=== PATIENT | female | born 1965 | race Caucasian/White ===

== ENCOUNTER 2017-04-19 06:09 | Day surgery (SDC) | payer MEDICARE ==
[~2017-04-19 06:09] MED LIST: Lactated Ringers 1,000 ML IV SCH
[2017-04-19] MEDS ORDERED: DIPRIVAN 200 MG/20 ML IV ONE (06:10)
[2017-04-19] MEDS ORDERED: Versed 2 MG/2 ML Injection IV ONE (06:10)
[2017-04-19] MEDS ORDERED: Sodium Chloride 3 ML UD NEBULES IH ONE (06:45)
[2017-04-19] MEDS ORDERED: Xopenex 1.25 MG/0.5 ML UD NEBULE IH ONE ×2 (06:45→07:01)
[2017-04-19 08:49] VITALS: PULSE 97
[2017-04-19 09:08] VITALS: BP 150/79; O2SAT 95
--- NOTE | 2017-04-19 09:08 | OP ---
SURGERY DATE/TIME: 04/19/2017 0729 PREOPERATIVE DIAGNOSIS: Screening colonoscopy. POSTOPERATIVE DIAGNOSIS: Distal sigmoid colon polyp. PROCEDURE: Colonoscopy. SURGEON: Dm Vargas M.D. ANESTHESIA: MAC by Dane West CRNA. ESTIMATED BLOOD LOSS: Minimal. SPECIMENS: There is one cold forceps biopsy, one cold forceps polypectomy of sigmoid colon polyp. DESCRIPTION OF PROCEDURE: After informed written consent was obtained, the patient was taken to the endoscopy suite. She underwent monitored anesthesia and digital rectal exam showed normal sphincter tone and no internal lesions. The scope was inserted into the rectum and sequentially the entire colonic mucosa was traversed. The level of cecum was reached and verified with direct visualization of ileocecal valve. Upon withdrawal there was a small sessile polyp present in the sigmoid colon which was removed in piecemeal fashion with cold forceps and had minimal bleeding following removal and did resolve. Prior to withdrawal retroflexion was within normal limits. The scope was removed and the patient was transferred to the recovery room in excellent condition.
== END 2017-04-19 09:15 | disposition home or self-care (01) ==
LOC: SDC 06:09
PROVIDERS: ATTEND Family Medicine
PROC: 0DBN8ZX Excision of Sigmoid Colon, Via Natural or Artificial Opening Endoscopic, Diagnostic (ICD-10-PCS; principal; 2017-04-19)
DX: Z12.11 Encounter for screening for malignant neoplasm of colon (principal); D12.5 Benign neoplasm of sigmoid colon; J44.9 Chronic obstructive pulmonary disease, unspecified; J45.909 Unspecified asthma, uncomplicated
CPT/HCPCS: 00810; 36415; 88305; 94640; J2250; J2704; A9270-GY

== ENCOUNTER 2017-11-17 00:05 | Inpatient (IN) | payer MEDICARE ==
[2017-11-17] MEDS ORDERED: Zithromax 500 MG/ 250 ML NaCl Premix 500 MG/250 ML IVPB IV STA (00:14)
[2017-11-17] MEDS ORDERED: PROVENTIL 2.5 MG/3 ML NEB IH ONE ×2 (00:14→02:19)
[2017-11-17] MEDS ORDERED: ROCEPHIN 1 Gm-D5w 50 ml Bag** 1 G/50 ML IVPB IV STA (00:14)
[2017-11-17] MEDS ORDERED: Sodium Chloride 0.9% 1000 ML 1,000 ML IV SCH (00:15)
--- NOTE | 2017-11-17 00:24 | ERPHSYRPT ---
- History of Present Illness Time Seen by Provider: 11/17/17 00:07 Source: patient Exam Limitations: no limitations Physician History: FOR THE PAST 3 DAYS PT HAS HAD NAUSEA AND CHILLS; FOR THE PAST 2 DAYS A SORE THROAT, DIZZINESS AND VERTEX HEADACHE; FOR THE PAST 9 HOURS SHORTNESS OF AIR; FOR THE PAST 3 HOURS TACHYCARDIA. PT ALSO C/O CHRONIC UPPER ABDOMINAL PAIN FOR THE PAST 3 MONTHS ONLY AFTER DRINKING COFFEE OR SMOKING. Allergies/Adverse Reactions: sulfamethoxazole [From Bactrim] Allergy (Verified 11/17/17 00:23) trimethoprim [From Bactrim] Allergy (Verified 11/17/17 00:23) Home Medications: Divalproex Sodium [Depakote] 500 mg PO TID 09/03/14 [History] Trazodone HCl 50 mg [Desyrel 50 mg] 150 mg PO HS 09/03/14 [History] Paliperidone [Invega] 9 mg PO DAILY 10/17/15 [History] Ramelteon [Rozerem] 8 mg PO QHS 12/14/15 [History] Albuterol/Ipratropium 3ml Neb* [DUONEB 0.5-3 MG/3 ml Neb] 3 ml IH TIDPRN 04/19 [History] Hx Tetanus, Diphtheria Vaccination/Date Given: Yes (unknown) Hx Influenza Vaccination/Date Given: Yes Hx Pneumococcal Vaccination/Date Given: No - Review of Systems Constitutional: Chills Ears, Nose, & Throat: Throat Pain Respiratory: Dyspnea Cardiac: Other (TACHYCARDIA) Abdominal/Gastrointestinal: Abdominal Pain, Nausea Neurological: Dizziness, Headache All Other Systems: Reviewed and Negative - Past Medical History Pertinent Past Medical History: Yes Neurological History: Peripheral Neuropathy ENT History: No Pertinent History Cardiac History: Other Respiratory History: Asthma, COPD, Emphysema, Sleep Apnea Endocrine Medical History: No Pertinent History Musculoskeletal History: No Pertinent History GI Medical History: Gallbladder Disease History: No Pertinent History Psycho-Social History: Anxiety, Bipolar, Depression, Other Female Reproductive Disorders: Menstrual Problems Other Medical History: hx of cellulitis, hx seizures 3years ago - Past Surgical History Past Surgical History: Yes Neuro Surgical History: No Pertinent History Cardiac: No Pertinent History Respiratory: No Pertinent History Gastrointestinal: Cholecystectomy Genitourinary: No Pertinent History Musculoskeletal: No Pertinent History Female Surgical History: Section, Tubal Ligation Other Surgical History: GANGLION CYST - Social History Smoking Status: Current every day smoker How long have you smoked: 30years Exposure to second hand smoke: Yes Drug Use: none Patient Lives Alone: No Significant Family History: no pertinent family hx - Nursing Vital Signs Nursing Vital Signs: Initial Vital Signs Temperature 97.8 F 11/17/17 00:07 Pulse Rate 122 H 11/17/17 00:07 Respiratory Rate 20 11/17/17 00:07 Blood Pressure 132/82 11/17/17 00:07 O2 Sat by Pulse Oximetry 97 11/17/17 00:07 Pain Scale Pain Intensity 6 - Physical Exam General Appearance: alert Eye Exam: PERRL/EOMI Ears, Nose, Throat Exam: TMs normal, moist mucous membranes, pharyngeal erythema Neck Exam: normal inspection Respiratory Exam: diminished breath sounds, wheezing Cardiovascular Exam: tachycardia Gastrointestinal/Abdomen Exam: soft, normal bowel sounds Back Exam: normal range of motion Extremity Exam: swelling (+1 ANKLE EDEMA BILATERALLY) Neurologic Exam: alert, cooperative Skin Exam: rash (ERYTHEMATOUS MACULOPAPULAR RASH ON LOWER LEGS) SpO2 Interpretation: hypoxic SpO2: 89 Oxygen Delivery: Room Air - Course Nursing assessment & vital signs reviewed: Yes EKG Interpreted by Me: RATE (120), Sinus Tach, NORMAL AXIS, Non-specific ST Changes - Radiology Exams Chest X-ray Interpretation: Interpreted by me, No Pneumonia Ordered Tests: Active Orders 24 hr Category Date Time Status Eligibility Technician STAT Care 11/17/17 00:15 Active Clean Catch Urine Specimen STAT Care 11/17/17 00:14 Active EKG-ER Only STAT Care 11/17/17 00:14 Active IV Insertion STAT Care 11/17/17 00:14 Active Oxygen-ED Only NASAL CANNULA 2 lpm Care 11/17/17 00:14 Active Pulse Oximetry (ED) STAT Care 11/17/17 00:14 Active CHEST 1 VIEW (PORTABLE) Stat Exams 11/17/17 00:15 Taken AMYLASE Stat Lab 11/17/17 03:37 Completed ARTERIAL BLOOD GASES Stat Lab 11/17/17 03:13 Completed BLOOD CULTURE Stat Lab 11/17/17 00:45 Received CBC W DIFF Stat Lab 11/17/17 00:30 Completed CMP Stat Lab 11/17/17 00:30 Completed CULTURE, THROAT Stat Lab 11/17/17 00:45 Received CULTURE,SPUTUM Stat Lab 11/17/17 00:15 Uncollected D-DIMER QUANTITATION Stat Lab 11/17/17 00:30 Completed LIPASE Stat Lab 11/17/17 03:37 Completed MAGNESIUM Stat Lab 11/17/17 00:30 Completed Manual Differential NC Stat Lab 11/17/17 00:30 Completed NT PRO BNP Stat Lab 11/17/17 00:30 Completed PROTIME WITH INR Stat Lab 11/17/17 00:30 Completed PTT Stat Lab 11/17/17 00:30 Completed STREP SCREEN-BETA A Stat Lab 11/17/17 00:45 Completed TROPONIN Q3H Lab 11/17/17 00:30 Completed TROPONIN Q3H Lab 11/17/17 03:37 Completed TROPONIN Q3H Lab 11/17/17 06:15 Ordered TROPONIN Q3H Lab 11/17/17 09:15 Ordered TROPONIN Q3H Lab 11/17/17 12:15 Ordered UA W/RFX UR CULTURE Stat Lab 11/17/17 01:05 Completed BiPap/CPAP Assessment STAT RT 11/17/17 03:32 Active Respiratory Nebulizer STAT RT 11/17/17 00:16 Completed Medication Summary Generic Name Dose Route Start Last Admin Trade Name Freq PRN Reason Stop Dose Admin Sodium Chloride 1,000 mls @ 100 mls/hr 11/17/17 00:15 11/17/17 00:34 Sodium Chloride 0.9% 1000 Ml IV 12/17/17 00:14 100 mls/hr .Q10H ANTHONY Administration Discontinued Medications Generic Name Dose Route Start Last Admin Trade Name Freq PRN Reason Stop Dose Admin Albuterol Sulfate 2.5 mg 11/17/17 00:14 11/17/17 02:23 Proventil 2.5 Mg/3 Ml Neb IH 11/17/17 00:15 2.5 mg STAT ONE Administration Albuterol Sulfate Confirm 11/17/17 02:19 Proventil 2.5 Mg/3 Ml Neb Administered 11/17/17 02:20 Dose 2.5 mg IH .STK-MED ONE Ceftriaxone Sodium/Dextrose 1 g in 50 mls @ 100 mls/hr 11/17/17 00:14 00:35 Rocephin 1 Gm-D5w 50 Ml Bag IV 11/17/17 00:43 100 mls/hr STAT STA Administration Azithromycin 500 mg in 250 mls @ 250 mls/hr 11/17/17 00:14 11/17/17 01:51 Zithromax 500 Mg/ 250 Ml Nacl Premix IV 11/17/17 01:13 250 mls/hr STAT STA Administration Ceftriaxone Sodium/Dextrose Confirm 11/17/17 00:33 Rocephin 1 Gm-D5w 50 Ml Bag Administered 11/17/17 00:34 Dose 1 g in 50 mls @ ud IV .STK-MED ONE Azithromycin Confirm 11/17/17 01:48 Zithromax 500 Mg/ 250 Ml Nacl Premix Administered 11/17/17 01:49 Dose 500 mg in 250 mls @ ud IV .STK-MED ONE Lab/Rad Data: Laboratory Result Diagrams 11/17/17 00:30 11/17/17 00:30 Laboratory Results 11/17/17 11/17/17 11/17/17 Range/Units 03:37 03:37 03:13 WBC (4.0-10.5) K/mm3 RBC (4.1-5.4) M/mm3 Hgb (12.0-16.0) gm/dl Hct (35-47) % MCV (78-100) fl MCH (26-32) pg MCHC (32-36) g/dl RDW (11.5-14.0) % Plt Count (150-450) K/mm3 MPV (6-9.5) fl Absolute Granulocytes (1.4-6.9) Segmented Neutrophils (36.0-66.0) % Band Neutrophils (0.0-2.0) % Lymphocytes (Manual) (24-44) % Monocytes (Manual) (0.0-12.0) % Basophils (Manual) (0.0-1.0) % Differential Comment Platelet Estimate (NORMAL) PT (9.95-12.35) SECONDS INR (0.8-3.0) APTT (25.3-37.0) SECONDS D-Dimer (215-500) ng/mL Puncture Site RIGHT RADIAL pCO2 58 H (35-45) mmHg pO2 81 (75-100) mmHg Base Excess 4.6 H (-2.0-2.0) O2 Saturation 90.9 L (94-100) g/dF ABG pH 7.35 (7.35-7.45) ABG HCO3 32.0 H* (22-28) ABG O2 Sat (Measured) 97.7 (95-100) % Ketan Test YES A-a Gradient 46 a/A Ratio 0.64 Hemoglobin 14.7 Carboxyhemoglobin 5.9 (0.0-6.9) % THgb Methemoglobin 1.1 L (1.4-1.5) % Temperature 37.0 C POC O2 Flow Rate 28 % Sodium (137-145) mmol/L Potassium 3.9 (3.5-5.1) mmol/L Chloride (98-107) mmol/L Carbon Dioxide (22-30) mmol/L Anion Gap (5-15) MEQ/L BUN (7-17) mg/dL Creatinine (0.52-1.04) mg/dL Estimated GFR ML/MIN Glucose (74-106) mg/dL Calcium (8.4-10.2) mg/dL Magnesium (1.6-2.3) mg/dL Total Bilirubin (0.2-1.3) mg/dL AST (14-36) U/L ALT (0-35) U/L Alkaline Phosphatase (38-126) U/L Troponin I < 0.012 (0.000-0.034) ng/mL NT-Pro-B Natriuret Pep (0-900) pg/mL Serum Total Protein (6.3-8.2) g/dL Albumin (3.5-5.0) g/dL Amylase 61 (30-110) U/L Lipase 80 (23-300) U/L Ur Collection Type Urine Color (YELLOW) Urine Appearance (CLEAR) Urine pH (5-6) Ur Specific Agness (1.005-1.025) Urine Protein (Negative) Urine Ketones (NEGATIVE) Urine Blood (0-5) Kulwinder/ul Urine Nitrite (NEGATIVE) Urine Bilirubin (NEGATIVE) Urine Urobilinogen (0-1) mg/dL Ur Leukocyte Esterase (NEGATIVE) Urine Culture Reflexed (NO) Urine Glucose (NEGATIVE) mg/dL Influenza Type A Ag (NEGATIVE) Influenza Type B Ag (NEGATIVE) RSV (PCR) (Negative) Streptococcus Screen (Negative) Specimen Received 11/17/17 11/17/17 11/17/17 Range/Units 01:05 00:45 00:45 WBC (4.0-10.5) K/mm3 RBC (4.1-5.4) M/mm3 Hgb (12.0-16.0) gm/dl Hct (35-47) % MCV (78-100) fl MCH (26-32) pg MCHC (32-36) g/dl RDW (11.5-14.0) % Plt Count (150-450) K/mm3 MPV (6-9.5) fl Absolute Granulocytes (1.4-6.9) Segmented Neutrophils (36.0-66.0) % Band Neutrophils (0.0-2.0) % Lymphocytes (Manual) (24-44) % Monocytes (Manual) (0.0-12.0) % Basophils (Manual) (0.0-1.0) % Differential Comment Platelet Estimate (NORMAL) PT (9.95-12.35) SECONDS INR (0.8-3.0) APTT (25.3-37.0) SECONDS D-Dimer (215-500) ng/mL Puncture Site pCO2 (35-45) mmHg pO2 (75-100) mmHg Base Excess (-2.0-2.0) O2 Saturation (94-100) g/dF ABG pH (7.35-7.45) ABG HCO3 (22-28) ABG O2 Sat (Measured) (95-100) % Ketan Test A-a Gradient a/A Ratio Hemoglobin Carboxyhemoglobin (0.0-6.9) % THgb Methemoglobin (1.4-1.5) % Temperature C POC O2 Flow Rate % Sodium (137-145) mmol/L Potassium (3.5-5.1) mmol/L Chloride (98-107) mmol/L Carbon Dioxide (22-30) mmol/L Anion Gap (5-15) MEQ/L BUN (7-17) mg/dL Creatinine (0.52-1.04) mg/dL Estimated GFR ML/MIN Glucose (74-106) mg/dL Calcium (8.4-10.2) mg/dL Magnesium (1.6-2.3) mg/dL Total Bilirubin (0.2-1.3) mg/dL AST (14-36) U/L ALT (0-35) U/L Alkaline Phosphatase (38-126) U/L Troponin I (0.000-0.034) ng/mL NT-Pro-B Natriuret Pep (0-900) pg/mL Serum Total Protein (6.3-8.2) g/dL Albumin (3.5-5.0) g/dL Amylase (30-110) U/L Lipase (23-300) U/L Ur Collection Type CCMS Urine Color YELLOW (YELLOW) Urine Appearance CLEAR (CLEAR) Urine pH 6.0 (5-6) Ur Specific Agness 1.010 (1.005-1.025) Urine Protein NEGATIVE (Negative) Urine Ketones NEGATIVE (NEGATIVE) Urine Blood NEGATIVE (0-5) Kulwinder/ul Urine Nitrite NEGATIVE (NEGATIVE) Urine Bilirubin NEGATIVE (NEGATIVE) Urine Urobilinogen NORMAL (0-1) mg/dL Ur Leukocyte Esterase NEGATIVE (NEGATIVE) Urine Culture Reflexed NO (NO) Urine Glucose NEGATIVE (NEGATIVE) mg/dL Influenza Type A Ag NEGATIVE (NEGATIVE) Influenza Type B Ag NEGATIVE (NEGATIVE) RSV (PCR) NEGATIVE (Negative) Streptococcus Screen NEGATIVE (Negative) Specimen Received 11-16-17 0120 11/17/17 11/17/17 11/17/17 Range/Units 00:30 00:30 00:30 WBC (4.0-10.5) K/mm3 RBC (4.1-5.4) M/mm3 Hgb (12.0-16.0) gm/dl Hct (35-47) % MCV (78-100) fl MCH (26-32) pg MCHC (32-36) g/dl RDW (11.5-14.0) % Plt Count (150-450) K/mm3 MPV (6-9.5) fl Absolute Granulocytes (1.4-6.9) Segmented Neutrophils (36.0-66.0) % Band Neutrophils (0.0-2.0) % Lymphocytes (Manual) (24-44) % Monocytes (Manual) (0.0-12.0) % Basophils (Manual) (0.0-1.0) % Differential Comment Platelet Estimate (NORMAL) PT 11.1 (9.95-12.35) SECONDS INR 1.00 (0.8-3.0) APTT 30.5 (25.3-37.0) SECONDS D-Dimer 399.80 (215-500) ng/mL Puncture Site pCO2 (35-45) mmHg pO2 (75-100) mmHg Base Excess (-2.0-2.0) O2 Saturation (94-100) g/dF ABG pH (7.35-7.45) ABG HCO3 (22-28) ABG O2 Sat (Measured) (95-100) % Ketan Test A-a Gradient a/A Ratio Hemoglobin Carboxyhemoglobin (0.0-6.9) % THgb Methemoglobin (1.4-1.5) % Temperature C POC O2 Flow Rate % Sodium 142 (137-145) mmol/L Potassium 3.8 (3.5-5.1) mmol/L Chloride 100 (98-107) mmol/L Carbon Dioxide 31 H (22-30) mmol/L Anion Gap 15.1 H (5-15) MEQ/L BUN 8 (7-17) mg/dL Creatinine 0.54 (0.52-1.04) mg/dL Estimated GFR > 60 ML/MIN Glucose 148 H (74-106) mg/dL Calcium 10.0 (8.4-10.2) mg/dL Magnesium 1.7 (1.6-2.3) mg/dL Total Bilirubin 0.30 (0.2-1.3) mg/dL AST 20 (14-36) U/L ALT 16 (0-35) U/L Alkaline Phosphatase 85 (38-126) U/L Troponin I < 0.012 (0.000-0.034) ng/mL NT-Pro-B Natriuret Pep < 11.1 (0-900) pg/mL Serum Total Protein 6.9 (6.3-8.2) g/dL Albumin 4.1 (3.5-5.0) g/dL Amylase (30-110) U/L Lipase (23-300) U/L Ur Collection Type Urine Color (YELLOW) Urine Appearance (CLEAR) Urine pH (5-6) Ur Specific Agness (1.005-1.025) Urine Protein (Negative) Urine Ketones (NEGATIVE) Urine Blood (0-5) Kulwinder/ul Urine Nitrite (NEGATIVE) Urine Bilirubin (NEGATIVE) Urine Urobilinogen (0-1) mg/dL Ur Leukocyte Esterase (NEGATIVE) Urine Culture Reflexed (NO) Urine Glucose (NEGATIVE) mg/dL Influenza Type A Ag (NEGATIVE) Influenza Type B Ag (NEGATIVE) RSV (PCR) (Negative) Streptococcus Screen (Negative) Specimen Received 11/17/17 Range/Units 00:30 WBC 8.5 (4.0-10.5) K/mm3 RBC 4.70 (4.1-5.4) M/mm3 Hgb 15.0 (12.0-16.0) gm/dl Hct 46.8 (35-47) % MCV 99.6 (78-100) fl MCH 31.9 (26-32) pg MCHC 32.1 (32-36) g/dl RDW 13.9 (11.5-14.0) % Plt Count 223 (150-450) K/mm3 MPV 10.3 H (6-9.5) fl Absolute Granulocytes 5.66 (1.4-6.9) Segmented Neutrophils 65 (36.0-66.0) % Band Neutrophils 6 H (0.0-2.0) % Lymphocytes (Manual) 21 L (24-44) % Monocytes (Manual) 7 (0.0-12.0) % Basophils (Manual) 1 (0.0-1.0) % Differential Comment NORMAL Platelet Estimate NORMAL (NORMAL) PT (9.95-12.35) SECONDS INR (0.8-3.0) APTT (25.3-37.0) SECONDS D-Dimer (215-500) ng/mL Puncture Site pCO2 (35-45) mmHg pO2 (75-100) mmHg Base Excess (-2.0-2.0) O2 Saturation (94-100) g/dF ABG pH (7.35-7.45) ABG HCO3 (22-28) ABG O2 Sat (Measured) (95-100) % Ketan Test A-a Gradient a/A Ratio Hemoglobin Carboxyhemoglobin (0.0-6.9) % THgb Methemoglobin (1.4-1.5) % Temperature C POC O2 Flow Rate % Sodium (137-145) mmol/L Potassium (3.5-5.1) mmol/L Chloride (98-107) mmol/L Carbon Dioxide (22-30) mmol/L Anion Gap (5-15) MEQ/L BUN (7-17) mg/dL Creatinine (0.52-1.04) mg/dL Estimated GFR ML/MIN Glucose (74-106) mg/dL Calcium (8.4-10.2) mg/dL Magnesium (1.6-2.3) mg/dL Total Bilirubin (0.2-1.3) mg/dL AST (14-36) U/L ALT (0-35) U/L Alkaline Phosphatase (38-126) U/L Troponin I (0.000-0.034) ng/mL NT-Pro-B Natriuret Pep (0-900) pg/mL Serum Total Protein (6.3-8.2) g/dL Albumin (3.5-5.0) g/dL Amylase (30-110) U/L Lipase (23-300) U/L Ur Collection Type Urine Color (YELLOW) Urine Appearance (CLEAR) Urine pH (5-6) Ur Specific Agness (1.005-1.025) Urine Protein (Negative) Urine Ketones (NEGATIVE) Urine Blood (0-5) Kulwinder/ul Urine Nitrite (NEGATIVE) Urine Bilirubin (NEGATIVE) Urine Urobilinogen (0-1) mg/dL Ur Leukocyte Esterase (NEGATIVE) Urine Culture Reflexed (NO) Urine Glucose (NEGATIVE) mg/dL Influenza Type A Ag (NEGATIVE) Influenza Type B Ag (NEGATIVE) RSV (PCR) (Negative) Streptococcus Screen (Negative) Specimen Received - Progress Discussed with Dr.: Juan Daniel (OBS - [id number]) - Departure Time of Disposition: 04:53 Departure Disposition: Observation Clinical Impression: ACUTE RESPIRATORY FAILURE, COPD, PN, ASTHMA, BIPOLAR DISORDER, ANXIETY Condition: Stable Critical Care Time: No Referrals: OLIVER LIU MD [Primary Care Provider] -
[2017-11-17] MEDS ORDERED: Sodium Chloride 0.9% 1000 ML 1,000 ML ONE (00:33)
[2017-11-17] MEDS ORDERED: ROCEPHIN 1 Gm-D5w 50 ml Bag** 1 G/50 ML IVPB IV ONE (00:33)
[2017-11-17 00:50] LABS: Granulocyte Absolute (ANC) 5.66 (1.4-6.9); Hematocrit 46.8 % (35-47); Mean Cell Volume 99.6 fl (78-100); Mean Corpuscular Hemoglobin 31.9 pg (26-32); Mean Corpuscular Hgb Concent. 32.1 g/dl (32-36); Mean Platelet Volume 10.3 fl (6-9.5); Platelet Count 223 K/mm3 (150-450); Red Cell Distribution Width 13.9 % (11.5-14.0); White Blood Count 8.5 K/mm3 (4.0-10.5)
[2017-11-17 01:10] LABS: D-DIMER QUANTITATION 399.8 ng/mL (215-500)
[2017-11-17 01:11] LABS: PTT 30.5 SECONDS (25.3-37.0)
[2017-11-17 01:13] LABS: ALBUMIN 4.1 g/dL (3.5-5.0); ALKALINE PHOSPHATASE 85 U/L (38-126); ANION GAP 15.1 MEQ/L (5-15); BLOOD UREA NITROGEN 8 mg/dL (7-17); CHLORIDE 100 mmol/L (98-107); Carbon Dioxide 31 mmol/L (22-30); Creatinine 1 0.54 mg/dL (0.52-1.04); Glucose 148 mg/dL (74-106); Potassium 3.8 mmol/L (3.5-5.1); SGOT/AST 20 U/L (14-36); SGPT/ALT 16 U/L (0-35); SODIUM 142 mmol/L (137-145); Total Protein 6.9 g/dL (6.3-8.2)
[2017-11-17 01:22] LABS: NT PRO BNP < 11.1 pg/mL (0-900)
[2017-11-17 01:22] LABS: Appearance CLEAR (CLEAR); Bilirubin NEGATIVE (NEGATIVE); Blood NEGATIVE Ery/ul (0-5); Glucose NEGATIVE (NEGATIVE); Ketones NEGATIVE (NEGATIVE); Leukocyte Esterase NEGATIVE (NEGATIVE); Nitrite NEGATIVE (NEGATIVE); Protein,Urine Dip NEGATIVE (Negative); Urobilinogen NORMAL mg/dL (0-1)
[2017-11-17] MEDS ORDERED: Zithromax 500 MG/ 250 ML NaCl Premix 500 MG/250 ML IVPB IV ONE (01:48)
[2017-11-17 01:49] LABS: INFLUENZA A NEGATIVE (NEGATIVE); INFLUENZA B NEGATIVE (NEGATIVE); RESPIRATORY SYNCTIAL VIRUS NEGATIVE (Negative)
[2017-11-17 03:23] LABS: A-aADO2 46; ABG HEMOGLOBIN 14.7; ABG POTASSIUM 3.9 (3.5-5.1); ABG SITE RIGHT RADIAL; ALLEN TEST OK? YES; ARTERIAL BLD GAS O2 SATURATION 97.7 % (95-100); ARTERIAL BLOOD GAS BASE EXCESS 4.6 (-2.0-2.0); ARTERIAL BLOOD GAS FIO2 28 %; ARTERIAL BLOOD GAS PCO2 58 mmHg (35-45); ARTERIAL BLOOD GAS PO2 81 mmHg (75-100); ARTERIAL BLOOD GAS pH 7.35 (7.35-7.45); CARBOXYHEMOGLOBIN 5.9 % THgb (0.0-6.9); HGB O2 SAT 90.9 g/dF (94-100); Methhemoglobin 1.1 % (1.4-1.5); paO2 pAO1 0.64
[2017-11-17 03:42] LABS: BAND 6 % (0.0-2.0); Basophil 1 % (0.0-1.0); Lymphocytes 21 % (24-44); Monocyte 7 % (0.0-12.0); Neutrophils 65 % (36.0-66.0); Platelet Estimate NORMAL (NORMAL); Total Cells Counted 100
[2017-11-17 03:55] LABS: AMYLASE 61 U/L (30-110); LIPASE 80 U/L (23-300)
[2017-11-17] MEDS ORDERED: solu-MEDROL 125 MG IV ONE (04:54)
[2017-11-17] MEDS ORDERED: solu-MEDROL 125 MG ONE (04:58)
[2017-11-17] MEDS ORDERED: solu-MEDROL 125 MG IV SCH (06:24)
[2017-11-17] MEDS ORDERED: Phenergan 25 MG INJ IV PRN (06:24)
[2017-11-17] MEDS ORDERED: PROVENTIL 2.5 MG/3 ML NEB IH PRN (06:24)
[2017-11-17] MEDS ORDERED: DUONEB 0.5-3 MG/3 ml Neb IH SCH (07:00)
--- NOTE | 2017-11-17 08:39 | PCM.HP ---
History of Present Illness - Chief Complaint Chief Complaint: Shortness of Breath Date: 11/17/17 History of Present Illness: is a 52 year old female. Who developed some nausea for the last few days and last night was sitting at her kitchen table and smoked 5 cigarettes in a row and then suddenly became very short of breath and called ems. She said she feels like the smoke fried her brain like her brain is just full of smoke now and she feels like she has brain cancer. She is afraid the smoke fried her lungs and she won't get better. SHe usually smokes about 1/2 ppd she states. She denies any hallucinations right now. She has not had any fevers minimal coughing. - Review of Systems Constitutional: Fatigue, No Fever, No Chills Eyes: No Symptoms Ears, Nose, & Throat: No Symptoms Respiratory: Cough, Short Of Breath Cardiac: No Chest Pain, No Edema, No Syncope Abdominal/Gastrointestinal: No Abdominal Pain, No Nausea, No Vomiting, No Diarrhea Genitourinary Symptoms: No Dysuria Musculoskeletal: No Back Pain, No Neck Pain Skin: No Rash Neurological: No Dizziness, No Focal Weakness, No Sensory Changes Psychological: No Symptoms Endocrine: No Symptoms Hematologic/Lymphatic: No Symptoms Immunological/Allergic: No Symptoms Medications & Allergies Home Medications: Home Medication List Divalproex Sodium [Depakote] 500 mg PO TID 09/03/14 [History Confirmed 11/17/17] Trazodone HCl 50 mg [Desyrel 50 mg] 150 mg PO HS 09/03/14 [History Confirmed 11/17/17] Paliperidone [Invega] 9 mg PO DAILY 10/17/15 [History Confirmed 11/17/17] Ramelteon [Rozerem] 8 mg PO QHS 12/14/15 [History Confirmed 11/17/17] Albuterol/Ipratropium 3ml Neb* [DUONEB 0.5-3 MG/3 ml Neb] 3 ml IH TIDPRN 04/19 [History Confirmed 11/17/17] Allergies/Adverse Reactions: Allergies Allergy/AdvReac Type Severity Reaction Status Date / Time sulfamethoxazole Allergy Verified 11/17/17 00:23 [From Bactrim] trimethoprim [From Bactrim] Allergy Verified 11/17/17 00:23 - Past Medical History Past Medical History: Yes Neurological History: Peripheral Neuropathy ENT History: No Pertinent History Cardiac History: Other Respiratory History: Asthma, COPD, Emphysema, Sleep Apnea Endocrine Medical History: No Pertinent History Musculoskelatal History: No Pertinent History GI Medical History: Gallbladder Disease History: No Pertinent History Pyscho-Social History: Anxiety, Bipolar, Depression, Other Reproductive Disorders: Menstrual Problems Comment: hx of cellulitis, hx seizures 3years ago - Female History Hx Last Menstrual Period: postmenopausal - Past Surgical History Past Surgical History: Yes Neuro Surgical History: No Pertinent History Cardiac History: No Pertinent History Respiratory Surgery: No Pertinent History GI Surgical History: Cholecystectomy Genitourinary Surgical Hx: No Pertinent History Musculskeletal Surgical Hx: No Pertinent History Female Surgical History: Section, Tubal Ligation Other Surgical History: GANGLION CYST - Social History Smoking Status: Current every day smoker How long have you smoked: 30years Exposure to second hand smoke: Yes Alcohol: None Drug Use: none Significant Family History: no pertinent family hx - Physical Exam Vital Signs: Vital Signs - 24 hr Temp Pulse Resp BP BP Pulse Ox 11/17/17 07:35 98.6 F 106 H 20 124/73 94 L 11/17/17 05:06 101 H 18 98/68 95 11/17/17 04:53 89 L 11/17/17 03:28 118 H 22 126/81 95 11/17/17 02:23 105 H 22 89 L 11/17/17 01:49 102 H 22 120/78 94 L 11/17/17 01:17 96 11/17/17 00:07 97.8 F 122 H 20 132/82 94 L Oxygen-Last 24 hours O2 Percentage 2 Liters = 28% O2 Percentage 2 Liters = 28% O2 Percentage 2 Liters = 28% O2 Percentage 2 Liters = 28% O2 Percentage 2 Liters = 28% General Appearance: no apparent distress, alert, obese Neurologic Exam: alert, oriented x 3, cooperative, normal mood/affect, nml cerebellar function, nml station & gait, sensation nml, No motor deficits Eye Exam: PERRL/EOMI, eyes nml inspection Ears, Nose, Throat Exam: normal ENT inspection, pharynx normal, moist mucous membranes Neck Exam: normal inspection, non-tender, supple, full range of motion Respiratory Exam: normal breath sounds, lungs clear, No respiratory distress Cardiovascular Exam: regular rate/rhythm, normal heart sounds, normal peripheral pulses Gastrointestinal/Abdomen Exam: soft, normal bowel sounds, No tenderness, No mass Back Exam: normal inspection, normal range of motion, No CVA tenderness, No vertebral tenderness Extremity Exam: normal inspection, normal range of motion, pelvis stable Skin Exam: normal color, warm, dry, No rash Lymphatic Exam: No adenopathy Assessment/Plan (1) COPD exacerbation Current Visit: Yes Status: Acute Assessment & Plan: on solumedrol 40 q6h improved on bipap has been off bipap on nc o2 doing well now continue steroids on ceftriaxone and azithromycin continue home meds for psychological chronic history of some psychosis and is having some delusional discussion now but denies hallucinations she is not on O2 at home nicotine patch and smoking cessation discussed. Code(s): J44.1 - CHRONIC OBSTRUCTIVE PULMONARY DISEASE W (ACUTE) EXACERBATION (2) Acute hypoxemic respiratory failure Current Visit: Yes Status: Acute Code(s): J96.01 - ACUTE RESPIRATORY FAILURE WITH HYPOXIA (3) Delusional disorder Current Visit: No Status: Acute Code(s): F22 - DELUSIONAL DISORDERS (4) Essential hypertension Current Visit: Yes Status: Chronic Code(s): I10 - ESSENTIAL (PRIMARY) HYPERTENSION (5) Schizophreniform psychosis, confusional type Current Visit: Yes Status: Chronic Code(s): F20.81 - SCHIZOPHRENIFORM DISORDER (6) Morbid obesity Current Visit: Yes Status: Chronic Code(s): E66.01 - MORBID (SEVERE) OBESITY DUE TO EXCESS CALORIES
--- NOTE | 2017-11-17 08:50 | XRAY ---
Indication: Short of breath. Comparison: December 14, 2015. Portable chest remains clear. Heart and mediastinal structures within normal limits. Bony thorax intact. Impression: Stable nonacute chest.
[2017-11-17] MEDS ORDERED: MEDICATION INTERVENTION MC SCH (09:30)
[2017-11-17 09:48] LABS: Hematocrit 46.8 % (35-47); Mean Cell Volume 101.1 fl (78-100); Mean Corpuscular Hemoglobin 32.4 pg (26-32); Mean Corpuscular Hgb Concent. 32.1 g/dl (32-36); Mean Platelet Volume 10.8 fl (6-9.5); Platelet Count 217 K/mm3 (150-450); Red Blood Count 4.63 M/mm3 (4.1-5.4); White Blood Count 8.4 K/mm3 (4.0-10.5)
[2017-11-17 09:57] LABS: ALBUMIN 3.9 g/dL (3.5-5.0); ALKALINE PHOSPHATASE 80 U/L (38-126); ANION GAP 18.2 MEQ/L (5-15); BLOOD UREA NITROGEN 8 mg/dL (7-17); CHLORIDE 100 mmol/L (98-107); Calcium 9.4 mg/dL (8.4-10.2); Carbon Dioxide 27 mmol/L (22-30); Creatinine 1 0.48 mg/dL (0.52-1.04); Glucose 265 mg/dL (74-106); Potassium 4.2 mmol/L (3.5-5.1); SGOT/AST 22 U/L (14-36); SODIUM 142 mmol/L (137-145); Total Protein 6.7 g/dL (6.3-8.2)
[2017-11-17] MEDS ORDERED: PALIPERIDONE 9 MG PO SCH (10:00)
[2017-11-17] MEDS ORDERED: NON-FORMULARY ITEM (Divalproex Sodium [Depakote] 500 MG) PO SCH (10:00)
[2017-11-17 10:04] LABS: SGPT/ALT 20 U/L (0-35)
[2017-11-17] MEDS: ENOXAPARIN SODIUM SQ SCH (10:22)
[2017-11-17] MEDS: Nicoderm CQ 21 MG TOP SCH (10:22)
[2017-11-17 10:24] LABS: BAND 25 % (0.0-2.0); Lymphocytes 6 % (24-44); Neutrophils 69 % (36.0-66.0); Total Cells Counted 100
[2017-11-17 10:25] LABS: Platelet Estimate NORMAL (NORMAL)
[2017-11-17 10:42] LABS: Granulocyte Absolute (ANC) 7.9 (1.4-6.9)
[2017-11-17] MEDS: solu-MEDROL 40 MG IV SCH ×2 (11:37→18:08)
[2017-11-17] MEDS: PATIENT OWN MEDICATION PO SCH (11:37)
[2017-11-17] MEDS: TYLENOL 325 MG PO PRN (12:17)
[2017-11-17] MEDS: Sodium Chloride 0.9% 1000 ML 1,000 ML IV SCH ×2 (12:24→21:52)
[2017-11-17] MEDS: Ambien 10 MG PO SCH (21:54)
[2017-11-17] MEDS: Desyrel 150 MG PO SCH (21:54)
[2017-11-17] MEDS ORDERED: Zithromax 500 MG/ 250 ML NaCl Premix 500 MG/250 ML IVPB IV SCH (22:00)
[2017-11-17] MEDS ORDERED: ROCEPHIN 1 Gm-D5w 50 ml Bag** 1 G/50 ML IVPB IV SCH (22:00)
[2017-11-17] MEDS ORDERED: DESYREL 50 MG PO SCH (22:00)
[2017-11-17] MEDS ORDERED: RAMELTEON 8 MG PO SCH (22:00)
[2017-11-18] MEDS: solu-MEDROL 40 MG IV SCH ×3 (00:38→11:29)
[2017-11-18] MEDS: Nicoderm CQ 21 MG TOP SCH (10:28)
[2017-11-18] MEDS: PATIENT OWN MEDICATION PO SCH (10:28)
[2017-11-18] MEDS: ENOXAPARIN SODIUM SQ SCH (10:28)
[2017-11-18] MEDS: Sodium Chloride 0.9% 1000 ML 1,000 ML IV SCH ×2 (10:33→22:08)
[2017-11-18] MEDS ORDERED: solu-MEDROL 40 MG IV SCH (13:36)
--- NOTE | 2017-11-18 13:43 | PCM.NOTE ---
Date and Time: 11/18/17 1339 Subjective Assessment: Was on bipap overnight. She describes her breathing as "labored." - Review of Systems Constitutional: No Fever Respiratory: Short Of Breath Objective Exam General Appearance: mild distress (tachypneic), obese Neurologic Exam: alert, cooperative, other (oriented to place; time is 2017) Skin Exam: normal color, warm, dry, No rash Ears, Nose, Throat Exam: moist mucous membranes Neck Exam: normal inspection Respiratory Exam: diminished breath sounds (poor air exchange), other ( tachypneic at rest.), No crackles/rales, No rhonchi, No wheezing Cardiovascular Exam: regular rate/rhythm, normal heart sounds, No murmur Gastrointestinal/Abdomen Exam: soft, normal bowel sounds, No tenderness, No mass , No guarding, No rebound Extremity Exam: No pedal edema, No swelling Back Exam: normal inspection, No rash OBJECTIVE DATA Vital Signs: Vital Signs - 24 hr Temp Pulse Resp BP BP Pulse Ox 11/18/17 12:00 22 11/18/17 11:52 98.1 F 104 H 22 120/59 94 L 11/18/17 08:00 93 L 11/18/17 07:38 98.2 F 108 H 24 113/55 93 L 11/18/17 04:00 98.6 F 116 H 26 H 113/66 93 L 11/18/17 00:00 97.9 F 108 H 24 115/59 94 L 11/17/17 22:30 102 H 22 93 L 11/17/17 20:00 98.2 F 73 22 127/64 96 11/17/17 16:00 98.1 F 103 H 22 122/72 94 L Oxygen-Last 24 hours O2 Percentage 5 Liters = 40% O2 Percentage 5 Liters = 40% O2 Percentage 4 Liters = 36% O2 Percentage 3 Liters = 32% O2 Percentage 3 Liters = 32% Pain Assessment - Last Documented Pain Intensity 0 Pain Scale Used 0-10 Pain Scale Intake and Output: Intake & Output 11/16/17 11/17/17 11/18/17 11/19/17 11:59 11:59 11:59 11:59 Intake Total 2722 Balance 2722 Weight 116.5 kg Radiology Exams: Radiology Procedures Category Date Time Status CHEST 2 VIEWS (PA AND LAT) Urgent Exams 11/18/17 Ordered Multi-Disciplinary Progress Notes: Multi-Disciplinary Progress Notes 11/17/17 19:50 Respiratory Note by Donis Alarcon PT WAS ASLEEP IN CHAIR AND SATS ON 3LPM WERE 88%. I TITRATED PT UP TO 5LPM TO MAINTAIN A SAT ABOVE 92%. Initialized on 11/17/17 19:50 - END OF NOTE Assessment/Plan (1) Acute hypoxemic respiratory failure Current Visit: Yes Status: Acute Onset Date: ~11/17/17 Assessment & Plan: Her air exchange is poor and she is quite dyspneic. Repeat CXR. On rocephin and zithromax; changed to IV levaquin. On IV solumedrol, but I increased the dose from 40mg IV q6h to 80mg IV q6h. Code(s): J96.01 - ACUTE RESPIRATORY FAILURE WITH HYPOXIA (2) COPD exacerbation Current Visit: Yes Status: Acute Onset Date: ~11/17/17 Code(s): J44.1 - CHRONIC OBSTRUCTIVE PULMONARY DISEASE W (ACUTE) EXACERBATION (3) Essential hypertension Current Visit: Yes Status: Chronic Code(s): I10 - ESSENTIAL (PRIMARY) HYPERTENSION (4) Morbid obesity Current Visit: Yes Status: Chronic Code(s): E66.01 - MORBID (SEVERE) OBESITY DUE TO EXCESS CALORIES (5) Schizophreniform psychosis, confusional type Current Visit: Yes Status: Chronic Code(s): F20.81 - SCHIZOPHRENIFORM DISORDER (6) DVT prophylaxis Current Visit: Yes Status: Acute Assessment & Plan: On lovenox 40mg SQ daily. Code(s): WTD4341 -
[2017-11-18] MEDS: Levofloxacin 500MG/100ML D5W 500 MG/100 ML BAG IV SCH (15:19)
[2017-11-18] MEDS: TYLENOL 325 MG PO PRN (17:36)
[2017-11-18] MEDS: solu-MEDROL 125 MG IV SCH ×2 (17:37→23:34)
[2017-11-18] MEDS: Ambien 10 MG PO SCH (21:58)
[2017-11-18] MEDS: Desyrel 150 MG PO SCH (21:59)
--- NOTE | 2017-11-18 22:58 | XRAY ---
Indication: Dyspnea. Comparison: One day earlier. PA/lateral chest demonstrates new left base infiltrate versus atelectasis. Remaining heart, lungs, and bony thorax unremarkable. Comment: Preliminary interpretation was made by [facility]. No discrepancy.
[2017-11-19] MEDS: solu-MEDROL 125 MG IV SCH ×3 (05:38→17:26)
[2017-11-19 05:52] LABS: Granulocyte Absolute (ANC) 11.21 (1.4-6.9); Hemoglobin 13.9 gm/dl (12.0-16.0); Mean Cell Volume 100.7 fl (78-100); Mean Corpuscular Hemoglobin 32.6 pg (26-32); Mean Corpuscular Hgb Concent. 32.3 g/dl (32-36); Mean Platelet Volume 10.9 fl (6-9.5); Platelet Count 190 K/mm3 (150-450); Red Blood Count 4.27 M/mm3 (4.1-5.4); Red Cell Distribution Width 13.7 % (11.5-14.0); White Blood Count 12.6 K/mm3 (4.0-10.5)
[2017-11-19 06:06] LABS: ANION GAP 13.5 MEQ/L (5-15); BLOOD UREA NITROGEN 12 mg/dL (7-17); CHLORIDE 101 mmol/L (98-107); Calcium 9.6 mg/dL (8.4-10.2); Carbon Dioxide 32 mmol/L (22-30); Creatinine 1 0.41 mg/dL (0.52-1.04); Glucose 245 mg/dL (74-106); Potassium 4.8 mmol/L (3.5-5.1); SODIUM 141 mmol/L (137-145)
[2017-11-19] MEDS: Sodium Chloride 0.9% 1000 ML 1,000 ML IV SCH ×2 (07:40→17:58)
--- NOTE | 2017-11-19 09:42 | PCM.NOTE ---
Date and Time: 11/19/17938 Subjective Assessment: Breathing is better today. She just c/o feeling tired and cold. She just spilled her breakfast and glasses on the floor. sitting on the edge of the bed. - Review of Systems Constitutional: No Fever Respiratory: Cough, Short Of Breath Objective Exam General Appearance: no apparent distress, obese Neurologic Exam: alert, cooperative Skin Exam: normal color, warm, dry, No rash Respiratory Exam: normal breath sounds (fair to good air exchange), lungs clear , No crackles/rales, No rhonchi, No wheezing Cardiovascular Exam: regular rate/rhythm, normal heart sounds, No murmur OBJECTIVE DATA Vital Signs: Vital Signs - 24 hr Temp Pulse Resp BP Pulse Ox 11/19/17 07:43 22 11/19/17 06:58 97.7 F 92 H 22 137/84 95 11/19/17 04:00 98.4 F 86 22 146/84 95 11/18/17 23:37 98.2 F 90 20 124/73 96 11/18/17 20:33 98 H 22 93 L 11/18/17 19:35 97.9 F 107 H 22 124/62 97 11/18/17 17:53 102 H 26 H 96 11/18/17 16:00 22 11/18/17 15:24 97.8 F 86 22 132/74 96 11/18/17 12:00 22 11/18/17 11:52 98.1 F 104 H 22 120/59 94 L Oxygen-Last 24 hours O2 Percentage 5 Liters = 40% O2 Percentage 5 Liters = 40% O2 Percentage 5 Liters = 40% O2 Percentage 5 Liters = 40% O2 Percentage 3 Liters = 32% Pain Assessment - Last Documented Pain Intensity 0 Pain Scale Used 0-10 Pain Scale Intake and Output: Intake & Output 11/16/17 11/17/17 11/18/17 11/19/17 11:59 11:59 11:59 11:59 Intake Total 2722 4023 Output Total 950 Balance 2722 3073 Weight 116.5 kg 116 kg Lab Results: Lab Results-Last 24 Hours 11/19/17 11/19/17 Range/Units 05:28 05:28 WBC 12.6 H (4.0-10.5) K/mm3 RBC 4.27 (4.1-5.4) M/mm3 Hgb 13.9 (12.0-16.0) gm/dl Hct 43.0 (35-47) % MCV 100.7 H (78-100) fl MCH 32.6 H (26-32) pg MCHC 32.3 (32-36) g/dl RDW 13.7 (11.5-14.0) % Plt Count 190 (150-450) K/mm3 MPV 10.9 H (6-9.5) fl Absolute Granulocytes 11.21 H (1.4-6.9) Sodium 141 (137-145) mmol/L Potassium 4.8 (3.5-5.1) mmol/L Chloride 101 (98-107) mmol/L Carbon Dioxide 32 H (22-30) mmol/L Anion Gap 13.5 (5-15) MEQ/L BUN 12 (7-17) mg/dL Creatinine 0.41 L (0.52-1.04) mg/dL Estimated GFR > 60 ML/MIN Glucose 245 H (74-106) mg/dL Calcium 9.6 (8.4-10.2) mg/dL Radiology Exams: Radiology Procedures Category Date Time Status CHEST 2 VIEWS (PA AND LAT) Urgent Exams 11/18/17 14:28 Completed Multi-Disciplinary Progress Notes: Multi-Disciplinary Progress Notes 11/18/17 20:42 Respiratory Note by Donis Alarcon SPOKE TO PT ABOUT HAVING ANOTHER SLEEP STUDY DONE SHE REQUIRES MORE O2 AT NIGHT WHILE SHE IS SLEEPING. PT ALSO APPEARS TO HAVE APNEAS WHILE SLEEPING. PT ALSO STATED THAT SHE SLEEPS BEST SITTING UP IN A CHAIR. PT HAD A STUDY DONE ABOUT 6-7 YEARS AGO AND STATED THAT SHE THOUGHT THE PRESSURE WAS SET FOR 17CM H2O AND THAT SHE HAD A FULL FACE MASK. SHE STATED SHE WAS NON COMPLIANT DUE TO THE MASK BEING UNCOMFORTABLE WITH THAT AMT OF PRESSURE. I EDUCATED HER ON THE VARIOUS TYPES OF MASKS THAT WE CLD TRY WHILE SHE WAS IN THE SLEEP LAB THAT CLD POTENTIALLY BE MORE COMFORTABLE FOR HER. I ENCOURAGED HER TO SPEAK TO HER FAMILY PHYSICIAN ABOUT ANOTHER SLEEP STUDY. Initialized on 11/18/17 20:42 - END OF NOTE Assessment/Plan (1) Acute hypoxemic respiratory failure Current Visit: Yes Status: Acute Onset Date: ~11/17/17 Assessment & Plan: Her tachypnea is markedly decreased this morning - she appears much more comfortable. on 5L NC. Code(s): J96.01 - ACUTE RESPIRATORY FAILURE WITH HYPOXIA (2) COPD exacerbation Current Visit: Yes Status: Acute Onset Date: ~11/17/17 Assessment & Plan: on levaquin day #2. IV solumedrol 80mg q6h. She is improved today over yesterday. Code(s): J44.1 - CHRONIC OBSTRUCTIVE PULMONARY DISEASE W (ACUTE) EXACERBATION (3) Essential hypertension Current Visit: Yes Status: Chronic Code(s): I10 - ESSENTIAL (PRIMARY) HYPERTENSION (4) Morbid obesity Current Visit: Yes Status: Chronic Code(s): E66.01 - MORBID (SEVERE) OBESITY DUE TO EXCESS CALORIES (5) Schizophreniform psychosis, confusional type Current Visit: Yes Status: Chronic Code(s): F20.81 - SCHIZOPHRENIFORM DISORDER (6) DVT prophylaxis Current Visit: Yes Status: Acute Assessment & Plan: on lovenox 40mg SQ daily. Code(s): MVH3098 - (7) Hyperglycemia Current Visit: Yes Status: Acute Assessment & Plan: on steroids; BS this morning 245. Will start accuchecks and covering with SS insulin. Check a1c. Code(s): R73.9 - HYPERGLYCEMIA, UNSPECIFIED
[2017-11-19] MEDS: Nicoderm CQ 21 MG TOP SCH (09:46)
[2017-11-19] MEDS: Levofloxacin 500MG/100ML D5W 500 MG/100 ML BAG IV SCH (09:49)
[2017-11-19] MEDS: ENOXAPARIN SODIUM SQ SCH (09:49)
[2017-11-19] MEDS: PATIENT OWN MEDICATION PO SCH (09:49)
[2017-11-19 09:58] LABS: Lymphocytes 9 % (24-44); Monocyte 1 % (0.0-12.0); Neutrophils 90 % (36.0-66.0); Total Cells Counted 100
[2017-11-19 09:59] LABS: ANISOCYTOSIS 1+; Platelet Estimate NORMAL (NORMAL); Poikilocytosis 1+; Toxic Granulation 1+
[2017-11-19] MEDS: NovoLOG Insulin SQ PRN ×3 (12:15→21:21)
[2017-11-19] MEDS: TYLENOL 325 MG PO PRN (18:00)
[2017-11-19] MEDS: Desyrel 150 MG PO SCH (18:24)
[2017-11-19] MEDS: Ambien 10 MG PO SCH (21:11)
[2017-11-20] MEDS: solu-MEDROL 125 MG IV SCH ×3 (00:42→11:29)
[2017-11-20] MEDS: Sodium Chloride 0.9% 1000 ML 1,000 ML IV SCH (03:08)
[2017-11-20 05:59] LABS: Hematocrit 40.4 % (35-47); Hemoglobin 13.1 gm/dl (12.0-16.0); Mean Corpuscular Hgb Concent. 32.4 g/dl (32-36); Platelet Count 181 K/mm3 (150-450); Red Cell Distribution Width 13.5 % (11.5-14.0); White Blood Count 9.5 K/mm3 (4.0-10.5)
[2017-11-20 06:12] LABS: Mean Corpuscular Hemoglobin 32.7 pg (26-32)
[2017-11-20 06:22] LABS: ANION GAP 10.8 MEQ/L (5-15); BLOOD UREA NITROGEN 12 mg/dL (7-17); CHLORIDE 100 mmol/L (98-107); Calcium 9.3 mg/dL (8.4-10.2); Carbon Dioxide 33 mmol/L (22-30); Creatinine 1 0.46 mg/dL (0.52-1.04); Glucose 183 mg/dL (74-106); Potassium 4.4 mmol/L (3.5-5.1); SODIUM 140 mmol/L (137-145)
--- NOTE | 2017-11-20 08:10 | PCM.DS ---
Discharge Summary Date of Admission: 11/17/17 19:50 Admitting Physician: OLIVER LIU Primary Care Provider: OLIVER LIU Allergies Allergies sulfamethoxazole [From Bactrim] Allergy (Verified 11/17/17 00:23) trimethoprim [From Bactrim] Allergy (Verified 11/17/17 00:23) Hospital Summary - Hospital Course Hospital Course: patient was admitted with cough, shortness of breath and hypoxia. she is doing better at this time but still requiring oxygen via nasal cannula - Vitals & Intake/Output Vital Signs: Vital Signs Temperature 98.6 F 11/20/17 07:52 Pulse Rate 84 11/20/17 07:52 Respiratory Rate 26 H 11/20/17 07:54 Blood Pressure 129/87 11/20/17 07:52 O2 Sat by Pulse Oximetry 94 L 11/20/17 07:52 Oxygen-Last Documented O2 Percentage 5 Liters = 40% Intake & Output: Intake & Output 11/17/17 11/18/17 11/19/17 11/20/17 11:59 11:59 11:59 11:59 Intake Total 2722 4023 3381 Output Total 950 650 Balance 2722 3073 2731 Weight 116.5 kg 116 kg - Lab Result Diagrams: 11/20/17 05:17 11/20/17 04:10 Lab Results-Last 24 Hrs: Accuchecks Date 11/19/17 Date 11/19/17 Date 11/19/17 Time 22:00 Time 16:30 Time 12:08 Accucheck Value: 156 Accucheck Value: 347 Accucheck Value: 283 Accucheck Value: 337 Lab Results-Last 24 Hours 11/19/17 11/19/17 11/20/17 Range/Units 05:23 05:28 04:10 WBC (4.0-10.5) K/mm3 RBC (4.1-5.4) M/mm3 Hgb (12.0-16.0) gm/dl Hct (35-47) % MCV (78-100) fl MCH (26-32) pg MCHC (32-36) g/dl RDW (11.5-14.0) % Plt Count (150-450) K/mm3 MPV (6-9.5) fl Segmented Neutrophils 90 H (36.0-66.0) % Lymphocytes (Manual) 9 L (24-44) % Monocytes (Manual) 1 (0.0-12.0) % Differential Comment ABNORMAL Toxic Granulation 1+ Platelet Estimate NORMAL (NORMAL) Poikilocytosis 1+ Anisocytosis 1+ Sodium 140 (137-145) mmol/L Potassium 4.4 (3.5-5.1) mmol/L Chloride 100 (98-107) mmol/L Carbon Dioxide 33 H (22-30) mmol/L Anion Gap 10.8 (5-15) MEQ/L BUN 12 (7-17) mg/dL Creatinine 0.46 L (0.52-1.04) mg/dL Estimated GFR > 60 ML/MIN Glucose 183 H (74-106) mg/dL Hemoglobin A1c 6.84 H (4.5-6.0) % Calcium 9.3 (8.4-10.2) mg/dL 11/20/17 Range/Units 05:17 WBC 9.5 (4.0-10.5) K/mm3 RBC 4.00 L (4.1-5.4) M/mm3 Hgb 13.1 (12.0-16.0) gm/dl Hct 40.4 (35-47) % MCV 101.0 H (78-100) fl MCH 32.7 H (26-32) pg MCHC 32.4 (32-36) g/dl RDW 13.5 (11.5-14.0) % Plt Count 181 (150-450) K/mm3 MPV 11.0 H (6-9.5) fl Segmented Neutrophils (36.0-66.0) % Lymphocytes (Manual) (24-44) % Monocytes (Manual) (0.0-12.0) % Differential Comment Toxic Granulation Platelet Estimate (NORMAL) Poikilocytosis Anisocytosis Sodium (137-145) mmol/L Potassium (3.5-5.1) mmol/L Chloride (98-107) mmol/L Carbon Dioxide (22-30) mmol/L Anion Gap (5-15) MEQ/L BUN (7-17) mg/dL Creatinine (0.52-1.04) mg/dL Estimated GFR ML/MIN Glucose (74-106) mg/dL Hemoglobin A1c (4.5-6.0) % Calcium (8.4-10.2) mg/dL Micro Results-Entire Visit: Accuchecks Date 11/19/17 Date 11/19/17 Date 11/19/17 Time 22:00 Time 16:30 Time 12:08 Accucheck Value: 156 Accucheck Value: 347 Accucheck Value: 283 Accucheck Value: 337 - Radiology Exams Ordered Rad Exams-Entire Visit: Radiology Procedures Category Date Time Status CHEST 2 VIEWS (PA AND LAT) Urgent Exams 11/18/17 14:28 Completed - Procedures and Test Procedures and Tests throughout Hospitalization: Therapy Orders & Screens 11/18/17 00:33 Oxygen NASAL CANNULA 2 lpm Comment: Diagnosis: Acute respiratory failure Discharge Exam General Appearance: no apparent distress, alert Skin Exam: normal color, warm, dry Respiratory Exam: lungs clear, prolonged expirations Cardiovascular Exam: regular rate/rhythm, normal heart sounds Gastrointestinal/Abdomen Exam: soft, No tenderness, No mass Extremity Exam: normal inspection, normal range of motion Final Diagnosis/Problem List - Final Discharge Diagnosis/Problem (1) COPD exacerbation Current Visit: Yes Status: Acute Onset Date: ~11/17/17 Assessment & Plan: home on po levaquin, prednisone and nebulizer (2) Chronic hypoxemic respiratory failure Current Visit: Yes Status: Acute Assessment & Plan: will need qualified for home oxygen (3) Diabetes mellitus Current Visit: Yes Status: Acute - Discharge Disposition: Home, Self-Care Condition: Stable Prescriptions: New Prednisone 20 mg [Deltasone 20 mg] 20 mg PO UD #18 tablet Levofloxacin [Levaquin] 500 mg PO DAILY #5 tablet Metformin HCl 500 mg PO BID #60 tablet Continue Divalproex Sodium [Depakote] 500 mg PO TID Trazodone HCl 50 mg [Desyrel 50 mg] 150 mg PO HS Paliperidone [Invega] 9 mg PO DAILY Ramelteon [Rozerem] 8 mg PO QHS Albuterol/Ipratropium 3ml Neb* [DUONEB 0.5-3 MG/3 ml Neb] 3 ml IH TIDPRN Follow up with: OLIVER LIU MD [Primary Care Provider] - 1 Week
[2017-11-20] MEDS: Nicoderm CQ 21 MG TOP SCH (09:01)
[2017-11-20] MEDS: Levofloxacin 500MG/100ML D5W 500 MG/100 ML BAG IV SCH (09:01)
[2017-11-20] MEDS: ENOXAPARIN SODIUM SQ SCH (09:02)
[2017-11-20] MEDS: PATIENT OWN MEDICATION PO SCH (09:02)
[2017-11-20] MEDS: NovoLOG Insulin SQ PRN (11:47)
[2017-11-20 14:14] VITALS: O2SAT 93
[2017-11-20 15:54] VITALS: BP 155/86; PULSE 75
== END 2017-11-20 17:50 | disposition home or self-care (01) | DRG 190 ==
LOC: ED 00:05 → MED SURG 06:20 → UNDOADMOB 06:20 → OBSVTOIN 19:50 → INTOOBSV 19:50
PROVIDERS: ADMIT Family Medicine; ATTEND Family Medicine
DX: J96.00 Acute respiratory failure, unspecified whether with hypoxia or hypercapnia (principal); J44.9 Chronic obstructive pulmonary disease, unspecified; J44.1 Chronic obstructive pulmonary disease with (acute) exacerbation; J45.909 Unspecified asthma, uncomplicated; J96.01 Acute respiratory failure with hypoxia; R51 Headache; F20.81 Schizophreniform disorder; F41.9 Anxiety disorder, unspecified; Z72.0 Tobacco use; R10.10 Upper abdominal pain, unspecified; E11.9 Type 2 diabetes mellitus without complications; Z79.899 Other long term (current) drug therapy; G62.9 Polyneuropathy, unspecified; G47.30 Sleep apnea, unspecified; F31.9 Bipolar disorder, unspecified; E66.01 Morbid (severe) obesity due to excess calories; I10 Essential (primary) hypertension; R73.9 Hyperglycemia, unspecified
CPT/HCPCS: 36415; 36600; 71045; 71046; 80048; 80053; 81002; 82150; 82375; 82803; 82962; 83036; 83690; 83735; 83880; 84484; 85025; 85027; 85379; 85610; 85730; 87040; 87070; 87430; 87631; 93005; 93041; 94002; 94640; 94760; 96360; 99285; J0456; J0696; J1650; J1956; J2920; J2930; A9270-GY

== ENCOUNTER 2018-01-29 14:38 | Emergency (ER) | payer MEDICARE ==
[2018-01-29 16:09] VITALS: BP 115/80; O2SAT 95
--- NOTE | 2018-01-29 16:18 | ERPHSYRPT ---
- History of Present Illness Time Seen by Provider: 01/29/18 16:11 Source: patient Exam Limitations: no limitations Patient Subjective Stated Complaint: bilater leg pain Triage Nursing Assessment: pt to er per self, ambulates with cane per her usual , states bilateral leg pain, has red lower extremities bilterally, blisters noted to both lower extremities Physician History: The patient is a 52-year-old female with chronic stasis dermatitis in both lower legs for many years. She says that today she took a shower and that she noticed blisters on this region. She tells me she was told to come to the ER. She says she's had this condition before and that Keflex works to resolve it. She denies fever or chills. Her past medical history is significant for chronic stasis dermatitis, diabetes, hypertension, schizophrenia, morbid obesity , bipolar, and COPD. Method of Injury: unknown Occurred: this morning Quality: other (blisters) Severity of Pain-Max: none Severity of Pain-Current: none Modifying Factors: Improves With: nothing Associated Symptoms: none Allergies/Adverse Reactions: sulfamethoxazole [From Bactrim] Allergy (Verified 01/29/18 14:57) trimethoprim [From Bactrim] Allergy (Verified 01/29/18 14:57) Home Medications: Divalproex Sodium [Depakote] 500 mg PO TID 09/03/14 [History] Paliperidone [Invega] 9 mg PO DAILY 10/17/15 [History] Ramelteon [Rozerem] 8 mg PO QHS 12/14/15 [History] Albuterol/Ipratropium 3ml Neb* [DUONEB 0.5-3 MG/3 ml Neb] 3 ml IH TIDPRN 04/19 [History] Hx Tetanus, Diphtheria Vaccination/Date Given: Yes (unknown) Hx Influenza Vaccination/Date Given: No Hx Pneumococcal Vaccination/Date Given: No - Review of Systems Constitutional: No Fever, No Chills Eyes: No Symptoms Ears, Nose, & Throat: No Symptoms Respiratory: No Cough, No Dyspnea Cardiac: No Chest Pain, No Edema, No Syncope Abdominal/Gastrointestinal: No Abdominal Pain, No Nausea, No Vomiting, No Diarrhea Genitourinary Symptoms: No Dysuria Musculoskeletal: No Back Pain, No Neck Pain Skin: Skin Lesions, No Rash Neurological: No Dizziness, No Focal Weakness, No Sensory Changes Psychological: No Symptoms Endocrine: No Symptoms Hematologic/Lymphatic: No Symptoms Immunological/Allergic: No Symptoms All Other Systems: Reviewed and Negative - Past Medical History Pertinent Past Medical History: Yes Neurological History: Peripheral Neuropathy, TIA ENT History: No Pertinent History Cardiac History: Arrhythmia, High Cholesterol Respiratory History: Asthma, COPD Endocrine Medical History: Diabetes Type II Musculoskeletal History: Arthritis GI Medical History: Gallbladder Disease History: No Pertinent History Psycho-Social History: Anxiety, Bipolar, Depression, Other Female Reproductive Disorders: Menstrual Problems Other Medical History: hx of cellulitis, hx seizures 3years ago - Past Surgical History Past Surgical History: Yes Neuro Surgical History: No Pertinent History Cardiac: No Pertinent History Respiratory: No Pertinent History Gastrointestinal: Cholecystectomy Genitourinary: No Pertinent History Musculoskeletal: No Pertinent History Female Surgical History: Section, Tubal Ligation Other Surgical History: GANGLION CYST - Social History Smoking Status: Former smoker How long have you smoked: 26 Exposure to second hand smoke: No Drug Use: none Patient Lives Alone: No Significant Family History: no pertinent family hx - Female History Hx Last Menstrual Period: menopause Hx Now: No - Nursing Vital Signs Nursing Vital Signs: Initial Vital Signs Temperature 98.1 F 01/29/18 14:49 Pulse Rate 119 H 01/29/18 14:49 Respiratory Rate 24 01/29/18 14:49 Blood Pressure 156/80 01/29/18 14:49 O2 Sat by Pulse Oximetry 94 L 01/29/18 14:49 Pain Scale Pain Intensity 7 - Physical Exam General Appearance: alert Eyes, Ears, Nose, Throat Exam: moist mucous membranes Neck Exam: non-tender, supple Cardiovascular/Respiratory Exam: chest non-tender, normal breath sounds, regular rate/rhythm, no respiratory distress Gastrointestinal/Abdominal Exam: non-tender, guarding Back Exam: normal inspection, No vertebral tenderness Hips Exam: bilateral: non-tender Legs Exam: bilateral leg: non-tender Knees Exam: bilateral knee: non-tender Ankle Exam: bilateral ankle: non-tender Foot Exam: bilateral foot: non-tender Neuro/Tendon Exam: normal sensation, normal motor functions Mental Status Exam: alert, oriented x 3, cooperative Skin Exam: other (changes of skin of bilateral distal lower legs consistent with stasis dermatitis. Now a few scattered follicules with scant amount of pus. ) SpO2 Interpretation: normal SpO2: 95 Oxygen Delivery: Room Air - Progress Progress: unchanged Counseled pt/family regarding: diagnosis - Departure Time of Disposition: 16:24 Departure Disposition: Home Clinical Impression: Folliculitis Condition: Stable Critical Care Time: No Referrals: OLIVER LIU MD [Primary Care Provider] - Additional Instructions: You have some small areas of infection of the skin or lower legs. Take Keflex 500 mg 4 times a day for 10 days. Follow-up in one to 2 days if the condition worsens. Prescriptions: Cephalexin Mh 500 mg [Keflex 500 mg] 1 cap PO QID #40 capsule
[2018-01-29 17:05] VITALS: PULSE 78
== END 2018-01-29 17:04 | disposition home or self-care (01) ==
LOC: ED 14:38
DX: L73.9 Follicular disorder, unspecified (principal)
CPT/HCPCS: 99283

== ENCOUNTER 2018-05-15 13:47 | Observation (INO) | payer MEDICARE ==
--- NOTE | 2018-05-15 15:02 | ERPHSYRPT ---
- History of Present Illness Time Seen by Provider: 05/15/18 14:25 Source: patient Exam Limitations: clinical condition Patient Subjective Stated Complaint: Pt states "Last night I was having slurred speech, headache, and weakness, today, I am still having a headache, weakness, back pain, I think I have some ketones so I need to get my sugar adjusted as well." Triage Nursing Assessment: Pt alert and oriented x 3, skin pwd. PT ambulates with an upright steady gait, pt able to speak in clear full sentences. Pt moving all extremeties without difficulty, when pt was in waiting room, pt was sitting in a wheelchair texting on her phone without difficulty. PT able to answer all questions without difficulty. Physician History: PATIENT WITH A HISTORY OF COPD, ASTHMA, SLEEP APNEA, BIPOLAR DISORDER, SEIZURE DISORDER, COMPLAINS OF HEADACHE LAST NIGHT, ONSET OF SLURRED SPEECH AND DYSARTHRIA ONSET 1PM, TODAY, RESOLVED UPON ARRIVAL TO EMERGENCY ROOM. HAD TRANSIENT GENERALIZED WEAKNESS. DENIES BLURRED VISION, FOCAL NUMBNESS, TINGLING OR WEAKNESS IN EXTREMITIES. Timing/Duration: yesterday Severity: moderate Character of Deficits: new weakness, altered sensation, impaired speech Deficits: no difficulties Baseline/Normal Cognition: alert oriented x 3 Current Cognition: alert oriented x 3 Baseline Gait: walks w/o assistance Associated Symptoms: headache Allergies/Adverse Reactions: sulfamethoxazole [From Bactrim] Allergy (Verified 01/29/18 14:57) trimethoprim [From Bactrim] Allergy (Verified 01/29/18 14:57) Home Medications: Divalproex Sodium [Depakote] 500 mg PO TID 09/03/14 [History] Paliperidone [Invega] 9 mg PO DAILY 10/17/15 [History] Ramelteon [Rozerem] 8 mg PO QHS 12/14/15 [History] Albuterol/Ipratropium 3ml Neb* [DUONEB 0.5-3 MG/3 ml Neb] 3 ml IH TIDPRN 04/19 [History] Furosemide 20 mg [Lasix 20 mg] 20 mg PO DAILY 05/15/18 [History] Potassium Chloride 10 Meq Tab* [Klor Con 10 MEQ] 10 meq PO DAILY 05/15/18 [ History] Hx Tetanus, Diphtheria Vaccination/Date Given: No Hx Influenza Vaccination/Date Given: No Hx Pneumococcal Vaccination/Date Given: Yes Immunizations Up to Date: Yes - Review of Systems Constitutional: No Fever, No Chills Eyes: No Symptoms Ears, Nose, & Throat: No Symptoms Respiratory: No Symptoms, No Cough, No Dyspnea Cardiac: No Symptoms, No Chest Pain, No Edema, No Syncope Abdominal/Gastrointestinal: No Symptoms, No Abdominal Pain, No Nausea, No Vomiting, No Diarrhea Genitourinary Symptoms: No Symptoms, No Dysuria Musculoskeletal: No Symptoms, No Back Pain, No Neck Pain Skin: No Symptoms, No Rash Neurological: Headache, Speech Changes, No Dizziness, No Focal Weakness, No Sensory Changes Psychological: No Symptoms Endocrine: No Symptoms All Other Systems: Reviewed and Negative - Past Medical History Pertinent Past Medical History: Yes Neurological History: Peripheral Neuropathy, TIA ENT History: No Pertinent History Cardiac History: Arrhythmia, High Cholesterol Respiratory History: Asthma, COPD Endocrine Medical History: Diabetes Type II Musculoskeletal History: Arthritis GI Medical History: Gallbladder Disease History: No Pertinent History Psycho-Social History: Anxiety, Bipolar, Depression, Other Female Reproductive Disorders: Menstrual Problems Other Medical History: hx of cellulitis, hx seizures 3years ago - Past Surgical History Past Surgical History: Yes Neuro Surgical History: No Pertinent History Cardiac: No Pertinent History Respiratory: No Pertinent History Gastrointestinal: Cholecystectomy Genitourinary: No Pertinent History Musculoskeletal: No Pertinent History Female Surgical History: Section, Tubal Ligation Other Surgical History: GANGLION CYST - Social History Smoking Status: Current every day smoker How long have you smoked: years Exposure to second hand smoke: Yes Drug Use: none Patient Lives Alone: No Significant Family History: no pertinent family hx - Female History Hx Last Menstrual Period: menopause Hx Now: No - Nursing Vital Signs Nursing Vital Signs: Initial Vital Signs Temperature 98.2 F 05/15/18 14:12 Pulse Rate 102 H 05/15/18 14:12 Respiratory Rate 20 05/15/18 14:12 Blood Pressure 134/56 05/15/18 14:12 O2 Sat by Pulse Oximetry 94 L 05/15/18 14:12 Pain Scale Pain Intensity 0 - Radha Coma Scale Best Eye Response ([place]): (4) open spontaneously Best Verbal Response (Radha): (5) oriented Best Motor Response (Radha): (6) obeys commands Radha Total: 15 - Physical Exam General Appearance: no apparent distress, alert, other (ALERT AND APPROPRIATE) Eye Exam: bilateral eye: PERRL, EOMI Ears, Nose, Throat Exam: normal ENT inspection, moist mucous membranes Neck Exam: normal inspection, non-tender, supple Respiratory: normal breath sounds, lungs clear, airway intact, No respiratory distress Cardiovascular: regular rate/rhythm, normal heart sounds, No edema Gastrointestinal: soft, normal bowel sounds, No tenderness (NONTENDER), No distention Back Exam: normal inspection Extremity Exam: normal inspection, No pedal edema Peripheral Pulses: carotid (R): 2+, carotid (L): 2+, femoral (R): 2+, femoral (L ): 2+, dorsalis-pedis (R): 2+, dorsalis-pedis (L): 2+ Mental Status: alert, oriented x 3 insurance defense paralegal Exam: tongue midline Coordination/Gait: normal finger to nose, normal gait Motor/Sensory: no motor deficit, no sensory deficit (NIH STROKE SCALE NEGATIVE) DTR: bicep (R): 2+, bicep (L): 2+, tricep (R): 2+, tricep (L): 2+, knee (R): 2+ , knee (L): 2+, ankle (R): 2+, ankle (L): 2+ Skin Exam: normal color, warm, dry, No rash SpO2 Interpretation: normal SpO2: 94 Oxygen Delivery: Room Air - Course EKG Interpreted by Me: RATE, Sinus Rhythm, Sinus Tach (RATE 107), NORMAL AXIS - Radiology Exams Chest X-ray Interpretation: Discussed w/ radiologist, No Infiltrates - CT Exams Head CT Interpretation: Discussed w/radiologist, No/Intracranial Hemorrhag Ordered Tests: Active Orders 24 hr Category Date Time Status Addiction Psychiatrist STAT Care 05/15/18 15:03 Active Clean Catch Urine Specimen STAT Care 05/15/18 15:02 Active EKG-ER Only STAT Care 05/15/18 15:02 Active IV Insertion STAT Care 05/15/18 15:02 Active Oxygen-ED Only NASAL CANNULA 2 lpm Care 05/15/18 15:02 Active CHEST 1 VIEW (PORTABLE) Stat Exams 05/15/18 15:02 Completed HEAD WITHOUT CONTRAST [CT] Stat Exams 05/15/18 15:03 Completed CBC W DIFF Stat Lab 05/15/18 14:40 Completed CMP Stat Lab 05/15/18 14:40 Completed CULTURE,URINE Stat Lab 05/15/18 15:02 Received Manual Differential NC Stat Lab 05/15/18 14:40 Completed PROTIME WITH INR Stat Lab 05/15/18 14:40 Completed UA W/ MICROSCOPIC Stat Lab 05/15/18 15:02 Completed Peak Expiratory Flow Rate ONCE RT 05/15/18 15:35 Active Respiratory Nebulizer STAT RT 05/15/18 15:04 Completed Respiratory Therapy Assessment DAILY RT 05/15/18 15:35 Active Medication Summary Generic Name Dose Route Start Last Admin Trade Name Freq PRN Reason Stop Dose Admin Sodium Chloride 1,000 mls @ 50 mls/hr 05/15/18 15:15 05/15/18 15:56 Sodium Chloride 0.9% 1000 Ml IV 06/14/18 15:14 50 mls/hr .Q20H ANTHONY Administration Discontinued Medications Generic Name Dose Route Start Last Admin Trade Name Freq PRN Reason Stop Dose Admin Albuterol/Ipratropium 3 ml 05/15/18 15:04 05/15/18 15:30 Duoneb 0.5-3 Mg/3 Ml Neb IH 05/15/18 15:05 3 ml STAT ONE Administration Albuterol/Ipratropium Confirm 05/15/18 15:12 Duoneb 0.5-3 Mg/3 Ml Neb Administered 05/15/18 15:13 Dose 3 ml IH .STK-MED ONE Aspirin 81 mg 05/15/18 16:52 05/15/18 17:08 Baby Aspirin 81 Mg Chew PO 05/15/18 16:53 81 mg STAT ONE Administration Lab/Rad Data: Laboratory Result Diagrams 05/15/18 14:40 05/15/18 14:40 Laboratory Results 05/15/18 05/15/18 05/15/18 Range/Units 15:02 14:40 14:40 WBC (4.0-10.5) K/mm3 RBC (4.1-5.4) M/mm3 Hgb (12.0-16.0) gm/dl Hct (35-47) % MCV (78-100) fl MCH (26-32) pg MCHC (32-36) g/dl RDW (11.5-14.0) % Plt Count (150-450) K/mm3 MPV (6-9.5) fl Gran % (36.0-66.0) % Eos # (Auto) (0-0.5) Absolute Lymphs (auto) (1.0-4.6) Absolute Monos (auto) (0.0-1.3) Lymphocytes % (24.0-44.0) % Monocytes % (0.0-12.0) % Eosinophils % (0.00-5.0) % Basophils % (0.0-0.4) % Absolute Granulocytes (1.4-6.9) Segmented Neutrophils (36.0-66.0) % Lymphocytes (Manual) (24-44) % Monocytes (Manual) (0.0-12.0) % Basophils # (0-0.4) Platelet Estimate (NORMAL) RBC Morphology PT 10.8 (9.95-12.35) SECONDS INR 0.93 (0.8-3.0) Sodium 142 (137-145) mmol/L Potassium 4.0 (3.5-5.1) mmol/L Chloride 99 (98-107) mmol/L Carbon Dioxide 33 H (22-30) mmol/L Anion Gap 14.2 (5-15) MEQ/L BUN 7 (7-17) mg/dL Creatinine 0.42 L (0.52-1.04) mg/dL Estimated GFR > 60.0 ML/MIN Glucose 130 H (74-106) mg/dL Calcium 9.4 (8.4-10.2) mg/dL Total Bilirubin 0.30 (0.2-1.3) mg/dL AST 31 (14-36) U/L ALT 22 (0-35) U/L Alkaline Phosphatase 75 (38-126) U/L Serum Total Protein 6.7 (6.3-8.2) g/dL Albumin 4.1 (3.5-5.0) g/dL Ur Collection Type CLEAN CATCH Urine Color YELLOW (YELLOW) Urine Appearance SLIGHTLY CLOUDY (CLEAR) Urine pH 6.0 (5-6) Ur Specific [place] 1.020 (1.005-1.025) Urine Protein NEGATIVE (Negative) Urine Ketones MODERATE (NEGATIVE) Urine Blood TRACE NON-HEM (0-5) [place]inder/ul Urine Nitrite NEGATIVE (NEGATIVE) Urine Bilirubin NEGATIVE (NEGATIVE) Urine Urobilinogen NORMAL (0-1) mg/dL Ur Leukocyte Esterase TRACE (NEGATIVE) Urine Microscopic RBC 0-2 (0-2) /HPF Urine Microscopic WBC 2-5 (0-5) /HPF Ur Epithelial Cells MODERATE (FEW) /HPF Urine Bacteria MODERATE (NEGATIVE) /HPF Urine Mucus SLIGHT (NEGATIVE) /HPF Urine Culture Reflexed YES (NO) Urine Glucose NEGATIVE (NEGATIVE) mg/dL 05/15/18 Range/Units 14:40 WBC 8.4 (4.0-10.5) K/mm3 RBC 4.58 (4.1-5.4) M/mm3 Hgb 14.7 (12.0-16.0) gm/dl Hct 45.7 (35-47) % MCV 99.8 (78-100) fl MCH 32.1 H (26-32) pg MCHC 32.2 (32-36) g/dl RDW 14.4 H (11.5-14.0) % Plt Count 129 L (150-450) K/mm3 MPV 11.8 H (6-9.5) fl Gran % 64.9 (36.0-66.0) % Eos # (Auto) 0.17 (0-0.5) Absolute Lymphs (auto) 1.92 (1.0-4.6) Absolute Monos (auto) 0.85 (0.0-1.3) Lymphocytes % 22.8 L (24.0-44.0) % Monocytes % 10.1 (0.0-12.0) % Eosinophils % 2.0 (0.00-5.0) % Basophils % 0.2 (0.0-0.4) % Absolute Granulocytes 5.47 (1.4-6.9) Segmented Neutrophils 68 H (36.0-66.0) % Lymphocytes (Manual) 23 L (24-44) % Monocytes (Manual) 9 (0.0-12.0) % Basophils # 0.02 (0-0.4) Platelet Estimate NORMAL (NORMAL) RBC Morphology NORMAL PT (9.95-12.35) SECONDS INR (0.8-3.0) Sodium (137-145) mmol/L Potassium (3.5-5.1) mmol/L Chloride (98-107) mmol/L Carbon Dioxide (22-30) mmol/L Anion Gap (5-15) MEQ/L BUN (7-17) mg/dL Creatinine (0.52-1.04) mg/dL Estimated GFR ML/MIN Glucose (74-106) mg/dL Calcium (8.4-10.2) mg/dL Total Bilirubin (0.2-1.3) mg/dL AST (14-36) U/L ALT (0-35) U/L Alkaline Phosphatase (38-126) U/L Serum Total Protein (6.3-8.2) g/dL Albumin (3.5-5.0) g/dL Ur Collection Type Urine Color (YELLOW) Urine Appearance (CLEAR) Urine pH (5-6) Ur Specific [place] (1.005-1.025) Urine Protein (Negative) Urine Ketones (NEGATIVE) Urine Blood (0-5) [place]inder/ul Urine Nitrite (NEGATIVE) Urine Bilirubin (NEGATIVE) Urine Urobilinogen (0-1) mg/dL Ur Leukocyte Esterase (NEGATIVE) Urine Microscopic RBC (0-2) /HPF Urine Microscopic WBC (0-5) /HPF Ur Epithelial Cells (FEW) /HPF Urine Bacteria (NEGATIVE) /HPF Urine Mucus (NEGATIVE) /HPF Urine Culture Reflexed (NO) Urine Glucose (NEGATIVE) mg/dL - Progress Progress Note: 05/15/18 18:19 Discussed with : Lois (DISCUSSED WITH DR BANDA AT 1830 FOR OBSERVATION) - Departure Time of Disposition: 18:30 Departure Disposition: Observation Clinical Impression: TRANSIENT ISCHEMIC ATTACK Condition: Stable Critical Care Time: No Referrals: OLIVER LIU MD [Primary Care Provider] -
[2018-05-15] MEDS ORDERED: DUONEB 0.5-3 MG/3 ml Neb IH ONE ×2 (15:04→15:12)
[2018-05-15] MEDS ORDERED: Sodium Chloride 0.9% 1000 ML 1,000 ML ONE (15:10)
[2018-05-15] MEDS ORDERED: Sodium Chloride 0.9% 1000 ML 1,000 ML IV SCH (15:15)
[2018-05-15 15:33] LABS: BASOPHIL % 0.2 % (0.0-0.4); Basophil (Absolute #) 0.02 (0-0.4); Eosinophil (Absolute #) 0.17 (0-0.5); Granulocyte Absolute (ANC) 5.47 (1.4-6.9); Granulocytes % 64.9 % (36.0-66.0); Hematocrit 45.7 % (35-47); Hemoglobin 14.7 gm/dl (12.0-16.0); Lymphocyte (Absolute #) 1.92 (1.0-4.6); Lymphocytes % 22.8 % (24.0-44.0); Mean Cell Volume 99.8 fl (78-100); Mean Corpuscular Hemoglobin 32.1 pg (26-32); Mean Corpuscular Hgb Concent. 32.2 g/dl (32-36); Mean Platelet Volume 11.8 fl (6-9.5); Monocyte (Absolute #) 0.85 (0.0-1.3); Monocytes % 10.1 % (0.0-12.0); Platelet Count 129 K/mm3 (150-450); Red Blood Count 4.58 M/mm3 (4.1-5.4); Red Cell Distribution Width 14.4 % (11.5-14.0); White Blood Count 8.4 K/mm3 (4.0-10.5)
--- NOTE | 2018-05-15 15:34 | XRAY ---
Indication: Headache, slurred speech, and generalized weakness. Comparison: November 18, 2017. Portable chest is clear today. Heart and mediastinal structures within normal limits. Bony thorax intact. Impression: Nonacute chest.
--- NOTE | 2018-05-15 15:37 | XRAY ---
Indication: Headache, slurred speech, and generalized weakness. Multiple contiguous axial images obtained through the head without contrast. Comparison: December 14, 2015. Again normal appearing brain parenchyma, ventricles, and bony calvarium. Visualized paranasal sinuses are clear. Impression: Stable normal CT head without contrast exam. CT DI 67.22
[2018-05-15 15:50] LABS: INR 0.93 (0.8-3.0)
[2018-05-15 15:56] LABS: ALBUMIN 4.1 g/dL (3.5-5.0); ALKALINE PHOSPHATASE 75 U/L (38-126); ANION GAP 14.2 MEQ/L (5-15); BLOOD UREA NITROGEN 7 mg/dL (7-17); CHLORIDE 99 mmol/L (98-107); Calcium 9.4 mg/dL (8.4-10.2); Carbon Dioxide 33 mmol/L (22-30); Creatinine 1 0.42 mg/dL (0.52-1.04); Glucose 130 mg/dL (74-106); SGOT/AST 31 U/L (14-36); SGPT/ALT 22 U/L (0-35); SODIUM 142 mmol/L (137-145); Total Protein 6.7 g/dL (6.3-8.2)
[2018-05-15 16:02] LABS: Lymphocytes 23 % (24-44); Monocyte 9 % (0.0-12.0); Neutrophils 68 % (36.0-66.0); Platelet Estimate NORMAL (NORMAL); Total Cells Counted 100
[2018-05-15 16:11] LABS: Appearance SLIGHTLY CLOUDY (CLEAR); Bilirubin NEGATIVE (NEGATIVE); Glucose NEGATIVE (NEGATIVE); Ketones MODERATE (NEGATIVE); Leukocyte Esterase TRACE (NEGATIVE); Nitrite NEGATIVE (NEGATIVE); Protein,Urine Dip NEGATIVE (Negative); Urobilinogen NORMAL mg/dL (0-1)
[2018-05-15 16:12] LABS: Blood TRACE NON-HEM Ery/ul (0-5)
[2018-05-15 16:13] LABS: Mucus SLIGHT /HPF (NEGATIVE)
[2018-05-15 16:14] LABS: Bacteria MODERATE /HPF (NEGATIVE); Epithelial Cells MODERATE /HPF (FEW); RBC 0-2 /HPF (0-2)
[2018-05-15] MEDS ORDERED: BABY ASPIRIN 81 MG CHEW PO ONE (16:52)
[2018-05-15] MEDS ORDERED: DUONEB 0.5-3 MG/3 ml Neb IH PRN (18:22)
[2018-05-15] MEDS ORDERED: PROVENTIL 2.5 MG/3 ML NEB IH PRN (18:22)
[2018-05-15] MEDS ORDERED: TYLENOL 325 MG PO PRN (18:22)
[2018-05-15] MEDS ORDERED: MOTRIN 400 MG PO PRN (20:42)
[2018-05-15] MEDS ORDERED: Nicoderm CQ 21 MG TOP SCH (20:45)
[2018-05-15] MEDS: Glucophage 500 MG PO SCH (22:11)
[2018-05-16] MEDS: Glucophage 500 MG PO SCH (07:44)
[2018-05-16] MEDS ORDERED: ENOXAPARIN SODIUM SQ SCH (10:00)
[2018-05-16] MEDS ORDERED: FLUZONE QUAD (36mo-64yo) 2018-2019 SYRINGE IM ONE (10:00)
[2018-05-16] MEDS ORDERED: Klor Con 10 MEQ PO SCH (10:00)
[2018-05-16] MEDS ORDERED: ECOTRIN 81 MG PO SCH (10:00)
[2018-05-16] MEDS ORDERED: LASIX 20 MG PO SCH (10:00)
--- NOTE | 2018-05-16 10:05 | PCM.SSS ---
History of Present Illness - Chief Complaint Chief Complaint: TIA History of Present Illness: is a 53 year old female who presented to the ER yesterday with complaints of headache, feeling poorly and dizzy. She states that she felt as though she had slurred speech and drooping of her face that only lasted 2-3 seconds. She feels normal today, no motor or sensory deficits. Tolerating regular diet, no headache, no visual changes. there were no associated motor or sensory changes in the arms or legs. - Review of Systems Constitutional: No Fever, No Chills Eyes: No Symptoms Respiratory: No Cough, No Short Of Breath Cardiac: No Chest Pain, No Edema, No Syncope Abdominal/Gastrointestinal: No Abdominal Pain, No Nausea, No Vomiting, No Diarrhea Genitourinary Symptoms: No Dysuria Neurological: Other (see HPI), No Dizziness, No Focal Weakness, No Sensory Changes Psychological: No Symptoms All Other Systems: Reviewed and Negative Medications & Allergies Home Medications: Home Medication List Divalproex Sodium [Depakote] 500 mg PO TID 09/03/14 [History Confirmed 05/15/18] Paliperidone [Invega] 9 mg PO DAILY 10/17/15 [History Confirmed 05/15/18] Ramelteon [Rozerem] 8 mg PO QHS 12/14/15 [History Confirmed 05/15/18] Albuterol/Ipratropium 3ml Neb* [DUONEB 0.5-3 MG/3 ml Neb] 3 ml IH TIDPRN 04/19 [History Confirmed 05/15/18] Metformin HCl 500 mg PO BID #60 tablet 11/20/17 [Rx Confirmed 05/15/18] Furosemide 20 mg [Lasix 20 mg] 20 mg PO DAILY 05/15/18 [History Confirmed 05/15/18] Potassium Chloride 10 Meq Tab* [Klor Con 10 MEQ] 10 meq PO DAILY 05/15/18 [ History Confirmed 05/15/18] Aspirin EC 81 mg [Ecotrin 81 mg] 81 mg PO DAILY #30 tablet.ec 05/16/18 [Rx ] Allergies/Adverse Reactions: Allergies Allergy/AdvReac Type Severity Reaction Status Date / Time sulfamethoxazole Allergy Verified 01/29/18 14:57 [From Bactrim] trimethoprim [From Bactrim] Allergy Verified 01/29/18 14:57 - Past Medical History Past Medical History: Yes Neurological History: Peripheral Neuropathy, TIA ENT History: No Pertinent History Cardiac History: Arrhythmia, High Cholesterol Respiratory History: Asthma, COPD Endocrine Medical History: Diabetes Type II Musculoskelatal History: Arthritis GI Medical History: Gallbladder Disease History: No Pertinent History Pyscho-Social History: Anxiety, Bipolar, Depression, Other Reproductive Disorders: Menstrual Problems Comment: hx of cellulitis, hx seizures 3years ago - Female History Hx Last Menstrual Period: menopause Are you now?: No - Past Surgical History Past Surgical History: Yes Neuro Surgical History: No Pertinent History Cardiac History: No Pertinent History Respiratory Surgery: No Pertinent History GI Surgical History: Cholecystectomy Genitourinary Surgical Hx: No Pertinent History Musculskeletal Surgical Hx: No Pertinent History Female Surgical History: Section, Tubal Ligation Other Surgical History: GANGLION CYST - Social History Smoking Status: Current every day smoker How long have you smoked: 26 years Exposure to second hand smoke: Yes Alcohol: None Drug Use: none Significant Family History: no pertinent family hx - Physical Exam Vital Signs: Vital Signs - 24 hr Temp Pulse Resp BP Pulse Ox 05/16/18 06:56 97.9 F 93 H 18 134/69 99 05/16/18 06:54 98 05/16/18 03:37 97.5 F 94 H 22 134/60 98 05/15/18 23:37 97.9 F 95 H 20 94/50 96 05/15/18 20:00 97.8 F 101 H 20 134/65 98 05/15/18 18:33 18 116/71 99 05/15/18 18:21 94 L 05/15/18 17:32 98.0 F 100 H 18 107/64 96 05/15/18 16:41 109 H 16 107/82 94 L 05/15/18 15:35 102 H 22 96 05/15/18 15:30 100 H 16 05/15/18 14:12 98.2 F 102 H 20 134/56 94 L Oxygen-Last 24 hours O2 Percentage 3 Liters = 32% O2 Percentage 3 Liters = 32% O2 Percentage 3 Liters = 32% O2 Percentage 3 Liters = 32% O2 Percentage 2 Liters = 28% O2 Percentage 2 Liters = 28% General Appearance: no apparent distress, alert, obese Neurologic Exam: alert, oriented x 3, cooperative, normal mood/affect, nml cerebellar function, nml station & gait, sensation nml, No motor deficits Eye Exam: PERRL/EOMI, eyes nml inspection Respiratory Exam: normal breath sounds, lungs clear, No respiratory distress Cardiovascular Exam: regular rate/rhythm, normal heart sounds, normal peripheral pulses Gastrointestinal/Abdomen Exam: soft, normal bowel sounds, No tenderness, No mass Extremity Exam: normal inspection, normal range of motion, pelvis stable Skin Exam: normal color, warm, dry, No rash Results - Labs Lab/Micro Results: Accuchecks Date 05/16/18 Date 05/16/18 Date 05/15/18 Time 08:18 Time 07:14 Time 22:00 Accucheck Value: 118 Accucheck Value: 111 Accucheck Value: 149 Lab Results-Last 24 Hours 05/15/18 05/15/18 05/15/18 Range/Units 14:40 14:40 14:40 WBC 8.4 (4.0-10.5) K/mm3 RBC 4.58 (4.1-5.4) M/mm3 Hgb 14.7 (12.0-16.0) gm/dl Hct 45.7 (35-47) % MCV 99.8 (78-100) fl MCH 32.1 H (26-32) pg MCHC 32.2 (32-36) g/dl RDW 14.4 H (11.5-14.0) % Plt Count 129 L (150-450) K/mm3 MPV 11.8 H (6-9.5) fl Gran % 64.9 (36.0-66.0) % Eos # (Auto) 0.17 (0-0.5) Absolute Lymphs (auto) 1.92 (1.0-4.6) Absolute Monos (auto) 0.85 (0.0-1.3) Lymphocytes % 22.8 L (24.0-44.0) % Monocytes % 10.1 (0.0-12.0) % Eosinophils % 2.0 (0.00-5.0) % Basophils % 0.2 (0.0-0.4) % Absolute Granulocytes 5.47 (1.4-6.9) Segmented Neutrophils 68 H (36.0-66.0) % Lymphocytes (Manual) 23 L (24-44) % Monocytes (Manual) 9 (0.0-12.0) % Basophils # 0.02 (0-0.4) Platelet Estimate NORMAL (NORMAL) RBC Morphology NORMAL PT 10.8 (9.95-12.35) SECONDS INR 0.93 (0.8-3.0) Sodium 142 (137-145) mmol/L Potassium 4.0 (3.5-5.1) mmol/L Chloride 99 (98-107) mmol/L Carbon Dioxide 33 H (22-30) mmol/L Anion Gap 14.2 (5-15) MEQ/L BUN 7 (7-17) mg/dL Creatinine 0.42 L (0.52-1.04) mg/dL Estimated GFR > 60.0 ML/MIN Glucose 130 H (74-106) mg/dL Calcium 9.4 (8.4-10.2) mg/dL Total Bilirubin 0.30 (0.2-1.3) mg/dL AST 31 (14-36) U/L ALT 22 (0-35) U/L Alkaline Phosphatase 75 (38-126) U/L Serum Total Protein 6.7 (6.3-8.2) g/dL Albumin 4.1 (3.5-5.0) g/dL Ur Collection Type Urine Color (YELLOW) Urine Appearance (CLEAR) Urine pH (5-6) Ur Specific [place] (1.005-1.025) Urine Protein (Negative) Urine Ketones (NEGATIVE) Urine Blood (0-5) Kulwinder/ul Urine Nitrite (NEGATIVE) Urine Bilirubin (NEGATIVE) Urine Urobilinogen (0-1) mg/dL Ur Leukocyte Esterase (NEGATIVE) Urine Microscopic RBC (0-2) /HPF Urine Microscopic WBC (0-5) /HPF Ur Epithelial Cells (FEW) /HPF Urine Bacteria (NEGATIVE) /HPF Urine Mucus (NEGATIVE) /HPF Urine Culture Reflexed (NO) Urine Glucose (NEGATIVE) mg/dL 05/15/18 Range/Units 15:02 WBC (4.0-10.5) K/mm3 RBC (4.1-5.4) M/mm3 Hgb (12.0-16.0) gm/dl Hct (35-47) % MCV (78-100) fl MCH (26-32) pg MCHC (32-36) g/dl RDW (11.5-14.0) % Plt Count (150-450) K/mm3 MPV (6-9.5) fl Gran % (36.0-66.0) % Eos # (Auto) (0-0.5) Absolute Lymphs (auto) (1.0-4.6) Absolute Monos (auto) (0.0-1.3) Lymphocytes % (24.0-44.0) % Monocytes % (0.0-12.0) % Eosinophils % (0.00-5.0) % Basophils % (0.0-0.4) % Absolute Granulocytes (1.4-6.9) Segmented Neutrophils (36.0-66.0) % Lymphocytes (Manual) (24-44) % Monocytes (Manual) (0.0-12.0) % Basophils # (0-0.4) Platelet Estimate (NORMAL) RBC Morphology PT (9.95-12.35) SECONDS INR (0.8-3.0) Sodium (137-145) mmol/L Potassium (3.5-5.1) mmol/L Chloride (98-107) mmol/L Carbon Dioxide (22-30) mmol/L Anion Gap (5-15) MEQ/L BUN (7-17) mg/dL Creatinine (0.52-1.04) mg/dL Estimated GFR ML/MIN Glucose (74-106) mg/dL Calcium (8.4-10.2) mg/dL Total Bilirubin (0.2-1.3) mg/dL AST (14-36) U/L ALT (0-35) U/L Alkaline Phosphatase (38-126) U/L Serum Total Protein (6.3-8.2) g/dL Albumin (3.5-5.0) g/dL Ur Collection Type CLEAN CATCH Urine Color YELLOW (YELLOW) Urine Appearance SLIGHTLY CLOUDY (CLEAR) Urine pH 6.0 (5-6) Ur Specific [place] 1.020 (1.005-1.025) Urine Protein NEGATIVE (Negative) Urine Ketones MODERATE (NEGATIVE) Urine Blood TRACE NON-HEM (0-5) Kulwinder/ul Urine Nitrite NEGATIVE (NEGATIVE) Urine Bilirubin NEGATIVE (NEGATIVE) Urine Urobilinogen NORMAL (0-1) mg/dL Ur Leukocyte Esterase TRACE (NEGATIVE) Urine Microscopic RBC 0-2 (0-2) /HPF Urine Microscopic WBC 2-5 (0-5) /HPF Ur Epithelial Cells MODERATE (FEW) /HPF Urine Bacteria MODERATE (NEGATIVE) /HPF Urine Mucus SLIGHT (NEGATIVE) /HPF Urine Culture Reflexed YES (NO) Urine Glucose NEGATIVE (NEGATIVE) mg/dL Microbiology 05/15/18 15:02 Urine Culture - Preliminary Clean Catch Midstream <10K NORMAL SKIN MERRILL PROBABLE SKIN CONTAMINANT Accuchecks Date 05/16/18 Date 05/16/18 Date 05/15/18 Time 08:18 Time 07:14 Time 22:00 Accucheck Value: 118 Accucheck Value: 111 Accucheck Value: 149 - Radiology Impressions Radiology Exams & Impressions: Radiology Procedures Category Date Time Status CHEST 1 VIEW (PORTABLE) Stat Exams 05/15/18 15:02 Completed HEAD WITHOUT CONTRAST [CT] Stat Exams 05/15/18 15:03 Completed - Other Procedures and Tests Respiratory Therapy 05/15/18 15:35 Peak Expiratory Flow Rate ONCE Respiratory Therapy Assessment DAILY 05/15/18 18:22 Oxygen NASAL CANNULA 3 lpm Assessment/Plan (1) TIA (transient ischemic attack) Current Visit: Yes Status: Acute Onset Date: ~05/16/18 Assessment & Plan: symptoms suggest possibly a neuro insult but symptoms were fleeting of seconds and had to involvement of her extremities. she has no complaints today. will d/c , advised to start aspirin. she states it bothered her stomach in the past so will recommend enteric coated 81mg aspirin. if any further symptoms will embark on further workup with MRI/MRA head/neck etc. discussed plan with patient, she wants to go home today Code(s): G45.9 - TRANSIENT CEREBRAL ISCHEMIC ATTACK, UNSPECIFIED (2) Diabetes mellitus Current Visit: No Status: Chronic Code(s): E11.9 - TYPE 2 DIABETES MELLITUS WITHOUT COMPLICATIONS (3) History of paranoid schizophrenia Current Visit: No Status: Chronic Code(s): Z86.59 - PERSONAL HISTORY OF OTHER MENTAL AND BEHAVIORAL DISORDERS (4) Morbid obesity Current Visit: No Status: Chronic Code(s): E66.01 - MORBID (SEVERE) OBESITY DUE TO EXCESS CALORIES Hospital Summary - Vitals & Intake/Output Vital Signs: Vital Signs Temperature 97.9 F 05/16/18 06:56 Pulse Rate 93 H 05/16/18 06:56 Respiratory Rate 18 05/16/18 06:56 Blood Pressure 134/69 05/16/18 06:56 O2 Sat by Pulse Oximetry 99 05/16/18 06:56 Oxygen-Last Documented O2 Percentage 3 Liters = 32% Intake & Output: Intake & Output 05/13/18 05/14/18 05/15/18 05/16/18 11:59 11:59 11:59 11:59 Intake Total 1562 Output Total 1000 Balance 562 Weight 109.8 kg - Lab Result Diagrams: 05/15/18 14:40 05/15/18 14:40 Lab Results-Last 24 Hrs: Accuchecks Date 05/16/18 Date 05/16/18 Date 05/15/18 Time 08:18 Time 07:14 Time 22:00 Accucheck Value: 118 Accucheck Value: 111 Accucheck Value: 149 Lab Results-Last 24 Hours 05/15/18 05/15/18 05/15/18 Range/Units 14:40 14:40 14:40 WBC 8.4 (4.0-10.5) K/mm3 RBC 4.58 (4.1-5.4) M/mm3 Hgb 14.7 (12.0-16.0) gm/dl Hct 45.7 (35-47) % MCV 99.8 (78-100) fl MCH 32.1 H (26-32) pg MCHC 32.2 (32-36) g/dl RDW 14.4 H (11.5-14.0) % Plt Count 129 L (150-450) K/mm3 MPV 11.8 H (6-9.5) fl Gran % 64.9 (36.0-66.0) % Eos # (Auto) 0.17 (0-0.5) Absolute Lymphs (auto) 1.92 (1.0-4.6) Absolute Monos (auto) 0.85 (0.0-1.3) Lymphocytes % 22.8 L (24.0-44.0) % Monocytes % 10.1 (0.0-12.0) % Eosinophils % 2.0 (0.00-5.0) % Basophils % 0.2 (0.0-0.4) % Absolute Granulocytes 5.47 (1.4-6.9) Segmented Neutrophils 68 H (36.0-66.0) % Lymphocytes (Manual) 23 L (24-44) % Monocytes (Manual) 9 (0.0-12.0) % Basophils # 0.02 (0-0.4) Platelet Estimate NORMAL (NORMAL) RBC Morphology NORMAL PT 10.8 (9.95-12.35) SECONDS INR 0.93 (0.8-3.0) Sodium 142 (137-145) mmol/L Potassium 4.0 (3.5-5.1) mmol/L Chloride 99 (98-107) mmol/L Carbon Dioxide 33 H (22-30) mmol/L Anion Gap 14.2 (5-15) MEQ/L BUN 7 (7-17) mg/dL Creatinine 0.42 L (0.52-1.04) mg/dL Estimated GFR > 60.0 ML/MIN Glucose 130 H (74-106) mg/dL Calcium 9.4 (8.4-10.2) mg/dL Total Bilirubin 0.30 (0.2-1.3) mg/dL AST 31 (14-36) U/L ALT 22 (0-35) U/L Alkaline Phosphatase 75 (38-126) U/L Serum Total Protein 6.7 (6.3-8.2) g/dL Albumin 4.1 (3.5-5.0) g/dL Ur Collection Type Urine Color (YELLOW) Urine Appearance (CLEAR) Urine pH (5-6) Ur Specific [place] (1.005-1.025) Urine Protein (Negative) Urine Ketones (NEGATIVE) Urine Blood (0-5) Kulwinder/ul Urine Nitrite (NEGATIVE) Urine Bilirubin (NEGATIVE) Urine Urobilinogen (0-1) mg/dL Ur Leukocyte Esterase (NEGATIVE) Urine Microscopic RBC (0-2) /HPF Urine Microscopic WBC (0-5) /HPF Ur Epithelial Cells (FEW) /HPF Urine Bacteria (NEGATIVE) /HPF Urine Mucus (NEGATIVE) /HPF Urine Culture Reflexed (NO) Urine Glucose (NEGATIVE) mg/dL 05/15/18 Range/Units 15:02 WBC (4.0-10.5) K/mm3 RBC (4.1-5.4) M/mm3 Hgb (12.0-16.0) gm/dl Hct (35-47) % MCV (78-100) fl MCH (26-32) pg MCHC (32-36) g/dl RDW (11.5-14.0) % Plt Count (150-450) K/mm3 MPV (6-9.5) fl Gran % (36.0-66.0) % Eos # (Auto) (0-0.5) Absolute Lymphs (auto) (1.0-4.6) Absolute Monos (auto) (0.0-1.3) Lymphocytes % (24.0-44.0) % Monocytes % (0.0-12.0) % Eosinophils % (0.00-5.0) % Basophils % (0.0-0.4) % Absolute Granulocytes (1.4-6.9) Segmented Neutrophils (36.0-66.0) % Lymphocytes (Manual) (24-44) % Monocytes (Manual) (0.0-12.0) % Basophils # (0-0.4) Platelet Estimate (NORMAL) RBC Morphology PT (9.95-12.35) SECONDS INR (0.8-3.0) Sodium (137-145) mmol/L Potassium (3.5-5.1) mmol/L Chloride (98-107) mmol/L Carbon Dioxide (22-30) mmol/L Anion Gap (5-15) MEQ/L BUN (7-17) mg/dL Creatinine (0.52-1.04) mg/dL Estimated GFR ML/MIN Glucose (74-106) mg/dL Calcium (8.4-10.2) mg/dL Total Bilirubin (0.2-1.3) mg/dL AST (14-36) U/L ALT (0-35) U/L Alkaline Phosphatase (38-126) U/L Serum Total Protein (6.3-8.2) g/dL Albumin (3.5-5.0) g/dL Ur Collection Type CLEAN CATCH Urine Color YELLOW (YELLOW) Urine Appearance SLIGHTLY CLOUDY (CLEAR) Urine pH 6.0 (5-6) Ur Specific [place] 1.020 (1.005-1.025) Urine Protein NEGATIVE (Negative) Urine Ketones MODERATE (NEGATIVE) Urine Blood TRACE NON-HEM (0-5) Kulwinder/ul Urine Nitrite NEGATIVE (NEGATIVE) Urine Bilirubin NEGATIVE (NEGATIVE) Urine Urobilinogen NORMAL (0-1) mg/dL Ur Leukocyte Esterase TRACE (NEGATIVE) Urine Microscopic RBC 0-2 (0-2) /HPF Urine Microscopic WBC 2-5 (0-5) /HPF Ur Epithelial Cells MODERATE (FEW) /HPF Urine Bacteria MODERATE (NEGATIVE) /HPF Urine Mucus SLIGHT (NEGATIVE) /HPF Urine Culture Reflexed YES (NO) Urine Glucose NEGATIVE (NEGATIVE) mg/dL Micro Results-Entire Visit: Microbiology 05/15/18 15:02 Urine Culture - Preliminary Clean Catch Midstream <10K NORMAL SKIN MERRILL PROBABLE SKIN CONTAMINANT Accuchecks Date 05/16/18 Date 05/16/18 Date 05/15/18 Time 08:18 Time 07:14 Time 22:00 Accucheck Value: 118 Accucheck Value: 111 Accucheck Value: 149 - Radiology Exams Ordered Rad Exams-Entire Visit: Radiology Procedures Category Date Time Status CHEST 1 VIEW (PORTABLE) Stat Exams 05/15/18 15:02 Completed HEAD WITHOUT CONTRAST [CT] Stat Exams 05/15/18 15:03 Completed - Procedures and Test Procedures and Tests throughout Hospitalization: Therapy Orders & Screens 05/15/18 15:04 Respiratory Nebulizer STAT Comment: Diagnosis: Shortness of Breath 05/15/18 15:35 Peak Expiratory Flow Rate ONCE Comment: Reason For Exam: Diagnosis: Shortness of Breath Respiratory Therapy Assessment DAILY Comment: Diagnosis: Shortness of Breath 05/15/18 18:22 Oxygen NASAL CANNULA 3 lpm Comment: pt wears 3L oxygen at home Diagnosis: Shortness of Breath 05/15/18 21:45 RT Screen per Nursing Assess Comment: Protocol Order Physician Instructions: Greater than 3 points order RT Admission Screen Reason For Exam: Triggered on Admission Diagnosis: TIA Diagnosis: TIA Pneumonia: No Home O2: Yes Asthma: Yes CHF: No Home CPAP/BIPAP: No Home Nebs/MDI: Yes Total Points: 14 Smoking Cessation Education Comment: Diagnosis: TIA Smoking Status: Current every day smoker How long have you smoked: 26 years Have you smoked in the past 12 months: Yes Approximately how many cigarettes per day: 1-20 Do you dip or chew tobacco: No If,Former Smoker,when did you quit: 2 months prior - Discharge Disposition: Home, Self-Care Condition: Stable Prescriptions: New Aspirin EC 81 mg [Ecotrin 81 mg] 81 mg PO DAILY #30 tablet.ec Continue Divalproex Sodium [Depakote] 500 mg PO TID Paliperidone [Invega] 9 mg PO DAILY Ramelteon [Rozerem] 8 mg PO QHS Albuterol/Ipratropium 3ml Neb* [DUONEB 0.5-3 MG/3 ml Neb] 3 ml IH TIDPRN Metformin HCl 500 mg PO BID #60 tablet Potassium Chloride 10 Meq Tab* [Klor Con 10 MEQ] 10 meq PO DAILY Furosemide 20 mg [Lasix 20 mg] 20 mg PO DAILY Follow up with: OLIVER LIU MD [Primary Care Provider] - 1 Week
[2018-05-16] MEDS ORDERED: DUONEB 0.5-3 MG/3 ml Neb IH SCH (10:30)
[2018-05-16] MEDS ORDERED: MEDICATION INTERVENTION MC SCH (10:45)
[2018-05-16 11:53] VITALS: BP 123/66; PULSE 92; O2SAT 95
[2018-05-16] MEDS ORDERED: Ambien 10 MG PO SCH (22:00)
[2018-05-16] MEDS ORDERED: RAMELTEON 8 MG PO SCH (22:00)
[2018-05-17] MEDS ORDERED: PALIPERIDONE 9 MG PO SCH (10:00)
== END 2018-05-16 12:35 | disposition home or self-care (01) ==
LOC: ED 13:47 → MED SURG 19:32
PROVIDERS: ADMIT Family Medicine; ATTEND Family Medicine
DX: G45.9 Transient cerebral ischemic attack, unspecified (principal); E11.9 Type 2 diabetes mellitus without complications; Z86.59 Personal history of other mental and behavioral disorders; E66.01 Morbid (severe) obesity due to excess calories; G62.9 Polyneuropathy, unspecified; E78.00 Pure hypercholesterolemia, unspecified; J45.909 Unspecified asthma, uncomplicated; J44.9 Chronic obstructive pulmonary disease, unspecified; M19.90 Unspecified osteoarthritis, unspecified site; F31.9 Bipolar disorder, unspecified; F41.9 Anxiety disorder, unspecified; G40.909 Epilepsy, unspecified, not intractable, without status epilepticus; Z79.899 Other long term (current) drug therapy; Z23 Encounter for immunization
CPT/HCPCS: 36000; 36415; 70450; 71045; 80053; 81001; 82962; 85025; 85610; 87086; 90686; 93005; 93041; 93268; 94150; 94640; 94760; 94762; 96360; 96374; 99285; G0378; J1650; A9270-GY

== ENCOUNTER 2018-05-16 17:04 | Emergency (ER) | payer MEDICARE ==
[2018-05-16] MEDS ORDERED: TORAdol 30 mg Injection IM ONE (17:24)
[2018-05-16] MEDS ORDERED: TORAdol 30 mg Injection ONE (17:35)
--- NOTE | 2018-05-16 17:38 | ERPHSYRPT ---
- History of Present Illness Time Seen by Provider: 05/16/18 17:22 Source: patient Exam Limitations: no limitations Patient Subjective Stated Complaint: LOWER BACK PAIN SINCE LEAVING HOSPITAL THIS AM. TOOK TYLENOL WITHOUT RELIEF Triage Nursing Assessment: TO ROOM PER EMS COT. SKIN W/D, COLOR NORMAL. RELEASED FROM THIS HOSPITAL THIS AM FOR SAME C/O YESTERDAY. STATES SHE WENT HOME AND PAIN GOT WORSE. PATIENT ASSISTED TO ER COT. PATIENT CRYING AT TIMES, GRIMACING. STATES HAS NUMBNESS DOWN BOTH LEGS WHEN STANDING OR SITTING TOO LONG. GOOD PEDAL PULSES. Physician History: 53-year-old morbidly obese white female with history of peripheral neuropathy, TIA, he arrhythmia, hypercholesterolemia, asthma, COPD, diabetes type 2, arthritis, gallbladder disease, anxiety Patient was admitted to observation last night for a TIA diagnosis was TIA diabetes history of paranoid schizophrenia and morbid obesity Patient apparently had of headache and brief neurologic symptoms which resolved overnight she was seen by Dr. Liu her family doctor and discharge this morning. She states that upon arriving home she began to have pain in her low back she states that she has low back pain for a period of 3 years. Patient apparently has had an MRI in the past however I cannot find evidence of this on the patient's chart. Patient complains of pain in the low back worse with movement she denies any injury. Past medical history includes peripheral neuropathy, TIA, arrhythmia, hypercholesterolemia, asthma, COPD, diabetes type 2, arthritis, gallbladder disease, anxiety, bipolar disorder, menstrual period Past surgical history includes cholecystectomy, , tubal ligation, ganglion cyst Timing/Duration: other (chronic back pain worse since today) Modifying Factors: Improves With: movement Associated Symptoms: No nausea, No vomiting, No abdominal pain, No shortness of breath, No heartburn, No diaphoresis, No cough, No chills, No chest pain, No fever, No headaches, No loss of appetite, No malaise, No rash, No syncope, No seizure Allergies/Adverse Reactions: sulfamethoxazole [From Bactrim] Allergy (Verified 05/16/18 17:29) trimethoprim [From Bactrim] Allergy (Verified 05/16/18 17:29) Home Medications: Divalproex Sodium [Depakote] 500 mg PO TID 09/03/14 [History] Paliperidone [Invega] 9 mg PO DAILY 10/17/15 [History] Ramelteon [Rozerem] 8 mg PO QHS 12/14/15 [History] Albuterol/Ipratropium 3ml Neb* [DUONEB 0.5-3 MG/3 ml Neb] 3 ml IH TIDPRN 04/19 [History] Furosemide 20 mg [Lasix 20 mg] 20 mg PO DAILY 05/15/18 [History] Potassium Chloride 10 Meq Tab* [Klor Con 10 MEQ] 10 meq PO DAILY 05/15/18 [ History] Hx Tetanus, Diphtheria Vaccination/Date Given: No Hx Influenza Vaccination/Date Given: No Hx Pneumococcal Vaccination/Date Given: Yes - Review of Systems Constitutional: No Fever, No Chills Eyes: No Symptoms Ears, Nose, & Throat: No Symptoms Respiratory: No Cough, No Dyspnea Cardiac: No Chest Pain, No Edema, No Syncope Abdominal/Gastrointestinal: No Abdominal Pain, No Nausea, No Vomiting, No Diarrhea Musculoskeletal: Back Pain Skin: No Rash Neurological: No Dizziness, No Focal Weakness, No Sensory Changes Psychological: No Symptoms Endocrine: No Symptoms All Other Systems: Reviewed and Negative - Past Medical History Pertinent Past Medical History: Yes Neurological History: Peripheral Neuropathy, TIA ENT History: No Pertinent History Cardiac History: Arrhythmia, High Cholesterol Respiratory History: Asthma, COPD Endocrine Medical History: Diabetes Type II Musculoskeletal History: Arthritis GI Medical History: Gallbladder Disease History: No Pertinent History Psycho-Social History: Anxiety, Bipolar, Depression, Other Female Reproductive Disorders: Menstrual Problems Other Medical History: hx of cellulitis, hx seizures 3years ago - Past Surgical History Past Surgical History: Yes Neuro Surgical History: No Pertinent History Cardiac: No Pertinent History Respiratory: No Pertinent History Gastrointestinal: Cholecystectomy Genitourinary: No Pertinent History Musculoskeletal: No Pertinent History Female Surgical History: Section, Tubal Ligation Other Surgical History: GANGLION CYST - Social History Smoking Status: Current every day smoker How long have you smoked: 26 years Exposure to second hand smoke: Yes Drug Use: none Patient Lives Alone: No Significant Family History: no pertinent family hx - Female History Hx Now: No - Nursing Vital Signs Nursing Vital Signs: Initial Vital Signs Temperature 97.7 F 05/16/18 17:05 Pulse Rate 93 H 05/16/18 17:05 Respiratory Rate 18 05/16/18 17:05 Blood Pressure 126/88 05/16/18 17:05 O2 Sat by Pulse Oximetry 98 05/16/18 17:05 Pain Scale Pain Intensity [Back] 12 Pain Intensity 8 - Physical Exam General Appearance: moderate distress, alert, obese Eye Exam: PERRL/EOMI, eyes nml inspection Ears, Nose, Throat Exam: normal ENT inspection, TMs normal, pharynx normal, moist mucous membranes Neck Exam: normal inspection, non-tender, supple, full range of motion Respiratory Exam: normal breath sounds, lungs clear, No respiratory distress Cardiovascular Exam: regular rate/rhythm, normal heart sounds, normal peripheral pulses Gastrointestinal/Abdomen Exam: soft, normal bowel sounds, No tenderness, No mass Back Exam: other (tender low lumbar region with palpation and movement) Extremity Exam: normal inspection, normal range of motion, pelvis stable Neurologic Exam: alert, oriented x 3, cooperative, mild disabilities teacher II-XII nml as tested, normal mood/affect, nml cerebellar function, nml station & gait, sensation nml, No motor deficits Skin Exam: normal color, warm, dry, No rash SpO2 Interpretation: normal (98%) SpO2: 98 Oxygen Delivery: Nasal Cannula - Course Nursing assessment & vital signs reviewed: Yes Ordered Tests: Medication Summary Generic Name Dose Route Start Last Admin Trade Name Freq PRN Reason Stop Dose Admin Hydrocodone Bitart/Acetaminophen 1 tab 05/16/18 18:49 Omega 5/325 Mg PO 05/16/18 18:50 SENT HOME W/ PATIENT ONE Discontinued Medications Generic Name Dose Route Start Last Admin Trade Name Freq PRN Reason Stop Dose Admin Ketorolac Tromethamine 60 mg 05/16/18 17:24 05/16/18 17:39 Toradol 30 Mg Injection IM 05/16/18 17:25 60 mg STAT ONE Administration Ketorolac Tromethamine Confirm 05/16/18 17:35 Toradol 30 Mg Injection Administered 05/16/18 17:36 Dose 60 mg .ROUTE .[facility] - Progress Progress: improved Progress Note: 05/16/18 17:35 This is a 53-year-old morbidly obese white female with history of peripheral neuropathy, TIA, arrhythmia, hypercholesterolemia, asthma, COPD, diabetes, arthritis, anxiety, bipolar disorder, She was just released today from observation where she was admitted for TIA Discharge diagnosis included TIA, diabetes, history of paranoid schizophrenia, and morbid obesity. Patient arrives moaning complaining loudly of lower lumbar pain worse with movement. She states that she has had this pain for 3 years. She apparently has had a MRI recently however I cannot find this on the chart. She had a rather extensive workup yesterday for possible TIA which included a CT of her head. I've contacted Dr. Liu the patient's family physician And discussed patient's case with him. I really do not see any labs that need repeated at this time will give the patient Toradol 60 mg IM. May consider morphine and Phenergan. Will reevaluate after patient has had medication on board 05/16/18 18:18 Patient feeling better but not pain-free after Toradol 60 mg IM. Patient did not want an IV. Will give patient a little time for medications to work and. Have nurses try to ambulate the patient. 05/16/18 18:45 Patient able to get up and go to the bathroom after Toradol ambulating. Will plan to send patient home with a small amount of Omega for pain. Patient will need to follow-up with her family doctor. - Departure Time of Disposition: 18:45 Departure Disposition: Home Clinical Impression: Exacerbation of chronic back pain Condition: Fair Critical Care Time: No Referrals: OLIVER LIU MD [Primary Care Provider] - Instructions: Low Back Pain (DC) Additional Instructions: Return home. Omega 5/325 one tablet every 6 hours as needed for pain #10. Follow-up with your family doctor. Return for acute distress or for severe symptoms., do not double up the Tylenol in your [place] WITH OVER the counter tylenol. Prescriptions: Hydrocodone/Acetaminophen [Omega 5-325 Tablet] 1 tab PO Q6H PRN PRN #10 tablet MDD 4 tablets PRN Reason: Pain
[2018-05-16 18:35] VITALS: BP 103/58
[2018-05-16] MEDS ORDERED: NORCO 5/325 MG PO ONE (18:49)
[2018-05-16] MEDS ORDERED: NORCO 5/325 MG ONE (18:56)
[2018-05-16 19:58] VITALS: PULSE 94; O2SAT 95
== END 2018-05-16 19:57 | disposition home or self-care (01) ==
LOC: ED 17:04
DX: M54.5 Low back pain (principal); Z79.899 Other long term (current) drug therapy; Z86.73 Personal history of transient ischemic attack (TIA), and cerebral infarction without residual deficits
CPT/HCPCS: 96372; 99284; J1885; A9270-GY

== ENCOUNTER 2019-02-25 13:49 | Inpatient (IN) | payer MEDICARE ==
[2019-02-25] MEDS ORDERED: Sodium Chloride 0.9% 1000 ML 1,000 ML IV STA ×3 (14:16→16:10)
--- NOTE | 2019-02-25 14:25 | ERPHSYRPT ---
- History of Present Illness Time Seen by Provider: 02/25/19 14:20 Source: patient Exam Limitations: no limitations Patient Subjective Stated Complaint: khurram was being seen at [facility] and began getting dizzy when she got on scale and having some blurred vision they advised she get checked out in ER Triage Nursing Assessment: pt is alert and orientedx3, able to ambulate by self with cane , has cellulitis bilateral lower extremities pitting +4, patient eyes tracking , perrla3, , lung sounds clear diminished , upper extremities edema as well. Physician History: 54-year-old white female with history of chronic dermatitis lower extremity, peripheral neuropathy, TIA, arrhythmia, hyperlipidemia, asthma, COPD, diabetes type 2, cellulitis .. Patient arrives with complaint that she had gone to her physician's office with complaint of erythema and increasing pain in her lower extremities which she has occasional flares and usually improves with clindamycin. She states that she stepped up onto a scale and became dizzy, had blurry vision and began to have a headache. She did not have any speech problems no problems moving she is not having any focal deficits. This occurred just prior to arrival. She does state that she has not been sleeping well for the last 4 days as her legs have been hurting. She feels that her lower legs have been increasingly erythematous and having some weeping for the past few days. Past medical history includes peripheral neuropathy, TIA, arrhythmia, hyperlipidemia, asthma, COPD, diabetes type 2, arthritis, gallbladder disease, anxiety, bipolar depression, cellulitis, seizures Past surgical history includes cholecystectomy, , tubal ligation, ganglion cyst Social history is positive for tobacco use Timing/Duration: other (increasing erythema and pain lower extremities for several days dizziness since just prior to arrival) Severity: moderate Modifying Factors: Improves With: nothing Associated Symptoms: headaches, other (ddizzy), No nausea, No vomiting, No abdominal pain, No shortness of breath, No heartburn, No diaphoresis, No cough, No chills, No chest pain, No fever, No loss of appetite, No malaise, No syncope , No seizure, No weakness Allergies/Adverse Reactions: sulfamethoxazole [From Bactrim] Allergy (Verified 05/16/18 17:29) trimethoprim [From Bactrim] Allergy (Verified 05/16/18 17:29) Home Medications: Divalproex Sodium [Depakote] 500 mg PO TID 09/03/14 [History] Paliperidone [Invega] 9 mg PO DAILY 10/17/15 [History] Ramelteon [Rozerem] 8 mg PO QHS 12/14/15 [History] Albuterol/Ipratropium 3ml Neb* [DUONEB 0.5-3 MG/3 ml Neb] 3 ml IH TIDPRN 04/19 [History] Furosemide 20 mg [Lasix 20 mg] 20 mg PO DAILY 05/15/18 [History] Potassium Chloride 10 Meq Tab* [Klor Con 10 MEQ] 10 meq PO DAILY 05/15/18 [ History] Hx Tetanus, Diphtheria Vaccination/Date Given: No Hx Influenza Vaccination/Date Given: No Hx Pneumococcal Vaccination/Date Given: Yes Immunizations Up to Date: No - Review of Systems Constitutional: Other (not sleeping well for 4 days), No Fever, No Chills Eyes: No Symptoms, Vision Changes (blurry vision since just prior to arrival) Ears, Nose, & Throat: No Symptoms Respiratory: No Cough, No Dyspnea Cardiac: No Chest Pain, No Edema, No Syncope Abdominal/Gastrointestinal: No Abdominal Pain, No Nausea, No Vomiting, No Diarrhea Genitourinary Symptoms: No Dysuria Musculoskeletal: No Symptoms, Other (erythema and pain bilateral lower legs) Skin: Other (erythema bilateral lower legs), No Pruritis Neurological: Dizziness, No Focal Weakness, No Gait Changes, No Headache, No Irritability, No Lethargy, No Paralysis, No Parasthesia, No Seizure, No Sensory Changes, No Speech Changes, No Tics, No Tremors, No Vertigo Psychological: No Symptoms Endocrine: No Symptoms All Other Systems: Reviewed and Negative - Past Medical History Pertinent Past Medical History: Yes Neurological History: Peripheral Neuropathy, TIA ENT History: No Pertinent History Cardiac History: Arrhythmia, High Cholesterol Respiratory History: Asthma, COPD Endocrine Medical History: Diabetes Type II Musculoskeletal History: Arthritis GI Medical History: Gallbladder Disease History: No Pertinent History Psycho-Social History: Anxiety, Bipolar, Depression, Other Female Reproductive Disorders: Menstrual Problems Other Medical History: hx of cellulitis, hx seizures 3years ago - Past Surgical History Past Surgical History: Yes Neuro Surgical History: No Pertinent History Cardiac: No Pertinent History Respiratory: No Pertinent History Gastrointestinal: Cholecystectomy Genitourinary: No Pertinent History Musculoskeletal: No Pertinent History Female Surgical History: Section, Tubal Ligation Other Surgical History: GANGLION CYST - Social History Smoking Status: Current every day smoker How long have you smoked: 26 years Exposure to second hand smoke: Yes Drug Use: none Patient Lives Alone: No Significant Family History: no pertinent family hx - Female History Hx Now: No - Nursing Vital Signs Nursing Vital Signs: Initial Vital Signs Pulse Rate 124 H 02/25/19 13:50 Respiratory Rate 22 02/25/19 13:50 Blood Pressure 133/90 02/25/19 13:50 O2 Sat by Pulse Oximetry 96 02/25/19 13:50 Pain Scale Pain Intensity 8 - Physical Exam General Appearance: no apparent distress, obese Eye Exam: PERRL/EOMI, eyes nml inspection Ears, Nose, Throat Exam: normal ENT inspection, TMs normal, pharynx normal, moist mucous membranes Neck Exam: normal inspection, non-tender, supple, full range of motion Respiratory Exam: normal breath sounds, lungs clear, No respiratory distress Cardiovascular Exam: regular rate/rhythm, normal heart sounds, normal peripheral pulses, capillary refill <2 sec Gastrointestinal/Abdomen Exam: soft, normal bowel sounds, No tenderness, No mass Back Exam: normal inspection, normal range of motion, No CVA tenderness, No vertebral tenderness Extremity Exam: No normal inspection (chronic dermatitis lower extremities erythema lower extremities) Neurologic Exam: alert, oriented x 3, cooperative, optics engineer II-XII nml as tested, normal mood/affect, nml cerebellar function, nml station & gait, sensation nml, other ( Patient is alert, oriented x3, cranial nerves II through XII are intact , DTRs symmetrical and equal two over four, speech is normal, normal finger to nose, focusing machine operator equal and symmetrical 5 over 5, no pronator drift, no facial droop, GCS equals 15 sensation intact to all extremities), No motor deficits Skin Exam: other (erythema bilateral lower extremity) SpO2 Interpretation: normal (96%) SpO2: 96 - Course Nursing assessment & vital signs reviewed: Yes EKG Interpreted by Me: RATE (126 bpm), Sinus Tach, NORMAL AXIS, Other (EKG: Sinus tachycardia, 126 beats per minute, normal axis, no acute ST or T wave changes noted) - Radiology Exams Chest X-ray Interpretation: Discussed w/ radiologist (Chest x-ray: Impression: 1. No acute cardiopulmonary disease is seen. Findings essentially unchanged from May 15, 2018) - CT Exams Head CT Interpretation: Discussed w/radiologist (head ct:impression 1. No acute intracranial bleed or other intracranial process is seen. There has been no significant interval change since the prior CT head study from May 15, 2018) Ordered Tests: Active Orders 24 hr Category Date Time Status Clean Catch Urine Specimen STAT Care 02/25/19 17:15 Active EKG-ER Only STAT Care 02/25/19 14:16 Active IV Insertion STAT Care 02/25/19 14:16 Active CHEST 1 VIEW (PORTABLE) Stat Exams 02/25/19 14:57 Completed HEAD WITHOUT CONTRAST [CT] Stat Exams 02/25/19 14:17 Completed BLOOD CULTURE Stat Lab 02/25/19 15:34 Received CBC W DIFF Stat Lab 02/25/19 14:40 Completed CMP Stat Lab 02/25/19 14:40 Completed CULTURE,WOUND Stat Lab 02/25/19 14:40 Received D-DIMER QUANTITATION Stat Lab 02/25/19 14:40 Received Lactic Acid Stat Lab 02/25/19 14:32 Completed Lactic Acid Stat Lab 02/25/19 18:53 Results Manual Differential NC Stat Lab 02/25/19 14:40 Completed TROPONIN Q3H Lab 02/25/19 14:40 Completed TROPONIN Q3H Lab 02/26/19 02:30 Ordered UA W/RFX UR CULTURE Stat Lab 02/25/19 14:16 Completed Urine Triage Profile Stat Lab 02/25/19 Completed Medication Summary Discontinued Medications Generic Name Dose Route Start Last Admin Trade Name Freq PRN Reason Stop Dose Admin Sodium Chloride 1,000 mls @ 999 mls/hr 02/25/19 14:16 02/25/19 16:27 Sodium Chloride 0.9% 1000 Ml IV 02/25/19 15:16 Infused .Q1H1M STA Infusion Sodium Chloride 1,000 mls @ 999 mls/hr 02/25/19 14:54 02/25/19 17:19 Sodium Chloride 0.9% 1000 Ml IV 02/25/19 15:54 Infused .Q1H1M STA Infusion Sodium Chloride Confirm 02/25/19 14:57 Sodium Chloride 0.9% 1000 Ml Administered 02/25/19 14:58 Dose 1,000 mls @ ud .ROUTE .STK-MED ONE Ceftriaxone Sodium/Dextrose 1 g in 50 mls @ 100 mls/hr 02/25/19 14:57 17:18 Rocephin 1 Gm-D5w 50 Ml Bag IV 02/25/19 15:26 Infused STAT STA Infusion Sodium Chloride 1,000 mls @ 999 mls/hr 02/25/19 16:10 02/25/19 18:40 Sodium Chloride 0.9% 1000 Ml IV 02/25/19 17:10 Infused .Q1H1M STA Infusion Sodium Chloride Confirm 02/25/19 16:11 Sodium Chloride 0.9% 1000 Ml Administered 02/25/19 16:12 Dose 1,000 mls @ ud .ROUTE .STK-MED ONE Ceftriaxone Sodium/Dextrose Confirm 02/25/19 16:15 Rocephin 1 Gm-D5w 50 Ml Bag Administered 02/25/19 16:16 Dose 1 g in 50 mls @ ud IV .STK-MED ONE Sodium Chloride Confirm 02/25/19 17:37 Sodium Chloride 0.9% 1000 Ml Administered 02/25/19 17:38 Dose 1,000 mls @ ud .ROUTE .STK-MED ONE Lab/Rad Data: Laboratory Result Diagrams 02/25/19 14:40 02/25/19 14:40 Laboratory Results 02/25/19 02/25/19 02/25/19 Range/Units Unknown 18:53 14:40 WBC (4.0-10.5) K/mm3 RBC (4.1-5.4) M/mm3 Hgb (12.0-16.0) gm/dl Hct (35-47) % MCV (78-100) fl MCH (26-32) pg MCHC (32-36) g/dl RDW (11.5-14.0) % Plt Count (150-450) K/mm3 MPV (6-9.5) fl Segmented Neutrophils (36.0-66.0) % Lymphocytes (Manual) (24-44) % Monocytes (Manual) (0.0-12.0) % Platelet Estimate (NORMAL) RBC Morphology Sodium (137-145) mmol/L Potassium (3.5-5.1) mmol/L Chloride (98-107) mmol/L Carbon Dioxide (22-30) mmol/L Anion Gap (5-15) MEQ/L BUN (7-17) mg/dL Creatinine (0.52-1.04) mg/dL Estimated GFR ML/MIN Glucose (74-106) mg/dL Lactic Acid 2.4 H (0.4-2.0) Calcium (8.4-10.2) mg/dL Total Bilirubin (0.2-1.3) mg/dL AST (14-36) U/L ALT (0-35) U/L Alkaline Phosphatase (38-126) U/L Troponin I < 0.012 (0.000-0.034) ng/mL Serum Total Protein (6.3-8.2) g/dL Albumin (3.5-5.0) g/dL Urine Color (YELLOW) Urine Appearance (CLEAR) Urine pH (5-6) Ur Specific Holcomb (1.005-1.025) Urine Protein (Negative) Urine Ketones (NEGATIVE) Urine Blood (0-5) Kulwinder/ul Urine Nitrite (NEGATIVE) Urine Bilirubin (NEGATIVE) Urine Urobilinogen (0-1) mg/dL Ur Leukocyte Esterase (NEGATIVE) Urine WBC (Auto) (0-5) /HPF Urine RBC (Auto) (0-2) /HPF U Epithel Cells (Auto) (FEW) /HPF Urine Bacteria (Auto) (NEGATIVE) /HPF Urine Culture Reflexed (NO) Urine Glucose (NEGATIVE) mg/dL Urine Opiates Level NEGATIVE (NEGATIVE) Ur Methadone NEGATIVE (NEGATIVE) Urine Barbiturates NEGATIVE (NEGATIVE) Ur Phencyclidine (PCP) NEGATIVE (NEGATIVE) Urine Amphetamine NEGATIVE (NEGATIVE) U Benzodiazepine Level NEGATIVE (NEGATIVE) Urine Cocaine NEGATIVE (NEGATIVE) Urine Marijuana (THC) NEGATIVE (NEGATIVE) 02/25/19 02/25/19 02/25/19 Range/Units 14:40 14:40 14:32 WBC 11.1 H (4.0-10.5) K/mm3 RBC 4.59 (4.1-5.4) M/mm3 Hgb 14.6 (12.0-16.0) gm/dl Hct 45.2 (35-47) % MCV 98.5 (78-100) fl MCH 31.8 (26-32) pg MCHC 32.3 (32-36) g/dl RDW 14.2 H (11.5-14.0) % Plt Count 249 (150-450) K/mm3 MPV 10.3 H (6-9.5) fl Segmented Neutrophils 72 H (36.0-66.0) % Lymphocytes (Manual) 18 L (24-44) % Monocytes (Manual) 10 (0.0-12.0) % Platelet Estimate NORMAL (NORMAL) RBC Morphology NORMAL Sodium 141 (137-145) mmol/L Potassium 3.8 (3.5-5.1) mmol/L Chloride 98 (98-107) mmol/L Carbon Dioxide 29 (22-30) mmol/L Anion Gap 17.7 H (5-15) MEQ/L BUN 5 L (7-17) mg/dL Creatinine 0.35 L (0.52-1.04) mg/dL Estimated GFR > 60.0 ML/MIN Glucose 127 H (74-106) mg/dL Lactic Acid 4.0 H (0.4-2.0) Calcium 9.9 (8.4-10.2) mg/dL Total Bilirubin 0.40 (0.2-1.3) mg/dL AST 27 (14-36) U/L ALT 20 (0-35) U/L Alkaline Phosphatase 104 (38-126) U/L Troponin I (0.000-0.034) ng/mL Serum Total Protein 7.1 (6.3-8.2) g/dL Albumin 4.0 (3.5-5.0) g/dL Urine Color (YELLOW) Urine Appearance (CLEAR) Urine pH (5-6) Ur Specific Holcomb (1.005-1.025) Urine Protein (Negative) Urine Ketones (NEGATIVE) Urine Blood (0-5) Kulwinder/ul Urine Nitrite (NEGATIVE) Urine Bilirubin (NEGATIVE) Urine Urobilinogen (0-1) mg/dL Ur Leukocyte Esterase (NEGATIVE) Urine WBC (Auto) (0-5) /HPF Urine RBC (Auto) (0-2) /HPF U Epithel Cells (Auto) (FEW) /HPF Urine Bacteria (Auto) (NEGATIVE) /HPF Urine Culture Reflexed (NO) Urine Glucose (NEGATIVE) mg/dL Urine Opiates Level (NEGATIVE) Ur Methadone (NEGATIVE) Urine Barbiturates (NEGATIVE) Ur Phencyclidine (PCP) (NEGATIVE) Urine Amphetamine (NEGATIVE) U Benzodiazepine Level (NEGATIVE) Urine Cocaine (NEGATIVE) Urine Marijuana (THC) (NEGATIVE) 02/25/19 Range/Units 14:16 WBC (4.0-10.5) K/mm3 RBC (4.1-5.4) M/mm3 Hgb (12.0-16.0) gm/dl Hct (35-47) % MCV (78-100) fl MCH (26-32) pg MCHC (32-36) g/dl RDW (11.5-14.0) % Plt Count (150-450) K/mm3 MPV (6-9.5) fl Segmented Neutrophils (36.0-66.0) % Lymphocytes (Manual) (24-44) % Monocytes (Manual) (0.0-12.0) % Platelet Estimate (NORMAL) RBC Morphology Sodium (137-145) mmol/L Potassium (3.5-5.1) mmol/L Chloride (98-107) mmol/L Carbon Dioxide (22-30) mmol/L Anion Gap (5-15) MEQ/L BUN (7-17) mg/dL Creatinine (0.52-1.04) mg/dL Estimated GFR ML/MIN Glucose (74-106) mg/dL Lactic Acid (0.4-2.0) Calcium (8.4-10.2) mg/dL Total Bilirubin (0.2-1.3) mg/dL AST (14-36) U/L ALT (0-35) U/L Alkaline Phosphatase (38-126) U/L Troponin I (0.000-0.034) ng/mL Serum Total Protein (6.3-8.2) g/dL Albumin (3.5-5.0) g/dL Urine Color YELLOW (YELLOW) Urine Appearance CLEAR (CLEAR) Urine pH 7.0 (5-6) Ur Specific Holcomb 1.003 (1.005-1.025) Urine Protein NEGATIVE (Negative) Urine Ketones TRACE (NEGATIVE) Urine Blood NEGATIVE (0-5) Kulwinder/ul Urine Nitrite NEGATIVE (NEGATIVE) Urine Bilirubin NEGATIVE (NEGATIVE) Urine Urobilinogen NEGATIVE (0-1) mg/dL Ur Leukocyte Esterase NEGATIVE (NEGATIVE) Urine WBC (Auto) 0-2 (0-5) /HPF Urine RBC (Auto) NONE (0-2) /HPF U Epithel Cells (Auto) NONE (FEW) /HPF Urine Bacteria (Auto) RARE (NEGATIVE) /HPF Urine Culture Reflexed NO (NO) Urine Glucose NEGATIVE (NEGATIVE) mg/dL Urine Opiates Level (NEGATIVE) Ur Methadone (NEGATIVE) Urine Barbiturates (NEGATIVE) Ur Phencyclidine (PCP) (NEGATIVE) Urine Amphetamine (NEGATIVE) U Benzodiazepine Level (NEGATIVE) Urine Cocaine (NEGATIVE) Urine Marijuana (THC) (NEGATIVE) - Progress Progress: improved Progress Note: 02/25/19 19:16 The patient with lactate of 4.0 White count of 11.1 hemoglobin 14.6 hematocrit 45.2 platelets 249 EKG sinus rhythm 126 beats per minute normal axis no acute ST or T wave changes Patient's vitals are stable she is afebrile patient does not appear to be septic however she does have bilateral leg cellulitis. Patient was given 3 L of normal saline she was also given Rocephin 1 g IV. I discussed the patient's case with Dr. Liu he would like the patient to be started on vancomycin and placed on observation. Will admit patient to observation diagnosis bilateral leg cellulitis - Departure Departure Disposition: Observation Clinical Impression: Bilateral cellulitis of lower leg Condition: Fair Critical Care Time: No Referrals: OLIVER LIU MD [Primary Care Provider] -
[2019-02-25 14:48] LABS: Hematocrit 45.2 % (35-47); Hemoglobin 14.6 gm/dl (12.0-16.0); Mean Cell Volume 98.5 fl (78-100); Mean Corpuscular Hemoglobin 31.8 pg (26-32); Mean Corpuscular Hgb Concent. 32.3 g/dl (32-36); Mean Platelet Volume 10.3 fl (6-9.5); Platelet Count 249 K/mm3 (150-450); Red Blood Count 4.59 M/mm3 (4.1-5.4); Red Cell Distribution Width 14.2 % (11.5-14.0); White Blood Count 11.1 K/mm3 (4.0-10.5)
[2019-02-25] MEDS ORDERED: Sodium Chloride 0.9% 1000 ML 1,000 ML ONE ×3 (14:57→17:37)
[2019-02-25] MEDS ORDERED: ROCEPHIN 1 Gm-D5w 50 ml Bag** 1 G/50 ML IVPB IV STA (14:57)
[2019-02-25 15:03] LABS: ALKALINE PHOSPHATASE 104 U/L (38-126); ANION GAP 17.7 MEQ/L (5-15); BLOOD UREA NITROGEN 5 mg/dL (7-17); CHLORIDE 98 mmol/L (98-107); Calcium 9.9 mg/dL (8.4-10.2); Carbon Dioxide 29 mmol/L (22-30); Creatinine 1 0.35 mg/dL (0.52-1.04); Glucose 127 mg/dL (74-106); Potassium 3.8 mmol/L (3.5-5.1); SGOT/AST 27 U/L (14-36); SGPT/ALT 20 U/L (0-35); SODIUM 141 mmol/L (137-145); Total Protein 7.1 g/dL (6.3-8.2)
--- NOTE | 2019-02-25 15:17 | XRAY ---
Exam: CT of the head without IV contrast from 02/25/2019. CTDI: 64.42 Comparison: CT of the head without IV contrast from 05/15/2018. Indication: 54-year-old female with dizziness. Technique: Non-IV contrast axial images were obtained through the brain. Reconstructed coronal and sagittal images were created and reviewed. Findings: Mild increased CT noise is seen on the more inferior images. The ventricles appear of unremarkable size. No focal mass effect or midline shift is seen. No acute intracranial bleed or abnormal extra-axial fluid collection is seen. The shrestha matter-white matter interfaces appear unremarkable. No focal low-attenuation lesion is seen to suggest an acute territorial infarction. The cortical sulci and basilar cisterns appear unremarkable. The calvarium of the skull appears intact. Some minimal scattered mucosal thickening is seen within the ethmoid sinus complex. No air-fluid levels are seen within the paranasal sinuses. The mastoid air cells appear clear. Impression: 1. No acute intracranial bleed or other acute intracranial process is seen. There has been no significant interval change since the prior CT head study from 05/15/2018.
[2019-02-25 15:28] LABS: Lymphocytes 18 % (24-44); Monocyte 10 % (0.0-12.0); Neutrophils 72 % (36.0-66.0); Platelet Estimate NORMAL (NORMAL); Total Cells Counted 100
--- NOTE | 2019-02-25 15:55 | XRAY ---
Exam: AP upright portable chest film from 02/25/2019. Comparison: AP upright portable chest film from 05/15/2018. Indication: 54-year-old female with dizziness. Findings: The film was obtained in a mildly lordotic projection. The heart size is normal. Numerous EKG leads overlie the chest. The lungs are adequately inflated. The emmanuel and mediastinal structures appear unremarkable. I see no air space infiltrates, significant vascular congestion, pneumothorax, or pleural fluid. No acute osseous process is seen. Impression: 1. No acute cardiopulmonary disease is seen. The findings appear essentially unchanged from 05/15/2018.
[2019-02-25] MEDS ORDERED: ROCEPHIN 1 Gm-D5w 50 ml Bag** 1 G/50 ML IVPB IV ONE (16:15)
[2019-02-25 16:45] LABS: Appearance CLEAR (CLEAR); Bacteria RARE /HPF (NEGATIVE); Bilirubin NEGATIVE (NEGATIVE); Blood NEGATIVE Ery/ul (0-5); Glucose NEGATIVE (NEGATIVE); Ketones TRACE (NEGATIVE); Leukocyte Esterase NEGATIVE (NEGATIVE); Nitrite NEGATIVE (NEGATIVE); Protein,Urine Dip NEGATIVE (Negative); Specific Gravity 1.003 (1.005-1.025); Urobilinogen NEGATIVE mg/dL (0-1); WBC 0-2 /HPF (0-5)
[2019-02-25 17:06] LABS: Amphetamine,Urine NEGATIVE (NEGATIVE); Barbiturate,Urine NEGATIVE (NEGATIVE); Benzodiazepine,Urine NEGATIVE (NEGATIVE); Cocaine,Urine NEGATIVE (NEGATIVE); Methadone,Urine NEGATIVE (NEGATIVE); Opiate,Urine NEGATIVE (NEGATIVE); PCP,Urine NEGATIVE (NEGATIVE); THC,Urine NEGATIVE (NEGATIVE)
[2019-02-25 18:54] LABS: Lactic Acid 2.4 (0.4-2.0)
[2019-02-25] MEDS ORDERED: NovoLOG Insulin SQ PRN (19:51)
[2019-02-25] MEDS: Sodium Chloride 0.9% 1000 ML 1,000 ML IV SCH (21:58)
[2019-02-25] MEDS: Cyclobenzaprine 10 MG PO SCH (22:33)
[2019-02-25] MEDS: NORCO 5/325 MG PO PRN (22:34)
[2019-02-26 05:43] LABS: Hematocrit 41.6 % (35-47); Hemoglobin 13.1 gm/dl (12.0-16.0); Mean Cell Volume 102.2 fl (78-100); Mean Corpuscular Hgb Concent. 31.5 g/dl (32-36); Mean Platelet Volume 10.2 fl (6-9.5); Platelet Count 219 K/mm3 (150-450); Red Blood Count 4.07 M/mm3 (4.1-5.4); Red Cell Distribution Width 14.4 % (11.5-14.0)
[2019-02-26 06:00] LABS: Mean Corpuscular Hemoglobin 32.1 pg (26-32)
[2019-02-26 06:10] LABS: ANION GAP 13.7 MEQ/L (5-15); BLOOD UREA NITROGEN 4 mg/dL (7-17); CHLORIDE 104 mmol/L (98-107); Calcium 8.2 mg/dL (8.4-10.2); Carbon Dioxide 28 mmol/L (22-30); Creatinine 1 0.35 mg/dL (0.52-1.04); Glucose 126 mg/dL (74-106); Potassium 4.1 mmol/L (3.5-5.1); SODIUM 141 mmol/L (137-145)
[2019-02-26 07:18] LABS: BAND 7 % (0.0-2.0); Eosinophil 1 % (0.00-3.0); Lymphocytes 13 % (24-44); Monocyte 7 % (0.0-12.0); Neutrophils 72 % (36.0-66.0); Total Cells Counted 100
[2019-02-26 07:19] LABS: ANISOCYTOSIS 1+; Platelet Estimate NORMAL (NORMAL); Toxic Granulation 1+
--- NOTE | 2019-02-26 08:38 | PCM.HP ---
History of Present Illness - Chief Complaint Chief Complaint: Cellulitis History of Present Illness: is a 54 year old female pt of with COPD on O2, DM II, CHF, PVD, lymphedema, morbid obesity, and schizophrenia/bipolar who was admitted through ER yesterday with cellulitis. She had not slept for 4d and had noticed increased redness of her leg so came to see Mayra Sanchez at [facility]. She stepped on the scale and felt like her ears were plugged up and she had blurry vision. An ambulance was called and she went to ER. Her LA was 4.0 and she was given 3L of fluid but the ER doctor notes he does not think she was septic. Her WBC were 11.1 with 72% segs. BUN/Cr nl. Troponin nl x 1. UDS neg. UA neg. CT head and CXR without acute findings. Pt denies that she had any paresthesias, dizziness/lightheaded, or nausea. Today she notes her R shoulder hurts, she states because of the hospital bed. She states she was drowsy with norco but didn't sleep. She c/o bilat pain inferior to breasts, she says, "my body telling me to stop smoking." - Review of Systems Eyes: Vision Changes Ears, Nose, & Throat: Hearing Changes Cardiac: Chest Pain (as in HPI, inferior to breasts) Abdominal/Gastrointestinal: Abdominal Pain (only when her 11lb cat jumps on her belly), Diarrhea (chronic loose stools; 4x/d) Musculoskeletal: Joint Pain (R shoulder/upper arm), Other (leg cramps this morning) Skin: Cellulitis Psychological: Emotional Lability, No Suicidal Ideations, No Homicidal Ideations All Other Systems: Reviewed and Negative Medications & Allergies Home Medications: Home Medication List Divalproex Sodium [Depakote] 500 mg PO TID 09/03/14 [History Confirmed 02/25/19] Paliperidone [Invega] 9 mg PO DAILY 10/17/15 [History Confirmed 02/25/19] Ramelteon [Rozerem] 8 mg PO QHS 12/14/15 [History Confirmed 02/25/19] Metformin HCl 500 mg PO BID #60 tablet 11/20/17 [Rx Confirmed 02/25/19] Furosemide 20 mg [Lasix 20 mg] 20 mg PO DAILY 05/15/18 [History Confirmed 02/25/19] Potassium Chloride 10 Meq Tab* [Klor Con 10 MEQ] 10 meq PO DAILY 05/15/18 [ History Confirmed 02/25/19] Aspirin EC 81 mg [Ecotrin 81 mg] 81 mg PO DAILY #30 tablet.ec 05/16/18 [ Rx Confirmed 02/25/19] Cyclobenzaprine HCl 10 mg [Cyclobenzaprine 10 MG] 10 mg PO HS 02/25/19 [ History Confirmed 02/25/19] Allergies/Adverse Reactions: Allergies Allergy/AdvReac Type Severity Reaction Status Date / Time sulfamethoxazole Allergy Verified 02/25/19 20:32 [From Bactrim] trimethoprim [From Bactrim] Allergy Verified 02/25/19 20:32 - Past Medical History Past Medical History: Yes Neurological History: Peripheral Neuropathy, Seizures, TIA ENT History: Glaucoma Cardiac History: High Cholesterol Respiratory History: COPD Endocrine Medical History: Diabetes Type II Musculoskelatal History: Arthritis GI Medical History: Gallbladder Disease History: No Pertinent History Pyscho-Social History: Bipolar, Depression Reproductive Disorders: No Pertinent History Comment: hx of cellulitis, hx seizures 3years ago, gallbladder removed - Female History Are you now?: No - Past Surgical History Past Surgical History: Yes Neuro Surgical History: No Pertinent History Cardiac History: No Pertinent History Respiratory Surgery: No Pertinent History GI Surgical History: Cholecystectomy Genitourinary Surgical Hx: No Pertinent History Musculskeletal Surgical Hx: No Pertinent History Female Surgical History: Section, Tubal Ligation Other Surgical History: GANGLION CYST - Social History Smoking Status: Current every day smoker How long have you smoked: 30 years Exposure to second hand smoke: Yes Alcohol: None Drug Use: none Significant Family History: no pertinent family hx - Physical Exam Vital Signs: Vital Signs - 24 hr Temp Pulse Resp BP Pulse Ox 02/26/19 07:46 96 02/26/19 07:20 98 F 100 H 20 120/68 99 02/26/19 04:00 97.9 F 120 H 28 H 139/76 96 02/26/19 00:00 98.7 F 110 H 24 120/58 96 02/25/19 21:00 96 02/25/19 20:56 98.5 F 112 H 20 143/57 96 02/25/19 20:14 112 H 20 96 02/25/19 20:13 92 L 02/25/19 20:00 98.5 F 105 H 24 143/57 93 L 02/25/19 19:18 96 02/25/19 18:20 98.2 F 112 H 28 H 108/67 95 02/25/19 16:21 122 H 22 128/88 93 L 02/25/19 15:30 108/81 02/25/19 13:50 124 H 22 133/90 96 Oxygen-Last 24 hours O2 Percentage 3 Liters = 32% O2 Percentage 3 Liters = 32% O2 Percentage 3 Liters = 32% O2 Percentage 3 Liters = 32% General Appearance: no apparent distress, obese Neurologic Exam: alert, oriented x 3, cooperative, normal mood/affect Eye Exam: eyes nml inspection Ears, Nose, Throat Exam: moist mucous membranes Neck Exam: normal inspection, non-tender, No lymphadenopathy Respiratory Exam: normal breath sounds, lungs clear, No crackles/rales, No rhonchi, No wheezing Cardiovascular Exam: regular rate/rhythm, normal heart sounds, No murmur Gastrointestinal/Abdomen Exam: soft, No normal bowel sounds (hypoactive but present), No tenderness, No guarding, No rebound Extremity Exam: other (bilat lower legs with chronic changes of lymphedema; mild erythema bilat. no exudate noted) Skin Exam: warm, dry, No rash Wound Assessment: Skin/Wound Assessment Wound/Incision Assessment Start: 02/25/19 20: 04 Text: Status: Active Freq: Q6H Protocol: Document 02/26/19 02:00 AW (Rec: 02/26/19 02:25 AW [id number]) Wound/Incision Assessment Lower Wound Assessment Shift Assessment Wound Type cellulitis-lymphedema Drainage Amount Minimal Drainage Description Yellow General Appearance Open to air Draining Comment cellulitis and lymphedema to ble, minimal yellow drainage noted, barrier cream applied Wound Photo Photo Taken No Results - Labs Lab/Micro Results: Accuchecks Date 02/25/19 Time 21:45 Accucheck Value: 114 Lab Results-Last 24 Hours 02/25/19 02/25/19 02/25/19 Range/Units 14:16 14:32 14:40 WBC 11.1 H (4.0-10.5) K/mm3 RBC 4.59 (4.1-5.4) M/mm3 Hgb 14.6 (12.0-16.0) gm/dl Hct 45.2 (35-47) % MCV 98.5 (78-100) fl MCH 31.8 (26-32) pg MCHC 32.3 (32-36) g/dl RDW 14.2 H (11.5-14.0) % Plt Count 249 (150-450) K/mm3 MPV 10.3 H (6-9.5) fl Segmented Neutrophils 72 H (36.0-66.0) % Band Neutrophils (0.0-2.0) % Lymphocytes (Manual) 18 L (24-44) % Monocytes (Manual) 10 (0.0-12.0) % Eosinophils (Manual) (0.00-3.0) % Toxic Granulation Platelet Estimate NORMAL (NORMAL) RBC Morphology NORMAL Anisocytosis D-Dimer (215-500) ng/mL Sodium (137-145) mmol/L Potassium (3.5-5.1) mmol/L Chloride (98-107) mmol/L Carbon Dioxide (22-30) mmol/L Anion Gap (5-15) MEQ/L BUN (7-17) mg/dL Creatinine (0.52-1.04) mg/dL Estimated GFR ML/MIN Glucose (74-106) mg/dL Lactic Acid 4.0 H (0.4-2.0) Calcium (8.4-10.2) mg/dL Total Bilirubin (0.2-1.3) mg/dL AST (14-36) U/L ALT (0-35) U/L Alkaline Phosphatase (38-126) U/L Troponin I (0.000-0.034) ng/mL Serum Total Protein (6.3-8.2) g/dL Albumin (3.5-5.0) g/dL Urine Color YELLOW (YELLOW) Urine Appearance CLEAR (CLEAR) Urine pH 7.0 (5-6) Ur Specific [place] 1.003 (1.005-1.025) Urine Protein NEGATIVE (Negative) Urine Ketones TRACE (NEGATIVE) Urine Blood NEGATIVE (0-5) Kulwinder/ul Urine Nitrite NEGATIVE (NEGATIVE) Urine Bilirubin NEGATIVE (NEGATIVE) Urine Urobilinogen NEGATIVE (0-1) mg/dL Ur Leukocyte Esterase NEGATIVE (NEGATIVE) Urine WBC (Auto) 0-2 (0-5) /HPF Urine RBC (Auto) NONE (0-2) /HPF U Epithel Cells (Auto) NONE (FEW) /HPF Urine Bacteria (Auto) RARE (NEGATIVE) /HPF Urine Culture Reflexed NO (NO) Urine Glucose NEGATIVE (NEGATIVE) mg/dL Urine Opiates Level (NEGATIVE) Ur Methadone (NEGATIVE) Urine Barbiturates (NEGATIVE) Ur Phencyclidine (PCP) (NEGATIVE) Urine Amphetamine (NEGATIVE) U Benzodiazepine Level (NEGATIVE) Urine Cocaine (NEGATIVE) Urine Marijuana (THC) (NEGATIVE) 02/25/19 02/25/19 02/25/19 Range/Units 14:40 14:40 14:40 WBC (4.0-10.5) K/mm3 RBC (4.1-5.4) M/mm3 Hgb (12.0-16.0) gm/dl Hct (35-47) % MCV (78-100) fl MCH (26-32) pg MCHC (32-36) g/dl RDW (11.5-14.0) % Plt Count (150-450) K/mm3 MPV (6-9.5) fl Segmented Neutrophils (36.0-66.0) % Band Neutrophils (0.0-2.0) % Lymphocytes (Manual) (24-44) % Monocytes (Manual) (0.0-12.0) % Eosinophils (Manual) (0.00-3.0) % Toxic Granulation Platelet Estimate (NORMAL) RBC Morphology Anisocytosis D-Dimer (215-500) ng/mL Sodium 141 (137-145) mmol/L Potassium 3.8 (3.5-5.1) mmol/L Chloride 98 (98-107) mmol/L Carbon Dioxide 29 (22-30) mmol/L Anion Gap 17.7 H (5-15) MEQ/L BUN 5 L (7-17) mg/dL Creatinine 0.35 L (0.52-1.04) mg/dL Estimated GFR > 60.0 ML/MIN Glucose 127 H (74-106) mg/dL Lactic Acid (0.4-2.0) Calcium 9.9 (8.4-10.2) mg/dL Total Bilirubin 0.40 (0.2-1.3) mg/dL AST 27 (14-36) U/L ALT 20 (0-35) U/L Alkaline Phosphatase 104 (38-126) U/L Troponin I < 0.012 (0.000-0.034) ng/mL Serum Total Protein 7.1 (6.3-8.2) g/dL Albumin 4.0 (3.5-5.0) g/dL Urine Color (YELLOW) Urine Appearance (CLEAR) Urine pH (5-6) Ur Specific [place] (1.005-1.025) Urine Protein (Negative) Urine Ketones (NEGATIVE) Urine Blood (0-5) Kulwinder/ul Urine Nitrite (NEGATIVE) Urine Bilirubin (NEGATIVE) Urine Urobilinogen (0-1) mg/dL Ur Leukocyte Esterase (NEGATIVE) Urine WBC (Auto) (0-5) /HPF Urine RBC (Auto) (0-2) /HPF U Epithel Cells (Auto) (FEW) /HPF Urine Bacteria (Auto) (NEGATIVE) /HPF Urine Culture Reflexed (NO) Urine Glucose (NEGATIVE) mg/dL Urine Opiates Level (NEGATIVE) Ur Methadone (NEGATIVE) Urine Barbiturates (NEGATIVE) Ur Phencyclidine (PCP) (NEGATIVE) Urine Amphetamine (NEGATIVE) U Benzodiazepine Level (NEGATIVE) Urine Cocaine (NEGATIVE) Urine Marijuana (THC) (NEGATIVE) 02/25/19 02/25/19 02/26/19 Range/Units 18:53 Unknown 05:18 WBC 8.0 (4.0-10.5) K/mm3 RBC 4.07 L (4.1-5.4) M/mm3 Hgb 13.1 (12.0-16.0) gm/dl Hct 41.6 (35-47) % MCV 102.2 H (78-100) fl MCH 32.1 H (26-32) pg MCHC 31.5 L (32-36) g/dl RDW 14.4 H (11.5-14.0) % Plt Count 219 (150-450) K/mm3 MPV 10.2 H (6-9.5) fl Segmented Neutrophils 72 H (36.0-66.0) % Band Neutrophils 7 H (0.0-2.0) % Lymphocytes (Manual) 13 L (24-44) % Monocytes (Manual) 7 (0.0-12.0) % Eosinophils (Manual) 1 (0.00-3.0) % Toxic Granulation 1+ Platelet Estimate NORMAL (NORMAL) RBC Morphology ABNORMAL Anisocytosis 1+ D-Dimer (215-500) ng/mL Sodium (137-145) mmol/L Potassium (3.5-5.1) mmol/L Chloride (98-107) mmol/L Carbon Dioxide (22-30) mmol/L Anion Gap (5-15) MEQ/L BUN (7-17) mg/dL Creatinine (0.52-1.04) mg/dL Estimated GFR ML/MIN Glucose (74-106) mg/dL Lactic Acid 2.4 H (0.4-2.0) Calcium (8.4-10.2) mg/dL Total Bilirubin (0.2-1.3) mg/dL AST (14-36) U/L ALT (0-35) U/L Alkaline Phosphatase (38-126) U/L Troponin I (0.000-0.034) ng/mL Serum Total Protein (6.3-8.2) g/dL Albumin (3.5-5.0) g/dL Urine Color (YELLOW) Urine Appearance (CLEAR) Urine pH (5-6) Ur Specific [place] (1.005-1.025) Urine Protein (Negative) Urine Ketones (NEGATIVE) Urine Blood (0-5) Kulwinder/ul Urine Nitrite (NEGATIVE) Urine Bilirubin (NEGATIVE) Urine Urobilinogen (0-1) mg/dL Ur Leukocyte Esterase (NEGATIVE) Urine WBC (Auto) (0-5) /HPF Urine RBC (Auto) (0-2) /HPF U Epithel Cells (Auto) (FEW) /HPF Urine Bacteria (Auto) (NEGATIVE) /HPF Urine Culture Reflexed (NO) Urine Glucose (NEGATIVE) mg/dL Urine Opiates Level NEGATIVE (NEGATIVE) Ur Methadone NEGATIVE (NEGATIVE) Urine Barbiturates NEGATIVE (NEGATIVE) Ur Phencyclidine (PCP) NEGATIVE (NEGATIVE) Urine Amphetamine NEGATIVE (NEGATIVE) U Benzodiazepine Level NEGATIVE (NEGATIVE) Urine Cocaine NEGATIVE (NEGATIVE) Urine Marijuana (THC) NEGATIVE (NEGATIVE) 02/26/19 02/26/19 Range/Units 05:18 05:32 WBC (4.0-10.5) K/mm3 RBC (4.1-5.4) M/mm3 Hgb (12.0-16.0) gm/dl Hct (35-47) % MCV (78-100) fl MCH (26-32) pg MCHC (32-36) g/dl RDW (11.5-14.0) % Plt Count (150-450) K/mm3 MPV (6-9.5) fl Segmented Neutrophils (36.0-66.0) % Band Neutrophils (0.0-2.0) % Lymphocytes (Manual) (24-44) % Monocytes (Manual) (0.0-12.0) % Eosinophils (Manual) (0.00-3.0) % Toxic Granulation Platelet Estimate (NORMAL) RBC Morphology Anisocytosis D-Dimer (215-500) ng/mL Sodium 141 (137-145) mmol/L Potassium 4.1 (3.5-5.1) mmol/L Chloride 104 (98-107) mmol/L Carbon Dioxide 28 (22-30) mmol/L Anion Gap 13.7 (5-15) MEQ/L BUN 4 L (7-17) mg/dL Creatinine 0.35 L (0.52-1.04) mg/dL Estimated GFR > 60.0 ML/MIN Glucose 126 H (74-106) mg/dL Lactic Acid 1.7 (0.4-2.0) Calcium 8.2 L D (8.4-10.2) mg/dL Total Bilirubin (0.2-1.3) mg/dL AST (14-36) U/L ALT (0-35) U/L Alkaline Phosphatase (38-126) U/L Troponin I (0.000-0.034) ng/mL Serum Total Protein (6.3-8.2) g/dL Albumin (3.5-5.0) g/dL Urine Color (YELLOW) Urine Appearance (CLEAR) Urine pH (5-6) Ur Specific [place] (1.005-1.025) Urine Protein (Negative) Urine Ketones (NEGATIVE) Urine Blood (0-5) Kulwinder/ul Urine Nitrite (NEGATIVE) Urine Bilirubin (NEGATIVE) Urine Urobilinogen (0-1) mg/dL Ur Leukocyte Esterase (NEGATIVE) Urine WBC (Auto) (0-5) /HPF Urine RBC (Auto) (0-2) /HPF U Epithel Cells (Auto) (FEW) /HPF Urine Bacteria (Auto) (NEGATIVE) /HPF Urine Culture Reflexed (NO) Urine Glucose (NEGATIVE) mg/dL Urine Opiates Level (NEGATIVE) Ur Methadone (NEGATIVE) Urine Barbiturates (NEGATIVE) Ur Phencyclidine (PCP) (NEGATIVE) Urine Amphetamine (NEGATIVE) U Benzodiazepine Level (NEGATIVE) Urine Cocaine (NEGATIVE) Urine Marijuana (THC) (NEGATIVE) Microbiology 02/25/19 14:40 Wound Culture - Preliminary Leg - Left Lower GRAM POSITIVE ID AND SENSITIVITY PENDING Accuchecks Date 02/25/19 Time 21:45 Accucheck Value: 114 - Radiology Impressions Radiology Exams & Impressions: Radiology Procedures Category Date Time Status CHEST 1 VIEW (PORTABLE) Stat Exams 02/25/19 14:57 Completed HEAD WITHOUT CONTRAST [CT] Stat Exams 02/25/19 14:17 Completed - Other Procedures and Tests Respiratory Therapy 02/25/19 20:09 Oxygen Nasal Cannula 3 lpm Assessment/Plan (1) Bilateral cellulitis of lower leg Current Visit: Yes Status: Acute Assessment & Plan: On Iv vancomycin day #2. Code(s): L03.116 - CELLULITIS OF LEFT LOWER LIMB; L03.115 - CELLULITIS OF RIGHT LOWER LIMB (2) Chest pain Current Visit: Yes Status: Acute Qualifiers: Chest pain type: other chest pain Qualified Code(s): R07.89 - Other chest pain; R07.8 - Other chest pain Assessment & Plan: unlikely to be cardiac but she is on the monitor and I have added 3 more troponins today in order to definitively rule out TN. Code(s): R07.9 - CHEST PAIN, UNSPECIFIED (3) Insomnia Current Visit: Yes Status: Chronic Qualifiers: Insomnia type: primary Qualified Code(s): F51.01 - Primary insomnia Assessment & Plan: I continued her rozerem and added 1mg ativan po qhs prn tonight. Code(s): G47.00 - INSOMNIA, UNSPECIFIED (4) Leg cramp Current Visit: Yes Status: Acute Assessment & Plan: check Mg. potassium is fine. Code(s): R25.2 - CRAMP AND SPASM (5) DVT prophylaxis Current Visit: No Status: Acute Onset Date: ~05/16/18 Assessment & Plan: will start lovenox 40mg SQ daily. Code(s): UOU1003 - (6) Diabetes mellitus Current Visit: No Status: Chronic Qualifiers: Diabetes mellitus type: type 2 Diabetes mellitus intermediate teacher insulin use: without mcc use Diabetes mellitus complication status: with skin complications Diabetes mellitus complication detail: with other skin complication Qualified Code(s): E11.628 - Type 2 diabetes mellitus with other skin complications Code(s): E11.9 - TYPE 2 DIABETES MELLITUS WITHOUT COMPLICATIONS (7) Essential hypertension Current Visit: No Status: Chronic Assessment & Plan: stable here Code(s): I10 - ESSENTIAL (PRIMARY) HYPERTENSION (8) Morbid obesity Current Visit: No Status: Chronic Code(s): E66.01 - MORBID (SEVERE) OBESITY DUE TO EXCESS CALORIES (9) Chronic hypoxemic respiratory failure Current Visit: Yes Status: Chronic (10) Lymphedema Current Visit: Yes Status: Chronic Assessment & Plan: PT consulted. Code(s): I89.0 - LYMPHEDEMA, NOT ELSEWHERE CLASSIFIED
[2019-02-26] MEDS ORDERED: Ativan 1 MG PO PRN (08:47)
[2019-02-26] MEDS ORDERED: PALIPERIDONE 9 MG PO SCH (10:00)
[2019-02-26] MEDS ORDERED: Vancomycin 1GM/ Ns 250ML*** 1 GM/250 ML IVPB IV SCH (10:00)
[2019-02-26] MEDS: Sodium Chloride 0.9% 1000 ML 1,000 ML IV SCH ×2 (10:04→21:28)
[2019-02-26] MEDS ORDERED: MEDICATION INTERVENTION MC SCH (10:15)
[2019-02-26] MEDS: ECOTRIN 81 MG PO SCH (10:32)
[2019-02-26] MEDS: ENOXAPARIN SODIUM SQ SCH (10:32)
[2019-02-26] MEDS: LASIX 20 MG PO SCH (10:33)
[2019-02-26] MEDS: Glucophage 500 MG PO SCH ×2 (10:33→17:03)
[2019-02-26] MEDS: Klor Con 10 MEQ PO SCH (10:33)
[2019-02-26] MEDS: VANCOCIN 1 GM VIAL*** 1 GM in Sodium Chloride 0.9% 250 ML 250 ML IV SCH ×2 (10:41→23:55)
[2019-02-26] MEDS: Cyclobenzaprine 10 MG PO SCH (21:20)
[2019-02-26] MEDS ORDERED: Ambien 10 MG PO SCH (22:00)
[2019-02-26] MEDS ORDERED: RAMELTEON 8 MG PO SCH (22:00)
[2019-02-27 02:21] LABS: A-aADO2 80; ABG HEMOGLOBIN 12.4; ARTERIAL BLD GAS O2 SATURATION 97.5 % (95-100); ARTERIAL BLOOD GAS BASE EXCESS 4.5 (-2.0-2.0); ARTERIAL BLOOD GAS FIO2 32 %; ARTERIAL BLOOD GAS PCO2 59 mmHg (35-45); ARTERIAL BLOOD GAS PO2 74 mmHg (75-100); ARTERIAL BLOOD GAS pH 7.34 (7.35-7.45); HCO3- 31.8 (22-28); HGB O2 SAT 94.6 g/dF (94-100); Methhemoglobin 0.8 % (1.4-1.5); paO2 pAO1 0.48
[2019-02-27 02:22] LABS: ABG SITE RIGHT RADIAL; ALLEN TEST OK? YES; CARBOXYHEMOGLOBIN 2.1 % THgb (0.0-6.9)
[2019-02-27 02:24] LABS: Lactic Acid 1.9 (0.4-2.0)
[2019-02-27] MEDS ORDERED: ENOXAPARIN SODIUM SQ ONE ×2 (02:45→02:48)
[2019-02-27] MEDS ORDERED: Levofloxacin 500MG/100ML D5W 500 MG/100 ML BAG IV ONE (02:51)
[2019-02-27] MEDS ORDERED: TYLENOL 325 MG ONE (02:51)
[2019-02-27] MEDS: TYLENOL 325 MG PO PRN ×4 (02:55→23:38)
[2019-02-27] MEDS ORDERED: Sodium Chloride 0.9% 1000 ML 1,000 ML IV SCH (04:59)
[2019-02-27] MEDS ORDERED: Lasix 20 MG/2 ML ONE (05:48)
[2019-02-27] MEDS ORDERED: Lasix 20 MG/2 ML IV ONE (05:53)
[2019-02-27 06:29] LABS: A-aADO2 104; ABG HEMOGLOBIN 12.3; ARTERIAL BLD GAS O2 SATURATION 98.4 % (95-100); ARTERIAL BLOOD GAS BASE EXCESS 5.1 (-2.0-2.0); ARTERIAL BLOOD GAS FIO2 40 %; ARTERIAL BLOOD GAS PO2 96 mmHg (75-100); CARBOXYHEMOGLOBIN 1.6 % THgb (0.0-6.9); HCO3- 33.5 (22-28); HGB O2 SAT 95.8 g/dF (94-100); Methhemoglobin 1.1 % (1.4-1.5); paO2 pAO1 0.48
[2019-02-27 06:30] LABS: ABG SITE RIGHT RADIAL; ALLEN TEST OK? YES; ARTERIAL BLOOD GAS PCO2 68 mmHg (35-45)
[2019-02-27] MEDS: ECOTRIN 81 MG PO SCH (09:00)
[2019-02-27] MEDS: LASIX 20 MG PO SCH (09:00)
[2019-02-27] MEDS: Klor Con 10 MEQ PO SCH (09:00)
--- NOTE | 2019-02-27 09:25 | PCM.NOTE ---
Date and Time: 02/27/19919 Subjective Assessment: patient had an episode of decreased responsiveness last night, had elevated co2 on ABG and was put on bipap. she denies shortness of breath this morning, no cough. she is alert and conversant Objective Exam General Appearance: no apparent distress, alert, obese Neurologic Exam: alert, oriented x 3 Skin Exam: normal color, warm, dry Wound Assessment: Skin/Wound Assessment Wound/Incision Assessment Start: 02/25/19 20: 04 Text: Status: Active Freq: Q6H Protocol: Document 02/27/19 08:00 BE (Rec: 02/27/19 08:06 BE [id number]) Wound/Incision Assessment Lower Wound Assessment Shift Assessment Wound Type cellulitis Wound Stage Non Pressure Wound Drainage Amount None General Appearance Open to air Surrounding Tissue Purple Taut Edematous Comment open to air, barrier cream applied. bumpy, purple and edematous - continues Respiratory Exam: lungs clear, prolonged expirations, No respiratory distress, No rhonchi, No wheezing Cardiovascular Exam: regular rate/rhythm, normal heart sounds Gastrointestinal/Abdomen Exam: soft, No tenderness, No mass Extremity Exam: other (chronic lymphedema, stasis changes to lower legs with erythema and warmth) OBJECTIVE DATA Vital Signs: Vital Signs - 24 hr Temp Pulse Resp BP Pulse Ox 02/27/19 07:54 99.0 F 103 H 20 113/67 98 02/27/19 05:27 99.0 F 02/27/19 04:00 101.0 F 117 H 22 128/62 97 02/27/19 00:13 98.4 F 109 H 20 141/66 91 L 02/26/19 20:20 98.3 F 99 H 15 118/67 96 02/26/19 19:35 96 02/26/19 16:14 98.1 F 96 H 20 122/68 95 02/26/19 12:15 97.4 F 78 20 128/72 94 L Oxygen-Last 24 hours O2 Percentage 40% O2 Percentage 40% O2 Percentage 3 Liters = 32% O2 Percentage 3 Liters = 32% Pain Assessment - Last Documented Pain Intensity 4 Pain Scale Used [facility] Intake and Output: Intake & Output 02/24/19 02/25/19 02/26/19 02/27/19 11:59 11:59 11:59 11:59 Intake Total 1435 4487 Output Total 800 4550 Balance 635 -63 Weight 110.9 kg 112.6 kg Lab Results: Accuchecks Date 02/27/19 Date 02/26/19 Date 02/26/19 Date 02/26/19 Time 07:30 Time 21:00 Time 16:30 Time 11:30 Accucheck Value: 114 Accucheck Value: 125 Accucheck Value: 142 Accucheck Value: 159 Lab Results-Last 24 Hours 02/26/19 02/26/19 02/26/19 Range/Units 08:45 08:46 12:15 D-Dimer (215-500) ng/mL Puncture Site pCO2 (35-45) mmHg pO2 (75-100) mmHg Base Excess (-2.0-2.0) O2 Saturation (94-100) g/dF ABG pH (7.35-7.45) ABG HCO3 (22-28) ABG O2 Sat (Measured) (95-100) % Ketan Test A-a Gradient a/A Ratio Hemoglobin Carboxyhemoglobin (0.0-6.9) % THgb Methemoglobin (1.4-1.5) % Potassium (3.5-5.1) Temperature C POC O2 Flow Rate % Lactic Acid (0.4-2.0) Magnesium 1.7 (1.6-2.3) mg/dL Troponin I < 0.012 < 0.012 (0.000-0.034) ng/mL 02/26/19 02/27/19 02/27/19 Range/Units 15:05 02:16 02:23 D-Dimer (215-500) ng/mL Puncture Site RIGHT RADIAL pCO2 59 H (35-45) mmHg pO2 74 L (75-100) mmHg Base Excess 4.5 H (-2.0-2.0) O2 Saturation 94.6 (94-100) g/dF ABG pH 7.34 L (7.35-7.45) ABG HCO3 31.8 H* (22-28) ABG O2 Sat (Measured) 97.5 (95-100) % Ketan Test YES A-a Gradient 80 a/A Ratio 0.48 Hemoglobin 12.4 Carboxyhemoglobin 2.1 (0.0-6.9) % THgb Methemoglobin 0.8 L (1.4-1.5) % Potassium 4.0 (3.5-5.1) Temperature 37.0 C POC O2 Flow Rate 32 % Lactic Acid 1.9 (0.4-2.0) Magnesium (1.6-2.3) mg/dL Troponin I < 0.012 (0.000-0.034) ng/mL 02/27/19 02/27/19 02/27/19 Range/Units 02:59 02:59 06:00 D-Dimer 570 H* (215-500) ng/mL Puncture Site pCO2 (35-45) mmHg pO2 (75-100) mmHg Base Excess (-2.0-2.0) O2 Saturation (94-100) g/dF ABG pH (7.35-7.45) ABG HCO3 (22-28) ABG O2 Sat (Measured) (95-100) % Ketan Test A-a Gradient a/A Ratio Hemoglobin Carboxyhemoglobin (0.0-6.9) % THgb Methemoglobin (1.4-1.5) % Potassium (3.5-5.1) Temperature C POC O2 Flow Rate % Lactic Acid 1.3 (0.4-2.0) Magnesium (1.6-2.3) mg/dL Troponin I < 0.012 (0.000-0.034) ng/mL 02/27/19 Range/Units 06:00 D-Dimer (215-500) ng/mL Puncture Site RIGHT RADIAL pCO2 68 H* (35-45) mmHg pO2 96 (75-100) mmHg Base Excess 5.1 H (-2.0-2.0) O2 Saturation 95.8 (94-100) g/dF ABG pH 7.30 L (7.35-7.45) ABG HCO3 33.5 H* (22-28) ABG O2 Sat (Measured) 98.4 (95-100) % Ketan Test YES A-a Gradient 104 a/A Ratio 0.48 Hemoglobin 12.3 Carboxyhemoglobin 1.6 (0.0-6.9) % THgb Methemoglobin 1.1 L (1.4-1.5) % Potassium 4.0 (3.5-5.1) Temperature 37.0 C POC O2 Flow Rate 40 % Lactic Acid (0.4-2.0) Magnesium (1.6-2.3) mg/dL Troponin I (0.000-0.034) ng/mL Radiology Exams: Radiology Procedures Category Date Time Status CHEST 1 VIEW (PORTABLE) Stat Exams 02/25/19 14:57 Completed CHEST 1 VIEW (PORTABLE) Stat Exams 02/27/19 02:43 Taken CHEST WITH CONTRAST [CT] Stat Exams 02/27/19 04:55 Taken HEAD WITHOUT CONTRAST [CT] Stat Exams 02/25/19 14:17 Completed Multi-Disciplinary Progress Notes: Multi-Disciplinary Progress Notes 02/26/19 09:45 (created 02/26/19 10:04) Case Management Note by Shiloh Sebastian CALL TO HELP AT HOME, SPOKE WITH RADHA. REPORTS THAT SHE WILL CALL HER SUPERVISOR [employer] TO REPORT THAT SHE IS HERE, AND ASSIST WITH MAKING SURE DAUGHTER HAS SAFE PLACE TO STAY, WHILE PT IS IN HOSPITAL. REPORTS THAT HER SUPERVISOR [employer] IS JADEN, AND SHE WILL BE CALLING. ALSO, REPORTS THAT IF PT NEEDS SKILLED SERVICES (NURSING) WHEN SHE LEAVES THE HOSPITAL, THEY WILL HAVE TO PLACE THEIR SERVICES ON HOLD UNTIL AFTER SKILLED EPISODE. WILL UPDATE HELP AT HOME WHEN PT IS CLOSER TO BEING DISCHARGED, TO KNOW IF PT WILL GO HOME WITH [facility], BUT DISCUSSED THAT THIS WILL BE VERY LIKELY SO PT HAS WOUND CARE ON DISCHARGE. RADHA REPORTS THAT THEY ARE UNABLE TO WRAP HER LEGS OR PROVIDE THAT PARTICULAR TYPE OF CARE IN THE HOME. Initialized on 02/26/19 10:04 - END OF NOTE 02/26/19 09:25 (created 02/26/19 09:50) Case Management Note by Shiloh Sebastian DISCHARGE PLAN REVIEWED WITH PT, REPORTS THAT SHE HAS HELP AT HOME SERVICES, HAS A BLANKING MACHINE OPERATOR THREE TIMES PER WEEK, AND A HOMEMAKER ONE X PER WEEK. INTERESTED IN NURSING SERVICES ON DISCHARGE. REPORTS THAT SHE IS UNABLE TO CARE FOR HER LEGS HERSELF. REPORTS THAT SHE NEEDS ASSIST WASHING HER BLE AND WRAPPING THEM. REPORTS THAT SHE USED TO HAVE SOMEONE THAT DID THIS FOR HER, BUT NOW SHE DOES NOT, AND SHE FEELS THAT IS WHY HER LEGS HAVE WORSENED. ALSO, REPORTS THAT HER DAUGHTER IS AT A FRIENDS HOUSE, AND SHE IS TRYING TO REACH HER. REPORTS THAT IF "THEY" ARE SAYING HER DAUGHTER HAS BEEN ABANDONED THEN SHE IS SIGNING HERSELF OUT TO GO GET HER DAUGHTER. ASKED PT IF SHE HAS ANY FAMILY OR FRIENDS THAT CAN CARE FOR HER DAUGHTER WHILE SHE IS IN THE HOSPITAL. REPORTS THAT SHE ONLY HAS "S[employer]". PT REPORTS THAT HER DAUGHTER IS NOT ANSWERING THE PHONE, REPORTS THAT SHE PROBABLY STAYED UP ALL NIGHT AND IS STILL SLEEPING. OFFERED ASSIST IF NEEDED. PT REPORTS THAT SHE WILL LET ME KNOW. WILL CONTINUE TO FOLLOW FOR ALL DC NEEDS. Initialized on 02/26/19 09:50 - END OF NOTE Assessment/Plan (1) Bilateral cellulitis of lower leg Current Visit: Yes Status: Acute Assessment & Plan: continue vanc at this time based on culture with staph aureus, levaquin was added due to fever last night. blood cultures pending. Code(s): L03.116 - CELLULITIS OF LEFT LOWER LIMB; L03.115 - CELLULITIS OF RIGHT LOWER LIMB (2) Chronic hypoxemic respiratory failure Current Visit: Yes Status: Chronic (3) Lymphedema Current Visit: Yes Status: Chronic Code(s): I89.0 - LYMPHEDEMA, NOT ELSEWHERE CLASSIFIED (4) CO2 retention Current Visit: Yes Status: Acute Assessment & Plan: on review of records patient receiving norco for pain prn, also received ambien 10mg and flexeril 10mg last pm and when bipap was initiated she received ativan 1mg po. likely her co2 retention was medication related since her cta chest was negative, no overt signs of wheezing or volume overload etc on exam today. will d/c ambien, flexeril and ativan at this time. Code(s): E87.2 - ACIDOSIS
[2019-02-27] MEDS: VANCOCIN 1 GM VIAL*** 1 GM in Sodium Chloride 0.9% 250 ML 250 ML IV SCH ×2 (09:37→21:46)
[2019-02-27] MEDS: Glucophage 500 MG PO SCH ×2 (09:41→16:18)
[2019-02-27] MEDS ORDERED: Levofloxacin 500MG/100ML D5W 500 MG/100 ML BAG IV SCH ×2 (10:00→22:00)
--- NOTE | 2019-02-27 10:19 | XRAY ---
Exam: AP semi-upright portable chest film from 02/27/2019. Comparison: AP upright portable chest film from 02/25/2019. Indication: 54-year-old female with shortness of breath, sleep apnea. Findings: The exam was obtained in a lordotic projection. Inspiratory effort is not as deep as that seen on 02/25/2019. Transverse heart size is believed to be within normal limits for this AP portable technique. No air space infiltrates, significant central vascular congestion, pneumothorax, or pleural fluid is seen. The bones appear grossly intact. EKG leads are seen in place. Impression: 1. The level of inspiration is relatively poor on this AP semi-upright lordotic portable chest film. However, no gross acute cardiopulmonary disease is seen.
--- NOTE | 2019-02-27 10:20 | XRAY ---
Exam: CT of the chest with IV contrast per PE protocol from 02/27/2019. CTDI: 23.69 Comparison: AP semierect portable chest film from 02/27/[address] of the chest with IV contrast from 12/14/2015. Indication: 54-year-old female on BiPAP, breathing rate decreased, abnormal arterial blood gases, elevated d-dimer, COPD. Technique: Post-IV contrast axial images were obtained through the chest using the PE protocol. 80 cc of IV Isovue-370 contrast was injected while axial CT images were obtained. Reconstructed coronal and axial images were created and reviewed. Findings: The pulmonary arteries are adequately opacified and reveal no suspicious filling defects to suggest clot/emboli. Furthermore, the thoracic aorta appears of normal diameter and reveals no dissection. Some mild vascular calcification is seen within the aortic arch. Abundant anterior mediastinal fat is seen. No abnormal mediastinal or perihilar lymphadenopathy is seen. The thyroid gland appears grossly unremarkable. The heart size is normal without pericardial effusion. No hiatal hernia is seen. The major central branching bronchi appear open on the lung window images. Mild linear scarring or atelectasis is seen within the lingula at the anterior left lung base and the posterior left lung base within the left lower lobe. I also note some linear scarring/atelectasis within the lateral left upper lung field, and to a lesser extent, the posterior medial right midlung field. No suspicious air space infiltrates or soft tissue lung nodules are seen. No other significant interstitial lung changes are seen. No pneumothorax or pleural fluid is seen. The visualized portion of the liver appears enlarged and reveals profound hepatic steatosis. Surgical clips consistent with prior cholecystectomy are seen. I again note an essentially stable small nodule at the lateral margin of the left adrenal gland on axial image #105 of series 3 measuring about 1.3 cm in diameter.. The right adrenal gland appears unremarkable. The skeleton reveals no acute fracture or other aggressive bone lesion. Minimal anterior vertebral endplate spurring is seen within the upper and midthoracic spine. There is also mild to moderate vertebral endplate spurring within the visualized lower cervical spine. Impression: 1. No CT evidence of pulmonary emboli is seen. 2. Scattered bilateral linear fibrosis versus subsegmental atelectasis is seen, left greater than right, as discussed above. No air space infiltrates or pleural fluid is seen. 3. Apparent hepatomegaly with diffuse hepatic steatosis. I also see evidence of prior cholecystectomy. 4. Essentially small stable left adrenal nodule as compared to 12/14/2015. This measures about 1.3 cm in diameter. This is probably nonaggressive. See axial image #105.
[2019-02-27] MEDS: ENOXAPARIN SODIUM SQ SCH (11:04)
[2019-02-28] MEDS: NORCO 5/325 MG PO PRN (01:26)
[2019-02-28 04:35] LABS: Hematocrit 37.1 % (35-47); Hemoglobin 12.1 gm/dl (12.0-16.0); Mean Cell Volume 102.5 fl (78-100); Mean Corpuscular Hemoglobin 33.4 pg (26-32); Mean Corpuscular Hgb Concent. 32.6 g/dl (32-36); Mean Platelet Volume 10.1 fl (6-9.5); Platelet Count 191 K/mm3 (150-450); Red Blood Count 3.62 M/mm3 (4.1-5.4); Red Cell Distribution Width 14.5 % (11.5-14.0); White Blood Count 6.5 K/mm3 (4.0-10.5)
[2019-02-28 04:44] LABS: ANION GAP 7.9 MEQ/L (5-15); BLOOD UREA NITROGEN 8 mg/dL (7-17); CHLORIDE 102 mmol/L (98-107); Calcium 8.5 mg/dL (8.4-10.2); Carbon Dioxide 34 mmol/L (22-30); Glucose 92 mg/dL (74-106); Potassium 3.7 mmol/L (3.5-5.1); SODIUM 140 mmol/L (137-145)
[2019-02-28 05:25] LABS: Lymphocytes 43 % (24-44); Monocyte 3 % (0.0-12.0); Neutrophils 54 % (36.0-66.0); Platelet Estimate NORMAL (NORMAL); Total Cells Counted 100
[2019-02-28] MEDS: TYLENOL 325 MG PO PRN (05:29)
[2019-02-28 07:26] VITALS: O2SAT 95
[2019-02-28 07:45] VITALS: BP 118/63; PULSE 94
--- NOTE | 2019-02-28 08:44 | PCM.DS ---
Discharge Summary Date of Admission: 02/27/19 04:00 Admitting Physician: OLIVER LIU Primary Care Provider: OLIVER LIU Allergies Allergies sulfamethoxazole [From Bactrim] Allergy (Verified 02/25/19 20:32) trimethoprim [From Bactrim] Allergy (Verified 02/25/19 20:32) Hospital Summary - Hospital Course Hospital Course: patient was admitted with cellulitis of lower extremities, had some respiratory issues after admission but chest ct was negative. likely related to medication effects, she is feeling better and legs are improving. culture grew stap aureus from leg - Vitals & Intake/Output Vital Signs: Vital Signs Temperature 97.9 F 02/28/19 07:44 Pulse Rate 94 H 02/28/19 07:44 Respiratory Rate 18 02/28/19 07:44 Blood Pressure 118/63 02/28/19 07:44 O2 Sat by Pulse Oximetry 95 02/28/19 07:44 Oxygen-Last Documented O2 Percentage 3 Liters = 32% Intake & Output: Intake & Output 02/25/19 02/26/19 02/27/19 02/28/19 11:59 11:59 11:59 11:59 Intake Total 1435 4487 3029 Output Total 800 4550 1100 Balance 635 -63 1929 Weight 110.9 kg 112.6 kg 114.2 kg - Lab Result Diagrams: 02/28/19 04:32 02/28/19 04:32 Lab Results-Last 24 Hrs: Accuchecks Date 02/28/19 Date 02/27/19 Date 02/27/19 Time 07:30 Time 16:30 Time 11:30 Accucheck Value: 102 Accucheck Value: 98 Accucheck Value: 107 Accucheck Value: 155 Lab Results-Last 24 Hours 02/27/19 02/28/19 02/28/19 Range/Units 09:40 04:32 04:32 WBC 6.5 (4.0-10.5) K/mm3 RBC 3.62 L (4.1-5.4) M/mm3 Hgb 12.1 (12.0-16.0) gm/dl Hct 37.1 (35-47) % MCV 102.5 H (78-100) fl MCH 33.4 H (26-32) pg MCHC 32.6 (32-36) g/dl RDW 14.5 H (11.5-14.0) % Plt Count 191 (150-450) K/mm3 MPV 10.1 H (6-9.5) fl Segmented Neutrophils 54 (36.0-66.0) % Lymphocytes (Manual) 43 (24-44) % Monocytes (Manual) 3 (0.0-12.0) % Platelet Estimate NORMAL (NORMAL) RBC Morphology NORMAL Sodium 140 (137-145) mmol/L Potassium 3.7 (3.5-5.1) mmol/L Chloride 102 (98-107) mmol/L Carbon Dioxide 34 H (22-30) mmol/L Anion Gap 7.9 (5-15) MEQ/L BUN 8 (7-17) mg/dL Creatinine 0.40 L (0.52-1.04) mg/dL Estimated GFR > 60.0 ML/MIN Glucose 92 (74-106) mg/dL Calcium 8.5 (8.4-10.2) mg/dL Vancomycin Trough 9.24 L (10-20) ug/mL Micro Results-Entire Visit: Microbiology 02/25/19 15:34 Blood Culture - Preliminary Blood NO GROWTH TO DATE 02/25/19 14:40 Blood Culture - Preliminary Blood NO GROWTH TO DATE 02/25/19 14:40 Wound Culture - Final Leg - Left Lower Staphylococcus Aureus Accuchecks Date 02/28/19 Date 02/27/19 Date 02/27/19 Time 07:30 Time 16:30 Time 11:30 Accucheck Value: 102 Accucheck Value: 98 Accucheck Value: 107 Accucheck Value: 155 - Radiology Exams Ordered Rad Exams-Entire Visit: Radiology Procedures Category Date Time Status CHEST 1 VIEW (PORTABLE) Stat Exams 02/27/19 02:43 Completed CHEST WITH CONTRAST [CT] Stat Exams 02/27/19 04:55 Completed - Procedures and Test Procedures and Tests throughout Hospitalization: Therapy Orders & Screens 02/25/19 19:51 Respiratory Therapy Consult ROUTINE Comment: Reason For Exam: 02/25/19 20:09 Oxygen Nasal Cannula 3 lpm Comment: at night 02/26/19 08:45 PT Eval & Treat (MD Order) ROUTINE Reason for Eval:: lympedema Diagnosis: Cellulitis 02/27/19 02:46 BiPap/CPAP ROUTINE Comment: Diagnosis: Cellulitis Discharge Exam General Appearance: no apparent distress, obese Neurologic Exam: alert, oriented x 3 Respiratory Exam: normal breath sounds, lungs clear, No respiratory distress Cardiovascular Exam: regular rate/rhythm, normal heart sounds Gastrointestinal/Abdomen Exam: soft, No tenderness, No mass Extremity Exam: pedal edema (chronic lymphedema changes with redness and warmth) Wound Assessment: Skin/Wound Assessment Wound/Incision Assessment Start: 02/25/19 20: 04 Text: Status: Active Freq: Q6H Protocol: Document 02/28/19 02:00 EG (Rec: 02/28/19 02:43 EG [id number]) Wound/Incision Assessment Lower Wound Assessment Shift Assessment Wound Type cellulitis Wound Stage Non Pressure Wound Dressing Status Dry & Intact Drainage Amount None Surrounding Tissue Edematous Primary Dressing Gauze Roll/Wrap Comment . Wound Photo Photo Taken No Final Diagnosis/Problem List - Final Discharge Diagnosis/Problem (1) Bilateral cellulitis of lower leg Current Visit: Yes Status: Acute Code(s): L03.116 - CELLULITIS OF LEFT LOWER LIMB; L03.115 - CELLULITIS OF RIGHT LOWER LIMB (2) Chronic hypoxemic respiratory failure Current Visit: Yes Status: Chronic Assessment & Plan: advised to use oxygen continuously on return to home as instructed, patient was only wearing at night (3) Lymphedema Current Visit: Yes Status: Chronic Code(s): I89.0 - LYMPHEDEMA, NOT ELSEWHERE CLASSIFIED (4) CO2 retention Current Visit: Yes Status: Acute Code(s): E87.2 - ACIDOSIS - Discharge Disposition: Home, Self-Care Condition: Good Prescriptions: New Doxycycline Hyclate 100 mg PO BID #20 tablet Continue Divalproex Sodium [Depakote] 500 mg PO TID Paliperidone [Invega] 9 mg PO DAILY Ramelteon [Rozerem] 8 mg PO QHS Metformin HCl 500 mg PO BID #60 tablet Potassium Chloride 10 Meq Tab* [Klor Con 10 MEQ] 10 meq PO DAILY Furosemide 20 mg [Lasix 20 mg] 20 mg PO DAILY Aspirin EC 81 mg [Ecotrin 81 mg] 81 mg PO DAILY #30 tablet.ec Cyclobenzaprine HCl 10 mg [Cyclobenzaprine 10 MG] 10 mg PO HS Follow up with: OLIVER LIU MD [Primary Care Provider] - 1 Week
[2019-02-28] MEDS: Klor Con 10 MEQ PO SCH (09:21)
[2019-02-28] MEDS: ENOXAPARIN SODIUM SQ SCH (09:21)
[2019-02-28] MEDS: ECOTRIN 81 MG PO SCH (09:21)
[2019-02-28] MEDS: Glucophage 500 MG PO SCH (09:21)
[2019-02-28] MEDS: LASIX 20 MG PO SCH (09:21)
== END 2019-02-28 10:17 | disposition home or self-care (01) | DRG 603 ==
LOC: ED 13:49 → MED SURG 19:51 → OBSVTOIN 02-27 04:00
PROVIDERS: ADMIT Family Medicine; ATTEND Family Medicine
DX: L03.116 Cellulitis of left lower limb (principal); J96.11 Chronic respiratory failure with hypoxia; E87.2 Acidosis; Z68.43 Body mass index [BMI] 50.0-59.9, adult; L03.115 Cellulitis of right lower limb; I10 Essential (primary) hypertension; R42 Dizziness and giddiness; R51 Headache; E11.9 Type 2 diabetes mellitus without complications; J44.9 Chronic obstructive pulmonary disease, unspecified; Z86.73 Personal history of transient ischemic attack (TIA), and cerebral infarction without residual deficits; E78.5 Hyperlipidemia, unspecified; F17.200 Nicotine dependence, unspecified, uncomplicated; Z79.899 Other long term (current) drug therapy; I89.0 Lymphedema, not elsewhere classified; Z99.81 Dependence on supplemental oxygen; F20.9 Schizophrenia, unspecified; E78.00 Pure hypercholesterolemia, unspecified; R07.9 Chest pain, unspecified; G47.00 Insomnia, unspecified; R25.2 Cramp and spasm; E66.01 Morbid (severe) obesity due to excess calories
CPT/HCPCS: 36000; 36415; 36600; 70450; 71045; 71260; 80048; 80053; 80202; 80307; 81001; 82375; 82803; 82962; 83036; 83605; 83735; 84484; 85025; 85379; 87040; 87070; 87077; 87186; 93005; 93268; 94002; 94762; 96360; 96361; 96365; 99285; J0696; J1650; J1940; J1956; J3370; A9270-GY; G0378

== ENCOUNTER 2019-05-16 20:36 | Inpatient (IN) | payer MEDICARE ==
[2019-05-16] MEDS ORDERED: TORAdol 30 mg Injection IM ONE (21:14)
[2019-05-16] MEDS ORDERED: TORAdol 30 mg Injection ONE ×2 (21:20→22:28)
[2019-05-16] MEDS ORDERED: Sodium Chloride 0.9% 1000 ML 1,000 ML IV STA ×2 (22:06→22:39)
--- NOTE | 2019-05-16 22:06 | ERPHSYRPT ---
- History of Present Illness Time Seen by Provider: 05/16/19 21:30 Source: patient Exam Limitations: no limitations Patient Subjective Stated Complaint: pt is alert and oriented. pt is ambulatory with a steady gait. pt comes in with c/o increasing pain to her bilat lower legs. pt has had pain and weeping of bilat lower legs since last . pt states that she went to [facility] on Monday and was diagnosed with cellulitis of her bilat lower legs and put on Doxycycline. pts states that the inflammation and swelling has decreased since then. pt states that she was reffered to the wound center by [facility] and was seen there and her legs were dressed today. pt bilat legs are red, warm to touch. dressing are in place. yellow colored drainage noted on the dressings. Triage Nursing Assessment: see above Physician History: Bilateral lower extremity pain for three years. Pain is a burning sensation with worsening over the past one week with some intermittent drainage. Patient has chronic venous stasis, was seen by [facility] 3 days and placed on doxycyline and referred to wound care today who placed wraps around the lower extremities. Method of Injury: other (patient has chronic edema in her lower extremities and has a history of diabetes) Occurred: last week Quality: constant, burning Severity of Pain-Max: severe Severity of Pain-Current: severe Lower Extremities Pain: leg: bilateral (lower leg, anterior parts) Modifying Factors: Improves With: nothing, other (no improvement of pain with doxycycline or dressings placed today at wound care) Associated Symptoms: No unable to bear weight, No dizzy, No fainted, No snapping sensation, No popping sensation Allergies/Adverse Reactions: Sulfa (Sulfonamide Antibiotics) Allergy (Verified 05/16/19 21:06) sulfamethoxazole [From Bactrim] Allergy (Verified 02/25/19 20:32) trimethoprim [From Bactrim] Allergy (Verified 02/25/19 20:32) Home Medications: Divalproex Sodium [Depakote] 500 mg PO TID 09/03/14 [History] Paliperidone [Invega] 9 mg PO DAILY 10/17/15 [History] Ramelteon [Rozerem] 8 mg PO QHS 12/14/15 [History] Furosemide 20 mg [Lasix 20 mg] 20 mg PO DAILY 05/15/18 [History] Potassium Chloride 10 Meq Tab* [Klor Con 10 MEQ] 10 meq PO DAILY 05/15/18 [ History] Cyclobenzaprine HCl 10 mg [Cyclobenzaprine 10 MG] 10 mg PO HS 02/25/19 [ History] Hx Tetanus, Diphtheria Vaccination/Date Given: Yes (2011) Hx Influenza Vaccination/Date Given: No Hx Pneumococcal Vaccination/Date Given: No Immunizations Up to Date: Yes - Review of Systems Constitutional: No Fever, No Chills Eyes: No Symptoms Ears, Nose, & Throat: No Symptoms Respiratory: No Cough, No Dyspnea Cardiac: Edema (chronic in the lower extremities), No Chest Pain, No Syncope Abdominal/Gastrointestinal: No Abdominal Pain, No Nausea, No Vomiting, No Diarrhea Genitourinary Symptoms: No Dysuria, No Hematuria, No Flank Pain Musculoskeletal: No Back Pain, No Neck Pain, No Joint Redness, No Joint Pain Skin: Induration (bilateral anterior lower legs), No Rash Neurological: No Dizziness, No Focal Weakness, No Parasthesia, No Sensory Changes Psychological: No Symptoms Endocrine: No Symptoms Hematologic/Lymphatic: No Easy Bleeding, No Easy Bruising All Other Systems: Reviewed and Negative - Past Medical History Pertinent Past Medical History: Yes Neurological History: Peripheral Neuropathy, Seizures, TIA ENT History: Glaucoma Cardiac History: High Cholesterol Respiratory History: COPD Endocrine Medical History: Diabetes Type II Musculoskeletal History: Arthritis GI Medical History: Gallbladder Disease History: No Pertinent History Psycho-Social History: Bipolar, Depression Female Reproductive Disorders: No Pertinent History Other Medical History: hx of cellulitis, hx seizures 3years ago, gallbladder removed - Past Surgical History Past Surgical History: Yes Neuro Surgical History: No Pertinent History Cardiac: No Pertinent History Respiratory: No Pertinent History Gastrointestinal: Cholecystectomy Genitourinary: No Pertinent History Musculoskeletal: No Pertinent History Female Surgical History: Section, Tubal Ligation Other Surgical History: GANGLION CYST - Social History Smoking Status: Current every day smoker How long have you smoked: 30 years Exposure to second hand smoke: Yes Drug Use: none Patient Lives Alone: No Significant Family History: no pertinent family hx - Female History Hx Now: No - Nursing Vital Signs Nursing Vital Signs: Initial Vital Signs Temperature 98.6 F 05/16/19 20:54 Pulse Rate 103 H 05/16/19 20:54 Respiratory Rate 18 05/16/19 20:54 Blood Pressure 125/71 05/16/19 20:54 O2 Sat by Pulse Oximetry 95 05/16/19 20:54 Pain Scale Pain Intensity [Calf] 8 Pain Intensity 8 - Physical Exam General Appearance: no apparent distress, alert Eyes, Ears, Nose, Throat Exam: moist mucous membranes Neck Exam: non-tender, supple Cardiovascular/Respiratory Exam: chest non-tender, normal breath sounds, regular rate/rhythm, no respiratory distress Gastrointestinal/Abdominal Exam: non-tender, soft, No guarding, No tenderness Back Exam: normal inspection, No CVA tenderness, No vertebral tenderness Hips Exam: bilateral: non-tender, normal range of motion, no evidence of injury Legs Exam: bilateral leg: non-tender, normal inspection, normal range of motion , no evidence of injury Knees Exam: bilateral knee: non-tender, normal inspection, normal range of motion, no evidence of injury Ankle Exam: bilateral ankle: non-tender, normal inspection, normal range of motion, no evidence of injury Foot Exam: bilateral foot: non-tender, normal inspection, normal range of motion , no evidence of injury Neuro/Tendon Exam: normal sensation, normal motor functions Mental Status Exam: alert, oriented x 3, cooperative Skin Exam: normal color, warm, other (bilateral lower extremities show thickened , indurated lower extremities with pink coloring and some serous drainage) SpO2 Interpretation: normal SpO2: 93 O2 Delivery: Room Air Ordered Tests: Active Orders 24 hr Category Date Time Status IV Insertion STAT Care 05/16/19 22:06 Active CBC W DIFF Stat Lab 05/16/19 22:30 Completed CK-Creatinine Phosphokinase Stat Lab 05/16/19 22:30 Completed CMP Stat Lab 05/16/19 22:30 Completed Lactic Acid Stat Lab 05/16/19 22:30 Results Manual Differential NC Stat Lab 05/16/19 22:30 Completed SED RATE [Erythrocyte Sedimentation Rate] Stat Lab 05/16/19 22:30 Completed Medication Summary Discontinued Medications Generic Name Dose Route Start Last Admin Trade Name Freq PRN Reason Stop Dose Admin Acetaminophen 1,000 mg 05/16/19 22:07 05/16/19 22:31 Tylenol Extra Strength 500 Mg PO 05/16/19 22:08 1,000 mg STAT STA Administration Acetaminophen Confirm 05/16/19 22:28 Tylenol Extra Strength 500 Mg Administered 05/16/19 22:29 Dose 1,000 mg .ROUTE .STK-MED ONE Sodium Chloride 1,000 mls @ 999 mls/hr 05/16/19 22:06 05/16/19 23:49 Sodium Chloride 0.9% 1000 Ml IV 05/16/19 23:06 Infused .Q1H1M STA Infusion Sodium Chloride Confirm 05/16/19 22:28 Sodium Chloride 0.9% 1000 Ml Administered 05/16/19 22:29 Dose 1,000 mls @ ud .ROUTE .STK-MED ONE Sodium Chloride 1,000 mls @ 999 mls/hr 05/16/19 22:39 05/16/19 22:58 Sodium Chloride 0.9% 1000 Ml IV 05/16/19 23:39 999 mls/hr .Q1H1M STA Administration Sodium Chloride Confirm 05/16/19 22:57 Sodium Chloride 0.9% 1000 Ml Administered 05/16/19 22:58 Dose 1,000 mls @ ud .ROUTE .STK-MED ONE Ketorolac Tromethamine 60 mg 05/16/19 21:14 05/16/19 21:23 Toradol 30 Mg Injection IM 05/16/19 21:15 60 mg STAT ONE Administration Ketorolac Tromethamine Confirm 05/16/19 21:20 Toradol 30 Mg Injection Administered 05/16/19 21:21 Dose 60 mg .ROUTE .STK-MED ONE Ketorolac Tromethamine Confirm 05/16/19 22:28 Toradol 30 Mg Injection Administered 05/16/19 22:29 Dose 60 mg .ROUTE .STK-MED ONE Lab/Rad Data: Laboratory Result Diagrams 05/16/19 22:30 05/16/19 22:30 Laboratory Results 05/16/19 05/16/19 05/16/19 Range/Units 22:30 22:30 22:30 WBC (4.0-10.5) K/mm3 RBC (4.1-5.4) M/mm3 Hgb (12.0-16.0) gm/dl Hct (35-47) % MCV (78-100) fl MCH (26-32) pg MCHC (32-36) g/dl RDW (11.5-14.0) % Plt Count (150-450) K/mm3 MPV (6-9.5) fl Segmented Neutrophils (36.0-66.0) % Lymphocytes (Manual) (24-44) % Monocytes (Manual) (0.0-12.0) % Eosinophils (Manual) (0.00-3.0) % Platelet Estimate (NORMAL) RBC Morphology ESR 23 H (0-20) mm/hr Sodium 142 (137-145) mmol/L Potassium 4.3 (3.5-5.1) mmol/L Chloride 102 (98-107) mmol/L Carbon Dioxide 27 (22-30) mmol/L Anion Gap 17.7 H (5-15) MEQ/L BUN 16 (7-17) mg/dL Creatinine 0.34 L (0.52-1.04) mg/dL Estimated GFR > 60.0 ML/MIN Glucose 100 (74-106) mg/dL Lactic Acid (0.4-2.0) Calcium 9.5 (8.4-10.2) mg/dL Total Bilirubin 0.50 (0.2-1.3) mg/dL AST 26 (14-36) U/L ALT 18 (0-35) U/L Alkaline Phosphatase 100 (38-126) U/L Creatine Kinase 54 (30-135) U/L Serum Total Protein 6.5 (6.3-8.2) g/dL Albumin 3.8 (3.5-5.0) g/dL 05/16/19 05/16/19 Range/Units 22:30 22:30 WBC 11.2 H (4.0-10.5) K/mm3 RBC 4.16 (4.1-5.4) M/mm3 Hgb 13.3 (12.0-16.0) gm/dl Hct 41.6 (35-47) % MCV 100.0 (78-100) fl MCH 32.0 (26-32) pg MCHC 32.0 (32-36) g/dl RDW 14.6 H (11.5-14.0) % Plt Count 256 (150-450) K/mm3 MPV 10.5 H (6-9.5) fl Segmented Neutrophils 69 H (36.0-66.0) % Lymphocytes (Manual) 23 L (24-44) % Monocytes (Manual) 7 (0.0-12.0) % Eosinophils (Manual) 1 (0.00-3.0) % Platelet Estimate NORMAL (NORMAL) RBC Morphology NORMAL ESR (0-20) mm/hr Sodium (137-145) mmol/L Potassium (3.5-5.1) mmol/L Chloride (98-107) mmol/L Carbon Dioxide (22-30) mmol/L Anion Gap (5-15) MEQ/L BUN (7-17) mg/dL Creatinine (0.52-1.04) mg/dL Estimated GFR ML/MIN Glucose (74-106) mg/dL Lactic Acid 3.3 H (0.4-2.0) Calcium (8.4-10.2) mg/dL Total Bilirubin (0.2-1.3) mg/dL AST (14-36) U/L ALT (0-35) U/L Alkaline Phosphatase (38-126) U/L Creatine Kinase (30-135) U/L Serum Total Protein (6.3-8.2) g/dL Albumin (3.5-5.0) g/dL - Progress Progress: unchanged Progress Note: 05/16/19 22:06 No relief of pain after IM Toradol. Labwork and x-rays will be performed. 05/16/19 23:50 Discussed the patient with Dr Liu, patient's physician and Hospitalist. Dr Liu accepted the patient for observation at [facility]. 05/16/19 23:57 Patient is feeling much better after IV fluids and most of the discomfort of her legs have diminished. - Departure Departure Disposition: Observation (REPLACED BY [facility] to Dr Liu) Clinical Impression: Bilateral lower extremity pain, Elevated blood pressure reading without diagnosis of hypertension, Elevated lactic acid level Cellulitis of lower extremity Qualifiers: Laterality: unspecified laterality Qualified Code(s): L03.119 - Cellulitis of unspecified part of limb Condition: Fair Critical Care Time: No Referrals: OLIVER LIU MD [Primary Care Provider] -
[2019-05-16] MEDS ORDERED: TYLENOL EXTRA STRENGTH 500 MG PO STA (22:07)
[2019-05-16] MEDS ORDERED: Sodium Chloride 0.9% 1000 ML 1,000 ML ONE ×2 (22:28→22:57)
[2019-05-16] MEDS ORDERED: TYLENOL EXTRA STRENGTH 500 MG ONE (22:28)
[2019-05-16 22:34] LABS: Lactic Acid 3.3 (0.4-2.0)
[2019-05-16 22:35] LABS: Hematocrit 41.6 % (35-47); Hemoglobin 13.3 gm/dl (12.0-16.0); Mean Platelet Volume 10.5 fl (6-9.5); Platelet Count 256 K/mm3 (150-450); Red Blood Count 4.16 M/mm3 (4.1-5.4); Red Cell Distribution Width 14.6 % (11.5-14.0); White Blood Count 11.2 K/mm3 (4.0-10.5)
[2019-05-16 22:51] LABS: ALBUMIN 3.8 g/dL (3.5-5.0); ALKALINE PHOSPHATASE 100 U/L (38-126); ANION GAP 17.7 MEQ/L (5-15); BLOOD UREA NITROGEN 16 mg/dL (7-17); CHLORIDE 102 mmol/L (98-107); Calcium 9.5 mg/dL (8.4-10.2); Carbon Dioxide 27 mmol/L (22-30); Creatinine 1 0.34 mg/dL (0.52-1.04); Glucose 100 mg/dL (74-106); Potassium 4.3 mmol/L (3.5-5.1); SGOT/AST 26 U/L (14-36); SGPT/ALT 18 U/L (0-35); SODIUM 142 mmol/L (137-145); Total Protein 6.5 g/dL (6.3-8.2)
[2019-05-16 23:52] LABS: Eosinophil 1 % (0.00-3.0); Lymphocytes 23 % (24-44); Monocyte 7 % (0.0-12.0); Neutrophils 69 % (36.0-66.0); Platelet Estimate NORMAL (NORMAL); Total Cells Counted 100
[2019-05-17 00:57] LABS: Lactic Acid 3.5 (0.4-2.0)
[2019-05-17] MEDS ORDERED: NovoLOG Insulin SQ PRN (01:06)
[2019-05-17] MEDS ORDERED: CLINDAMYCIN-D5W 600 MG/50 ML*** 600 MG/50 ML BAG IV ONE (01:24)
[2019-05-17] MEDS: Sodium Chloride 0.9% 1000 ML 1,000 ML IV SCH ×3 (01:40→20:10)
[2019-05-17] MEDS: CLINDAMYCIN-D5W 600 MG/50 ML*** 600 MG/50 ML BAG IV SCH ×3 (01:40→20:09)
[2019-05-17 05:37] LABS: Lactic Acid 1.9 (0.4-2.0)
[2019-05-17 05:47] LABS: Hematocrit 38.3 % (35-47); Hemoglobin 12.5 gm/dl (12.0-16.0); Mean Cell Volume 98.7 fl (78-100); Mean Corpuscular Hemoglobin 32.2 pg (26-32); Mean Corpuscular Hgb Concent. 32.6 g/dl (32-36); Platelet Count 234 K/mm3 (150-450); Red Blood Count 3.88 M/mm3 (4.1-5.4); Red Cell Distribution Width 14.5 % (11.5-14.0); White Blood Count 8.1 K/mm3 (4.0-10.5)
[2019-05-17 05:51] LABS: ANION GAP 14.2 MEQ/L (5-15); BLOOD UREA NITROGEN 12 mg/dL (7-17); CHLORIDE 104 mmol/L (98-107); Calcium 8.6 mg/dL (8.4-10.2); Carbon Dioxide 27 mmol/L (22-30); Creatinine 1 0.36 mg/dL (0.52-1.04); Glucose 134 mg/dL (74-106); Potassium 3.9 mmol/L (3.5-5.1); SODIUM 141 mmol/L (137-145)
[2019-05-17 07:11] LABS: BAND 23 % (0.0-2.0); Eosinophil 1 % (0.00-3.0); Lymphocytes 33 % (24-44); Monocyte 4 % (0.0-12.0); Neutrophils 39 % (36.0-66.0); Total Cells Counted 100
[2019-05-17 07:12] LABS: Platelet Estimate NORMAL (NORMAL); Polychromasia RARE
[2019-05-17 07:19] LABS: Granulocyte Absolute (ANC) 4.99 (1.4-6.9)
[2019-05-17] MEDS: TYLENOL 325 MG PO PRN ×2 (07:30→19:34)
--- NOTE | 2019-05-17 08:44 | PCM.HP ---
History of Present Illness - Chief Complaint Chief Complaint: Cellulitis Lower Extremity History of Present Illness: is a 54 year old female with chronic lymphedema who presented to ER with worsening pain in lower legs, she is getting wound care at [facility]. She reports warmth and drainage from the lower legs, has burning/pins and needles sensation in both lower legs. no fever. - Review of Systems Constitutional: No Fever, No Chills Respiratory: No Symptoms Cardiac: Edema, No Chest Pain, No Syncope Skin: Cellulitis Neurological: No Dizziness, No Focal Weakness, No Sensory Changes Psychological: No Symptoms All Other Systems: Reviewed and Negative Medications & Allergies Home Medications: Home Medication List Divalproex Sodium [Depakote] 500 mg PO TID 09/03/14 [History Confirmed 05/17/19] Paliperidone [Invega] 9 mg PO DAILY 10/17/15 [History Confirmed 05/17/19] Ramelteon [Rozerem] 8 mg PO QHS 12/14/15 [History Confirmed 05/17/19] Furosemide 20 mg [Lasix 20 mg] 20 mg PO DAILY 05/15/18 [History Confirmed 05/17/19] Potassium Chloride 10 Meq Tab* [Klor Con 10 MEQ] 10 meq PO DAILY 05/15/18 [ History Confirmed 05/17/19] Aspirin EC 81 mg [Ecotrin 81 mg] 81 mg PO DAILY #30 tablet.ec 05/16/18 [ Rx Confirmed 05/17/19] Cyclobenzaprine HCl 10 mg [Cyclobenzaprine 10 MG] 10 mg PO HS 02/25/19 [ History Confirmed 05/17/19] Doxycycline Hyclate 100 mg PO BID #20 tablet 02/28/19 [Rx Confirmed 05/17/19] Atorvastatin Calcium 10 mg PO DAILY 05/17/19 [History Confirmed 05/17/19] Metformin HCl 500 mg PO BIDWM 05/17/19 [History Confirmed 05/17/19] Allergies/Adverse Reactions: Allergies Allergy/AdvReac Type Severity Reaction Status Date / Time Sulfa (Sulfonamide Allergy Verified 05/17/19 01:41 Antibiotics) sulfamethoxazole Allergy Verified 05/17/19 01:41 [From Bactrim] trimethoprim [From Bactrim] Allergy Verified 05/17/19 01:41 - Past Medical History Past Medical History: Yes Neurological History: Peripheral Neuropathy, Seizures, TIA ENT History: Glaucoma Cardiac History: High Cholesterol Respiratory History: COPD Endocrine Medical History: Diabetes Type II Musculoskelatal History: Arthritis GI Medical History: Gallbladder Disease History: No Pertinent History Pyscho-Social History: Bipolar, Depression Reproductive Disorders: No Pertinent History Comment: hx of cellulitis, hx seizures 3years ago, gallbladder removed - Female History Are you now?: No - Past Surgical History Past Surgical History: Yes Neuro Surgical History: No Pertinent History Cardiac History: No Pertinent History Respiratory Surgery: No Pertinent History GI Surgical History: Cholecystectomy Genitourinary Surgical Hx: No Pertinent History Musculskeletal Surgical Hx: No Pertinent History Female Surgical History: Section, Tubal Ligation Other Surgical History: GANGLION CYST - Social History Smoking Status: Current every day smoker How long have you smoked: 30 years Exposure to second hand smoke: Yes Alcohol: None Drug Use: none Significant Family History: no pertinent family hx - Physical Exam Vital Signs: Vital Signs - 24 hr Temp Pulse Resp BP Pulse Ox 05/17/19 04:00 97.6 F 96 H 18 116/77 94 L 05/17/19 03:45 106 H 20 96 05/17/19 02:00 95 05/17/19 01:44 97.6 F 89 19 109/71 92 L 05/17/19 00:50 91 H 18 124/94 95 05/17/19 00:02 93 L 05/17/19 00:00 102 H 18 124/95 95 05/16/19 22:50 100 H 18 126/71 96 05/16/19 22:05 109 H 126/71 93 L 05/16/19 20:54 98.6 F 103 H 18 125/71 95 Oxygen-Last 24 hours Oxygen Flowrate (L/min)-RT 3 General Appearance: no apparent distress, obese Neurologic Exam: alert, oriented x 3 Respiratory Exam: normal breath sounds, lungs clear, No respiratory distress Cardiovascular Exam: regular rate/rhythm, normal heart sounds, normal peripheral pulses Gastrointestinal/Abdomen Exam: soft, normal bowel sounds, No tenderness, No mass Extremity Exam: other (2+ edema BLE, chronic lymphedema changes present. redness and warmth present) Wound Assessment: Skin/Wound Assessment Wound/Incision Assessment Start: 05/17/19 01: 00 Text: Status: Active Freq: Q6H Protocol: Document 05/17/19 08:00 AR (Rec: 05/17/19 08:36 AR [id number]) Wound/Incision Assessment Bilateral LE Wound Assessment Shift Assessment Wound Type cellulitis Wound Stage Non Pressure Wound Dressing Status Dry & Intact Drainage Amount None Primary Dressing Elastic Bandage Comment bilat LE cellulitis, wrapped via wound clinic 05/16/19 - to be assessed by PT today for tx. Wound Photo Photo Taken No Results - Labs Lab/Micro Results: Lab Results-Last 24 Hours 05/16/19 05/16/19 05/16/19 Range/Units 22:30 22:30 22:30 WBC 11.2 H (4.0-10.5) K/mm3 RBC 4.16 (4.1-5.4) M/mm3 Hgb 13.3 (12.0-16.0) gm/dl Hct 41.6 (35-47) % MCV 100.0 (78-100) fl MCH 32.0 (26-32) pg MCHC 32.0 (32-36) g/dl RDW 14.6 H (11.5-14.0) % Plt Count 256 (150-450) K/mm3 MPV 10.5 H (6-9.5) fl Absolute Granulocytes (1.4-6.9) Segmented Neutrophils 69 H (36.0-66.0) % Band Neutrophils (0.0-2.0) % Lymphocytes (Manual) 23 L (24-44) % Monocytes (Manual) 7 (0.0-12.0) % Eosinophils (Manual) 1 (0.00-3.0) % Platelet Estimate NORMAL (NORMAL) RBC Morphology NORMAL Polychromasia ESR (0-20) mm/hr Sodium 142 (137-145) mmol/L Potassium 4.3 (3.5-5.1) mmol/L Chloride 102 (98-107) mmol/L Carbon Dioxide 27 (22-30) mmol/L Anion Gap 17.7 H (5-15) MEQ/L BUN 16 (7-17) mg/dL Creatinine 0.34 L (0.52-1.04) mg/dL Estimated GFR > 60.0 ML/MIN Glucose 100 (74-106) mg/dL Lactic Acid 3.3 H (0.4-2.0) Calcium 9.5 (8.4-10.2) mg/dL Total Bilirubin 0.50 (0.2-1.3) mg/dL AST 26 (14-36) U/L ALT 18 (0-35) U/L Alkaline Phosphatase 100 (38-126) U/L Creatine Kinase (30-135) U/L Serum Total Protein 6.5 (6.3-8.2) g/dL Albumin 3.8 (3.5-5.0) g/dL 05/16/19 05/16/19 05/17/19 Range/Units 22:30 22:30 00:50 WBC (4.0-10.5) K/mm3 RBC (4.1-5.4) M/mm3 Hgb (12.0-16.0) gm/dl Hct (35-47) % MCV (78-100) fl MCH (26-32) pg MCHC (32-36) g/dl RDW (11.5-14.0) % Plt Count (150-450) K/mm3 MPV (6-9.5) fl Absolute Granulocytes (1.4-6.9) Segmented Neutrophils (36.0-66.0) % Band Neutrophils (0.0-2.0) % Lymphocytes (Manual) (24-44) % Monocytes (Manual) (0.0-12.0) % Eosinophils (Manual) (0.00-3.0) % Platelet Estimate (NORMAL) RBC Morphology Polychromasia ESR 23 H (0-20) mm/hr Sodium (137-145) mmol/L Potassium (3.5-5.1) mmol/L Chloride (98-107) mmol/L Carbon Dioxide (22-30) mmol/L Anion Gap (5-15) MEQ/L BUN (7-17) mg/dL Creatinine (0.52-1.04) mg/dL Estimated GFR ML/MIN Glucose (74-106) mg/dL Lactic Acid 3.5 H (0.4-2.0) Calcium (8.4-10.2) mg/dL Total Bilirubin (0.2-1.3) mg/dL AST (14-36) U/L ALT (0-35) U/L Alkaline Phosphatase (38-126) U/L Creatine Kinase 54 (30-135) U/L Serum Total Protein (6.3-8.2) g/dL Albumin (3.5-5.0) g/dL 05/17/19 05/17/19 05/17/19 Range/Units 05:30 05:31 05:31 WBC 8.1 (4.0-10.5) K/mm3 RBC 3.88 L (4.1-5.4) M/mm3 Hgb 12.5 (12.0-16.0) gm/dl Hct 38.3 (35-47) % MCV 98.7 (78-100) fl MCH 32.2 H (26-32) pg MCHC 32.6 (32-36) g/dl RDW 14.5 H (11.5-14.0) % Plt Count 234 (150-450) K/mm3 MPV 10.0 H (6-9.5) fl Absolute Granulocytes 4.99 (1.4-6.9) Segmented Neutrophils 39 (36.0-66.0) % Band Neutrophils 23 H (0.0-2.0) % Lymphocytes (Manual) 33 (24-44) % Monocytes (Manual) 4 (0.0-12.0) % Eosinophils (Manual) 1 (0.00-3.0) % Platelet Estimate NORMAL (NORMAL) RBC Morphology ABNORMAL Polychromasia RARE ESR (0-20) mm/hr Sodium 141 (137-145) mmol/L Potassium 3.9 (3.5-5.1) mmol/L Chloride 104 (98-107) mmol/L Carbon Dioxide 27 (22-30) mmol/L Anion Gap 14.2 (5-15) MEQ/L BUN 12 (7-17) mg/dL Creatinine 0.36 L (0.52-1.04) mg/dL Estimated GFR > 60.0 ML/MIN Glucose 134 H (74-106) mg/dL Lactic Acid 1.9 (0.4-2.0) Calcium 8.6 (8.4-10.2) mg/dL Total Bilirubin (0.2-1.3) mg/dL AST (14-36) U/L ALT (0-35) U/L Alkaline Phosphatase (38-126) U/L Creatine Kinase (30-135) U/L Serum Total Protein (6.3-8.2) g/dL Albumin (3.5-5.0) g/dL - Other Procedures and Tests Respiratory Therapy 05/17/19 03:44 Oxygen Nasal Cannula 3 lpm Respiratory Therapy Assessment DAILY Assessment/Plan (1) Cellulitis of lower extremity Current Visit: Yes Status: Acute Qualifiers: Laterality: unspecified laterality Qualified Code(s): L03.119 - Cellulitis of unspecified part of limb Assessment & Plan: on clindamycin at this time (2) Bilateral lower extremity pain Current Visit: Yes Status: Acute Code(s): M79.604 - PAIN IN RIGHT LEG; M79.605 - PAIN IN LEFT LEG (3) Lymphedema Current Visit: No Status: Chronic Code(s): I89.0 - LYMPHEDEMA, NOT ELSEWHERE CLASSIFIED
[2019-05-17] MEDS: ENOXAPARIN SODIUM SQ SCH (10:52)
[2019-05-17] MEDS ORDERED: MEDICATION INTERVENTION PO SCH ×2 (11:15)
[2019-05-17] MEDS: ECOTRIN 81 MG PO SCH (11:42)
[2019-05-17] MEDS: Klor Con 10 MEQ PO SCH (11:42)
[2019-05-17] MEDS: Zocor 10MG PO SCH (11:42)
[2019-05-17] MEDS: LASIX 20 MG PO SCH (11:43)
[2019-05-17] MEDS: Glucophage 500 MG PO SCH ×2 (13:16→16:39)
[2019-05-17] MEDS: PATIENT OWN MEDICATION PO SCH ×2 (13:17→20:05)
[2019-05-17] MEDS ORDERED: NON-FORMULARY ITEM (Divalproex Sodium [Depakote] 500 MG) PO SCH (15:00)
[2019-05-17] MEDS: TORAdol 10 MG TABLET PO SCH (19:51)
[2019-05-17] MEDS: TYLENOL EXTRA STRENGTH 500 MG PO SCH (19:52)
[2019-05-17] MEDS: Cyclobenzaprine 10 MG PO SCH (20:09)
[2019-05-17] MEDS ORDERED: RAMELTEON 8 MG PO SCH (22:00)
[2019-05-18] MEDS: TORAdol 10 MG TABLET PO SCH ×4 (01:07→19:48)
[2019-05-18] MEDS: TYLENOL EXTRA STRENGTH 500 MG PO SCH ×4 (01:08→19:49)
[2019-05-18 04:37] LABS: Hematocrit 36.7 % (35-47); Hemoglobin 11.5 gm/dl (12.0-16.0); Mean Cell Volume 102.2 fl (78-100); Mean Corpuscular Hgb Concent. 31.3 g/dl (32-36); Mean Platelet Volume 9.6 fl (6-9.5); Platelet Count 186 K/mm3 (150-450); Red Blood Count 3.59 M/mm3 (4.1-5.4); Red Cell Distribution Width 14.5 % (11.5-14.0); White Blood Count 7.3 K/mm3 (4.0-10.5)
[2019-05-18 04:45] LABS: ANION GAP 13.1 MEQ/L (5-15); BLOOD UREA NITROGEN 8 mg/dL (7-17); CHLORIDE 106 mmol/L (98-107); Calcium 8.4 mg/dL (8.4-10.2); Carbon Dioxide 29 mmol/L (22-30); Creatinine 1 0.37 mg/dL (0.52-1.04); Glucose 153 mg/dL (74-106); Potassium 4.4 mmol/L (3.5-5.1); SODIUM 144 mmol/L (137-145)
[2019-05-18 04:57] LABS: Eosinophil 3 % (0.00-3.0); Lymphocytes 23 % (24-44); Metamyelocyte 1 %; Monocyte 2 % (0.0-12.0); Neutrophils 71 % (36.0-66.0); Total Cells Counted 100
[2019-05-18 04:58] LABS: Basophilic Stippling 1+; Platelet Estimate NORMAL (NORMAL); Polychromasia 1+; Toxic Granulation RARE
[2019-05-18] MEDS: CLINDAMYCIN-D5W 600 MG/50 ML*** 600 MG/50 ML BAG IV SCH ×3 (06:11→21:39)
[2019-05-18] MEDS ORDERED: Lasix 20 MG/2 ML IV ONE (07:20)
[2019-05-18] MEDS ORDERED: DUONEB 0.5-3 MG/3 ml Neb IH ONE (07:49)
[2019-05-18] MEDS: DUONEB 0.5-3 MG/3 ml Neb IH SCH ×5 (07:53→23:34)
[2019-05-18] MEDS: Glucophage 500 MG PO SCH ×2 (08:12→16:58)
--- NOTE | 2019-05-18 08:28 | PCM.NOTE ---
Date and Time: 05/18/19822 Subjective Assessment: c/o shortness of breath. - Review of Systems Constitutional: No Fever, No Chills Eyes: No Symptoms Ears, Nose, & Throat: No Symptoms Respiratory: Orthopnea, Short Of Breath, Wheezing, No Cough Cardiac: No Chest Pain, No Edema, No Syncope Abdominal/Gastrointestinal: No Abdominal Pain, No Nausea, No Vomiting, No Diarrhea Genitourinary Symptoms: No Dysuria Musculoskeletal: No Back Pain, No Neck Pain Skin: No Rash Neurological: No Dizziness, No Focal Weakness, No Sensory Changes Psychological: No Symptoms Endocrine: No Symptoms Hematologic/Lymphatic: No Symptoms Immunological/Allergic: No Symptoms Objective Exam General Appearance: mild distress, alert Neurologic Exam: alert, oriented x 3, cooperative, normal mood/affect, nml cerebellar function, sensation nml, No motor deficits Skin Exam: normal color, warm, dry Wound Assessment: Skin/Wound Assessment Wound/Incision Assessment Start: 05/17/19 01: 00 Text: Status: Active Freq: Q6H Protocol: Document 05/18/19 08:00 GUILLAUME (Rec: 05/18/19 08:16 GUILALUME [id number]) Wound/Incision Assessment Bilateral LE Wound Assessment Shift Assessment Wound Type CELLULITIS Wound Stage Non Pressure Wound Dressing Status Dry & Intact Drainage Amount None Surrounding Tissue [place] Primary Dressing Elastic Bandage Secondary Dressing [place] Comment DRESSINGS/WRAPS DRY AND INTACT AT THIS TIME Eye Exam: PERRL, EOMI, eyes nml inspection Ears, Nose, Throat Exam: normal ENT inspection, pharynx normal, moist mucous membranes Neck Exam: normal inspection, non-tender, supple, full range of motion Respiratory Exam: diminished breath sounds, accessory muscle use, crackles/rales , rhonchi, wheezing, No respiratory distress Cardiovascular Exam: regular rate/rhythm, normal heart sounds Gastrointestinal/Abdomen Exam: soft, No tenderness, No mass Extremity Exam: normal inspection, normal range of motion Back Exam: normal inspection, normal range of motion, No CVA tenderness, No vertebral tenderness Pelvic Exam: deferred Rectal Exam: deferred OBJECTIVE DATA Vital Signs: Vital Signs - 24 hr Temp Pulse Resp BP Pulse Ox 05/18/19 07:58 95 H 22 96 05/18/19 07:31 96.8 F 107 H 19 129/64 92 L 05/18/19 06:58 93 L 05/18/19 04:00 98.2 F 110 H 24 112/66 96 05/18/19 00:00 98.1 F 108 H 22 113/67 97 05/17/19 20:29 110 H 20 97 05/17/19 19:53 98.3 F 105 H 20 130/88 96 05/17/19 16:00 98.3 F 94 H 21 127/84 96 05/17/19 12:00 98 F 91 H 20 129/70 92 L Oxygen-Last 24 hours O2 Percentage 3 Liters = 32% O2 Percentage 4 Liters = 36% O2 Percentage 4 Liters = 36% O2 Percentage 4 Liters = 36% O2 Percentage 3 Liters = 32% Pain Assessment - Last Documented Pain Intensity [Calf] 8 Pain Intensity 1 Pain Scale Used 0-10 Pain Scale Intake and Output: Intake & Output 05/15/19 05/16/19 05/17/19 05/18/19 11:59 11:59 11:59 11:59 Intake Total 1610 4299 Output Total 1200 4550 Balance 410 -251 Weight 112.6 kg 114.5 kg Lab Results: Accuchecks Date 05/17/19 Date 05/17/19 Date 05/17/19 Time 21:43 Time 16:30 Time 11:30 Accucheck Value: 146 Accucheck Value: 150 Accucheck Value: 150 Accucheck Value: 177 Lab Results-Last 24 Hours 05/18/19 05/18/19 Range/Units 04:36 04:36 WBC 7.3 (4.0-10.5) K/mm3 RBC 3.59 L (4.1-5.4) M/mm3 Hgb 11.5 L (12.0-16.0) gm/dl Hct 36.7 (35-47) % MCV 102.2 H (78-100) fl MCH 32.0 (26-32) pg MCHC 31.3 L (32-36) g/dl RDW 14.5 H (11.5-14.0) % Plt Count 186 (150-450) K/mm3 MPV 9.6 H (6-9.5) fl Segmented Neutrophils 71 H (36.0-66.0) % Lymphocytes (Manual) 23 L (24-44) % Monocytes (Manual) 2 (0.0-12.0) % Eosinophils (Manual) 3 (0.00-3.0) % Metamyelocytes 1 % Toxic Granulation RARE Platelet Estimate NORMAL (NORMAL) RBC Morphology ABNORMAL Polychromasia 1+ Basophilic Stippling 1+ Sodium 144 (137-145) mmol/L Potassium 4.4 (3.5-5.1) mmol/L Chloride 106 (98-107) mmol/L Carbon Dioxide 29 (22-30) mmol/L Anion Gap 13.1 (5-15) MEQ/L BUN 8 (7-17) mg/dL Creatinine 0.37 L (0.52-1.04) mg/dL Estimated GFR > 60.0 ML/MIN Glucose 153 H (74-106) mg/dL Calcium 8.4 (8.4-10.2) mg/dL Radiology Exams: Radiology Procedures Category Date Time Status CHEST 1 VIEW (PORTABLE) Stat Exams 05/18/19 07:17 Taken Multi-Disciplinary Progress Notes: Multi-Disciplinary Progress Notes 05/17/19 10:32 Case Management Note by Shiloh Sebastian CALL TO [facility], SPOKE WITH KASH, REPORTS THAT PT HAS AN AIDE M-F , 2 HOURS PER DAY AND ALSO HAS A HOMEMAKER 2 HOURS PER WEEK. WILL NOTIFY [facility] WHEN PT DISCHARGES TO HOME. Initialized on 05/17/19 10:32 - END OF NOTE Assessment/Plan (1) Dyspnea and respiratory abnormalities Current Visit: Yes Status: Acute Assessment & Plan: will start duoneb nebulizer treatment Code(s): R06.00 - DYSPNEA, UNSPECIFIED; R06.89 - OTHER ABNORMALITIES OF BREATHING (2) Right middle lobe pulmonary infiltrate Current Visit: Yes Status: Acute Assessment & Plan: will continue present abx Code(s): R91.8 - OTHER NONSPECIFIC ABNORMAL FINDING OF LUNG FIELD (3) Acute systolic CHF (congestive heart failure), NYHA class 2 Current Visit: Yes Status: Acute Assessment & Plan: will give one dose of lasix for diuresis, CXR consistant with right middle lobe infiltrate and CHF changes, Code(s): I50.21 - ACUTE SYSTOLIC (CONGESTIVE) HEART FAILURE
[2019-05-18] MEDS: LASIX 20 MG PO SCH (09:22)
[2019-05-18] MEDS: ROCEPHIN 1 Gm-D5w 50 ml Bag** 1 G/50 ML IVPB IV SCH (09:22)
[2019-05-18] MEDS: Zocor 10MG PO SCH (09:22)
[2019-05-18] MEDS: ENOXAPARIN SODIUM SQ SCH (09:22)
[2019-05-18] MEDS: ECOTRIN 81 MG PO SCH (09:22)
[2019-05-18] MEDS: Klor Con 10 MEQ PO SCH (09:22)
[2019-05-18] MEDS: PATIENT OWN MEDICATION PO SCH ×2 (09:23→21:39)
[2019-05-18] MEDS ORDERED: NON-FORMULARY ITEM (Atorvastatin Calcium [Atorvastatin Calcium] 10 MG) PO SCH (10:00)
[2019-05-18] MEDS ORDERED: PALIPERIDONE 9 MG PO SCH (10:00)
[2019-05-18] MEDS: Sodium Chloride 0.9% 1000 ML 1,000 ML IV SCH (16:58)
--- NOTE | 2019-05-18 19:40 | XRAY ---
Indication: Increasing short of breath. Comparison: February 27, 2019. Portable chest remains underinflated without focal infiltrate, consolidation, or large effusion. Heart is not enlarged for AP portable technique. Bony thorax intact. Impression: Nonacute chest. Comment: Preliminary interpretation was made by [facility]. No discrepancy.
[2019-05-18] MEDS: Cyclobenzaprine 10 MG PO SCH (21:39)
[2019-05-18] MEDS ORDERED: Robitussin AC Syrup Unit Dose Cup PO PRN (21:58)
[2019-05-18] MEDS ORDERED: Flonase NASAL NS SCH (22:00)
[2019-05-18 22:59] LABS: INFLUENZA A NEGATIVE (NEGATIVE); INFLUENZA B NEGATIVE (NEGATIVE); RESPIRATORY SYNCTIAL VIRUS NEGATIVE (Negative)
[2019-05-19] MEDS: TORAdol 10 MG TABLET PO SCH ×3 (02:02→14:13)
[2019-05-19] MEDS: TYLENOL EXTRA STRENGTH 500 MG PO SCH ×3 (02:03→14:14)
[2019-05-19] MEDS: DUONEB 0.5-3 MG/3 ml Neb IH SCH ×4 (03:40→14:35)
[2019-05-19] MEDS: CLINDAMYCIN-D5W 600 MG/50 ML*** 600 MG/50 ML BAG IV SCH ×2 (06:07→14:13)
[2019-05-19] MEDS: Glucophage 500 MG PO SCH ×2 (08:13→16:17)
[2019-05-19] MEDS: ENOXAPARIN SODIUM SQ SCH (09:33)
[2019-05-19] MEDS: Zocor 10MG PO SCH (09:34)
[2019-05-19] MEDS: ROCEPHIN 1 Gm-D5w 50 ml Bag** 1 G/50 ML IVPB IV SCH (09:34)
[2019-05-19] MEDS: Klor Con 10 MEQ PO SCH (09:34)
[2019-05-19] MEDS: LASIX 20 MG PO SCH (09:34)
[2019-05-19] MEDS: ECOTRIN 81 MG PO SCH (09:34)
[2019-05-19] MEDS: PATIENT OWN MEDICATION PO SCH (09:36)
--- NOTE | 2019-05-19 09:45 | PCM.NOTE ---
Date and Time: [birth year]/19/1942 Subjective Assessment: doing better - Review of Systems Constitutional: No Fever, No Chills Eyes: No Symptoms Ears, Nose, & Throat: No Symptoms Respiratory: No Cough, No Short Of Breath Cardiac: No Chest Pain, No Edema, No Syncope Abdominal/Gastrointestinal: No Abdominal Pain, No Nausea, No Vomiting, No Diarrhea Genitourinary Symptoms: No Dysuria Musculoskeletal: No Back Pain, No Neck Pain Skin: No Rash Neurological: No Dizziness, No Focal Weakness, No Sensory Changes Psychological: No Symptoms Endocrine: No Symptoms Hematologic/Lymphatic: No Symptoms Immunological/Allergic: No Symptoms Objective Exam General Appearance: no apparent distress, alert Neurologic Exam: alert, oriented x 3, cooperative, normal mood/affect, nml cerebellar function, sensation nml, No motor deficits Skin Exam: normal color, warm, dry Wound Assessment: Skin/Wound Assessment Wound/Incision Assessment Start: 05/17/19 01: 00 Text: Status: Active Freq: Q6H Protocol: Document 05/19/19 08:00 (Rec: 05/19/19 08:29 [id number]) Wound/Incision Assessment Bilateral LE Wound Assessment Shift Assessment Wound Type CELLULITIS Wound Stage Non Pressure Wound Dressing Status Dry & Intact Drainage Amount Minimal Surrounding Tissue [place] Primary Dressing Elastic Bandage Secondary Dressing [place] Comment DRESSINGS/WRAPS DRY AND INTACT AT THIS TIME Wound Photo Photo Taken Yes Comment: in chart Eye Exam: PERRL, EOMI, eyes nml inspection Ears, Nose, Throat Exam: normal ENT inspection, pharynx normal, moist mucous membranes Neck Exam: normal inspection, non-tender, supple, full range of motion Respiratory Exam: normal breath sounds, lungs clear, No respiratory distress Cardiovascular Exam: regular rate/rhythm, normal heart sounds Gastrointestinal/Abdomen Exam: soft, No tenderness, No mass Extremity Exam: normal inspection, normal range of motion Back Exam: normal inspection, normal range of motion, No CVA tenderness, No vertebral tenderness Pelvic Exam: deferred Rectal Exam: deferred OBJECTIVE DATA Vital Signs: Vital Signs - 24 hr Temp Pulse Resp BP Pulse Ox 05/19/19 07:58 97.5 F 108 H 19 123/65 95 05/19/19 07:03 108 H 22 95 05/19/19 04:05 98.4 F 101 H 22 113/60 96 05/19/19 03:41 100 H 20 95 05/18/19 23:38 98.0 F 117 H 21 125/65 95 05/18/19 23:34 115 H 22 94 L 05/18/19 19:43 106 H 22 98 05/18/19 19:33 98.6 F 110 H 22 115/63 96 05/18/19 16:00 97.8 F 108 H 18 134/70 94 L 05/18/19 14:34 105 H 20 92 L 05/18/19 12:00 97.6 F 114 H 18 172/72 91 L 05/18/19 10:52 102 H 20 98 Oxygen-Last 24 hours O2 Percentage 3 Liters = 32% O2 Percentage 3 Liters = 32% O2 Percentage 3 Liters = 32% O2 Percentage 3 Liters = 32% O2 Percentage 3 Liters = 32% Pain Assessment - Last Documented Pain Intensity [Calf] 8 Pain Intensity 4 Pain Scale Used 0-10 Pain Scale Intake and Output: Intake & Output 05/16/19 05/17/19 05/18/19 05/19/19 11:59 11:59 11:59 11:59 Intake Total 1610 4539 2282 Output Total 1200 4850 2550 Balance 410 311 -690 Weight 112.6 kg 114.5 kg Lab Results: Accuchecks Date 05/19/19 Time 07:32 Accucheck Value: 123 Accucheck Value: 183 Accucheck Value: 148 Accucheck Value: 174 Lab Results-Last 24 Hours 05/18/19 Range/Units 22:32 Influenza Type A Ag NEGATIVE (NEGATIVE) Influenza Type B Ag NEGATIVE (NEGATIVE) RSV (PCR) NEGATIVE (Negative) Radiology Exams: Radiology Procedures Category Date Time Status CHEST 1 VIEW (PORTABLE) Stat Exams 05/18/19 07:17 Completed Assessment/Plan (1) Right middle lobe pulmonary infiltrate Current Visit: Yes Status: Acute Assessment & Plan: Chief Complaint Diagnosis Cellulitis Lower Extremity Allergies Allergy/AdvReac Type Severity Reaction Status Date / Time Sulfa (Sulfonamide Allergy Verified 05/17/19 01:41 Antibiotics) sulfamethoxazole Allergy Verified 05/17/19 01:41 [From Bactrim] trimethoprim [From Bactrim] Allergy Verified 05/17/19 01:41 Vital Signs (Last 24 hours) Temp Pulse Resp BP Pulse Ox 05/19/19 07:58 97.5 F 108 H 19 123/65 95 05/19/19 07:03 108 H 22 95 05/19/19 04:05 98.4 F 101 H 22 113/60 96 05/19/19 03:41 100 H 20 95 05/18/19 23:38 98.0 F 117 H 21 125/65 95 05/18/19 23:34 115 H 22 94 L 05/18/19 19:43 106 H 22 98 05/18/19 19:33 98.6 F 110 H 22 115/63 96 05/18/19 16:00 97.8 F 108 H 18 134/70 94 L 05/18/19 14:34 105 H 20 92 L 05/18/19 12:00 97.6 F 114 H 18 172/72 91 L 05/18/19 10:52 102 H 20 98 Home Medications Medication Instructions Recorded Confirmed Last Taken Type Atorvastatin Calcium 10 mg PO DAILY 05/17/19 05/17/19 05/16/19 09:00 History Metformin HCl 500 mg PO BIDWM 05/17/19 05/17/19 05/16/19 17:00 History Current Medications Generic Name Dose Route Start Last Admin Trade Name Freq PRN Reason Stop Dose Admin Acetaminophen 325 mg 05/17/19 01:06 05/17/19 19:34 Tylenol 325 Mg PO 06/16/19 01:05 325 mg Q4H PRN PRN Administration PAIN, FEVER, HEADACHE Acetaminophen 500 mg 05/17/19 20:00 05/19/19 08:13 Tylenol Extra Strength 500 Mg PO 06/16/19 19:59 500 mg Q6H ANTHONY Administration Albuterol/Ipratropium 3 ml 05/18/19 11:00 05/19/19 06:58 Duoneb 0.5-3 Mg/3 Ml Neb IH 06/17/19 10:59 3 ml Q4HRT ANTHONY Administration Aspirin 81 mg 05/17/19 12:00 05/19/19 09:34 Ecotrin 81 Mg PO 06/16/19 11:59 81 mg DAILY ANTHONY Administration Cyclobenzaprine HCl 10 mg 05/17/19 22:00 05/18/19 21:39 Cyclobenzaprine 10 Mg PO 06/16/19 21:59 10 mg HS ANTHONY Administration Divalproex Sodium 500 mg 05/17/19 11:00 09/28/19 21:[address] 250 Mg Tab PO 06/16/19 10:59 500 mg TID ANTHONY Administration Enoxaparin Sodium 40 mg 05/17/19 10:00 05/19/19 09:33 Enoxaparin Sodium SQ 06/16/19 09:59 40 mg DAILY ANTHONY Administration Fluticasone Propionate 0 gm 05/19/19 10:00 05/19/19 09:33 Flonase Nasal NS 06/18/19 09:59 16 gm DAILY ANTHONY Administration Furosemide 20 mg 05/17/19 12:00 05/19/19 09:34 Lasix 20 Mg PO 06/16/19 11:59 20 mg DAILY ANTHONY Administration Guaifenesin/Codeine Phosphate 5 ml 05/18/19 21:58 05/18/19 22:30 Robitussin Ac Syrup Unit Dose Cup PO 06/17/19 21:57 5 ml QIDP PRN Administration COUGH Sodium Chloride 1,000 mls @ 20 mls/hr 05/17/19 01:06 05/18/19 16:58 Sodium Chloride 0.9% 1000 Ml IV 06/16/19 01:05 100 mls/hr .Q24H ANTHONY Administration Clindamycin HCl/Dextrose 600 mg in 50 mls @ 100 mls/hr 05/17/19 06:00 06:07 Clindamycin-D5w 600 Mg/50 Ml IV 06/16/19 05:59 100 mls/hr Q8HT ANTHONY Administration Ceftriaxone Sodium/Dextrose 1 g in 50 mls @ 100 mls/hr 05/18/19 10:00 09:34 Rocephin 1 Gm-D5w 50 Ml Bag IV 06/17/19 09:59 100 mls/hr Q24H10 ANTHONY Administration Insulin Aspart 0 unit 05/17/19 01:06 05/18/19 21:40 Novolog Insulin SQ 06/16/19 01:05 3 unit UD PRN Administration ACCUCHEK Ketorolac Tromethamine 10 mg 05/17/19 20:00 05/19/19 08:12 Toradol 10 Mg Tablet PO 05/22/19 19:59 10 mg Q6H ANTHONY Administration Metformin HCl 500 mg 05/17/19 12:00 05/19/19 08:13 Glucophage 500 Mg PO 06/16/19 11:59 500 mg BIDWM ANTHONY Administration Paliperidone Er 9mg 1 each 05/17/19 14:00 05/19/19 09:36 Tablet PO 06/16/19 13:59 1 each DAILY ANTHONY Administration Ramelteon 8mg Tablet 1 each 05/17/19 22:00 05/18/19 21:39 PO 06/16/19 21:59 1 each HS ANTHONY Administration Potassium Chloride 10 meq 05/17/19 12:00 05/19/19 09:34 Klor Con 10 Meq PO 06/16/19 11:59 10 meq DAILY ANTHONY Administration Simvastatin 10 mg 05/17/19 12:00 05/19/19 09:34 Zocor 10mg PO 06/16/19 11:59 10 mg DAILY ANTHONY Administration Discontinued Medications Generic Name Dose Route Start Last Admin Trade Name Freq PRN Reason Stop Dose Admin Acetaminophen 1,000 mg 05/16/19 22:07 05/16/19 22:31 Tylenol Extra Strength 500 Mg PO 05/16/19 22:08 1,000 mg STAT STA Administration Acetaminophen Confirm 05/16/19 22:28 Tylenol Extra Strength 500 Mg Administered 05/16/19 22:29 Dose 1,000 mg .ROUTE .STK-MED ONE Albuterol/Ipratropium Confirm 05/18/19 07:49 Duoneb 0.5-3 Mg/3 Ml Neb Administered 05/18/19 07:50 Dose 3 ml IH .STK-MED ONE Fluticasone Propionate 1 gm 05/18/19 22:00 05/18/19 22:30 Flonase Nasal NS 06/17/19 21:59 1 gm DAILY ANTHONY Administration Furosemide 20 mg 05/18/19 07:20 05/18/19 07:30 Lasix 20 Mg/2 Ml IV 05/18/19 07:21 20 mg STAT ONE Administration Sodium Chloride 1,000 mls @ 999 mls/hr 05/16/19 22:06 05/16/19 23:49 Sodium Chloride 0.9% 1000 Ml IV 05/16/19 23:06 Infused .Q1H1M STA Infusion Sodium Chloride Confirm 05/16/19 22:28 Sodium Chloride 0.9% 1000 Ml Administered 05/16/19 22:29 Dose 1,000 mls @ ud .ROUTE .STK-MED ONE Sodium Chloride 1,000 mls @ 999 mls/hr 05/16/19 22:39 05/16/19 22:58 Sodium Chloride 0.9% 1000 Ml IV 05/16/19 23:39 999 mls/hr .Q1H1M STA Administration Sodium Chloride Confirm 05/16/19 22:57 Sodium Chloride 0.9% 1000 Ml Administered 05/16/19 22:58 Dose 1,000 mls @ ud .ROUTE .STK-MED ONE Clindamycin HCl/Dextrose Confirm 05/17/19 01:24 Clindamycin-D5w 600 Mg/50 Ml Administered 05/17/19 01:25 Dose 600 mg in 50 mls @ ud IV .STK-MED ONE Ketorolac Tromethamine 60 mg 05/16/19 21:14 05/16/19 21:23 Toradol 30 Mg Injection IM 05/16/19 21:15 60 mg STAT ONE Administration Ketorolac Tromethamine Confirm 05/16/19 21:20 Toradol 30 Mg Injection Administered 05/16/19 21:21 Dose 60 mg .ROUTE .STK-MED ONE Ketorolac Tromethamine Confirm 05/16/19 22:28 Toradol 30 Mg Injection Administered 05/16/19 22:29 Dose 60 mg .ROUTE .STK-MED ONE Miscellaneous Information 1 each 05/17/19 11:15 Medication Intervention PO 06/16/19 11:14 .RN TO CHECK ON ANTHONY Miscellaneous Information 1 each 05/17/19 11:15 Medication Intervention PO 06/16/19 11:14 .RN TO CHECK ON ANTHONY Intake & Output (Last 24 hours) 05/16/19 05/17/19 05/18/19 05/19/19 11:59 11:59 11:59 11:59 Intake Total 1610 4539 2282 Output Total 1200 4850 2550 Balance 043 -249 -908 Weight 112.6 kg 114.5 kg Laboratory Results (Last 24 hours) 05/18/19 22:32 Influenza Type A Ag NEGATIVE Influenza Type B Ag NEGATIVE RSV (PCR) NEGATIVE Orders (Last 24 hours) Category Date Time Status Flu & RSV [Respiratory Panel] Urgent Lab 05/18/19 22:32 Completed Albuterol/Ipratropium 3ml Neb* [DUONEB 0.5-3 MG/3 ml Med 05/18/19 11:00 Active Neb] 3 ml IH Q4HRT Ceftriaxone 1 GM/50 ML PREMIX* [ROCEPHIN 1 Gm-D5w 50 ml Med 05/18/19 10:00 Active Bag] 1 g in 50 ml IV Q24H10 Fluticasone Propionate [Flonase NASAL] Med 05/19/19 10:00 Active 0 gm NS DAILY Fluticasone Propionate [Flonase NASAL] Med 05/18/19 22:00 Discontinued 1 gm NS DAILY Guaifenesin/Codeine 5 ml [Robitussin AC Syrup Unit Med 05/18/19 21:58 Active Dose Cup] 5 ml PO QIDP PRN Code(s): R91.8 - OTHER NONSPECIFIC ABNORMAL FINDING OF LUNG FIELD (2) Dyspnea and respiratory abnormalities Current Visit: Yes Status: Resolved Code(s): R06.00 - DYSPNEA, UNSPECIFIED; R06.89 - OTHER ABNORMALITIES OF BREATHING (3) Acute systolic CHF (congestive heart failure), NYHA class 2 Current Visit: Yes Status: Resolved Code(s): I50.21 - ACUTE SYSTOLIC ( CONGESTIVE) HEART FAILURE
[2019-05-19] MEDS ORDERED: Flonase NASAL NS SCH (10:00)
[2019-05-19 19:15] VITALS: BP 139/85; PULSE 101; O2SAT 94
== END 2019-05-19 19:59 | disposition home or self-care (01) | DRG 602 ==
LOC: ED 20:36 → MED SURG 05-17 01:02 → OBSVTOIN 05-17 08:44 → MED SURG 05-18 08:00
PROVIDERS: ADMIT Family Medicine; ATTEND Family Medicine
DX: L03.116 Cellulitis of left lower limb (principal); I50.21 Acute systolic (congestive) heart failure; L03.115 Cellulitis of right lower limb; E11.9 Type 2 diabetes mellitus without complications; J44.9 Chronic obstructive pulmonary disease, unspecified; E78.00 Pure hypercholesterolemia, unspecified; I89.0 Lymphedema, not elsewhere classified; R91.8 Other nonspecific abnormal finding of lung field; Z79.899 Other long term (current) drug therapy
CPT/HCPCS: 36000; 36415; 71045; 80048; 80053; 82550; 82962; 83605; 85025; 85652; 87631; 94150; 94640; 94760; 96360; 96361; 96372; 99284; 99285; A6457; J0696; J1650; J1885; J1940; A9270-GY

== ENCOUNTER 2019-06-25 08:10 | Emergency (ER) | payer MEDICARE ==
--- NOTE | 2019-06-25 09:04 | ERPHSYRPT ---
- History of Present Illness Time Seen by Provider: 06/25/19 08:50 Source: patient Exam Limitations: no limitations Patient Subjective Stated Complaint: "My blood sugar has been running high. Was 304 this morning prior to my Metformin. I feel like I could pass out. I have pain in my back and my legs. I am on Cipro for cellulitis in my legs." Triage Nursing Assessment: Pt presents to ER with complaints of hyperglycemia, FSBS this morning was 304, Pt took metformin. Current FSBS is 150. Pt complaints of shortness of breath. Lungs clear at this time. Resp slightly labored. Pt complaints of chronic back pains and pain in abimbola lower extremities from recent dx of cellulitis. On cipro. Pt states she has had n/v/d x 2 days. Abd soft and non tender. Pt is able to communicate regularly. Walks with cane and weak gait. Physician History: 54 y/o obese diabetic white female presents with a elevated blood glucose of 305. pt told rn she had vomiting and diarrhea. however, in obtaining hx, pt states she did not actually vomit but has chronic nausea. as far as diarrhea, she states it is no different than normal and she has had it for 11 years. pt also stated she has trouble getting an appt with pcp although records show she last saw pcp on 06/20/19. she thinks she needs to be on insulin Timing/Duration: today Severity: mild Associated Symptoms: nausea, other (diarrhea) Allergies/Adverse Reactions: Sulfa (Sulfonamide Antibiotics) Allergy (Verified 06/25/19 08:37) sulfamethoxazole [From Bactrim] Allergy (Verified 06/25/19 08:37) trimethoprim [From Bactrim] Allergy (Verified 06/25/19 08:37) doxycycline Adverse Reaction (Verified 06/25/19 08:37) Home Medications: Divalproex Sodium [Depakote] 500 mg PO TID 09/03/14 [History] Paliperidone [Invega] 9 mg PO DAILY 10/17/15 [History] Ramelteon [Rozerem] 8 mg PO QHS 12/14/15 [History] Furosemide 20 mg [Lasix 20 mg] 20 mg PO DAILY 05/15/18 [History] Potassium Chloride 10 Meq Tab* [Klor Con 10 MEQ] 10 meq PO DAILY 05/15/18 [ History] Atorvastatin Calcium 10 mg PO DAILY 05/17/19 [History] Metformin HCl 500 mg PO BIDWM 05/17/19 [History] Cyclobenzaprine HCl 10 mg [Cyclobenzaprine 10 MG] 10 mg PO HS 06/25/19 [ History] Hx Tetanus, Diphtheria Vaccination/Date Given: No Hx Influenza Vaccination/Date Given: Yes Hx Pneumococcal Vaccination/Date Given: Yes Immunizations Up to Date: Yes - Review of Systems Constitutional: No Symptoms Eyes: No Symptoms Ears, Nose, & Throat: No Symptoms Respiratory: No Symptoms Cardiac: No Symptoms Abdominal/Gastrointestinal: Nausea, Diarrhea (chronic) Genitourinary Symptoms: No Symptoms Musculoskeletal: No Symptoms Skin: No Symptoms Neurological: No Symptoms Psychological: No Symptoms Endocrine: No Symptoms Hematologic/Lymphatic: No Symptoms Immunological/Allergic: No Symptoms All Other Systems: Reviewed and Negative - Past Medical History Pertinent Past Medical History: Yes Neurological History: Peripheral Neuropathy, Seizures, TIA ENT History: Glaucoma Cardiac History: High Cholesterol Respiratory History: COPD Endocrine Medical History: Diabetes Type II Musculoskeletal History: Arthritis GI Medical History: Gallbladder Disease History: No Pertinent History Psycho-Social History: Bipolar, Depression Female Reproductive Disorders: No Pertinent History Other Medical History: hx of cellulitis, hx seizures 3years ago, gallbladder removed - Past Surgical History Past Surgical History: Yes Neuro Surgical History: No Pertinent History Cardiac: No Pertinent History Respiratory: No Pertinent History Gastrointestinal: Cholecystectomy Genitourinary: No Pertinent History Musculoskeletal: No Pertinent History Female Surgical History: Section, Tubal Ligation Other Surgical History: GANGLION CYST - Social History Smoking Status: Current every day smoker How long have you smoked: 28 Exposure to second hand smoke: Yes Drug Use: none Patient Lives Alone: No Significant Family History: no pertinent family hx - Nursing Vital Signs Nursing Vital Signs: Initial Vital Signs Temperature 97.9 F 06/25/19 08:21 Pulse Rate 116 H 06/25/19 08:21 Respiratory Rate 22 06/25/19 08:21 Blood Pressure 133/81 06/25/19 08:21 O2 Sat by Pulse Oximetry 97 06/25/19 08:21 Pain Scale Pain Intensity 4 - Physical Exam General Appearance: no apparent distress, alert, anxiety Eye Exam: PERRL/EOMI, eyes nml inspection Ears, Nose, Throat Exam: normal ENT inspection, moist mucous membranes Neck Exam: normal inspection, non-tender, supple, full range of motion Respiratory Exam: normal breath sounds, lungs clear, airway intact, No chest tenderness, No respiratory distress Cardiovascular Exam: regular rate/rhythm, normal heart sounds, normal peripheral pulses Gastrointestinal/Abdomen Exam: soft, normal bowel sounds, No tenderness Pelvic Exam: not done Rectal Exam: not done Back Exam: normal inspection, normal range of motion, No CVA tenderness, No vertebral tenderness Extremity Exam: normal inspection, normal range of motion, pelvis stable Neurologic Exam: alert, oriented x 3, cooperative, 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 Skin Exam: normal color, warm, dry Lymphatic Exam: No adenopathy SpO2 Interpretation: normal SpO2: 97 O2 Delivery: Room Air - Course Nursing assessment & vital signs reviewed: Yes Ordered Tests: Active Orders 24 hr Category Date Time Status IV Insertion STAT Care 06/25/19 09:04 Active Pulse Oximetry (ED) STAT Care 06/25/19 09:04 Active CBC W DIFF Stat Lab 06/25/19 09:09 Completed CMP Stat Lab 06/25/19 09:09 Completed Manual Differential NC Stat Lab 06/25/19 09:09 Completed UA W/RFX UR CULTURE Stat Lab 06/25/19 09:12 Completed Medication Summary Generic Name Dose Route Start Last Admin Trade Name Freq PRN Reason Stop Dose Admin Sodium Chloride 1,000 mls @ 999 mls/hr 06/25/19 09:04 06/25/19 09:19 Sodium Chloride 0.9% 1000 Ml IV 06/25/19 10:04 999 mls/hr .[id number] STA Administration Discontinued Medications Generic Name Dose Route Start Last Admin Trade Name Freq PRN Reason Stop Dose Admin Sodium Chloride Confirm 06/25/19 09:14 Sodium Chloride 0.9% 1000 Ml Administered 06/25/19 09:15 Dose 1,000 mls @ ud .ROUTE .STK-MED ONE Lab/Rad Data: Laboratory Result Diagrams 06/25/19 09:09 06/25/19 09:09 Laboratory Results 06/25/19 06/25/19 06/25/19 Range/Units 09:12 09:09 09:09 WBC 9.2 (4.0-10.5) K/mm3 RBC 4.58 (4.1-5.4) M/mm3 Hgb 14.5 (12.0-16.0) gm/dl Hct 46.0 (35-47) % MCV 100.4 H (78-100) fl MCH 31.7 (26-32) pg MCHC 31.5 L (32-36) g/dl RDW 14.3 H (11.5-14.0) % Plt Count 264 (150-450) K/mm3 MPV 10.6 H (6-9.5) fl Sodium 143 (137-145) mmol/L Potassium 4.1 (3.5-5.1) mmol/L Chloride 98 (98-107) mmol/L Carbon Dioxide 31 H (22-30) mmol/L Anion Gap 17.6 H (5-15) MEQ/L BUN 5 L (7-17) mg/dL Creatinine 0.32 L (0.52-1.04) mg/dL Estimated GFR > 60.0 ML/MIN Glucose 144 H (74-106) mg/dL Calcium 9.8 (8.4-10.2) mg/dL Total Bilirubin 0.50 (0.2-1.3) mg/dL AST 39 H (14-36) U/L ALT 24 (0-35) U/L Alkaline Phosphatase 94 (38-126) U/L Serum Total Protein 7.9 (6.3-8.2) g/dL Albumin 4.4 (3.5-5.0) g/dL Urine Color COLORLESS (YELLOW) Urine Appearance CLEAR (CLEAR) Urine pH 6.0 (5-6) Ur Specific Arnold 1.003 (1.005-1.025) Urine Protein NEGATIVE (Negative) Urine Ketones NEGATIVE (NEGATIVE) Urine Blood NEGATIVE (0-5) Kulwinder/ul Urine Nitrite NEGATIVE (NEGATIVE) Urine Bilirubin NEGATIVE (NEGATIVE) Urine Urobilinogen NEGATIVE (0-1) mg/dL Ur Leukocyte Esterase NEGATIVE (NEGATIVE) Urine WBC (Auto) NONE (0-5) /HPF Urine RBC (Auto) NONE (0-2) /HPF U Epithel Cells (Auto) NONE (FEW) /HPF Urine Bacteria (Auto) NONE (NEGATIVE) /HPF Urine Mucus (Auto) SLIGHT (NEGATIVE) /HPF Urine Culture Reflexed NO (NO) Urine Glucose NEGATIVE (NEGATIVE) mg/dL - Progress Progress: improved Counseled pt/family regarding: lab results, diagnosis, need for follow-up - Departure Departure Disposition: Home Clinical Impression: Diarrhea, Hyperglycemia Condition: Stable Critical Care Time: No Referrals: OLIVER LIU MD [Primary Care Provider] - Additional Instructions: drink plenty of fluids. monitor your blood sugar closely. take your medications as prescribed. follow up with your primary doctor for further management
[2019-06-25 09:11] LABS: Hemoglobin 14.5 gm/dl (12.0-16.0); Mean Cell Volume 100.4 fl (78-100); Mean Corpuscular Hemoglobin 31.7 pg (26-32); Mean Corpuscular Hgb Concent. 31.5 g/dl (32-36); Mean Platelet Volume 10.6 fl (6-9.5); Platelet Count 264 K/mm3 (150-450); Red Blood Count 4.58 M/mm3 (4.1-5.4); Red Cell Distribution Width 14.3 % (11.5-14.0); White Blood Count 9.2 K/mm3 (4.0-10.5)
[2019-06-25 09:12] VITALS: BP 123/82; PULSE 106
[2019-06-25] MEDS ORDERED: Sodium Chloride 0.9% 1000 ML 1,000 ML ONE (09:14)
[2019-06-25] MEDS: Sodium Chloride 0.9% 1000 ML 1,000 ML IV STA (09:19)
[2019-06-25 09:24] LABS: Appearance CLEAR (CLEAR); Bilirubin NEGATIVE (NEGATIVE); Blood NEGATIVE Ery/ul (0-5); Glucose NEGATIVE (NEGATIVE); Ketones NEGATIVE (NEGATIVE); Leukocyte Esterase NEGATIVE (NEGATIVE); Mucus SLIGHT /HPF (NEGATIVE); Nitrite NEGATIVE (NEGATIVE); Protein,Urine Dip NEGATIVE (Negative); Specific Gravity 1.003 (1.005-1.025); Urobilinogen NEGATIVE mg/dL (0-1)
[2019-06-25 09:25] VITALS: O2SAT 97
[2019-06-25 09:32] LABS: ALBUMIN 4.4 g/dL (3.5-5.0); ALKALINE PHOSPHATASE 94 U/L (38-126); ANION GAP 17.6 MEQ/L (5-15); BLOOD UREA NITROGEN 5 mg/dL (7-17); CHLORIDE 98 mmol/L (98-107); Calcium 9.8 mg/dL (8.4-10.2); Carbon Dioxide 31 mmol/L (22-30); Creatinine 1 0.32 mg/dL (0.52-1.04); Glucose 144 mg/dL (74-106); Potassium 4.1 mmol/L (3.5-5.1); SGOT/AST 39 U/L (14-36); SGPT/ALT 24 U/L (0-35); SODIUM 143 mmol/L (137-145); Total Protein 7.9 g/dL (6.3-8.2)
[2019-06-25 15:58] LABS: Lymphocytes 18 % (24-44); Monocyte 9 % (0.0-12.0); Neutrophils 73 % (36.0-66.0); Platelet Estimate NORMAL (NORMAL); Total Cells Counted 100
== END 2019-06-25 10:28 | disposition home or self-care (01) ==
LOC: ED 08:10
DX: R19.7 Diarrhea, unspecified (principal); E11.65 Type 2 diabetes mellitus with hyperglycemia; J44.9 Chronic obstructive pulmonary disease, unspecified; E78.00 Pure hypercholesterolemia, unspecified; G40.909 Epilepsy, unspecified, not intractable, without status epilepticus; G62.9 Polyneuropathy, unspecified
CPT/HCPCS: 36415; 80053; 81001; 85025; 94760; 96360; 99284

== ENCOUNTER 2020-01-12 15:20 | Emergency (ER) | payer MEDICARE ==
--- NOTE | 2020-01-12 15:41 | ERPHSYRPT ---
- History of Present Illness Time Seen by Provider: 01/12/20 15:36 Source: patient Exam Limitations: no limitations Physician History: pt states that she has a longstanding hx of back pain and will have pain with any standing or lifting and took out trash resulting in same back pain today. no hx fall or trauma. no hx cancer, no abd pain, no urinary symptoms but hx of previous left kidney stone and this is different per pt. Timing/Duration: today Method of Injury: bending, lifting Quality: sharp, stabbing Back Pain Location: lumbar spine, coccyx, paraspinous muscles Severity of Pain-Max: moderate Severity of Pain-Current: moderate Modifying Factors: Improves With: movement Associated Symptoms: denies symptoms Previous symptoms: same symptoms as today Allergies/Adverse Reactions: Sulfa (Sulfonamide Antibiotics) Allergy (Verified 01/12/20 15:31) sulfamethoxazole [From Bactrim] Allergy (Verified 01/12/20 15:31) trimethoprim [From Bactrim] Allergy (Verified 01/12/20 15:31) doxycycline Adverse Reaction (Verified 01/12/20 15:31) Home Medications: Divalproex Sodium [Depakote] 500 mg PO TID 09/03/14 [History] Paliperidone [Invega] 9 mg PO DAILY 10/17/15 [History] Ramelteon [Rozerem] 8 mg PO QHS 12/14/15 [History] Furosemide 20 mg [Lasix 20 mg] 20 mg PO DAILY 05/15/18 [History] Potassium Chloride 10 Meq Tab* [Klor Con 10 MEQ] 10 meq PO DAILY 05/15/18 [ History] Atorvastatin Calcium 10 mg PO DAILY 05/17/19 [History] Metformin HCl 500 mg PO BIDWM 05/17/19 [History] Cyclobenzaprine HCl 10 mg [Cyclobenzaprine 10 MG] 10 mg PO HS 06/25/19 [ History] Hx Tetanus, Diphtheria Vaccination/Date Given: No Hx Influenza Vaccination/Date Given: Yes Hx Pneumococcal Vaccination/Date Given: Yes - Review of Systems Constitutional: No Fever, No Chills Eyes: No Symptoms Ears, Nose, & Throat: No Symptoms Respiratory: No Cough, No Dyspnea Cardiac: No Chest Pain, No Edema, No Syncope Abdominal/Gastrointestinal: No Abdominal Pain, No Nausea, No Vomiting, No Diarrhea Genitourinary Symptoms: No Dysuria Musculoskeletal: Back Pain, No Arthralgias, No Neck Pain, No Fall, No Injury Skin: No Rash Neurological: No Dizziness, No Focal Weakness, No Sensory Changes Psychological: No Symptoms Endocrine: No Symptoms All Other Systems: Reviewed and Negative - Past Medical History Pertinent Past Medical History: Yes Neurological History: Peripheral Neuropathy, Seizures, TIA ENT History: Glaucoma Cardiac History: High Cholesterol Respiratory History: COPD Endocrine Medical History: Diabetes Type II Musculoskeletal History: Arthritis GI Medical History: Gallbladder Disease History: No Pertinent History Psycho-Social History: Bipolar, Depression Female Reproductive Disorders: No Pertinent History Other Medical History: hx of cellulitis, hx seizures 3years ago, gallbladder removed - Past Surgical History Past Surgical History: Yes Neuro Surgical History: No Pertinent History Cardiac: No Pertinent History Respiratory: No Pertinent History Gastrointestinal: Cholecystectomy Genitourinary: No Pertinent History Musculoskeletal: No Pertinent History Female Surgical History: Section, Tubal Ligation Other Surgical History: GANGLION CYST - Social History Smoking Status: Current every day smoker How long have you smoked: 28 Exposure to second hand smoke: Yes Drug Use: none Patient Lives Alone: No Significant Family History: no pertinent family hx - Nursing Vital Signs Nursing Vital Signs: Initial Vital Signs Temperature 98.0 F 01/12/20 15:31 Pulse Rate 78 01/12/20 15:31 Respiratory Rate 18 01/12/20 15:31 Blood Pressure 119/76 01/12/20 15:31 O2 Sat by Pulse Oximetry 92 L 01/12/20 15:31 Pain Scale Pain Intensity 5 - Physical Exam General Appearance: no apparent distress, alert Eye Exam: PERRL/EOMI, eyes nml inspection Neck Exam: normal inspection, non-tender, supple, full range of motion, No meningismus, No midline tenderness Respiratory Exam: normal breath sounds, lungs clear, No respiratory distress Cardiovascular Exam: regular rate/rhythm, normal heart sounds Gastrointestinal Exam: soft, No tenderness, No mass Pelvic Exam: deferred Rectal Exam: deferred Back Exam: decreased range of motion, muscle spasm, No vertebral tenderness Extremity Exam: normal inspection, normal range of motion, No calf tenderness, No pedal edema Peripheral Pulses: carotid (R): 2+, carotid (L): 2+, femoral (R): 2+, femoral (L ): 2+, dorsalis-pedis (R): 2+, dorsalis-pedis (L): 2+ Neurologic Exam: alert, oriented x 3, cooperative, 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 - Course Nursing assessment & vital signs reviewed: Yes Ordered Tests: Active Orders 24 hr Category Date Time Status UA W/RFX UR CULTURE Stat Lab 01/12/20 16:30 Completed Medication Summary Generic Name Dose Route Start Last Admin Trade Name Freq PRN Reason Stop Dose Admin Methylprednisolone 1 mg 01/12/20 16:30 Medrol Dosepack PO 02/11/20 16:29 UD ANTHONY Discontinued Medications Generic Name Dose Route Start Last Admin Trade Name Freq PRN Reason Stop Dose Admin Diphenhydramine HCl 50 mg 01/12/20 15:46 Benadryl 50 Mg/Ml IM 01/12/20 15:47 STAT ONE Ketorolac Tromethamine 30 mg 01/12/20 15:44 01/12/20 16:56 Toradol 30 Mg Injection IV 01/12/20 15:45 Not Given STAT ONE Ketorolac Tromethamine 60 mg 01/12/20 15:44 01/12/20 15:51 Toradol 30 Mg Injection IM 01/12/20 15:45 60 mg STAT ONE Administration Ketorolac Tromethamine Confirm 01/12/20 15:50 Toradol 30 Mg Injection Administered 01/12/20 15:51 Dose 60 mg .ROUTE .STK-MED ONE Orphenadrine Citrate 60 mg 01/12/20 15:45 Norflex 60 Mg/2 Ml IM 01/12/20 15:46 STAT ONE Lab/Rad Data: Laboratory Results 01/12/20 Range/Units 16:30 Urine Color YELLOW (YELLOW) Urine Appearance CLEAR (CLEAR) Urine pH 6.0 (5-6) Ur Specific [place] 1.012 (1.005-1.025) Urine Protein NEGATIVE (Negative) Urine Ketones TRACE (NEGATIVE) Urine Blood NEGATIVE (0-5) Kulwinder/ul Urine Nitrite NEGATIVE (NEGATIVE) Urine Bilirubin NEGATIVE (NEGATIVE) Urine Urobilinogen NEGATIVE (0-1) mg/dL Ur Leukocyte Esterase NEGATIVE (NEGATIVE) Urine WBC (Auto) 0-2 (0-5) /HPF Urine RBC (Auto) NONE (0-2) /HPF U Epithel Cells (Auto) RARE (FEW) /HPF Urine Bacteria (Auto) NONE (NEGATIVE) /HPF Urine Mucus (Auto) SLIGHT (NEGATIVE) /HPF Urine Culture Reflexed NO (NO) Urine Glucose NEGATIVE (NEGATIVE) mg/dL - Progress Progress: improved, re-examined Progress Note: 01/12/20 16:35 symptoms have improved after her injection. advised pt of the risk /benefit of short dose of steroid for her back inflamation and that it may make diabetes control worse temporarily and she is aware and will watch gluclose closely and adjst and follow with PCP. Counseled pt/family regarding: lab results, diagnosis, need for follow-up - Departure Departure Disposition: Home Clinical Impression: Chronic low back pain Condition: Good Critical Care Time: No Referrals: OLIVER LIU MD [Primary Care Provider] - Instructions: Low Back Pain (DC) Additional Instructions: check glucose and watch carefully while taking the dospak of steroids and followup with your Dr for any adjustments. See your Dr. for referral for home health attendant . Return meantime if not improving, fever, urinary symptoms, increased pain numbness or other concerns.
[2020-01-12] MEDS ORDERED: TORAdol 30 mg Injection IV ONE (15:44)
[2020-01-12] MEDS ORDERED: TORAdol 30 mg Injection IM ONE (15:44)
[2020-01-12] MEDS ORDERED: Norflex 60 MG/2 ML IM ONE (15:45)
[2020-01-12] MEDS ORDERED: BENADRYL 50 MG/ML IM ONE (15:46)
[2020-01-12] MEDS ORDERED: TORAdol 30 mg Injection ONE (15:50)
[2020-01-12] MEDS ORDERED: Medrol Dosepack PO SCH (16:30)
[2020-01-12 17:02] LABS: Appearance CLEAR (CLEAR); Bilirubin NEGATIVE (NEGATIVE); Blood NEGATIVE Ery/ul (0-5); Epithelial Cells RARE /HPF (FEW); Glucose NEGATIVE (NEGATIVE); Ketones TRACE (NEGATIVE); Leukocyte Esterase NEGATIVE (NEGATIVE); Mucus SLIGHT /HPF (NEGATIVE); Nitrite NEGATIVE (NEGATIVE); Protein,Urine Dip NEGATIVE (Negative); Specific Gravity 1.012 (1.005-1.025); Urobilinogen NEGATIVE mg/dL (0-1); WBC 0-2 /HPF (0-5)
[2020-01-12 17:41] VITALS: BP 100/72; PULSE 70; O2SAT 98
== END 2020-01-12 17:40 | disposition home or self-care (01) ==
LOC: ED 15:20
DX: M54.5 Low back pain (principal); G89.29 Other chronic pain; X50.9XXA Other and unspecified overexertion or strenuous movements or postures, initial encounter; E78.00 Pure hypercholesterolemia, unspecified; E11.9 Type 2 diabetes mellitus without complications; J44.9 Chronic obstructive pulmonary disease, unspecified; I25.2 Old myocardial infarction; Z79.899 Other long term (current) drug therapy; Z79.84 Long term (current) use of oral hypoglycemic drugs
CPT/HCPCS: 81001; 96372; 99283; J1885; A9270-GY

== ENCOUNTER 2020-02-25 22:46 | Emergency (ER) | payer MEDICARE ==
--- NOTE | 2020-02-25 22:48 | ERPHSYRPT ---
- History of Present Illness Time Seen by Provider: 02/25/20 22:48 Historian: patient, EMS Exam Limitations: no limitations Physician History: This is a 55-year-old morbidly obese white female has a history of diabetes, hypertension, CHF, bipolar disorder, depression, recurrent chest pain, COPD and elevated cholesterol levels. She presents with recurrent chest pain that started approximately hour prior to her arrival via EMS. Patient states she belched just prior to arrival and her chest pain is gone. She also states that she has been battling earaches as well. These earaches are bilateral. She has had no fever no cough. She denies abdominal pain. She has no nausea vomiting or diarrhea. Patient has been taking her medication as prescribed. Timing/Duration: today Quality: aching Location: substernal Chest Pain Radiation: no radiation Severity of Pain-Max: mild Severity of Pain-Current: none Modifying Factors: Improves With: other (Belching resolved the symptoms) Associated Symptoms: denies symptoms Prior Chest Pain/Cardiac Workup: angina Nitro Today/Relief: no nitro taken today Aspirin Treatment Today: no aspirin today Allergies/Adverse Reactions: Sulfa (Sulfonamide Antibiotics) Allergy (Verified 02/25/20 22:54) sulfamethoxazole [From Bactrim] Allergy (Verified 02/25/20 22:54) trimethoprim [From Bactrim] Allergy (Verified 02/25/20 22:54) coconut Adverse Reaction (Verified 02/25/20 22:55) Diarrhea doxycycline Adverse Reaction (Verified 02/25/20 22:54) Home Medications: Divalproex Sodium [Depakote] 500 mg PO TID 09/03/14 [History] Paliperidone [Invega] 9 mg PO DAILY 10/17/15 [History] Ramelteon [Rozerem] 8 mg PO QHS 12/14/15 [History] Furosemide 20 mg [Lasix 20 mg] 20 mg PO DAILY 05/15/18 [History] Potassium Chloride 10 Meq Tab* [Klor Con 10 MEQ] 10 meq PO DAILY 05/15/18 [History] Atorvastatin Calcium 10 mg PO DAILY 05/17/19 [History] Metformin HCl 500 mg PO BIDWM 05/17/19 [History] Cyclobenzaprine HCl 10 mg [Cyclobenzaprine 10 MG] 10 mg PO HS 06/25/19 [History] Hx Tetanus, Diphtheria Vaccination/Date Given: No Hx Influenza Vaccination/Date Given: Yes Hx Pneumococcal Vaccination/Date Given: Yes Travel Risk - International Travel Have you traveled outside of the country in past 3 weeks: No - Coronavirus Screening Are you exhibiting any of the following symptoms?: No Close contact with a COVID-19 positive Pt in past 14-21 Days: No - Review of Systems Constitutional: No Symptoms Eyes: No Symptoms Ears, Nose, & Throat: Ear Pain (Bilateral) Respiratory: No Symptoms Cardiac: Chest Pain Abdominal/Gastrointestinal: No Symptoms Genitourinary Symptoms: No Symptoms Musculoskeletal: No Symptoms Skin: No Symptoms Neurological: No Symptoms Psychological: No Symptoms Endocrine: No Symptoms Hematologic/Lymphatic: No Symptoms Immunological/Allergic: No Symptoms All Other Systems: Reviewed and Negative - Past Medical History Pertinent Past Medical History: Yes Neurological History: Peripheral Neuropathy, Seizures, TIA ENT History: Glaucoma Cardiac History: High Cholesterol Respiratory History: COPD Endocrine Medical History: Diabetes Type II Musculoskeletal History: Arthritis GI Medical History: Gallbladder Disease History: No Pertinent History Psycho-Social History: Bipolar, Depression Female Reproductive Disorders: No Pertinent History Other Medical History: hx of cellulitis, hx seizures 3years ago, gallbladder removed - Past Surgical History Past Surgical History: Yes Neuro Surgical History: No Pertinent History Cardiac: No Pertinent History Respiratory: No Pertinent History Gastrointestinal: Cholecystectomy Genitourinary: No Pertinent History Musculoskeletal: No Pertinent History Female Surgical History: Section, Tubal Ligation Other Surgical History: GANGLION CYST - Social History Smoking Status: Current every day smoker How long have you smoked: 28 Exposure to second hand smoke: Yes Drug Use: none Patient Lives Alone: No Significant Family History: no pertinent family hx - Nursing Vital Signs Nursing Vital Signs: Initial Vital Signs Temperature 98.6 F 02/25/20 22:50 Pulse Rate 114 H 02/25/20 22:50 Respiratory Rate 22 02/25/20 22:50 Blood Pressure 126/61 02/25/20 22:50 O2 Sat by Pulse Oximetry 98 02/25/20 22:50 Pain Scale Pain Intensity 6 - Physical Exam General Appearance: no apparent distress, alert, anxiety Eye Exam: PERRL/EOMI, eyes nml inspection Ears, Nose, Throat Exam: normal ENT inspection, moist mucous membranes Neck Exam: normal inspection, non-tender, supple, full range of motion Respiratory Exam: normal breath sounds, chest tenderness (Now resolved completely), lungs clear, airway intact, No respiratory distress Cardiovascular Exam: normal peripheral pulses, tachycardia Gastrointestinal/Abdomen Exam: soft, normal bowel sounds, No tenderness Pelvic Exam: not done Rectal Exam: not done Back Exam: normal inspection, normal range of motion, No CVA tenderness, No vertebral tenderness Extremity Exam: normal inspection, normal range of motion, pelvis stable Neurologic Exam: alert, oriented x 3, cooperative, sample sewer II-XII nml as tested, nml cerebellar function, nml station & gait, sensation nml Skin Exam: normal color, warm, dry Lymphatic Exam: No adenopathy SpO2 Interpretation: normal O2 Delivery: Room Air - Course Nursing assessment & vital signs reviewed: Yes EKG Interpreted by Me: RATE ([id number]), Sinus Tach, NORMAL AXIS, NORMAL INTERVALS, NORMAL QRS, Other (No acute ischemic changes on this EKG. There are no changes when compared to EKG dated 02/27/2019) Ordered Tests: Active Orders 24 hr Category Date Time Status EKG-ER Only STAT Care 02/25/20 23:01 Active IV Insertion STAT Care 02/25/20 23:01 Active Pulse Oximetry (ED) STAT Care 02/25/20 23:01 Active CHEST 1 VIEW (PORTABLE) Stat Exams 02/25/20 23:23 Taken CBC W DIFF Stat Lab 02/25/20 00:05 Completed CMP Stat Lab 02/25/20 00:05 Completed D-DIMER QUANTITATIVE Stat Lab 02/25/20 00:05 Completed Manual Differential NC Stat Lab 02/25/20 00:05 Completed NT PRO BNP Stat Lab 02/25/20 00:05 Completed PROTIME WITH INR Stat Lab 02/25/20 00:05 Completed TROPONIN Q3H Lab 02/25/20 00:05 Completed TROPONIN Q3H Lab 02/26/20 02:15 Ordered TROPONIN Q3H Lab 02/26/20 05:15 Ordered TROPONIN Q3H Lab 02/26/20 08:15 Ordered TROPONIN Q3H Lab 02/26/20 11:15 Ordered Peak Expiratory Flow Rate ONCE RT 02/25/20 23:48 Active Respiratory Therapy Assessment DAILY RT 02/25/20 23:48 Active Medication Summary Generic Name Dose Route Start Last Admin Trade Name Freq PRN Reason Stop Dose Admin Sodium Chloride 1,000 mls @ 100 mls/hr 02/25/20 23:15 02/25/20 23:29 Sodium Chloride 0.9% 1000 Ml IV 03/26/20 23:14 100 mls/hr .Q10H ANTHONY Administration Ceftriaxone Sodium/Dextrose 1 g in 50 mls @ 100 mls/hr 02/26/20 01:01 Rocephin 1 Gm-D5w 50 Ml Bag IV 02/26/20 01:30 STAT STA Discontinued Medications Generic Name Dose Route Start Last Admin Trade Name Aria PRN Reason Stop Dose Admin Albuterol/Ipratropium Confirm 02/25/20 23:33 Duoneb 0.5-3 Mg/3 Ml Neb Administered 02/25/20 23:34 Dose 3 ml IH .STK-MED ONE Albuterol/Ipratropium 3 ml 02/25/20 23:41 02/25/20 23:47 Duoneb 0.5-3 Mg/3 Ml Neb IH 02/25/20 23:42 3 ml STAT ONE Administration Aspirin 324 mg 02/25/20 23:01 02/25/20 23:12 Baby Aspirin 81 Mg Chew PO 02/25/20 23:02 Not Given STAT ONE Lorazepam 1 mg 02/26/20 00:56 Ativan 2 Mg/1 Ml Vial IV 02/26/20 00:57 STAT ONE Lab/Rad Data: Laboratory Result Diagrams 02/25/20 00:05 02/25/20 00:05 Laboratory Results 02/25/20 02/25/20 02/25/20 Range/Units 00:05 00:05 00:05 WBC (4.0-10.5) K/mm3 RBC (4.1-5.4) M/mm3 Hgb (12.0-16.0) gm/dl Hct (35-47) % MCV (78-100) fl MCH (26-32) pg MCHC (32-36) g/dl RDW (11.5-14.0) % Plt Count (150-450) K/mm3 MPV (7.5-11.0) fl Absolute Granulocytes (1.4-6.9) PT 11.2 (9.95-12.35) SECONDS INR 0.99 (0.8-3.0) D-Dimer 435 (215-500) ng/mL Sodium 140 (137-145) mmol/L Potassium 4.3 (3.5-5.1) mmol/L Chloride 99 (98-107) mmol/L Carbon Dioxide 35 H (22-30) mmol/L Anion Gap 9.4 (5-15) MEQ/L BUN 13 (7-17) mg/dL Creatinine 0.43 L (0.52-1.04) mg/dL Estimated GFR > 60.0 ML/MIN Glucose 198 H (74-106) mg/dL Calcium 9.3 (8.4-10.2) mg/dL Total Bilirubin 0.40 (0.2-1.3) mg/dL AST 31 (14-36) U/L ALT 16 (0-35) U/L Alkaline Phosphatase 80 (38-126) U/L Troponin I < 0.012 (0.000-0.034) ng/mL NT-Pro-B Natriuret Pep 31.6 (0-900) pg/mL Serum Total Protein 6.5 (6.3-8.2) g/dL Albumin 3.7 (3.5-5.0) g/dL 02/25/20 Range/Units 00:05 WBC 7.8 (4.0-10.5) K/mm3 RBC 4.05 L (4.1-5.4) M/mm3 Hgb 13.1 (12.0-16.0) gm/dl Hct 41.5 (35-47) % MCV 102.5 H (78-100) fl MCH 32.3 H (26-32) pg MCHC 31.6 L (32-36) g/dl RDW 14.7 H (11.5-14.0) % Plt Count 164 (150-450) K/mm3 MPV 10.2 (7.5-11.0) fl Absolute Granulocytes 5.44 (1.4-6.9) PT (9.95-12.35) SECONDS INR (0.8-3.0) D-Dimer (215-500) ng/mL Sodium (137-145) mmol/L Potassium (3.5-5.1) mmol/L Chloride (98-107) mmol/L Carbon Dioxide (22-30) mmol/L Anion Gap (5-15) MEQ/L BUN (7-17) mg/dL Creatinine (0.52-1.04) mg/dL Estimated GFR ML/MIN Glucose (74-106) mg/dL Calcium (8.4-10.2) mg/dL Total Bilirubin (0.2-1.3) mg/dL AST (14-36) U/L ALT (0-35) U/L Alkaline Phosphatase (38-126) U/L Troponin I (0.000-0.034) ng/mL NT-Pro-B Natriuret Pep (0-900) pg/mL Serum Total Protein (6.3-8.2) g/dL Albumin (3.5-5.0) g/dL - Progress Progress: improved, re-examined Air Movement: good Progress Note: 02/26/20 01:02 Patient now complains of cramping in her left toes. I went in to evaluate her and there is strong palpable pedal pulses present bilaterally. She does have chronic venous stasis disease and lymphedema bilaterally. She states that there is more redness present bilaterally than usual. There is some mild tenderness present. She states that Rocephin helps her redness in her lower legs and therefore we will provide her with a gram of Rocephin intravenously. Patient no longer has chest pain and her troponin is normal. Patient's d-dimer is also normal. Patient has normal kidney function and normal liver function tests. Patient's white count is normal. Patient is afebrile. Patient is very anxious and tearful. 02/26/20 01:04 Chest x-ray reveals no evidence of any acute pulmonary process. Blood Culture(s) Obtained: No Antibiotics given: Yes Counseled pt/family regarding: lab results, diagnosis, need for follow-up, rad results - Departure Departure Disposition: Home Clinical Impression: Chest pain, Anxiety, Cellulitis Condition: Stable Critical Care Time: No Referrals: OLIVER LIU MD [Primary Care Provider] - Additional Instructions: Take your medication as prescribed. Follow-up with your primary care physician. Call your primary care physician later today to make arrangements for follow-up appointment. Prescriptions: Cefdinir 300 mg PO BID 7 Days #14 capsule
[2020-02-25] MEDS ORDERED: BABY ASPIRIN 81 MG CHEW PO ONE (23:01)
[2020-02-25] MEDS ORDERED: Sodium Chloride 0.9% 1000 ML 1,000 ML IV SCH (23:15)
[2020-02-25] MEDS ORDERED: Sodium Chloride 0.9% 1000 ML 1,000 ML ONE (23:27)
[2020-02-25] MEDS ORDERED: DUONEB 0.5-3 MG/3 ml Neb IH ONE ×2 (23:33→23:41)
[2020-02-26 00:18] LABS: Absolute Neutrophil Ct (ANC) 5.44 (1.4-6.9); Hematocrit 41.5 % (35-47); Hemoglobin 13.1 gm/dl (12.0-16.0); Mean Cell Volume 102.5 fl (78-100); Mean Corpuscular Hemoglobin 32.3 pg (26-32); Mean Corpuscular Hgb Concent. 31.6 g/dl (32-36); Mean Platelet Volume 10.2 fl (7.5-11.0); Platelet Count 164 K/mm3 (150-450); Red Blood Count 4.05 M/mm3 (4.1-5.4); Red Cell Distribution Width 14.7 % (11.5-14.0); White Blood Count 7.8 K/mm3 (4.0-10.5)
[2020-02-26 00:26] LABS: INR 0.99 (0.8-3.0); PROTIME 11.2 SECONDS (9.95-12.35)
[2020-02-26 00:39] LABS: ALBUMIN 3.7 g/dL (3.5-5.0); ALKALINE PHOSPHATASE 80 U/L (38-126); ANION GAP 9.4 MEQ/L (5-15); BLOOD UREA NITROGEN 13 mg/dL (7-17); CHLORIDE 99 mmol/L (98-107); Calcium 9.3 mg/dL (8.4-10.2); Carbon Dioxide 35 mmol/L (22-30); Creatinine 1 0.43 mg/dL (0.52-1.04); Glucose 198 mg/dL (74-106); NT PRO BNP 31.6 pg/mL (0-900); Potassium 4.3 mmol/L (3.5-5.1); SGOT/AST 31 U/L (14-36); SGPT/ALT 16 U/L (0-35); SODIUM 140 mmol/L (137-145); Total Protein 6.5 g/dL (6.3-8.2)
[2020-02-26] MEDS ORDERED: Ativan 2 MG/1 ML VIAL IV ONE (00:56)
[2020-02-26] MEDS ORDERED: ROCEPHIN 1 Gm-D5w 50 ml Bag** 1 G/50 ML IVPB IV STA (01:01)
[2020-02-26] MEDS ORDERED: ROCEPHIN 1 Gm-D5w 50 ml Bag** 1 G/50 ML IVPB IV ONE (01:02)
[2020-02-26] MEDS ORDERED: Ativan 2 MG/1 ML VIAL ONE (01:02)
[2020-02-26 01:07] VITALS: BP 115/75; PULSE 98; O2SAT 91
[2020-02-26 01:54] LABS: Lymphocytes 15 % (24-44); Monocyte 6 % (0.0-12.0); Neutrophils 79 % (36.0-66.0); Platelet Estimate NORMAL (NORMAL); Total Cells Counted 100
--- NOTE | 2020-02-26 08:45 | XRAY ---
Indication: Chest pain. Comparison: May 18, 2019. Portable chest demonstrates new lingula subsegmental atelectasis/scarring. Remaining heart and lungs unremarkable. Bony thorax intact.
== END 2020-02-26 01:51 | disposition home or self-care (01) ==
LOC: ED 22:46
DX: R07.9 Chest pain, unspecified (principal); I10 Essential (primary) hypertension; I50.9 Heart failure, unspecified; E11.9 Type 2 diabetes mellitus without complications; F31.9 Bipolar disorder, unspecified; J44.9 Chronic obstructive pulmonary disease, unspecified; E78.00 Pure hypercholesterolemia, unspecified; Z79.4 Long term (current) use of insulin; Z79.899 Other long term (current) drug therapy; G62.9 Polyneuropathy, unspecified; G40.909 Epilepsy, unspecified, not intractable, without status epilepticus
CPT/HCPCS: 36000; 36415; 71045; 80053; 83880; 84484; 85025; 85379; 85610; 93005; 94150; 94640; 94760; 96374; 99284; J0696; J2060; A9270-GY

== ENCOUNTER 2020-02-27 03:44 | Observation (INO) | payer MEDICARE ==
[2020-02-27] MEDS ORDERED: VANCOMYCIN 1 GRAM/200 ML BAG 1 GM/200 ML PIGGYBACK IV ONE (03:59)
[2020-02-27] MEDS ORDERED: Zosyn 3.375 GM Vial 3.375 GM in Sodium Chloride 100ML MINI-BAG PLUS 100 ML IV ONE (04:02)
--- NOTE | 2020-02-27 04:22 | ERPHSYRPT ---
- History of Present Illness Time Seen by Provider: 02/27/20 03:55 Source: patient Physician History: Patient is a 55-year-old female morbidly obese presents to our ED for evaluation and treatment of left lower extremity cellulitis. Patient was in our ED last night for chest pain. Patient states that left lower extremity is tingling and painful when she walks. Patient has difficulty ambulating. Patient also feels that she needs rehab. Symptoms are progressive. No objective fevers. No calf pain. Symptoms are mild to moderate in intensity. No specific worsening or improving factors. Patient voices no other complaints at this time. Timing/Duration: yesterday Severity: moderate Modifying Factors: Improves With: movement Associated Symptoms: No nausea, No vomiting, No abdominal pain, No shortness of breath, No heartburn, No diaphoresis, No cough, No chills, No chest pain, No fev er, No headaches Allergies/Adverse Reactions: Sulfa (Sulfonamide Antibiotics) Allergy (Verified 02/25/20 22:54) sulfamethoxazole [From Bactrim] Allergy (Verified 02/25/20 22:54) trimethoprim [From Bactrim] Allergy (Verified 02/25/20 22:54) coconut Adverse Reaction (Verified 02/25/20 22:55) Diarrhea doxycycline Adverse Reaction (Verified 02/25/20 22:54) Home Medications: Divalproex Sodium [Depakote] 500 mg PO TID 09/03/14 [History] Paliperidone [Invega] 9 mg PO DAILY 10/17/15 [History] Ramelteon [Rozerem] 8 mg PO QHS 12/14/15 [History] Furosemide 20 mg [Lasix 20 mg] 20 mg PO DAILY 05/15/18 [History] Potassium Chloride 10 Meq Tab* [Klor Con 10 MEQ] 10 meq PO DAILY 05/15/18 [History] Atorvastatin Calcium 10 mg PO DAILY 05/17/19 [History] Metformin HCl 500 mg PO BIDWM 05/17/19 [History] Cyclobenzaprine HCl 10 mg [Cyclobenzaprine 10 MG] 10 mg PO HS 06/25/19 [History] Hx Tetanus, Diphtheria Vaccination/Date Given: No Hx Influenza Vaccination/Date Given: Yes Hx Pneumococcal Vaccination/Date Given: Yes - Review of Systems Constitutional: No Symptoms, No Fever, No Chills Eyes: No Symptoms Ears, Nose, & Throat: No Symptoms Respiratory: No Symptoms, No Cough, No Dyspnea Cardiac: No Symptoms, No Chest Pain, No Edema, No Syncope Abdominal/Gastrointestinal: No Symptoms, No Abdominal Pain, No Nausea, No Vomiting, No Diarrhea Genitourinary Symptoms: No Symptoms, No Dysuria Musculoskeletal: No Symptoms, No Back Pain, No Neck Pain Skin: No Symptoms, No Rash Neurological: No Symptoms, No Dizziness, No Focal Weakness, No Sensory Changes Psychological: No Symptoms Endocrine: No Symptoms Hematologic/Lymphatic: No Symptoms Immunological/Allergic: No Symptoms All Other Systems: Reviewed and Negative - Past Medical History Pertinent Past Medical History: Yes Neurological History: Peripheral Neuropathy, Seizures, TIA ENT History: Glaucoma Cardiac History: High Cholesterol Respiratory History: COPD Endocrine Medical History: Diabetes Type II Musculoskeletal History: Arthritis GI Medical History: Gallbladder Disease History: No Pertinent History Psycho-Social History: Bipolar, Depression Female Reproductive Disorders: No Pertinent History Other Medical History: hx of cellulitis, hx seizures 3years ago, gallbladder removed - Past Surgical History Past Surgical History: Yes Neuro Surgical History: No Pertinent History Cardiac: No Pertinent History Respiratory: No Pertinent History Gastrointestinal: Cholecystectomy Genitourinary: No Pertinent History Musculoskeletal: No Pertinent History Female Surgical History: Section, Tubal Ligation Other Surgical History: GANGLION CYST - Social History Smoking Status: Current every day smoker How long have you smoked: 28 Exposure to second hand smoke: Yes Drug Use: none Patient Lives Alone: No Significant Family History: no pertinent family hx - Nursing Vital Signs Nursing Vital Signs: Initial Vital Signs Temperature 98 F 02/27/20 03:50 Pulse Rate 105 H 02/27/20 03:50 Respiratory Rate 25 H 02/27/20 03:50 Blood Pressure 110/76 02/27/20 03:50 O2 Sat by Pulse Oximetry 100 02/27/20 03:50 Pain Scale Pain Intensity 0 - Physical Exam General Appearance: no apparent distress, alert Eye Exam: PERRL/EOMI, eyes nml inspection Ears, Nose, Throat Exam: normal ENT inspection, TMs normal, pharynx normal, moist mucous membranes Neck Exam: normal inspection, non-tender, supple, full range of motion Respiratory Exam: normal breath sounds, lungs clear, No respiratory distress Cardiovascular Exam: regular rate/rhythm, normal heart sounds, normal peripheral pulses Gastrointestinal/Abdomen Exam: soft, normal bowel sounds, No tenderness, No mass Pelvic Exam: not done Back Exam: normal inspection, normal range of motion, No CVA tenderness, No vertebral tenderness Extremity Exam: normal inspection, normal range of motion, pelvis stable, other (Cellulitis of left lower extremity. Negative Homans sign.) Neurologic Exam: alert, oriented x 3, cooperative, normal mood/affect, nml cerebellar function, nml station & gait, sensation nml, No motor deficits Skin Exam: normal color, warm, dry, No rash Lymphatic Exam: No adenopathy SpO2 Interpretation: normal SpO2: 95 O2 Delivery: Room Air - Course Nursing assessment & vital signs reviewed: Yes Ordered Tests: Active Orders 24 hr Category Date Time Status Criminal Justice Social Worker STAT Care 02/27/20 03:56 Active IV Insertion STAT Care 02/27/20 03:55 Active Pulse Oximetry (ED) STAT Care 02/27/20 03:55 Active BLOOD CULTURE Stat Lab 02/27/20 04:30 Received CBC W DIFF Stat Lab 02/27/20 04:30 Completed CMP Stat Lab 02/27/20 04:30 Completed Lactic Acid Stat Lab 02/27/20 04:13 Completed UA W/RFX UR CULTURE Stat Lab 02/27/20 03:55 Uncollected Transfer Order Routine Transfer 02/27/20 Ordered Medication Summary Generic Name Dose Route Start Last Admin Trade Name Freq PRN Reason Stop Dose Admin Vancomycin HCl 1 gm in 200 mls @ 125 mls/hr 02/27/20 03:59 Vancomycin 1 Gram/200 Ml Bag IV 02/27/20 05:34 STAT ONE Discontinued Medications Generic Name Dose Route Start Last Admin Trade Name Freq PRN Reason Stop Dose Admin Piperacillin Sod/Tazobactam 100 mls @ 200 mls/hr 02/27/20 04:02 02/27/20 05:12 Sod 3.375 gm/ Sodium Chloride IV 02/27/20 04:31 200 mls/hr STAT ONE Administration Sodium Chloride Confirm 02/27/20 05:09 Sodium Chloride 100ml Mini-Bag Plus Administered 02/27/20 05:10 Dose 100 mls @ ud IV .STK-MED ONE Piperacillin Sod/Tazobactam Sod Confirm 02/27/20 05:09 Zosyn 3.375 Gm Vial Administered 02/27/20 05:10 Dose 3.375 gm IV .STK-[facility] ONE Lab/Rad Data: Laboratory Result Diagrams 02/27/20 04:30 02/27/20 04:30 Laboratory Results 02/27/20 02/27/20 02/27/20 Range/Units 04:30 04:30 04:13 WBC 7.3 (4.0-10.5) K/mm3 RBC 4.26 (4.1-5.4) M/mm3 Hgb 13.5 (12.0-16.0) gm/dl Hct 45.3 (35-47) % MCV 106.3 H (78-100) fl MCH 31.7 (26-32) pg MCHC 29.8 L (32-36) g/dl RDW 14.8 H (11.5-14.0) % Plt Count 184 (150-450) K/mm3 MPV 10.3 (7.5-11.0) fl Gran % 65.6 (36.0-66.0) % Eos # (Auto) 0.09 (0-0.5) Absolute Lymphs (auto) 1.66 (1.0-4.6) Absolute Monos (auto) 0.73 (0.0-1.3) Lymphocytes % 22.7 L (24.0-44.0) % Monocytes % 10.0 (0.0-12.0) % Eosinophils % 1.2 (0.00-5.0) % Basophils % 0.5 (0.0-0.4) % Absolute Granulocytes 4.80 (1.4-6.9) Basophils # 0.04 (0-0.4) Sodium 143 (137-145) mmol/L Potassium 4.4 (3.5-5.1) mmol/L Chloride 103 (98-107) mmol/L Carbon Dioxide 38 H (22-30) mmol/L Anion Gap 6.9 (5-15) MEQ/L BUN 12 (7-17) mg/dL Creatinine 0.54 (0.52-1.04) mg/dL Estimated GFR > 60.0 ML/MIN Glucose 134 H (74-106) mg/dL Lactic Acid 1.4 (0.4-2.0) Calcium 9.3 (8.4-10.2) mg/dL Total Bilirubin 0.40 (0.2-1.3) mg/dL AST 45 H (14-36) U/L ALT 22 (0-35) U/L Alkaline Phosphatase 95 (38-126) U/L Serum Total Protein 6.5 (6.3-8.2) g/dL Albumin 3.7 (3.5-5.0) g/dL - Progress Discussed with : Joselito Will see patient in: hospital (observation) Counseled pt/family regarding: lab results, diagnosis, rad results - Departure Departure Disposition: Home, Observation Clinical Impression: Cellulitis, leg Condition: Stable Critical Care Time: No Referrals: OLIVER LIU MD [Primary Care Provider] -
[2020-02-27 04:33] LABS: BASOPHIL % 0.5 % (0.0-0.4); Basophil (Absolute #) 0.04 (0-0.4); Eosinophil % 1.2 % (0.00-5.0); Eosinophil (Absolute #) 0.09 (0-0.5); Hematocrit 45.3 % (35-47); Hemoglobin 13.5 gm/dl (12.0-16.0); Lymphocyte (Absolute #) 1.66 (1.0-4.6); Lymphocytes % 22.7 % (24.0-44.0); Mean Cell Volume 106.3 fl (78-100); Mean Corpuscular Hemoglobin 31.7 pg (26-32); Mean Corpuscular Hgb Concent. 29.8 g/dl (32-36); Mean Platelet Volume 10.3 fl (7.5-11.0); Monocyte (Absolute #) 0.73 (0.0-1.3); Neutrophil % 65.6 % (36.0-66.0); Platelet Count 184 K/mm3 (150-450); Red Blood Count 4.26 M/mm3 (4.1-5.4); Red Cell Distribution Width 14.8 % (11.5-14.0); White Blood Count 7.3 K/mm3 (4.0-10.5)
[2020-02-27 04:44] LABS: ALBUMIN 3.7 g/dL (3.5-5.0); ALKALINE PHOSPHATASE 95 U/L (38-126); ANION GAP 6.9 MEQ/L (5-15); BLOOD UREA NITROGEN 12 mg/dL (7-17); CHLORIDE 103 mmol/L (98-107); Calcium 9.3 mg/dL (8.4-10.2); Carbon Dioxide 38 mmol/L (22-30); Creatinine 1 0.54 mg/dL (0.52-1.04); Glucose 134 mg/dL (74-106); Potassium 4.4 mmol/L (3.5-5.1); SGOT/AST 45 U/L (14-36); SGPT/ALT 22 U/L (0-35); SODIUM 143 mmol/L (137-145); Total Protein 6.5 g/dL (6.3-8.2)
[2020-02-27] MEDS ORDERED: Sodium Chloride 100ML MINI-BAG PLUS 100 ML IV ONE (05:09)
[2020-02-27] MEDS ORDERED: Zosyn 3.375 GM Vial IV ONE (05:09)
[2020-02-27] MEDS ORDERED: MORPHINE SULFATE 2 MG INJ IV PRN (05:50)
[2020-02-27] MEDS ORDERED: PROVENTIL 2.5 MG/3 ML NEB IH PRN (06:00)
[2020-02-27] MEDS ORDERED: MORPHINE SULFATE 2 MG INJ ONE (06:44)
[2020-02-27 07:41] LABS: Appearance CLEAR (CLEAR); Bilirubin NEGATIVE (NEGATIVE); Blood NEGATIVE Ery/ul (0-5); Epithelial Cells RARE /HPF (FEW); Glucose NEGATIVE (NEGATIVE); Ketones NEGATIVE (NEGATIVE); Leukocyte Esterase NEGATIVE (NEGATIVE); Mucus SLIGHT /HPF (NEGATIVE); Nitrite NEGATIVE (NEGATIVE); Protein,Urine Dip NEGATIVE (Negative); Specific Gravity 1.026 (1.005-1.025); Urobilinogen NEGATIVE mg/dL (0-1); WBC 0-2 /HPF (0-5)
--- NOTE | 2020-02-27 08:14 | PCM.HP ---
History of Present Illness - Chief Complaint Chief Complaint: Cellulitis History of Present Illness: is a 55 year old female with morbid obesity and chronic oxygen dependance who presented with weakness, unsteady gait and pain in her legs. she denies fever, has erythema with chronic lymphedema changes to lower legs, she would like to go somewhere for rehab due to feeling unsafe in her home. - Review of Systems Constitutional: Weakness, No Fever Respiratory: Cough, Short Of Breath Cardiac: No Chest Pain, No Edema, No Syncope Abdominal/Gastrointestinal: No Abdominal Pain, No Nausea, No Vomiting, No Diarrhea Skin: Cellulitis Neurological: No Dizziness, No Focal Weakness, No Sensory Changes All Other Systems: Reviewed and Negative Medications & Allergies Home Medications: Home Medication List Divalproex Sodium [Depakote] 500 mg PO TID 09/03/14 [History Confirmed 02/27/20] Paliperidone [Invega] 9 mg PO DAILY 10/17/15 [History Confirmed 02/27/20] Ramelteon [Rozerem] 8 mg PO QHS 12/14/15 [History Confirmed 02/27/20] Furosemide 20 mg [Lasix 20 mg] 20 mg PO DAILY 05/15/18 [History Confirmed 02/27/20] Potassium Chloride 10 Meq Tab* [Klor Con 10 MEQ] 10 meq PO DAILY 05/15/18 [History Confirmed 02/27/20] Aspirin EC 81 mg [Ecotrin 81 mg] 81 mg PO DAILY #30 tablet.ec 05/16/18 [Rx Confirmed 02/27/20] Atorvastatin Calcium 10 mg PO DAILY 05/17/19 [History Confirmed 02/27/20] Metformin HCl 500 mg PO BIDWM 05/17/19 [History Confirmed 02/27/20] Cyclobenzaprine HCl 10 mg [Cyclobenzaprine 10 MG] 10 mg PO HS 06/25/19 [History Confirmed 02/27/20] Cefdinir 300 mg PO BID 7 Days #14 capsule 02/26/20 [Rx Confirmed 02/27/20] Allergies/Adverse Reactions: Allergies Allergy/AdvReac Type Severity Reaction Status Date / Time Sulfa (Sulfonamide Allergy Verified 02/25/20 22:54 Antibiotics) sulfamethoxazole Allergy Verified 07/07/20 22:54 [From Bactrim] trimethoprim [From Bactrim] Allergy Verified 02/25/20 22:54 coconut AdvReac Diarrhea Verified 02/25/20 22:55 doxycycline AdvReac Verified 02/25/20 22:54 - Past Medical History Past Medical History: Yes Neurological History: Peripheral Neuropathy, Seizures, TIA ENT History: Glaucoma Cardiac History: High Cholesterol Respiratory History: COPD Endocrine Medical History: Diabetes Type II Musculoskelatal History: Arthritis GI Medical History: Gallbladder Disease History: No Pertinent History Pyscho-Social History: Bipolar, Depression Reproductive Disorders: No Pertinent History Comment: hx of cellulitis, hx seizures 3years ago, gallbladder removed - Female History Are you now?: No - Past Surgical History Past Surgical History: Yes Neuro Surgical History: No Pertinent History Cardiac History: No Pertinent History Respiratory Surgery: No Pertinent History GI Surgical History: Cholecystectomy Genitourinary Surgical Hx: No Pertinent History Musculskeletal Surgical Hx: No Pertinent History Female Surgical History: Section, Tubal Ligation Other Surgical History: GANGLION CYST - Social History Smoking Status: Never smoker How long have you smoked: 28 Exposure to second hand smoke: No Alcohol: None Drug Use: none Significant Family History: no pertinent family hx - Physical Exam Vital Signs: Vital Signs - 24 hr Temp Pulse Resp BP Pulse Ox 02/27/20 07:26 98.5 F 97 H 20 127/71 94 L 02/27/20 06:10 98.6 F 102 H 24 121/66 100 02/27/20 05:57 98.6 F 102 H 24 121/66 100 02/27/20 05:55 100 H 22 100 02/27/20 05:33 95 02/27/20 05:23 105 H 132/84 99 02/27/20 04:53 100 02/27/20 03:50 98 F 105 H 25 H 110/76 100 Oxygen-Last 24 hours Oxygen Flowrate (L/min)-RT 3 Oxygen Flowrate (L/min)-RT 3 General Appearance: no apparent distress, obese Neurologic Exam: alert, oriented x 3 Respiratory Exam: normal breath sounds, lungs clear, No respiratory distress Cardiovascular Exam: regular rate/rhythm, normal heart sounds, normal peripheral pulses Gastrointestinal/Abdomen Exam: soft, normal bowel sounds, No tenderness, No mass Extremity Exam: pedal edema, swelling, other (erythema and warmth to lower legs) Results - Labs Lab/Micro Results: Lab Results-Last 24 Hours 02/27/20 02/27/20 02/27/20 Range/Units 04:13 04:30 04:30 WBC 7.3 (4.0-10.5) K/mm3 RBC 4.26 (4.1-5.4) M/mm3 Hgb 13.5 (12.0-16.0) gm/dl Hct 45.3 (35-47) % MCV 106.3 H (78-100) fl MCH 31.7 (26-32) pg MCHC 29.8 L (32-36) g/dl RDW 14.8 H (11.5-14.0) % Plt Count 184 (150-450) K/mm3 MPV 10.3 (7.5-11.0) fl Gran % 65.6 (36.0-66.0) % Eos # (Auto) 0.09 (0-0.5) Absolute Lymphs (auto) 1.66 (1.0-4.6) Absolute Monos (auto) 0.73 (0.0-1.3) Lymphocytes % 22.7 L (24.0-44.0) % Monocytes % 10.0 (0.0-12.0) % Eosinophils % 1.2 (0.00-5.0) % Basophils % 0.5 (0.0-0.4) % Absolute Granulocytes 4.80 (1.4-6.9) Basophils # 0.04 (0-0.4) Sodium 143 (137-145) mmol/L Potassium 4.4 (3.5-5.1) mmol/L Chloride 103 (98-107) mmol/L Carbon Dioxide 38 H (22-30) mmol/L Anion Gap 6.9 (5-15) MEQ/L BUN 12 (7-17) mg/dL Creatinine 0.54 (0.52-1.04) mg/dL Estimated GFR > 60.0 ML/MIN Glucose 134 H (74-106) mg/dL Lactic Acid 1.4 (0.4-2.0) Calcium 9.3 (8.4-10.2) mg/dL Total Bilirubin 0.40 (0.2-1.3) mg/dL AST 45 H (14-36) U/L ALT 22 (0-35) U/L Alkaline Phosphatase 95 (38-126) U/L Serum Total Protein 6.5 (6.3-8.2) g/dL Albumin 3.7 (3.5-5.0) g/dL Urine Color (YELLOW) Urine Appearance (CLEAR) Urine pH (5-6) Ur Specific [place] (1.005-1.025) Urine Protein (Negative) Urine Ketones (NEGATIVE) Urine Blood (0-5) Kulwinder/ul Urine Nitrite (NEGATIVE) Urine Bilirubin (NEGATIVE) Urine Urobilinogen (0-1) mg/dL Ur Leukocyte Esterase (NEGATIVE) Urine WBC (Auto) (0-5) /HPF Urine RBC (Auto) (0-2) /HPF U Epithel Cells (Auto) (FEW) /HPF Urine Bacteria (Auto) (NEGATIVE) /HPF Urine Mucus (Auto) (NEGATIVE) /HPF Urine Culture Reflexed (NO) Urine Glucose (NEGATIVE) mg/dL 02/27/20 Range/Units 07:54 WBC (4.0-10.5) K/mm3 RBC (4.1-5.4) M/mm3 Hgb (12.0-16.0) gm/dl Hct (35-47) % MCV (78-100) fl MCH (26-32) pg MCHC (32-36) g/dl RDW (11.5-14.0) % Plt Count (150-450) K/mm3 MPV (7.5-11.0) fl Gran % (36.0-66.0) % Eos # (Auto) (0-0.5) Absolute Lymphs (auto) (1.0-4.6) Absolute Monos (auto) (0.0-1.3) Lymphocytes % (24.0-44.0) % Monocytes % (0.0-12.0) % Eosinophils % (0.00-5.0) % Basophils % (0.0-0.4) % Absolute Granulocytes (1.4-6.9) Basophils # (0-0.4) Sodium (137-145) mmol/L Potassium (3.5-5.1) mmol/L Chloride (98-107) mmol/L Carbon Dioxide (22-30) mmol/L Anion Gap (5-15) MEQ/L BUN (7-17) mg/dL Creatinine (0.52-1.04) mg/dL Estimated GFR ML/MIN Glucose (74-106) mg/dL Lactic Acid (0.4-2.0) Calcium (8.4-10.2) mg/dL Total Bilirubin (0.2-1.3) mg/dL AST (14-36) U/L ALT (0-35) U/L Alkaline Phosphatase (38-126) U/L Serum Total Protein (6.3-8.2) g/dL Albumin (3.5-5.0) g/dL Urine Color YELLOW (YELLOW) Urine Appearance CLEAR (CLEAR) Urine pH 6.0 (5-6) Ur Specific [place] 1.026 (1.005-1.025) Urine Protein NEGATIVE (Negative) Urine Ketones NEGATIVE (NEGATIVE) Urine Blood NEGATIVE (0-5) Kulwinder/ul Urine Nitrite NEGATIVE (NEGATIVE) Urine Bilirubin NEGATIVE (NEGATIVE) Urine Urobilinogen NEGATIVE (0-1) mg/dL Ur Leukocyte Esterase NEGATIVE (NEGATIVE) Urine WBC (Auto) 0-2 (0-5) /HPF Urine RBC (Auto) NONE (0-2) /HPF U Epithel Cells (Auto) RARE (FEW) /HPF Urine Bacteria (Auto) NONE (NEGATIVE) /HPF Urine Mucus (Auto) SLIGHT (NEGATIVE) /HPF Urine Culture Reflexed NO (NO) Urine Glucose NEGATIVE (NEGATIVE) mg/dL - Other Procedures and Tests Respiratory Therapy 02/27/20 06:01 Oxygen Nasal Cannula 3 lpm 02/27/20 06:03 Respiratory Therapy Assessment DAILY Assessment/Plan (1) Cellulitis of lower extremity Current Visit: Yes Status: Acute Assessment & Plan: on vanc/rocephin (2) Lymphedema Current Visit: Yes Status: Acute Code(s): I89.0 - LYMPHEDEMA, NOT ELSEWHERE CLASSIFIED (3) Chronic hypoxemic respiratory failure Current Visit: Yes Status: Acute (4) Bipolar 1 disorder Current Visit: No Status: Chronic Code(s): F31.9 - BIPOLAR DISORDER, UNSPECIFIED (5) Diabetes mellitus Current Visit: No Status: Chronic Qualifiers: Assessment & Plan: SSI Code(s): E11.9 - TYPE 2 DIABETES MELLITUS WITHOUT COMPLICATIONS (6) Essential hypertension Current Visit: No Status: Chronic Code(s): I10 - ESSENTIAL (PRIMARY) HYPERTENSION (7) Weakness Current Visit: Yes Status: Acute Code(s): R53.1 - WEAKNESS
[2020-02-27] MEDS ORDERED: HUMALOG SQ PRN (08:15)
[2020-02-27] MEDS: ROCEPHIN 1 Gm-D5w 50 ml Bag** 1 G/50 ML IVPB IV SCH (08:46)
[2020-02-27] MEDS: VANCOMYCIN 1 GRAM/200 ML BAG 1 GM/200 ML PIGGYBACK IV SCH ×2 (08:46→22:08)
[2020-02-27] MEDS ORDERED: MEDICATION INTERVENTION PO SCH ×2 (09:30)
[2020-02-27] MEDS: LASIX 20 MG PO SCH (09:51)
[2020-02-27] MEDS: ECOTRIN 81 MG PO SCH (09:51)
[2020-02-27] MEDS: Zocor 10MG PO SCH (09:51)
[2020-02-27] MEDS: Klor Con 10 MEQ PO SCH (09:51)
[2020-02-27] MEDS ORDERED: NON-FORMULARY ITEM (Atorvastatin Calcium [Atorvastatin Calcium] 10 MG) PO SCH (10:00)
[2020-02-27] MEDS ORDERED: NON-FORMULARY ITEM (Divalproex Sodium [Depakote] 500 MG) PO SCH (10:00)
[2020-02-27] MEDS ORDERED: PALIPERIDONE 9 MG PO SCH (10:00)
[2020-02-27] MEDS ORDERED: RAMELTEON 8 MG PO SCH (22:00)
[2020-02-27] MEDS: Cyclobenzaprine 10 MG PO SCH (22:08)
[2020-02-28 05:12] LABS: Absolute Neutrophil Ct (ANC) 4.88 (1.4-6.9); BASOPHIL % 0.4 % (0.0-0.4); Basophil (Absolute #) 0.03 (0-0.4); Eosinophil % 1.1 % (0.00-5.0); Eosinophil (Absolute #) 0.08 (0-0.5); Hematocrit 43.6 % (35-47); Hemoglobin 12.9 gm/dl (12.0-16.0); Lymphocyte (Absolute #) 1.71 (1.0-4.6); Lymphocytes % 23.6 % (24.0-44.0); Mean Cell Volume 106.6 fl (78-100); Mean Corpuscular Hemoglobin 31.5 pg (26-32); Mean Corpuscular Hgb Concent. 29.6 g/dl (32-36); Monocyte (Absolute #) 0.55 (0.0-1.3); Monocytes % 7.6 % (0.0-12.0); Neutrophil % 67.3 % (36.0-66.0); Platelet Count 185 K/mm3 (150-450); Red Blood Count 4.09 M/mm3 (4.1-5.4); Red Cell Distribution Width 14.6 % (11.5-14.0); White Blood Count 7.3 K/mm3 (4.0-10.5)
[2020-02-28 05:29] LABS: ANION GAP 7.5 MEQ/L (5-15); BLOOD UREA NITROGEN 9 mg/dL (7-17); CHLORIDE 98 mmol/L (98-107); Calcium 9.2 mg/dL (8.4-10.2); Carbon Dioxide 39 mmol/L (22-30); Creatinine 1 0.39 mg/dL (0.52-1.04); Glucose 115 mg/dL (74-106); Potassium 4.8 mmol/L (3.5-5.1); SODIUM 140 mmol/L (137-145)
[2020-02-28] MEDS: VANCOMYCIN 1 GRAM/200 ML BAG 1 GM/200 ML PIGGYBACK IV SCH ×2 (08:32→21:53)
--- NOTE | 2020-02-28 08:35 | PCM.NOTE ---
Date and Time: 02/28/20 08 Subjective Assessment: patient reports some improvement in her legs but still is weak and feels unsafe to care for herself or her daughter at home Objective Exam General Appearance: no apparent distress, alert Skin Exam: normal color, warm, dry Wound Assessment: Skin/Wound Assessment Wound/Incision Assessment Start: 02/27/20 05:52 Text: Status: Active Freq: Q6H Protocol: Document 02/28/20 02:00 SILVESTRE (Rec: 02/28/20 02:19 SILVESTRE [id number]) Wound Photo Photo Taken No Respiratory Exam: normal breath sounds, lungs clear, No respiratory distress Cardiovascular Exam: regular rate/rhythm, normal heart sounds Gastrointestinal/Abdomen Exam: soft, No tenderness, No mass Extremity Exam: other (chronic lymphedema to lower legs, red and warm to palpation) OBJECTIVE DATA Vital Signs: Vital Signs - 24 hr Temp Pulse Resp BP Pulse Ox 02/28/20 08:00 98.3 F 101 H 18 116/71 95 02/28/20 07:07 98 H 18 96 02/28/20 04:05 98.7 F 101 H 20 141/76 98 02/27/20 23:34 98.3 F 88 21 114/66 98 02/27/20 19:28 98.2 F 90 20 128/69 96 02/27/20 19:01 91 H 21 94 L 02/27/20 15:46 98.8 F 100 H 20 121/68 99 02/27/20 11:32 99 F 102 H 20 125/62 94 L Pain Assessment - Last Documented Pain Intensity 3 Pain Scale Used [facility] Intake and Output: Intake & Output 02/25/20 02/26/20 02/27/20 02/28/20 11:59 11:59 11:59 11:59 Intake Total 360 1019 Output Total 450 Balance -90 1019 Weight 116.8 kg Lab Results: Accuchecks Date 02/27/20 Time 22:00 Accucheck Value: 117 Accucheck Value: 128 Accucheck Value: 174 Lab Results-Last 24 Hours 02/27/20 02/27/20 02/28/20 Range/Units 04:10 05:00 05:00 WBC 7.3 (4.0-10.5) K/mm3 RBC 4.09 L (4.1-5.4) M/mm3 Hgb 12.9 (12.0-16.0) gm/dl Hct 43.6 (35-47) % MCV 106.6 H (78-100) fl MCH 31.5 (26-32) pg MCHC 29.6 L (32-36) g/dl RDW 14.6 H (11.5-14.0) % Plt Count 185 (150-450) K/mm3 MPV 10.0 (7.5-11.0) fl Gran % 67.3 H (36.0-66.0) % Eos # (Auto) 0.08 (0-0.5) Absolute Lymphs (auto) 1.71 (1.0-4.6) Absolute Monos (auto) 0.55 (0.0-1.3) Lymphocytes % 23.6 L (24.0-44.0) % Monocytes % 7.6 (0.0-12.0) % Eosinophils % 1.1 (0.00-5.0) % Basophils % 0.4 (0.0-0.4) % Absolute Granulocytes 4.88 (1.4-6.9) Basophils # 0.03 (0-0.4) Sodium (137-145) mmol/L Potassium (3.5-5.1) mmol/L Chloride (98-107) mmol/L Carbon Dioxide (22-30) mmol/L Anion Gap (5-15) MEQ/L BUN (7-17) mg/dL Creatinine (0.52-1.04) mg/dL Estimated GFR ML/MIN Glucose (74-106) mg/dL Hemoglobin A1c 7.54 H (4.5-6.0) % Calcium (8.4-10.2) mg/dL Prealbumin 26.66 (17.6-36.0) mg/dL 02/28/20 Range/Units 05:00 WBC (4.0-10.5) K/mm3 RBC (4.1-5.4) M/mm3 Hgb (12.0-16.0) gm/dl Hct (35-47) % MCV (78-100) fl MCH (26-32) pg MCHC (32-36) g/dl RDW (11.5-14.0) % Plt Count (150-450) K/mm3 MPV (7.5-11.0) fl Gran % (36.0-66.0) % Eos # (Auto) (0-0.5) Absolute Lymphs (auto) (1.0-4.6) Absolute Monos (auto) (0.0-1.3) Lymphocytes % (24.0-44.0) % Monocytes % (0.0-12.0) % Eosinophils % (0.00-5.0) % Basophils % (0.0-0.4) % Absolute Granulocytes (1.4-6.9) Basophils # (0-0.4) Sodium 140 (137-145) mmol/L Potassium 4.8 (3.5-5.1) mmol/L Chloride 98 (98-107) mmol/L Carbon Dioxide 39 H (22-30) mmol/L Anion Gap 7.5 (5-15) MEQ/L BUN 9 (7-17) mg/dL Creatinine 0.39 L (0.52-1.04) mg/dL Estimated GFR > 60.0 ML/MIN Glucose 115 H (74-106) mg/dL Hemoglobin A1c (4.5-6.0) % Calcium 9.2 (8.4-10.2) mg/dL Prealbumin (17.6-36.0) mg/dL Multi-Disciplinary Progress Notes: Multi-Disciplinary Progress Notes 02/27/20 10:38 Case Management Note by Shiloh Sebastian FROM [facility] CALLED, THEY ARE STARTING PRECERT, ALSO, REPORTS THAT PER [facility] POLICY THEY MUST HAVE NEG COVID-19 TEST PRIOR TO BEING ABLE TO ACCEPT PT. Initialized on 02/27/20 10:38 - END OF NOTE 02/27/20 09:08 Case Management Note by Shiloh Sebastian REFERRAL FAXED TO [facility] Initialized on 02/27/20 09:08 - END OF NOTE 02/27/20 09:02 Case Management Note by Shiloh Sebastian SPOKE WITH CLARENCE AT [facility]. REQUESTED REFERRAL BE FAXED. Initialized on 02/27/20 09:02 - END OF NOTE Assessment/Plan (1) Cellulitis of lower extremity Current Visit: Yes Status: Acute Assessment & Plan: on vanc/rocephin (2) Lymphedema Current Visit: Yes Status: Acute Code(s): I89.0 - LYMPHEDEMA, NOT ELSEWHERE CLASSIFIED (3) Chronic hypoxemic respiratory failure Current Visit: Yes Status: Acute (4) Bipolar 1 disorder Current Visit: No Status: Chronic Assessment & Plan: psych consult recommends outpatient followup, she is currently not suicidal or homicidal Code(s): F31.9 - BIPOLAR DISORDER, UNSPECIFIED (5) Diabetes mellitus Current Visit: No Status: Chronic Qualifiers: Code(s): E11.9 - TYPE 2 DIABETES MELLITUS WITHOUT COMPLICATIONS (6) Essential hypertension Current Visit: No Status: Chronic Code(s): I10 - ESSENTIAL (PRIMARY) HYPERTENSION (7) Weakness Current Visit: Yes Status: Acute Code(s): R53.1 - WEAKNESS
[2020-02-28] MEDS: ROCEPHIN 1 Gm-D5w 50 ml Bag** 1 G/50 ML IVPB IV SCH (10:24)
[2020-02-28] MEDS: LASIX 20 MG PO SCH (10:26)
[2020-02-28] MEDS: Zocor 10MG PO SCH (10:26)
[2020-02-28] MEDS: ECOTRIN 81 MG PO SCH (10:27)
[2020-02-28] MEDS: Klor Con 10 MEQ PO SCH (10:27)
[2020-02-28] MEDS: Cyclobenzaprine 10 MG PO SCH (21:54)
[2020-02-29 06:12] LABS: Absolute Neutrophil Ct (ANC) 6.43 (1.4-6.9); BASOPHIL % 0.2 % (0.0-0.4); Basophil (Absolute #) 0.02 (0-0.4); Eosinophil % 1.5 % (0.00-5.0); Eosinophil (Absolute #) 0.13 (0-0.5); Hematocrit 44.9 % (35-47); Hemoglobin 13.5 gm/dl (12.0-16.0); Lymphocyte (Absolute #) 1.57 (1.0-4.6); Lymphocytes % 17.7 % (24.0-44.0); Mean Cell Volume 104.2 fl (78-100); Mean Corpuscular Hemoglobin 31.3 pg (26-32); Mean Corpuscular Hgb Concent. 30.1 g/dl (32-36); Mean Platelet Volume 10.1 fl (7.5-11.0); Monocyte (Absolute #) 0.72 (0.0-1.3); Monocytes % 8.1 % (0.0-12.0); Neutrophil % 72.5 % (36.0-66.0); Platelet Count 201 K/mm3 (150-450); Red Blood Count 4.31 M/mm3 (4.1-5.4); Red Cell Distribution Width 14.3 % (11.5-14.0); White Blood Count 8.9 K/mm3 (4.0-10.5)
[2020-02-29 06:46] LABS: ANION GAP 9.5 MEQ/L (5-15); BLOOD UREA NITROGEN 10 mg/dL (7-17); CHLORIDE 100 mmol/L (98-107); Carbon Dioxide 36 mmol/L (22-30); Creatinine 1 0.35 mg/dL (0.52-1.04); Glucose 121 mg/dL (74-106); Potassium 4.2 mmol/L (3.5-5.1); SODIUM 141 mmol/L (137-145)
[2020-02-29] MEDS ORDERED: TROUGH DRUG LEVELS IJ ONE (08:30)
[2020-02-29] MEDS: VANCOMYCIN 1 GRAM/200 ML BAG 1 GM/200 ML PIGGYBACK IV SCH ×2 (09:40→16:53)
[2020-02-29] MEDS: Klor Con 10 MEQ PO SCH (09:40)
[2020-02-29] MEDS: ECOTRIN 81 MG PO SCH (09:40)
[2020-02-29] MEDS: LASIX 20 MG PO SCH (09:40)
[2020-02-29] MEDS: Zocor 10MG PO SCH (09:40)
[2020-02-29] MEDS: ROCEPHIN 1 Gm-D5w 50 ml Bag** 1 G/50 ML IVPB IV SCH (09:42)
--- NOTE | 2020-02-29 12:56 | PCM.NOTE ---
Date and Time: 02/29/20 1249 Subjective Assessment: Pt tells me she is still feeling weak but is "ready to go home." She does feel relieved that her daughter is being taken care of by her sister. - Review of Systems Constitutional: No Fever Abdominal/Gastrointestinal: No Vomiting Objective Exam General Appearance: no apparent distress, obese Neurologic Exam: oriented x 3, cooperative, normal mood/affect Skin Exam: normal color, warm, dry, No rash Wound Assessment: Skin/Wound Assessment Wound/Incision Assessment Start: 02/27/20 05:52 Text: Status: Active Freq: Q6H Protocol: Document 02/29/20 07:54 BA (Rec: 02/29/20 07:57 BA [id number]) Wound/Incision Assessment Lower Wound Assessment Shift Assessment Wound Type CELLULITIS Wound Stage Non Pressure Wound Drainage Amount None General Appearance Open to air Comment BLE RED, EDEMATOUS, BLISTERS NOTED, BARRIER CREAM APPLIED Wound Photo Photo Taken No Ears, Nose, Throat Exam: moist mucous membranes Neck Exam: normal inspection Respiratory Exam: normal breath sounds, lungs clear, wheezing (faint scattered), No crackles/rales, No rhonchi Cardiovascular Exam: regular rate/rhythm, normal heart sounds, No murmur Gastrointestinal/Abdomen Exam: soft, normal bowel sounds Extremity Exam: other (bilat LE with chronic skin changes, erythema) OBJECTIVE DATA Vital Signs: Vital Signs - 24 hr Temp Pulse Resp BP Pulse Ox 02/29/20 11:37 98.5 F 97 H 16 119/58 97 02/29/20 08:16 96 H 18 93 L 02/29/20 07:28 98.6 F 92 H 18 118/75 94 L 02/29/20 04:00 20 02/29/20 00:00 98.4 F 84 20 123/69 96 02/28/20 20:34 94 H 22 93 L 02/28/20 20:00 98.1 F 88 20 131/80 95 02/28/20 16:00 98.5 F 101 H 22 137/71 95 Oxygen-Last 24 hours Oxygen Flowrate (L/min)-RT 2 Oxygen Flowrate (L/min)-RT 2 Pain Assessment - Last Documented Pain Intensity 0 Pain Scale Used 0-10 Pain Scale,FLACC Intake and Output: Intake & Output 02/27/20 02/28/20 02/29/20 03/01/20 11:59 11:59 11:59 11:59 Intake Total 360 1019 Output Total 450 Balance -90 1019 Weight 116.8 kg Lab Results: Accuchecks Date 02/29/20 Date 02/29/20 Date 02/28/20 Time 11:30 Time 07:00 Time 21:00 Accucheck Value: 155 Accucheck Value: 121 Accucheck Value: 126 Accucheck Value: 125 Lab Results-Last 24 Hours 02/29/20 02/29/20 02/29/20 Range/Units 05:47 05:47 08:40 WBC 8.9 (4.0-10.5) K/mm3 RBC 4.31 (4.1-5.4) M/mm3 Hgb 13.5 (12.0-16.0) gm/dl Hct 44.9 (35-47) % MCV 104.2 H (78-100) fl MCH 31.3 (26-32) pg MCHC 30.1 L (32-36) g/dl RDW 14.3 H (11.5-14.0) % Plt Count 201 (150-450) K/mm3 MPV 10.1 (7.5-11.0) fl Gran % 72.5 H (36.0-66.0) % Eos # (Auto) 0.13 (0-0.5) Absolute Lymphs (auto) 1.57 (1.0-4.6) Absolute Monos (auto) 0.72 (0.0-1.3) Lymphocytes % 17.7 L (24.0-44.0) % Monocytes % 8.1 (0.0-12.0) % Eosinophils % 1.5 (0.00-5.0) % Basophils % 0.2 (0.0-0.4) % Absolute Granulocytes 6.43 (1.4-6.9) Basophils # 0.02 (0-0.4) Sodium 141 (137-145) mmol/L Potassium 4.2 (3.5-5.1) mmol/L Chloride 100 (98-107) mmol/L Carbon Dioxide 36 H (22-30) mmol/L Anion Gap 9.5 (5-15) MEQ/L BUN 10 (7-17) mg/dL Creatinine 0.35 L (0.52-1.04) mg/dL Estimated GFR > 60.0 ML/MIN Glucose 121 H (74-106) mg/dL Calcium 9.0 (8.4-10.2) mg/dL Vancomycin Trough 6.45 L (10-20) ug/mL Multi-Disciplinary Progress Notes: Multi-Disciplinary Progress Notes 02/29/20 10:33 Pharmacy Note by Yordan Alvarez Vancomycin trough low at 6.45. Will increase dose to q8h. Initialized on 02/29/20 10:33 - END OF NOTE 02/28/20 15:48 Respiratory Note by Elly Cristina pt complaining of being sob. room air resting spo2 83%. placed back on n/c 2lpm Initialized on 02/28/20 15:48 - END OF NOTE 02/28/20 13:03 [facility]. THEY WILL NEED NOTIFIED OF DC AT [phone]. THEY WILL NEED FAXED THE DC INSTRUCTIONS, MED LIST AND DC SUMMARY (IF AVAILABLE) TO [phone] Initialized on 02/28/20 13:03 - END OF NOTE Assessment/Plan (1) Cellulitis of lower extremity Current Visit: Yes Status: Acute Qualifiers: Laterality: unspecified laterality Qualified Code(s): L03.119 - Cellulitis of unspecified part of limb Assessment & Plan: Day #3 rocephin and vancomycin. I think she should stay on her IV treatment for at least another few days and she seemed agreeable. (2) Weakness Current Visit: Yes Status: Acute Assessment & Plan: improved per pt Code(s): R53.1 - WEAKNESS (3) Bipolar 1 disorder Current Visit: No Status: Chronic Code(s): F31.9 - BIPOLAR DISORDER, UNSPECIFIED
[2020-02-29] MEDS ORDERED: Zofran 4 MG/2 ML VIAL IV PRN (19:57)
[2020-02-29] MEDS: Cyclobenzaprine 10 MG PO SCH (21:41)
[2020-03-01] MEDS: VANCOMYCIN 1 GRAM/200 ML BAG 1 GM/200 ML PIGGYBACK IV SCH ×3 (01:19→16:31)
[2020-03-01] MEDS: Klor Con 10 MEQ PO SCH (09:49)
[2020-03-01] MEDS: Zocor 10MG PO SCH (09:50)
[2020-03-01] MEDS: ECOTRIN 81 MG PO SCH (09:51)
[2020-03-01] MEDS: LASIX 20 MG PO SCH (09:51)
[2020-03-01] MEDS: ROCEPHIN 1 Gm-D5w 50 ml Bag** 1 G/50 ML IVPB IV SCH (09:52)
--- NOTE | 2020-03-01 15:47 | PCM.DS ---
Discharge Summary Date of Admission: 02/27/20 05:50 Admitting Physician: OLIVER LIU Consults: Consults on Case 02/27/20 13:21 Consult,Michael [Psychiatric Consult] STAT Primary Care Provider: OLIVER LIU Allergies Allergies Sulfa (Sulfonamide Antibiotics) Allergy (Verified 02/25/20 22:54) sulfamethoxazole [From Bactrim] Allergy (Verified 02/25/20 22:54) trimethoprim [From Bactrim] Allergy (Verified 02/25/20 22:54) coconut Adverse Reaction (Verified 02/25/20 22:55) Diarrhea doxycycline Adverse Reaction (Verified 02/25/20 22:54) Hospital Summary - Hospital Course Hospital Course: Pt is a 55 yo female pt of Dr. Liu with morbid obesity and chronic O2 dependance who was admitted with leg pain and weakness; was interested in PT due to worries about safety in her own home. She has been treated for cellulitis and her weakness is greatly improved; she would now like to be discharged to home with Home Health and this has already been set up. She has finished 4 days of vancomycin and rocephin and will be sent home on po clindamycin. F/u with Dr. Liu sometime during the week. - Vitals & Intake/Output Vital Signs: Vital Signs Temperature 97.8 F 03/01/20 12:00 Pulse Rate 94 H 03/01/20 12:00 Respiratory Rate 03/01/20 12:00 Blood Pressure 122/67 03/01/20 12:00 O2 Sat by Pulse Oximetry 94 L 03/01/20 12:00 Intake & Output: Intake & Output 02/28/20 02/29/20 03/01/20 03/02/20 11:59 11:59 11:59 11:59 Intake Total 1019 1296 Balance 1019 1296 - Lab Result Diagrams: 02/29/20 05:47 02/29/20 05:47 Lab Results-Last 24 Hrs: Accuchecks Date 03/01/20 Date 03/01/20 Date 02/29/20 Date 02/29/20 Time 11:30 Time 07:30 Time 21:00 Time 16:30 Accucheck Value: 136 Accucheck Value: 112 Accucheck Value: 152 Accucheck Value: 197 Micro Results-Entire Visit: Microbiology 02/27/20 04:30 Blood Culture - Preliminary Blood NO GROWTH TO DATE 02/27/20 04:30 Blood Culture - Preliminary Blood NO GROWTH TO DATE Accuchecks Date 03/01/20 Date 03/01/20 Date 02/29/20 Date 02/29/20 Time 11:30 Time 07:30 Time 21:00 Time 16:30 Accucheck Value: 136 Accucheck Value: 112 Accucheck Value: 152 Accucheck Value: 197 - Procedures and Test Procedures and Tests throughout Hospitalization: Therapy Orders & Screens 02/27/20 06:01 Oxygen Nasal Cannula 3 lpm Comment: Diagnosis: Cellulitis 02/27/20 06:03 Respiratory Therapy Assessment DAILY Comment: Diagnosis: Cellulitis 02/27/20 08:59 PT Eval & Treat (MD Order) ROUTINE Reason for Eval:: PT IS WANTING TO GO TO REHAB STAY AT [facility], WILL NEED EVAL F OR INSURANCE PRECERT Diagnosis: Cellulitis Discharge Exam General Appearance: no apparent distress, obese Neurologic Exam: alert, oriented x 3, cooperative Eye Exam: eyes nml inspection Ears, Nose, Throat Exam: moist mucous membranes Respiratory Exam: normal breath sounds, lungs clear, No crackles/rales, No rhonchi, No wheezing Cardiovascular Exam: regular rate/rhythm, normal heart sounds, No murmur Gastrointestinal/Abdomen Exam: soft, normal bowel sounds, No tenderness Extremity Exam: other (bilat LE with chronic skin changes; mild erythema. mild yellow crusting R anterior lower leg.) Wound Assessment: Skin/Wound Assessment Wound/Incision Assessment Start: 02/27/20 05:52 Text: Status: Active Freq: Q6H Protocol: Document 03/01/20 14:00 BA (Rec: 03/01/20 15:30 BA [id number]) Wound/Incision Assessment Lower Wound Assessment Shift Assessment Wound Type CELLULITIS Wound Stage Non Pressure Wound Drainage Amount None General Appearance Open to air Comment BLE RED AND EDEMATOUS BARRIER CREAM APPLIED Wound Photo Photo Taken No Final Diagnosis/Problem List - Final Discharge Diagnosis/Problem (1) Cellulitis of lower extremity Current Visit: Yes Status: Acute Assessment & Plan: Much improved, feeling much better. home on po clindamycin. (2) Weakness Current Visit: Yes Status: Resolved Code(s): R53.1 - WEAKNESS (3) Bipolar 1 disorder Current Visit: No Status: Chronic Code(s): F31.9 - BIPOLAR DISORDER, UNSPECIFIED (4) Diabetes mellitus Current Visit: No Status: Chronic Assessment & Plan: resume metformin at home. Code(s): E11.9 - TYPE 2 DIABETES MELLITUS WITHOUT COMPLICATIONS - Discharge Disposition: Home, Self-Care Condition: Good Prescriptions: New Clindamycin HCl 300 mg PO QID #28 capsule Continue Divalproex Sodium [Depakote] 500 mg PO TID Paliperidone [Invega] 9 mg PO DAILY Ramelteon [Rozerem] 8 mg PO QHS Potassium Chloride 10 Meq Tab* [Klor Con 10 MEQ] 10 meq PO DAILY Furosemide 20 mg [Lasix 20 mg] 20 mg PO DAILY Aspirin EC 81 mg [Ecotrin 81 mg] 81 mg PO DAILY #30 tablet.ec Atorvastatin Calcium 10 mg PO DAILY Metformin HCl 500 mg PO BIDWM Cyclobenzaprine HCl 10 mg [Cyclobenzaprine 10 MG] 10 mg PO HS Discontinued Cefdinir 300 mg PO BID 7 Days #14 capsule Instructions: Cellulitis (Skin Infection), Adult (DC) Additional Instructions: [facility] WILL BE IN CONTACT TO ARRANGE A VISIT, THEIR PHONE NUMBER IS [phone] Eat yogurt or take probiotics daily while on antibiotic. Take antibiotic until finished. Forms: Discharge Instructions
[2020-03-01 16:57] VITALS: BP 129/65; PULSE 96; O2SAT 95
== END 2020-03-01 18:30 | disposition home health service (06) ==
LOC: ED 03:44 → MED SURG 05:50
PROVIDERS: ADMIT Family Medicine; ATTEND Family Medicine
DX: L03.116 Cellulitis of left lower limb (principal); L03.115 Cellulitis of right lower limb; E11.9 Type 2 diabetes mellitus without complications; I89.0 Lymphedema, not elsewhere classified; R53.1 Weakness; J96.11 Chronic respiratory failure with hypoxia; F31.9 Bipolar disorder, unspecified; R26.81 Unsteadiness on feet; J44.9 Chronic obstructive pulmonary disease, unspecified; E78.00 Pure hypercholesterolemia, unspecified; I10 Essential (primary) hypertension; Z79.899 Other long term (current) drug therapy; Z99.81 Dependence on supplemental oxygen
CPT/HCPCS: 36000; 36415; 80048; 80053; 80202; 81001; 82962; 83036; 83605; 84134; 85025; 87040; 90791; 93041; 94760; 96365; 97110; 97161; 97530; 99285; G0378; Q3014; J0696; J2270; A9270-GY; J3370

== ENCOUNTER 2020-05-03 00:02 | Emergency (ER) | payer MEDICARE ==
--- NOTE | 2020-05-03 00:44 | ERPHSYRPT ---
- History of Present Illness Time Seen by Provider: 05/03/20 00:18 Source: patient Exam Limitations: no limitations Patient Subjective Stated Complaint: "I've had this ringworm for four weeks and it won't go away." Triage Nursing Assessment: Pt alert et oriented x3 answering questions appropriately. pt ambulated to the room with use of her home cane and without complications. Patient reported having ringworm ongoing over the past four weeks despite use of oral antifungals and antifungal cream. Pt reported mild itching feeling. Rash noted to the bilateral upper extremities as well as the anterior and posterior torso. Physician History: 55 years old female with multiple medical problems presented in the ER with chief complaint of ringworms on her arms/torso. She is been using topical and have used oral antifungal for the last 2 weeks with minimal relief. Patient reports 2 days ago she was started on clotrimazole and it started to improve on her abdomen but she does have rash on her back but because of her body habitus she cannot reach at the back to apply. Does not have any other relative who can do it. She wants someone to apply on the back and if there is anything else she can get for relief. No open sores reported. Timing/Duration: week(s) (3), gradual onset, worse Quality: itchy Severity: moderate Location: torso, hands, extremities Possible Causes: no cause identified Associated Symptoms: rash Allergies/Adverse Reactions: Sulfa (Sulfonamide Antibiotics) Allergy (Verified 05/03/20 00:17) sulfamethoxazole [From Bactrim] Allergy (Verified 05/03/20 00:17) trimethoprim [From Bactrim] Allergy (Verified 05/03/20 00:17) coconut Adverse Reaction (Verified 05/03/20 00:17) Diarrhea Home Medications: Divalproex Sodium [Depakote] 500 mg PO TID 09/03/14 [History] Paliperidone [Invega] 9 mg PO DAILY 10/17/15 [History] Ramelteon [Rozerem] 8 mg PO QHS 12/14/15 [History] Furosemide 20 mg [Lasix 20 mg] 20 mg PO DAILY 05/15/18 [History] Potassium Chloride 10 Meq Tab* [Klor Con 10 MEQ] 10 meq PO DAILY 05/15/18 [History] Atorvastatin Calcium 10 mg PO DAILY 05/17/19 [History] Metformin HCl 500 mg PO BIDWM 05/17/19 [History] Cyclobenzaprine HCl 10 mg [Cyclobenzaprine 10 MG] 10 mg PO HS 06/25/19 [History] Hx Tetanus, Diphtheria Vaccination/Date Given: Yes Hx Influenza Vaccination/Date Given: Yes Hx Pneumococcal Vaccination/Date Given: Yes Travel Risk - International Travel Have you traveled outside of the country in past 3 weeks: No - Coronavirus Screening Are you exhibiting any of the following symptoms?: No Close contact with a COVID-19 positive Pt in past 14-21 Days: No - Review of Systems Constitutional: No Symptoms Eyes: No Symptoms Respiratory: Dyspnea Cardiac: No Symptoms Abdominal/Gastrointestinal: No Symptoms Genitourinary Symptoms: No Symptoms Musculoskeletal: Back Pain Skin: Rash, Skin Lesions Neurological: No Symptoms Endocrine: No Symptoms Hematologic/Lymphatic: No Symptoms - Past Medical History Pertinent Past Medical History: Yes Neurological History: Peripheral Neuropathy, Seizures, TIA ENT History: Glaucoma Cardiac History: High Cholesterol Respiratory History: COPD Endocrine Medical History: Diabetes Type II Musculoskeletal History: Arthritis GI Medical History: Gallbladder Disease History: No Pertinent History Psycho-Social History: Bipolar, Depression Female Reproductive Disorders: No Pertinent History Other Medical History: hx of cellulitis, hx seizures 3years ago, gallbladder removed - Past Surgical History Past Surgical History: Yes Neuro Surgical History: No Pertinent History Cardiac: No Pertinent History Respiratory: No Pertinent History Gastrointestinal: Cholecystectomy Genitourinary: No Pertinent History Musculoskeletal: No Pertinent History Female Surgical History: Section, Tubal Ligation Other Surgical History: GANGLION CYST - Social History Smoking Status: Current some day smoker How long have you smoked: 28 Exposure to second hand smoke: No Drug Use: none Patient Lives Alone: No Significant Family History: no pertinent family hx - Nursing Vital Signs Nursing Vital Signs: Initial Vital Signs Temperature 98.2 F 05/03/20 00:02 Pulse Rate 109 H 05/03/20 00:02 Respiratory Rate 22 05/03/20 00:02 Blood Pressure 144/79 05/03/20 00:02 O2 Sat by Pulse Oximetry 97 05/03/20 00:02 - Physical Exam General Appearance: no apparent distress, alert Eye Exam: eyes nml inspection Ears, Nose, Throat Exam: normal ENT inspection Neck Exam: normal inspection, supple, full range of motion Respiratory Exam: wheezing, No accessory muscle use Cardiovascular Exam: regular rate/rhythm, tachycardia, edema Gastrointestinal/Abdomen Exam: soft, normal bowel sounds Extremity Exam: normal inspection, normal range of motion Neurologic Exam: alert, oriented x 3, cooperative Skin Exam: normal color, rash (Both areas of's rash with distinct elevation at the borders with minimal scaling and peeling anterior with itch weber around on the arms abdomen, back. No open sores.) SpO2 Interpretation: normal SpO2: 97 O2 Delivery: Room Air - Course Nursing assessment & vital signs reviewed: Yes - Progress Progress: unchanged Progress Note: 05/03/20 00:44 Clotrimazole cream is applied at the back by RN. Patient is advised to have someone apply twice a day for the next couple of weeks to get full remission. I do not think patient would be an ideal candidate for oral fluconazole because of her being on in [place] with a increased risk of QTC prolongation. Also patient has been using clotrimazole for the last couple of days and it did not show any worsening where she has applied and is drying up. I think we will continue with that and have her outpatient follow-up with primary care. Counseled pt/family regarding: diagnosis, need for follow-up - Departure Departure Disposition: Home Clinical Impression: Tinea corporis Condition: Stable Critical Care Time: No Referrals: OLIVER LIU MD [Primary Care Provider] - Follow Up with PCP/3 days Instructions: Ringworm (DC) Additional Instructions: Locations twice a day application. Follow-up with your primary care physician for reevaluation. Return to ER for any worsening.
[2020-05-03 01:07] VITALS: BP 160/94; PULSE 106; O2SAT 100
== END 2020-05-03 01:20 | disposition home or self-care (01) ==
LOC: ED 00:02
DX: B35.4 Tinea corporis (principal)
CPT/HCPCS: 99283

== ENCOUNTER 2021-01-02 11:43 | Emergency (ER) | payer MEDICARE ==
--- NOTE | 2021-01-02 12:07 | ERPHSYRPT ---
- History of Present Illness Time Seen by Provider: 01/02/21 12:04 Source: patient Exam Limitations: no limitations Patient Subjective Stated Complaint: Pt states "My cat and my dog were in a fight and they got under my feet and I fell hitting both knees on the lanolium. I have no pain when I lay down but when I stand up it is a 9" Triage Nursing Assessment: Pt presented alert and oriented X 3, skin pwd Pt able to speak in clear full sentences. Pt has chronic knee pain but it is worse now. No bruising, swelling, or crepitus noted to bilat knees. Physician History: Pt states "My cat and my dog were in a fight and they got under my feet and I fell hitting both knees on the lanolium. I have no pain when I lay down but when I stand up it is a 9" just happened 30-40 minutes ago. Denies any other injury Method of Injury: fell Occurred: just prior to arrival Quality: constant Lower Extremities Pain: knee: bilateral Allergies/Adverse Reactions: Sulfa (Sulfonamide Antibiotics) Allergy (Verified 05/03/20 00:17) sulfamethoxazole [From Bactrim] Allergy (Verified 05/03/20 00:17) trimethoprim [From Bactrim] Allergy (Verified 05/03/20 00:17) coconut Adverse Reaction (Verified 05/03/20 00:17) Diarrhea Home Medications: Divalproex Sodium [Depakote] 500 mg PO TID 09/03/14 [History] Paliperidone [Invega] 9 mg PO DAILY 10/17/15 [History] Ramelteon [Rozerem] 8 mg PO QHS 12/14/15 [History] Furosemide 20 mg [Lasix 20 mg] 20 mg PO DAILY 05/15/18 [History] Potassium Chloride 10 Meq Tab* [Klor Con 10 MEQ] 10 meq PO DAILY 05/15/18 [History] Atorvastatin Calcium 10 mg PO DAILY 05/17/19 [History] Metformin HCl 500 mg PO BIDWM 05/17/19 [History] Cyclobenzaprine HCl 10 mg [Cyclobenzaprine 10 MG] 10 mg PO HS 06/25/19 [History] Hx Tetanus, Diphtheria Vaccination/Date Given: No Hx Influenza Vaccination/Date Given: No Hx Pneumococcal Vaccination/Date Given: No Immunizations Up to Date: Yes Travel Risk - International Travel Have you traveled outside of the country in past 3 weeks: No - Coronavirus Screening Are you exhibiting any of the following symptoms?: No Close contact with a COVID-19 positive Pt in past 14-21 Days: No - Vaccine Status Have you recieved a Covid-19 vaccination: Yes [employer]enger Ship Steward/Stewardess: Moderna - Vaccination Dates Date of 2cond Vaccination (if applicable): 11/2020 - Review of Systems Constitutional: No Fever, No Chills Eyes: No Symptoms Ears, Nose, & Throat: No Symptoms Respiratory: No Cough, No Dyspnea Cardiac: No Chest Pain, No Edema, No Syncope Abdominal/Gastrointestinal: No Abdominal Pain, No Nausea, No Vomiting, No Diarrhea Genitourinary Symptoms: No Dysuria Musculoskeletal: Fall, Joint Pain (both knees), No Back Pain, No Neck Pain, No Deformity, No Joint Redness, No Joint Swelling Skin: No Rash Neurological: No Dizziness, No Focal Weakness, No Sensory Changes Psychological: No Symptoms Endocrine: No Symptoms All Other Systems: Reviewed and Negative - Past Medical History Pertinent Past Medical History: Yes Neurological History: Peripheral Neuropathy, Seizures, TIA ENT History: Glaucoma Cardiac History: High Cholesterol Respiratory History: COPD Endocrine Medical History: Diabetes Type II Musculoskeletal History: Arthritis GI Medical History: Gallbladder Disease History: No Pertinent History Psycho-Social History: Bipolar, Depression Female Reproductive Disorders: No Pertinent History Other Medical History: hx of cellulitis, hx seizures 3years ago, gallbladder removed - Past Surgical History Past Surgical History: Yes Neuro Surgical History: No Pertinent History Cardiac: No Pertinent History Respiratory: No Pertinent History Gastrointestinal: Cholecystectomy Genitourinary: No Pertinent History Musculoskeletal: No Pertinent History Female Surgical History: Section, Tubal Ligation Other Surgical History: GANGLION CYST - Social History Smoking Status: Current every day smoker How long have you smoked: 0.25 Exposure to second hand smoke: Yes Drug Use: none Patient Lives Alone: Yes Significant Family History: no pertinent family hx - Female History Hx Now: No - Nursing Vital Signs Nursing Vital Signs: Initial Vital Signs Temperature 98.1 F 01/02/21 11:44 Pulse Rate 118 H 01/02/21 11:44 Respiratory Rate 24 01/02/21 11:44 Blood Pressure 99/72 01/02/21 11:44 O2 Sat by Pulse Oximetry 98 01/02/21 11:44 Pain Scale Pain Intensity 4 - Physical Exam General Appearance: alert Eyes, Ears, Nose, Throat Exam: moist mucous membranes Neck Exam: non-tender, supple Cardiovascular/Respiratory Exam: chest non-tender, normal breath sounds, regular rate/rhythm, no respiratory distress Gastrointestinal/Abdominal Exam: non-tender, guarding Back Exam: normal inspection, No vertebral tenderness Hips Exam: bilateral: non-tender Legs Exam: bilateral leg: swelling Knees Exam: bilateral knee: non-tender, soft tissue tenderness Ankle Exam: bilateral ankle: non-tender Neuro/Tendon Exam: normal sensation, normal motor functions Mental Status Exam: alert, oriented x 3, cooperative Skin Exam: normal color, warm, dry SpO2: 98 - Course Nursing assessment & vital signs reviewed: Yes - Radiology Exams Knee X-ray Interpretation: Reviewed by me, Negative, No Fracture, No Subluxation Ordered Tests: Active Orders 24 hr Category Date Time Status KNEE (3 VIEWS) Stat Exams 01/02/21 11:59 Taken KNEE (3 VIEWS) Stat Exams 01/02/21 12:00 Taken - Progress Progress: unchanged, pain not gone completely Counseled pt/family regarding: diagnosis, need for follow-up, rad results - Departure Departure Disposition: Home Clinical Impression: Knee pain, bilateral Qualifiers: Chronicity: acute Qualified Code(s): M25.561 - Pain in right knee; M25.562 - Pain in left knee Condition: Stable Critical Care Time: No Referrals: OLIVER LIU MD [Primary Care Provider] - Follow Up with PCP/3 days Instructions: Knee Pain (DC) Additional Instructions: Discharge/Care Plan EVARISTO ELIZABETH was seen on 01/02/21 in the Emergency Room. The patient was counseled regarding Diagnosis,Lab results, Imaging studies, need for follow up and when to return to the Emergency Room. Prescriptions given: Discharge Note I have spoken with the patient and/or caregivers. I have explained the patient's condition, diagnosis and treatment plan based on the information available to me at this time. I have answered the patient's and/or caregiver's questions and addressed any concerns. The patient and/or caregivers have as good understanding of the patient's diagnosis, condition and treatment plan as can be expected at this point. The vital signs have been stable. The patient's condition is stable and appropriate for discharge from the emergency department. The patient will pursue further outpatient evaluation with the primary care physician or other designated or consulting physician as outlined in the disc harge instructions. The patient and/or caregivers are agreeable to this plan of care and follow-up instructions have been explained in detail. The patient and/or caregivers have received these instruction. The patient/and or caregivers are aware that any significant change in condition or worsening of symptoms should prompt an immediate return to this or the closest emergency department or call 911. OSCAREVARISTO CASTANO was seen on 01/02/21 n the Emergency Room. At that time you were treated for an emergent condition, during your visit Laboratory, Radiology and/or other procedures may have been ordered. It is very important that you follow-up with your Primary Care Physician OLIVER LIU within the next 24- 48 hours to review your Emergency Room visit and the final results of testing that was ordered. Some test results such as Urine Cultures, Blood Cultures, and other cultures if ordered will not be finalized for 24-48 hours. If you do not have a Primary Care Provider please call the medical records department at [phone] ext [phone] to obtain a copy of your results or you may sign into our patient portal to obtain these results by visiting us @ [email or web address] and completing the following steps: 1. Click on the Patient Portal link 2. Click the Patient Self Enrollment Link to complete the enrollment form and entering your 3. Once the enrollment form is completed you will receive an email with a temporary ID and password at the email address you provided. 4. Next choose a user name and password. Your user name must be at least 4 characters long and your password must be at least 4 characters long. 5. Choose a security question from the list and provide your answer to the question. If you already have signed into the Health Portal you may access your Health Care Information 13/03 by the following steps: 1. Login to our website @ [email or web address] 2. Enter your original user name and password. FAQS The [facility] Health Portal is an online tool that contains your Lab Results, Radiology Reports, Visit History, Discharge Instructions and Health Summary Lab and Radiology Results will not be available for 72 hours on the portal. The Portal is a secure site, passwords are encryted and URLs are re-written so they cannot be copied and pasted. You and authorized family members are the only ones who can access your Portal. Also there is a timeout feature that protects y our information if you leave the Portal page open. If you have technical difficulty please use the Contact Us link on the page this will allow you to submit any questions you have regarding the Portal or you may contact the Medical Record Department at [phone]. Prescriptions: Naproxen 375 mg [Naprosyn 375 mg] 375 mg PO Q8H #14 tablet
[2021-01-02] MEDS ORDERED: TORAdol 30 mg Injection IM ONE (13:31)
[2021-01-02] MEDS ORDERED: TORAdol 30 mg Injection ONE (13:37)
[2021-01-02 14:06] VITALS: O2SAT 98
[2021-01-02 14:19] VITALS: BP 99/61; PULSE 60
--- NOTE | 2021-01-02 19:28 | XRAY ---
Indication: Pain following fall. Comparison: None 3 view right knee demonstrates minimal medial joint space narrowing. No other bony, articular, or soft tissue abnormalities.
--- NOTE | 2021-01-02 19:28 | XRAY ---
Indication: Pain following fall. Comparison: None 3 view left knee obtained. No bony, articular, or soft tissue abnormalities.
== END 2021-01-02 14:20 | disposition home or self-care (01) ==
LOC: ED 11:43
DX: M25.561 Pain in right knee (principal); M25.562 Pain in left knee; W01.198A Fall on same level from slipping, tripping and stumbling with subsequent striking against other object, initial encounter; Y93.K9 Activity, other involving animal care; Y92.89 Other specified places as the place of occurrence of the external cause
CPT/HCPCS: 73562; 96372; 99284; J1885

== ENCOUNTER 2021-03-03 11:26 | Day surgery (SDC) | payer MEDICARE ==
[2012-07-11 11:30] VITALS: BP 134/76
[2021-03-03] MEDS ORDERED: LIDOCAINE HCL 2% 100 MG/5 ML IJ ONE (11:27)
[2021-03-03] MEDS ORDERED: DIPRIVAN 200 MG/20 ML IV ONE (14:00)
--- NOTE | 2021-03-03 15:58 | XRAY ---
19 seconds of fluoroscopy was used in surgery for a bilateral L4-L5, L5-S1 MBB.
[2021-03-03] MEDS ORDERED: Lactated Ringers 1,000 ML IV ONE (17:32)
== END 2021-03-03 14:29 | disposition home or self-care (01) ==
LOC: SDC-PAIN 11:26
PROVIDERS: ATTEND Psychiatry & Neurology Pain Medicine
DX: M47.816 Spondylosis without myelopathy or radiculopathy, lumbar region (principal); E11.9 Type 2 diabetes mellitus without complications; J44.9 Chronic obstructive pulmonary disease, unspecified; Z79.899 Other long term (current) drug therapy
CPT/HCPCS: 64493; 64494; 72020; 77002; 82947; 84703; J2704

== ENCOUNTER 2021-03-04 21:49 | Emergency (ER) | payer MEDICARE ==
--- NOTE | 2021-03-04 21:59 | ERPHSYRPT ---
- History of Present Illness Time Seen by Provider: 03/04/21 21:59 Historian: patient, EMS Allergies/Adverse Reactions: Sulfa (Sulfonamide Antibiotics) Allergy (Verified 03/04/21 21:54) sulfamethoxazole [From Bactrim] Allergy (Verified 03/04/21 21:54) trimethoprim [From Bactrim] Allergy (Verified 03/04/21 21:54) coconut Adverse Reaction (Verified 03/04/21 21:54) Diarrhea Home Medications: Divalproex Sodium [Depakote] 500 mg PO TID 09/03/14 [History] Paliperidone [Invega] 9 mg PO DAILY 10/17/15 [History] Ramelteon [Rozerem] 8 mg PO QHS 12/14/15 [History] Furosemide 20 mg [Lasix 20 mg] 20 mg PO DAILY 05/15/18 [History] Potassium Chloride 10 Meq Tab* [Klor Con 10 MEQ] 10 meq PO DAILY 05/15/18 [History] Atorvastatin Calcium 10 mg PO DAILY 05/17/19 [History] Metformin HCl 500 mg PO BIDWM 05/17/19 [History] Cyclobenzaprine HCl 10 mg [Cyclobenzaprine 10 MG] 10 mg PO HS 06/25/19 [History] Hx Tetanus, Diphtheria Vaccination/Date Given: No Hx Influenza Vaccination/Date Given: No Hx Pneumococcal Vaccination/Date Given: No Travel Risk - Vaccine Status Have you recieved a Covid-19 vaccination: Yes 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 - Vaccination Dates Date of 2cond Vaccination (if applicable): 11/2020 - Past Medical History Pertinent Past Medical History: Yes Neurological History: Peripheral Neuropathy, Seizures, TIA ENT History: Glaucoma Cardiac History: High Cholesterol Respiratory History: COPD Endocrine Medical History: Diabetes Type II Musculoskeletal History: Arthritis GI Medical History: Gallbladder Disease History: No Pertinent History Psycho-Social History: Bipolar, Depression Female Reproductive Disorders: No Pertinent History Other Medical History: hx of cellulitis, hx seizures 3years ago, gallbladder removed - Past Surgical History Past Surgical History: Yes Neuro Surgical History: No Pertinent History Cardiac: No Pertinent History Respiratory: No Pertinent History Gastrointestinal: Cholecystectomy Genitourinary: No Pertinent History Musculoskeletal: No Pertinent History Female Surgical History: Section, Tubal Ligation Other Surgical History: GANGLION CYST - Social History Smoking Status: Current every day smoker How long have you smoked: 0.25 Exposure to second hand smoke: Yes Drug Use: none Patient Lives Alone: Yes Significant Family History: no pertinent family hx - Nursing Vital Signs Nursing Vital Signs: Initial Vital Signs Temperature 98.0 F 03/04/21 21:57 Pulse Rate 101 H 03/04/21 21:57 Respiratory Rate 20 03/04/21 21:57 Blood Pressure 155/93 03/04/21 21:57 O2 Sat by Pulse Oximetry 99 03/04/21 21:57 Pain Scale Pain Intensity 2 Ordered Tests: Active Orders 24 hr Category Date Time Status IV Insertion STAT Care 03/04/21 22:09 Active ABDOMEN AND PELVIS W/0 CONTRAS [CT] Stat Exams 03/04/21 22:09 Taken AMYLASE Stat Lab 03/04/21 22:25 Completed CBC W DIFF Stat Lab 03/04/21 22:25 Completed CMP Stat Lab 03/04/21 22:25 Completed CULTURE,URINE Stat Lab 03/04/21 22:32 Received LIPASE Stat Lab 03/04/21 22:25 Completed Lactic Acid Stat Lab 03/04/21 22:23 Completed Manual Differential NC Stat Lab 03/04/21 22:25 Completed UA W/RFX UR CULTURE Stat Lab 03/04/21 22:32 Completed Medication Summary Discontinued Medications Generic Name Dose Route Start Last Admin Trade Name Aria PRN Reason Stop Dose Admin Sodium Chloride 1,000 mls @ 999 mls/hr 03/04/21 22:09 03/04/21 23:25 Sodium Chloride 0.9% 1000 Ml IV 03/04/21 23:09 999 mls/hr .Q1H1M STA Administration Sodium Chloride Confirm 03/04/21 23:21 Sodium Chloride 0.9% 1000 Ml Administered 03/04/21 23:22 Dose 1,000 mls @ ud .ROUTE .STK-MED ONE Levofloxacin 500 mg 03/04/21 23:08 03/04/21 23:26 Levofloxacin 500 Mg Tablet PO 03/04/21 23:09 500 mg STAT ONE Administration Levofloxacin Confirm 03/04/21 23:20 Levofloxacin 500 Mg Tablet Administered 03/04/21 23:21 Dose 500 mg .ROUTE .STK-MED ONE Metronidazole 500 mg 03/04/21 23:08 03/04/21 23:26 Flagyl 500 Mg PO 03/04/21 23:09 500 mg STAT ONE Administration Metronidazole Confirm 03/04/21 23:21 Flagyl 500 Mg Administered 03/04/21 23:22 Dose 500 mg .ROUTE .STK-MED ONE Ondansetron HCl 4 mg 03/04/21 22:09 03/04/21 23:25 Zofran 4 Mg/2 Ml Vial IV 03/04/21 22:10 4 mg STAT ONE Administration Ondansetron HCl Confirm 03/04/21 23:20 Zofran 4 Mg/2 Ml Vial Administered 03/04/21 23:21 Dose 4 mg .ROUTE .STK-MED ONE Lab/Rad Data: Laboratory Result Diagrams 03/04/21 22:25 03/04/21 22:25 Laboratory Results 03/04/21 03/04/21 03/04/21 Range/Units 22:32 22:25 22:25 WBC 7.0 (4.0-10.5) K/mm3 RBC 4.20 (4.1-5.4) M/mm3 Hgb 12.9 (12.0-16.0) gm/dl Hct 42.2 (35-47) % MCV 100.5 H (78-100) fl MCH 30.7 (26-32) pg MCHC 30.6 L (32-36) g/dl RDW 14.1 H (11.5-14.0) % Plt Count 204 (150-450) K/mm3 MPV 10.7 (7.5-11.0) fl Segmented Neutrophils 64 (36.0-66.0) % Band Neutrophils 7 H (0.0-2.0) % Lymphocytes (Manual) 17 L (24-44) % Monocytes (Manual) 11 (0.0-12.0) % Eosinophils (Manual) 1 (0.00-3.0) % Platelet Estimate NORMAL (NORMAL) RBC Morphology NORMAL Sodium 140 (137-145) mmol/L Potassium 3.6 (3.5-5.1) mmol/L Chloride 102 (98-107) mmol/L Carbon Dioxide 29 (22-30) mmol/L Anion Gap 12.6 (5-15) MEQ/L BUN 4 L (7-17) mg/dL Creatinine 0.29 L (0.52-1.04) mg/dL Estimated GFR > 60.0 ML/MIN Glucose 210 H (74-106) mg/dL Lactic Acid (0.4-2.0) Calcium 9.3 (8.4-10.2) mg/dL Total Bilirubin 0.20 (0.2-1.3) mg/dL AST 57 H (14-36) U/L ALT 26 (0-35) U/L Alkaline Phosphatase 89 (38-126) U/L Serum Total Protein 6.5 (6.3-8.2) g/dL Albumin 3.9 (3.5-5.0) g/dL Amylase 47 (30-110) U/L Lipase 35 (23-300) U/L Urine Color YELLOW (YELLOW) Urine Appearance SLIGHTLY CLOUDY (CLEAR) Urine pH 6.0 (5-6) Ur Specific [place] 1.014 (1.005-1.025) Urine Protein NEGATIVE (Negative) Urine Ketones SMALL (NEGATIVE) Urine Blood NEGATIVE (0-5) Kulwinder/ul Urine Nitrite POSITIVE (NEGATIVE) Urine Bilirubin NEGATIVE (NEGATIVE) Urine Urobilinogen NEGATIVE (0-1) mg/dL Ur Leukocyte Esterase TRACE (NEGATIVE) Urine WBC (Auto) 16-25 (0-5) /HPF Urine RBC (Auto) NONE (0-2) /HPF U Epithel Cells (Auto) RARE (FEW) /HPF Urine Bacteria (Auto) MODERATE (NEGATIVE) /HPF Urine Mucus (Auto) SLIGHT (NEGATIVE) /HPF Urine Culture Reflexed YES (NO) Urine Glucose 50 (NEGATIVE) mg/dL 03/04/21 Range/Units 22:23 WBC (4.0-10.5) K/mm3 RBC (4.1-5.4) M/mm3 Hgb (12.0-16.0) gm/dl Hct (35-47) % MCV (78-100) fl MCH (26-32) pg MCHC (32-36) g/dl RDW (11.5-14.0) % Plt Count (150-450) K/mm3 MPV (7.5-11.0) fl Segmented Neutrophils (36.0-66.0) % Band Neutrophils (0.0-2.0) % Lymphocytes (Manual) (24-44) % Monocytes (Manual) (0.0-12.0) % Eosinophils (Manual) (0.00-3.0) % Platelet Estimate (NORMAL) RBC Morphology Sodium (137-145) mmol/L Potassium (3.5-5.1) mmol/L Chloride (98-107) mmol/L Carbon Dioxide (22-30) mmol/L Anion Gap (5-15) MEQ/L BUN (7-17) mg/dL Creatinine (0.52-1.04) mg/dL Estimated GFR ML/MIN Glucose (74-106) mg/dL Lactic Acid 2.2 H (0.4-2.0) Calcium (8.4-10.2) mg/dL Total Bilirubin (0.2-1.3) mg/dL AST (14-36) U/L ALT (0-35) U/L Alkaline Phosphatase (38-126) U/L Serum Total Protein (6.3-8.2) g/dL Albumin (3.5-5.0) g/dL Amylase (30-110) U/L Lipase (23-300) U/L Urine Color (YELLOW) Urine Appearance (CLEAR) Urine pH (5-6) Ur Specific [place] (1.005-1.025) Urine Protein (Negative) Urine Ketones (NEGATIVE) Urine Blood (0-5) Kulwinder/ul Urine Nitrite (NEGATIVE) Urine Bilirubin (NEGATIVE) Urine Urobilinogen (0-1) mg/dL Ur Leukocyte Esterase (NEGATIVE) Urine WBC (Auto) (0-5) /HPF Urine RBC (Auto) (0-2) /HPF U Epithel Cells (Auto) (FEW) /HPF Urine Bacteria (Auto) (NEGATIVE) /HPF Urine Mucus (Auto) (NEGATIVE) /HPF Urine Culture Reflexed (NO) Urine Glucose (NEGATIVE) mg/dL - Progress Progress: improved, re-examined Progress Note: 03/04/21 23:36 CAT scan of the abdomen and pelvis without contrast shows multiple ill-defined hypodensities in the subcapsular liver which are new compared to the prior exam dated 05/04/2014. There is no evidence of any acute intra-abdominal or pelvic pathology. The results of this CAT scan was discussed in detail with the patient and she was informed that she needs to follow-up with the new liver lesions that are present. Counseled pt/family regarding: lab results, diagnosis, need for follow-up, rad results - Departure Departure Disposition: Home Clinical Impression: Colitis, Urinary tract infection Condition: Stable Critical Care Time: No Referrals: OLIVER LIU MD [Primary Care Provider] - Additional Instructions: Drink plenty of fluids. Take your medication as prescribed. Follow-up with your primary care physician to further evaluate the new liver lesions that are present. Prescriptions: Ciprofloxacin [Cipro 500 MG] 500 mg PO BID #14 tablet Metronidazole 500 mg [Flagyl 500 MG] 500 mg PO TID #21 tablet
[2021-03-04] MEDS ORDERED: Sodium Chloride 0.9% 1000 ML 1,000 ML IV STA (22:09)
[2021-03-04] MEDS ORDERED: Zofran 4 MG/2 ML VIAL IV ONE (22:09)
[2021-03-04 22:28] LABS: Hematocrit 42.2 % (35-47); Hemoglobin 12.9 gm/dl (12.0-16.0); Mean Cell Volume 100.5 fl (78-100); Mean Corpuscular Hemoglobin 30.7 pg (26-32); Mean Corpuscular Hgb Concent. 30.6 g/dl (32-36); Mean Platelet Volume 10.7 fl (7.5-11.0); Platelet Count 204 K/mm3 (150-450); Red Cell Distribution Width 14.1 % (11.5-14.0)
[2021-03-04 22:41] LABS: ALBUMIN 3.9 g/dL (3.5-5.0); ALKALINE PHOSPHATASE 89 U/L (38-126); AMYLASE 47 U/L (30-110); ANION GAP 12.6 MEQ/L (5-15); BLOOD UREA NITROGEN 4 mg/dL (7-17); CHLORIDE 102 mmol/L (98-107); Calcium 9.3 mg/dL (8.4-10.2); Carbon Dioxide 29 mmol/L (22-30); Creatinine 1 0.29 mg/dL (0.52-1.04); EST GLOMERULAR FILTRATION RATE > 60.0 ML/MIN; Glucose 210 mg/dL (74-106); LIPASE 35 U/L (23-300); Potassium 3.6 mmol/L (3.5-5.1); SGOT/AST 57 U/L (14-36); SGPT/ALT 26 U/L (0-35); SODIUM 140 mmol/L (137-145); Total Protein 6.5 g/dL (6.3-8.2)
[2021-03-04 22:42] LABS: Appearance SLIGHTLY CLOUDY (CLEAR); Bacteria MODERATE /HPF (NEGATIVE); Bilirubin NEGATIVE (NEGATIVE); Blood NEGATIVE Ery/ul (0-5); Epithelial Cells RARE /HPF (FEW); Glucose 50 mg/dL (NEGATIVE); Ketones SMALL (NEGATIVE); Leukocyte Esterase TRACE (NEGATIVE); Mucus SLIGHT /HPF (NEGATIVE); Nitrite POSITIVE (NEGATIVE); Protein,Urine Dip NEGATIVE (Negative); Specific Gravity 1.014 (1.005-1.025); Urobilinogen NEGATIVE mg/dL (0-1)
[2021-03-04 23:03] LABS: BAND 7 % (0.0-2.0); Eosinophil 1 % (0.00-3.0); Lymphocytes 17 % (24-44); Monocyte 11 % (0.0-12.0); Neutrophils 64 % (36.0-66.0); Platelet Estimate NORMAL (NORMAL); Total Cells Counted 100
[2021-03-04] MEDS ORDERED: Levofloxacin 500 MG Tablet PO ONE (23:08)
[2021-03-04] MEDS ORDERED: Flagyl 500 MG PO ONE (23:08)
[2021-03-04] MEDS ORDERED: Zofran 4 MG/2 ML VIAL ONE (23:20)
[2021-03-04] MEDS ORDERED: Levofloxacin 500 MG Tablet ONE (23:20)
[2021-03-04] MEDS ORDERED: Sodium Chloride 0.9% 1000 ML 1,000 ML ONE (23:21)
[2021-03-04] MEDS ORDERED: Flagyl 500 MG ONE (23:21)
[2021-03-04] MEDS ORDERED: Sodium Chloride 0.9% 500 ML 500 ML IV ONE ×2 (23:39→23:40)
[2021-03-05 00:45] VITALS: O2SAT 97
[2021-03-05 02:48] VITALS: BP 146/89; PULSE 72
--- NOTE | 2021-03-05 08:53 | XRAY ---
Indication: Left lower quadrant pain and nausea. Diarrhea 15 years. Multiple contiguous axial images obtained through the abdomen and pelvis without contrast. Comparison: May 04, 2014. Lung bases demonstrates mild subsegmental atelectasis/scarring. No infiltrate or effusion. Heart not enlarged. Noncontrasted stomach and bowel loops appear nonobstructed. Normal air-filled appendix. There is again mild air distended colon with mild scattered colonic fecal debris and mild descending diverticulosis. Again cholecystectomy and bilateral tubal ligation. No free fluid/air. Liver demonstrates new diffuse multiple ill-defined hypodensities, largest focus left lobe. Lack of IV contrast precludes further characterization. Malignancy is of primary concern. Remaining pancreas, spleen, adrenal glands, kidneys, ureters, bladder, uterus, and aorta are unremarkable for noncontrast exam. Osseous structures intact. No suspicious bony lesions. Stable small fatty umbilical hernia. Impression: 1. New multiple hepatic hypodensities concerning for malignancy. CT abdomen/pelvis with contrast may yield further information. 2. Again colonic diverticulosis without diverticulitis and small fatty umbilical hernia. 3. Remaining CT abdomen/pelvis without contrast exam is negative. Comment: Preliminary interpretation was made by [facility]. No critical discrepancy.
== END 2021-03-05 02:46 | disposition home or self-care (01) ==
LOC: ED 21:49
DX: K52.9 Noninfective gastroenteritis and colitis, unspecified (principal); N39.0 Urinary tract infection, site not specified; E11.9 Type 2 diabetes mellitus without complications; J44.9 Chronic obstructive pulmonary disease, unspecified; E78.00 Pure hypercholesterolemia, unspecified; Z79.899 Other long term (current) drug therapy
CPT/HCPCS: 36000; 36415; 74176; 80053; 81001; 82150; 83605; 83690; 85025; 87077; 87086; 87186; 96360; 96374; 99284; J2405; A9270-GY

== ENCOUNTER 2021-07-21 21:09 | Observation (INO) | payer MEDICARE ==
[2021-07-21] MEDS ORDERED: MORPHINE SULFATE 4 MG INJ IV ONE (21:37)
[2021-07-21] MEDS ORDERED: Zofran 4 MG/2 ML VIAL IV ONE (21:37)
[2021-07-21] MEDS ORDERED: BABY ASPIRIN 81 MG CHEW PO ONE (21:38)
[2021-07-21] MEDS ORDERED: GI COCKTAIL 45 ML (Maalox/Lidocaine) PO ONE (21:38)
[2021-07-21] MEDS ORDERED: Zofran 4 MG/2 ML VIAL ONE (21:43)
[2021-07-21] MEDS ORDERED: MORPHINE SULFATE 4 MG INJ ONE (21:43)
[2021-07-21] MEDS ORDERED: MAALOX ES 30 ML UNIT DOSE ONE (21:44)
[2021-07-21] MEDS ORDERED: XYLOCAINE HCl Viscous ONE (21:44)
--- NOTE | 2021-07-21 21:55 | ERPHSYRPT ---
- History of Present Illness Time Seen by Provider: 07/21/21 21:16 Historian: patient, EMS Exam Limitations: no limitations Patient Subjective Stated Complaint: Patient c/o chest pain to left of chest and left rib cage that started on Monday and has become progressively worse. She denies SOB. States she was not doing anything to exert herself at this time the chest pain began. She states, "I'm pretty sure this is from eating too much red meat." Triage Nursing Assessment: Patient arrived by ambulance. She is alert and answering questions appropriately. No cough or SOB noted. Apical HR regular and rapid at 107 beats/min. Lungs clear with diminished bases. BLE swollen, red, thick, rough; patient states this is her normal. Physician History: 56 years old female with morbid obesity, hypertension, hyperlipidemia, diabetes mellitus, peripheral vascular disease/lymphedema, COPD needing oxygen as needed at home presented in the ER with left-sided chest pain for the last 4 days dull aching without any significant aggravating or relieving factors. Patient thinks she had too much red meat which caused her pain. No history of GERD denies any nausea or vomiting. No fever or chills reported. Denies any difficulty breathing but does have chronic wheezing which is not any worse than usual. Timing/Duration: day(s) (4), intermittent, gradual onset, worse Activities at Onset: rest Quality: dullness Location: other (Left side) Chest Pain Radiation: no radiation Severity of Pain-Max: moderate Severity of Pain-Current: moderate Modifying Factors: Improves With: nothing Associated Symptoms: denies symptoms Prior Chest Pain/Cardiac Workup: no prior chest pain, no prior cardiac workup Nitro Today/Relief: no nitro taken today Aspirin Treatment Today: 81 mg x 1 Allergies/Adverse Reactions: Sulfa (Sulfonamide Antibiotics) Allergy (Verified 07/21/21 21:15) sulfamethoxazole [From Bactrim] Allergy (Verified 07/21/21 21:15) trimethoprim [From Bactrim] Allergy (Verified 07/21/21 21:15) coconut Adverse Reaction (Verified 07/21/21 21:15) Diarrhea Home Medications: Divalproex Sodium [Depakote] 500 mg PO TID 09/03/14 [History] Paliperidone [Invega] 9 mg PO DAILY 10/17/15 [History] Furosemide 20 mg [Lasix 20 mg] 20 mg PO DAILY 05/15/18 [History] Potassium Chloride 10 Meq Tab* [Klor Con 10 MEQ] 10 meq PO DAILY 05/15/18 [History] Atorvastatin Calcium 10 mg PO DAILY 05/17/19 [History] Metformin HCl 500 mg PO BIDWM 05/17/19 [History] Trazodone HCl 50 mg [Desyrel 50 mg] 50 mg PO HS 07/21/21 [History] Hx Tetanus, Diphtheria Vaccination/Date Given: Yes Hx Influenza Vaccination/Date Given: No Hx Pneumococcal Vaccination/Date Given: No Immunizations Up to Date: Yes Travel Risk - International Travel Have you traveled outside of the country in past 3 weeks: No - Coronavirus Screening Are you exhibiting any of the following symptoms?: No Close contact with a COVID-19 positive Pt in past 14-21 Days: No - Vaccine Status Have you recieved a Covid-19 vaccination: Yes 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 - Vaccination Dates Date of 2cond Vaccination (if applicable): November 2020 Comment: Booster taken last Monday - Review of Systems Constitutional: No Symptoms Eyes: No Symptoms Ears, Nose, & Throat: No Symptoms Respiratory: Wheezing Cardiac: Chest Pain Abdominal/Gastrointestinal: No Symptoms Genitourinary Symptoms: No Symptoms Musculoskeletal: No Symptoms Skin: Skin Lesions Neurological: No Symptoms Psychological: No Symptoms Endocrine: No Symptoms Hematologic/Lymphatic: No Symptoms Immunological/Allergic: No Symptoms - Past Medical History Pertinent Past Medical History: Yes Neurological History: Peripheral Neuropathy, Seizures, TIA ENT History: Glaucoma Cardiac History: Coronary Artery Disease, High Cholesterol, Other Respiratory History: COPD Endocrine Medical History: Diabetes Type II Musculoskeletal History: Arthritis GI Medical History: Gallbladder Disease History: No Pertinent History Psycho-Social History: Bipolar, Depression Female Reproductive Disorders: No Pertinent History Other Medical History: Insomnia and history of cellulitis - Past Surgical History Past Surgical History: Yes Neuro Surgical History: No Pertinent History Cardiac: No Pertinent History Respiratory: No Pertinent History Gastrointestinal: Cholecystectomy Genitourinary: No Pertinent History Musculoskeletal: No Pertinent History Female Surgical History: Section, Tubal Ligation Other Surgical History: GANGLION CYST - Social History Smoking Status: Former smoker How long have you smoked: 0.25 Exposure to second hand smoke: Yes Drug Use: none Patient Lives Alone: Yes Significant Family History: no pertinent family hx - Nursing Vital Signs Nursing Vital Signs: Initial Vital Signs Temperature 97.8 F 07/21/21 21:18 Pulse Rate 107 H 07/21/21 21:18 Respiratory Rate 24 07/21/21 21:18 Blood Pressure 131/87 07/21/21 21:18 O2 Sat by Pulse Oximetry 94 L 07/21/21 21:18 Pain Scale Pain Intensity 2 - Physical Exam General Appearance: no apparent distress, alert Eye Exam: PERRL/EOMI Ears, Nose, Throat Exam: normal ENT inspection, pharynx normal Neck Exam: normal inspection, non-tender, full range of motion Respiratory Exam: airway intact, wheezing, No respiratory distress, No diminished breath sounds, No accessory muscle use Cardiovascular Exam: normal heart sounds, tachycardia Gastrointestinal/Abdomen Exam: soft, normal bowel sounds, No tenderness Extremity Exam: other (Chronic venous stasis with scaling/erythema. Nontender, no increased temperature) Neurologic Exam: alert, oriented x 3, cooperative Skin Exam: normal color SpO2 Interpretation: normal SpO2: 94 O2 Delivery: Room Air - Course EKG Interpreted by Me: RATE (106), Sinus Tach, NORMAL AXIS, NORMAL INTERVALS, N ORMAL QRS Ordered Tests: Active Orders 24 hr Category Date Time Status CHEST 1 VIEW (PORTABLE) Stat Exams 07/21/21 21:17 Taken CBC W DIFF Stat Lab 07/21/21 21:50 Completed CMP Stat Lab 07/21/21 21:50 Completed D-DIMER QUANTITATIVE Stat Lab 07/21/21 21:50 Completed Manual Differential NC Stat Lab 07/21/21 21:50 Completed NT PRO BNP Stat Lab 07/21/21 21:50 Completed TROPONIN Q3H Lab 07/21/21 21:50 Completed TROPONIN Q3H Lab 07/22/21 00:30 Ordered TROPONIN Q3H Lab 07/22/21 03:30 Ordered TROPONIN Q3H Lab 07/22/21 06:30 Ordered TROPONIN Q3H Lab 07/22/21 09:30 Ordered Medication Summary Discontinued Medications Generic Name Dose Route Start Last Admin Trade Name Freq PRN Reason Stop Dose Admin Al Hydrox/Mg Hydrox/Simethicone Confirm 07/21/21 21:44 Mag Hydrox/Al Hydrox/Simeth 30 Ml Udcup Administered 07/21/21 21:45 Dose 30 ml .ROUTE .STK-MED ONE Aspirin 324 mg 07/21/21 21:38 07/21/21 21:45 Aspirin 81 Mg Tab.Chew PO 07/21/21 21:39 324 mg STAT ONE Administration Lidocaine HCl Confirm 07/21/21 21:44 Lidocaine Hcl Viscous 1 Ml Administered 07/21/21 21:45 Dose 15 ml .ROUTE .STK-MED ONE Magnesium Hydroxide 45 ml 07/21/21 21:38 07/21/21 21:46 Mag Hydrx/Alum Hyd/Simeth/Lido 45 Ml Bottle PO 07/21/21 21:39 45 ml STAT ONE Administration Morphine Sulfate 4 mg 07/21/21 21:37 07/21/21 21:46 Morphine Sulfate 4 Mg/Ml Injection IV 07/21/21 21:38 4 mg STAT ONE Administration Morphine Sulfate Confirm 07/21/21 21:43 Morphine Sulfate 4 Mg/Ml Injection Administered 07/21/21 21:44 Dose 4 mg .ROUTE .STK-MED ONE Ondansetron HCl 4 mg 07/21/21 21:37 07/21/21 21:46 Ondansetron Hcl 4 Mg/2 Ml Vial IV 07/21/21 21:38 4 mg STAT ONE Administration Ondansetron HCl Confirm 07/21/21 21:43 Ondansetron Hcl 4 Mg/2 Ml Vial Administered 07/21/21 21:44 Dose 4 mg .ROUTE .STK-MED ONE Lab/Rad Data: Laboratory Result Diagrams 07/21/21 21:50 07/21/21 21:50 Laboratory Results 07/21/21 07/21/21 07/21/21 Range/Units 21:50 21:50 21:50 WBC (4.0-10.5) K/mm3 RBC (4.1-5.4) M/mm3 Hgb (12.0-16.0) gm/dl Hct (35-47) % MCV (78-100) fl MCH (26-32) pg MCHC (32-36) g/dl RDW (11.5-14.0) % Plt Count (150-450) K/mm3 MPV (7.5-11.0) fl D-Dimer 361 (215-500) ng/mL Sodium 138 (137-145) mmol/L Potassium 3.3 L (3.5-5.1) mmol/L Chloride 99 (98-107) mmol/L Carbon Dioxide 30 (22-30) mmol/L Anion Gap 12.6 (5-15) MEQ/L BUN 8 (7-17) mg/dL Creatinine 0.38 L (0.52-1.04) mg/dL Estimated GFR > 60.0 ML/MIN Glucose 242 H (74-106) mg/dL Calcium 9.1 (8.4-10.2) mg/dL Total Bilirubin 0.30 (0.2-1.3) mg/dL AST 29 (14-36) U/L ALT 29 (0-35) U/L Alkaline Phosphatase 86 (38-126) U/L Troponin I < 0.012 (0.000-0.034) ng/mL NT-Pro-B Natriuret Pep 35.1 (0-900) pg/mL Serum Total Protein 6.6 (6.3-8.2) g/dL Albumin 4.0 (3.5-5.0) g/dL 07/21/21 Range/Units 21:50 WBC 10.7 H (4.0-10.5) K/mm3 RBC 4.44 (4.1-5.4) M/mm3 Hgb 13.5 (12.0-16.0) gm/dl Hct 43.8 (35-47) % MCV 98.6 (78-100) fl MCH 30.4 (26-32) pg MCHC 30.8 L (32-36) g/dl RDW 13.9 (11.5-14.0) % Plt Count 240 (150-450) K/mm3 MPV 10.7 (7.5-11.0) fl D-Dimer (215-500) ng/mL Sodium (137-145) mmol/L Potassium (3.5-5.1) mmol/L Chloride (98-107) mmol/L Carbon Dioxide (22-30) mmol/L Anion Gap (5-15) MEQ/L BUN (7-17) mg/dL Creatinine (0.52-1.04) mg/dL Estimated GFR ML/MIN Glucose (74-106) mg/dL Calcium (8.4-10.2) mg/dL Total Bilirubin (0.2-1.3) mg/dL AST (14-36) U/L ALT (0-35) U/L Alkaline Phosphatase (38-126) U/L Troponin I (0.000-0.034) ng/mL NT-Pro-B Natriuret Pep (0-900) pg/mL Serum Total Protein (6.3-8.2) g/dL Albumin (3.5-5.0) g/dL - Progress Progress: improved, re-examined Air Movement: good Progress Note: 07/21/21 23:05 56-year-old with multiple cardiac risk factors is evaluated for left-sided chest pain intermittent for 4 days. She is given aspirin with morphine and GI cocktail, on reevaluation she had some improvement in chest pain for a few minutes but again having recurrence. Initial troponin and D-dimers are negative. Chest x-ray reviewed by me did not reveal any obvious cardiopulmonary findings. Official report is pending. Heart score more than 4, no previous cardiac work-up done in the recent past, discussed with Dr. Liu and patient is being admitted for observation. Blood Culture(s) Obtained: No Antibiotics given: No Discussed with : Joselito Will see patient in: hospital (observation) Counseled pt/family regarding: lab results, diagnosis, rad results, smoking cessation - Departure Departure Disposition: Observation Clinical Impression: Chest pain, rule out acute myocardial infarction Condition: Stable Critical Care Time: No Referrals: OLIVER LIU MD [Primary Care Provider] - Follow up/PCP as directed
[2021-07-21 21:56] LABS: Hematocrit 43.8 % (35-47); Hemoglobin 13.5 gm/dl (12.0-16.0); Mean Cell Volume 98.6 fl (78-100); Mean Corpuscular Hemoglobin 30.4 pg (26-32); Mean Corpuscular Hgb Concent. 30.8 g/dl (32-36); Mean Platelet Volume 10.7 fl (7.5-11.0); Platelet Count 240 K/mm3 (150-450); Red Blood Count 4.44 M/mm3 (4.1-5.4); Red Cell Distribution Width 13.9 % (11.5-14.0); White Blood Count 10.7 K/mm3 (4.0-10.5)
[2021-07-21 22:24] LABS: SGPT/ALT 29 U/L (0-35)
[2021-07-21 22:26] LABS: ALKALINE PHOSPHATASE 86 U/L (38-126); ANION GAP 12.6 MEQ/L (5-15); BLOOD UREA NITROGEN 8 mg/dL (7-17); CHLORIDE 99 mmol/L (98-107); Calcium 9.1 mg/dL (8.4-10.2); Carbon Dioxide 30 mmol/L (22-30); Creatinine 1 0.38 mg/dL (0.52-1.04); EST GLOMERULAR FILTRATION RATE > 60.0 ML/MIN; Glucose 242 mg/dL (74-106); NT PRO BNP 35.1 pg/mL (0-900); Potassium 3.3 mmol/L (3.5-5.1); SGOT/AST 29 U/L (14-36); SODIUM 138 mmol/L (137-145); Total Protein 6.6 g/dL (6.3-8.2)
[2021-07-21] MEDS ORDERED: NITRO-BID 2% UD PACKETS TOP ONE (23:23)
[2021-07-21 23:27] LABS: BAND 6 % (0.0-2.0); Eosinophil 2 % (0.00-3.0); Lymphocytes 21 % (24-44); Monocyte 4 % (0.0-12.0); Neutrophils 67 % (36.0-66.0); Platelet Estimate NORMAL (NORMAL); Total Cells Counted 100
[2021-07-21] MEDS ORDERED: NITRO-BID 2% UD PACKETS ONE (23:28)
[2021-07-21 23:58] LABS: INFLUENZA A NEGATIVE (NEGATIVE); INFLUENZA B NEGATIVE (NEGATIVE); RESPIRATORY SYNCTIAL VIRUS NEGATIVE (Negative); SARS-CoV-2 Xpert Express NEGATIVE (NEGATIVE)
[2021-07-22] MEDS ORDERED: Zofran 4 MG/2 ML VIAL IV PRN (00:23)
[2021-07-22] MEDS ORDERED: HUMALOG SQ PRN (00:23)
[2021-07-22] MEDS ORDERED: TYLENOL 325 MG PO PRN (00:23)
[2021-07-22] MEDS: DUONEB 0.5-3 MG/3 ml Neb IH SCH ×3 (00:55→12:01)
[2021-07-22] MEDS ORDERED: DESYREL 50 MG PO ONE (01:20)
[2021-07-22] MEDS ORDERED: Glucophage 500 MG PO ONE (01:20)
[2021-07-22] MEDS: MORPHINE SULFATE 4 MG INJ IV PRN ×2 (01:51→15:13)
[2021-07-22 04:38] LABS: ALKALINE PHOSPHATASE 91 U/L (38-126); ANION GAP 9.9 MEQ/L (5-15); BLOOD UREA NITROGEN 9 mg/dL (7-17); CHLORIDE 99 mmol/L (98-107); Carbon Dioxide 35 mmol/L (22-30); Creatinine 1 0.43 mg/dL (0.52-1.04); EST GLOMERULAR FILTRATION RATE > 60.0 ML/MIN; Glucose 94 mg/dL (74-106); Potassium 3.7 mmol/L (3.5-5.1); SGOT/AST 35 U/L (14-36); SGPT/ALT 20 U/L (0-35); SODIUM 140 mmol/L (137-145); Total Protein 6.5 g/dL (6.3-8.2)
[2021-07-22 05:35] LABS: Absolute Neutrophil Ct (ANC) 5.04 (1.4-6.9); BASOPHIL % 0.2 % (0.0-0.4); Basophil (Absolute #) 0.02 (0-0.4); Eosinophil % 1.8 % (0.00-5.0); Eosinophil (Absolute #) 0.15 (0-0.5); Hematocrit 43.3 % (35-47); Hemoglobin 13.6 gm/dl (12.0-16.0); Lymphocytes % 30.6 % (24.0-44.0); Mean Cell Volume 97.7 fl (78-100); Mean Corpuscular Hemoglobin 30.7 pg (26-32); Mean Corpuscular Hgb Concent. 31.4 g/dl (32-36); Mean Platelet Volume 10.8 fl (7.5-11.0); Monocyte (Absolute #) 0.69 (0.0-1.3); Monocytes % 8.1 % (0.0-12.0); Neutrophil % 59.3 % (36.0-66.0); Platelet Count 248 K/mm3 (150-450); Red Blood Count 4.43 M/mm3 (4.1-5.4); Red Cell Distribution Width 14.1 % (11.5-14.0); White Blood Count 8.5 K/mm3 (4.0-10.5)
--- NOTE | 2021-07-22 08:31 | PCM.SSS ---
History of Present Illness - Chief Complaint Chief Complaint: Pain rule out acute [place] History of Present Illness: is a 56 year old female who presented to the ER last night with complaints of intermittent chest pain for the last 5 days, she had a recent covid booster and noted some pain in her left chest/breast area following this. She does also have some nausea, she is not short of breath. - Review of Systems Constitutional: No Fever, No Chills Ears, Nose, & Throat: No Symptoms Respiratory: No Cough, No Short Of Breath Cardiac: Chest Pain Abdominal/Gastrointestinal: No Abdominal Pain, No Nausea, No Vomiting, No Diarrhea Genitourinary Symptoms: No Dysuria Skin: No Rash All Other Systems: Reviewed and Negative Medications & Allergies Home Medications: Home Medication List Divalproex Sodium [Depakote] 500 mg PO TID 09/03/14 [History Confirmed 07/21/21] Paliperidone [Invega] 9 mg PO DAILY 10/17/15 [History Confirmed 07/21/21] Furosemide 20 mg [Lasix 20 mg] 20 mg PO DAILY 05/15/18 [History Confirmed 07/21/21] Potassium Chloride 10 Meq Tab* [Klor Con 10 MEQ] 10 meq PO DAILY 05/15/18 [History Confirmed 07/21/21] Aspirin EC 81 mg [Ecotrin 81 mg] 81 mg PO DAILY #30 tablet.ec 05/16/18 [Rx Confirmed 07/21/21] Atorvastatin Calcium 10 mg PO DAILY 05/17/19 [History Confirmed 07/21/21] Metformin HCl 500 mg PO BIDWM 05/17/19 [History Confirmed 07/21/21] Trazodone HCl 50 mg [Desyrel 50 mg] 50 mg PO HS 07/21/21 [History Confirmed 07/21/21] Allergies/Adverse Reactions: Allergies Allergy/AdvReac Type Severity Reaction Status Date / Time Sulfa (Sulfonamide Allergy Verified 07/21/21 21:15 Antibiotics) sulfamethoxazole Allergy Verified 07/21/21 21:15 [From Bactrim] trimethoprim [From Bactrim] Allergy Verified 07/21/21 21:15 coconut AdvReac Diarrhea Verified 07/21/21 21:15 - Past Medical History Past Medical History: Yes Neurological History: Peripheral Neuropathy, Seizures, TIA ENT History: Glaucoma Cardiac History: Coronary Artery Disease, High Cholesterol, Other Respiratory History: COPD Endocrine Medical History: Diabetes Type II Musculoskelatal History: Arthritis GI Medical History: Gallbladder Disease History: No Pertinent History Pyscho-Social History: Bipolar, Depression Reproductive Disorders: No Pertinent History Comment: Insomnia and history of cellulitis - Female History Are you now?: No - Past Surgical History Past Surgical History: Yes Neuro Surgical History: No Pertinent History Cardiac History: No Pertinent History Respiratory Surgery: No Pertinent History GI Surgical History: Cholecystectomy Genitourinary Surgical Hx: No Pertinent History Musculskeletal Surgical Hx: No Pertinent History Female Surgical History: Section, Tubal Ligation Other Surgical History: GANGLION CYST - Social History Smoking Status: Former smoker How long have you smoked: 0.25 Exposure to second hand smoke: Yes Alcohol: None Drug Use: none Significant Family History: no pertinent family hx - Physical Exam Vital Signs: Vital Signs - 24 hr Temp Pulse Pulse Resp BP Pulse Ox 07/22/21 07:20 100 H 18 94 L 07/22/21 03:57 98.0 F 95 H 22 127/72 98 07/22/21 00:55 88 24 95 07/22/21 00:36 98.6 F 87 18 120/65 94 L 07/22/21 00:04 93 H 16 132/84 95 07/21/21 23:11 96 H 19 153/93 96 07/21/21 23:06 94 L 07/21/21 22:10 100 H 28 H 139/77 95 07/21/21 21:18 97.8 F 107 H 107 H 24 131/87 94 L General Appearance: no apparent distress, obese Neurologic Exam: alert, oriented x 3 Respiratory Exam: normal breath sounds, lungs clear, No respiratory distress Cardiovascular Exam: regular rate/rhythm, normal heart sounds, normal peripheral pulses Gastrointestinal/Abdomen Exam: soft, normal bowel sounds, No tenderness, No mass Skin Exam: normal color, warm, dry, No rash Results - Labs Lab/Micro Results: Lab Results-Last 24 Hours 07/21/21 07/21/21 07/21/21 Range/Units 21:50 21:50 21:50 WBC 10.7 H (4.0-10.5) K/mm3 RBC 4.44 (4.1-5.4) M/mm3 Hgb 13.5 (12.0-16.0) gm/dl Hct 43.8 (35-47) % MCV 98.6 (78-100) fl MCH 30.4 (26-32) pg MCHC 30.8 L (32-36) g/dl RDW 13.9 (11.5-14.0) % Plt Count 240 (150-450) K/mm3 MPV 10.7 (7.5-11.0) fl Gran % (36.0-66.0) % Eos # (Auto) (0-0.5) Absolute Lymphs (auto) (1.0-4.6) Absolute Monos (auto) (0.0-1.3) Lymphocytes % (24.0-44.0) % Monocytes % (0.0-12.0) % Eosinophils % (0.00-5.0) % Basophils % (0.0-0.4) % Absolute Granulocytes (1.4-6.9) Segmented Neutrophils 67 H (36.0-66.0) % Band Neutrophils 6 H (0.0-2.0) % Lymphocytes (Manual) 21 L (24-44) % Monocytes (Manual) 4 (0.0-12.0) % Eosinophils (Manual) 2 (0.00-3.0) % Basophils # (0-0.4) Platelet Estimate NORMAL (NORMAL) RBC Morphology NORMAL D-Dimer 361 (215-500) ng/mL Sodium 138 (137-145) mmol/L Potassium 3.3 L (3.5-5.1) mmol/L Chloride 99 (98-107) mmol/L Carbon Dioxide 30 (22-30) mmol/L Anion Gap 12.6 (5-15) MEQ/L BUN 8 (7-17) mg/dL Creatinine 0.38 L (0.52-1.04) mg/dL Estimated GFR > 60.0 ML/MIN Glucose 242 H (74-106) mg/dL POC Glucometer (74 to 106) mg/dL Calcium 9.1 (8.4-10.2) mg/dL Total Bilirubin 0.30 (0.2-1.3) mg/dL AST 29 (14-36) U/L ALT 29 (0-35) U/L Alkaline Phosphatase 86 (38-126) U/L Troponin I (0.000-0.034) ng/mL NT-Pro-B Natriuret Pep 35.1 (0-900) pg/mL Serum Total Protein 6.6 (6.3-8.2) g/dL Albumin 4.0 (3.5-5.0) g/dL Influenza Type A Ag (NEGATIVE) Influenza Type B Ag (NEGATIVE) RSV (PCR) (Negative) SARS-CoV-2 (PCR) (NEGATIVE) 07/21/21 07/21/21 07/22/21 Range/Units 21:50 23:17 00:23 WBC (4.0-10.5) K/mm3 RBC (4.1-5.4) M/mm3 Hgb (12.0-16.0) gm/dl Hct (35-47) % MCV (78-100) fl MCH (26-32) pg MCHC (32-36) g/dl RDW (11.5-14.0) % Plt Count (150-450) K/mm3 MPV (7.5-11.0) fl Gran % (36.0-66.0) % Eos # (Auto) (0-0.5) Absolute Lymphs (auto) (1.0-4.6) Absolute Monos (auto) (0.0-1.3) Lymphocytes % (24.0-44.0) % Monocytes % (0.0-12.0) % Eosinophils % (0.00-5.0) % Basophils % (0.0-0.4) % Absolute Granulocytes (1.4-6.9) Segmented Neutrophils (36.0-66.0) % Band Neutrophils (0.0-2.0) % Lymphocytes (Manual) (24-44) % Monocytes (Manual) (0.0-12.0) % Eosinophils (Manual) (0.00-3.0) % Basophils # (0-0.4) Platelet Estimate (NORMAL) RBC Morphology D-Dimer (215-500) ng/mL Sodium (137-145) mmol/L Potassium (3.5-5.1) mmol/L Chloride (98-107) mmol/L Carbon Dioxide (22-30) mmol/L Anion Gap (5-15) MEQ/L BUN (7-17) mg/dL Creatinine (0.52-1.04) mg/dL Estimated GFR ML/MIN Glucose (74-106) mg/dL POC Glucometer (74 to 106) mg/dL Calcium (8.4-10.2) mg/dL Total Bilirubin (0.2-1.3) mg/dL AST (14-36) U/L ALT (0-35) U/L Alkaline Phosphatase (38-126) U/L Troponin I < 0.012 < 0.012 (0.000-0.034) ng/mL NT-Pro-B Natriuret Pep (0-900) pg/mL Serum Total Protein (6.3-8.2) g/dL Albumin (3.5-5.0) g/dL Influenza Type A Ag NEGATIVE (NEGATIVE) Influenza Type B Ag NEGATIVE (NEGATIVE) RSV (PCR) NEGATIVE (Negative) SARS-CoV-2 (PCR) NEGATIVE (NEGATIVE) 07/22/21 07/22/21 07/22/21 Range/Units 04:18 04:18 04:18 WBC 8.5 (4.0-10.5) K/mm3 RBC 4.43 (4.1-5.4) M/mm3 Hgb 13.6 (12.0-16.0) gm/dl Hct 43.3 (35-47) % MCV 97.7 (78-100) fl MCH 30.7 (26-32) pg MCHC 31.4 L (32-36) g/dl RDW 14.1 H (11.5-14.0) % Plt Count 248 (150-450) K/mm3 MPV 10.8 (7.5-11.0) fl Gran % 59.3 (36.0-66.0) % Eos # (Auto) 0.15 (0-0.5) Absolute Lymphs (auto) 2.60 (1.0-4.6) Absolute Monos (auto) 0.69 (0.0-1.3) Lymphocytes % 30.6 (24.0-44.0) % Monocytes % 8.1 (0.0-12.0) % Eosinophils % 1.8 (0.00-5.0) % Basophils % 0.2 (0.0-0.4) % Absolute Granulocytes 5.04 (1.4-6.9) Segmented Neutrophils (36.0-66.0) % Band Neutrophils (0.0-2.0) % Lymphocytes (Manual) (24-44) % Monocytes (Manual) (0.0-12.0) % Eosinophils (Manual) (0.00-3.0) % Basophils # 0.02 (0-0.4) Platelet Estimate (NORMAL) RBC Morphology D-Dimer (215-500) ng/mL Sodium 140 (137-145) mmol/L Potassium 3.7 (3.5-5.1) mmol/L Chloride 99 (98-107) mmol/L Carbon Dioxide 35 H (22-30) mmol/L Anion Gap 9.9 (5-15) MEQ/L BUN 9 (7-17) mg/dL Creatinine 0.43 L (0.52-1.04) mg/dL Estimated GFR > 60.0 ML/MIN Glucose 94 (74-106) mg/dL POC Glucometer (74 to 106) mg/dL Calcium 9.0 (8.4-10.2) mg/dL Total Bilirubin 0.40 (0.2-1.3) mg/dL AST 35 (14-36) U/L ALT 20 (0-35) U/L Alkaline Phosphatase 91 (38-126) U/L Troponin I < 0.012 (0.000-0.034) ng/mL NT-Pro-B Natriuret Pep (0-900) pg/mL Serum Total Protein 6.5 (6.3-8.2) g/dL Albumin 4.0 (3.5-5.0) g/dL Influenza Type A Ag (NEGATIVE) Influenza Type B Ag (NEGATIVE) RSV (PCR) (Negative) SARS-CoV-2 (PCR) (NEGATIVE) 07/22/21 07/22/21 Range/Units 06:43 07:34 WBC (4.0-10.5) K/mm3 RBC (4.1-5.4) M/mm3 Hgb (12.0-16.0) gm/dl Hct (35-47) % MCV (78-100) fl MCH (26-32) pg MCHC (32-36) g/dl RDW (11.5-14.0) % Plt Count (150-450) K/mm3 MPV (7.5-11.0) fl Gran % (36.0-66.0) % Eos # (Auto) (0-0.5) Absolute Lymphs (auto) (1.0-4.6) Absolute Monos (auto) (0.0-1.3) Lymphocytes % (24.0-44.0) % Monocytes % (0.0-12.0) % Eosinophils % (0.00-5.0) % Basophils % (0.0-0.4) % Absolute Granulocytes (1.4-6.9) Segmented Neutrophils (36.0-66.0) % Band Neutrophils (0.0-2.0) % Lymphocytes (Manual) (24-44) % Monocytes (Manual) (0.0-12.0) % Eosinophils (Manual) (0.00-3.0) % Basophils # (0-0.4) Platelet Estimate (NORMAL) RBC Morphology D-Dimer (215-500) ng/mL Sodium (137-145) mmol/L Potassium (3.5-5.1) mmol/L Chloride (98-107) mmol/L Carbon Dioxide (22-30) mmol/L Anion Gap (5-15) MEQ/L BUN (7-17) mg/dL Creatinine (0.52-1.04) mg/dL Estimated GFR ML/MIN Glucose (74-106) mg/dL POC Glucometer 100 (74 to 106) mg/dL Calcium (8.4-10.2) mg/dL Total Bilirubin (0.2-1.3) mg/dL AST (14-36) U/L ALT (0-35) U/L Alkaline Phosphatase (38-126) U/L Troponin I < 0.012 (0.000-0.034) ng/mL NT-Pro-B Natriuret Pep (0-900) pg/mL Serum Total Protein (6.3-8.2) g/dL Albumin (3.5-5.0) g/dL Influenza Type A Ag (NEGATIVE) Influenza Type B Ag (NEGATIVE) RSV (PCR) (Negative) SARS-CoV-2 (PCR) (NEGATIVE) Accuchecks Date 07/22/21 Time 07:00 - Radiology Impressions Radiology Exams & Impressions: Radiology Procedures Category Date Time Status CHEST 1 VIEW (PORTABLE) Stat Exams 07/21/21 21:17 Taken ECHO W/2D AND DOPPLER [US] Routine Exams 07/22/21 Ordered - Other Procedures and Tests Respiratory Therapy 07/22/21 00:23 Oxygen Nasal Cannula 2 lpm 07/22/21 01:08 Respiratory Therapy Assessment DAILY Assessment/Plan (1) Chest pain, rule out acute myocardial infarction Current Visit: Yes Status: Acute Assessment & Plan: sounds atypical, plan to check echo and if negative will discharge home later today Code(s): R07.9 - CHEST PAIN, UNSPECIFIED (2) Diabetes mellitus Current Visit: No Status: Chronic Qualifiers: Code(s): E11.9 - TYPE 2 DIABETES MELLITUS WITHOUT COMPLICATIONS (3) Essential hypertension Current Visit: No Status: Chronic Code(s): I10 - ESSENTIAL (PRIMARY) HYPERTENSION (4) Lymphedema Current Visit: No Status: Chronic Code(s): I89.0 - LYMPHEDEMA, NOT ELSEWHERE CLASSIFIED Hospital Summary - Vitals & Intake/Output Vital Signs: Vital Signs Temperature 98.0 F 07/22/21 03:57 Pulse Rate 100 H 07/22/21 07:20 Respiratory Rate 18 07/22/21 07:20 Blood Pressure 127/72 07/22/21 03:57 O2 Sat by Pulse Oximetry 94 L 07/22/21 07:20 Intake & Output: Intake & Output 07/19/21 07/20/21 07/21/21 07/22/21 11:59 11:59 11:59 11:59 Intake Total 300 Balance 300 Weight 103.1 kg - Lab Result Diagrams: 07/22/21 04:18 07/22/21 04:18 Lab Results-Last 24 Hrs: Lab Results-Last 24 Hours 07/21/21 07/21/21 07/21/21 Range/Units 21:50 21:50 21:50 WBC 10.7 H (4.0-10.5) K/mm3 RBC 4.44 (4.1-5.4) M/mm3 Hgb 13.5 (12.0-16.0) gm/dl Hct 43.8 (35-47) % MCV 98.6 (78-100) fl MCH 30.4 (26-32) pg MCHC 30.8 L (32-36) g/dl RDW 13.9 (11.5-14.0) % Plt Count 240 (150-450) K/mm3 MPV 10.7 (7.5-11.0) fl Gran % (36.0-66.0) % Eos # (Auto) (0-0.5) Absolute Lymphs (auto) (1.0-4.6) Absolute Monos (auto) (0.0-1.3) Lymphocytes % (24.0-44.0) % Monocytes % (0.0-12.0) % Eosinophils % (0.00-5.0) % Basophils % (0.0-0.4) % Absolute Granulocytes (1.4-6.9) Segmented Neutrophils 67 H (36.0-66.0) % Band Neutrophils 6 H (0.0-2.0) % Lymphocytes (Manual) 21 L (24-44) % Monocytes (Manual) 4 (0.0-12.0) % Eosinophils (Manual) 2 (0.00-3.0) % Basophils # (0-0.4) Platelet Estimate NORMAL (NORMAL) RBC Morphology NORMAL D-Dimer 361 (215-500) ng/mL Sodium 138 (137-145) mmol/L Potassium 3.3 L (3.5-5.1) mmol/L Chloride 99 (98-107) mmol/L Carbon Dioxide 30 (22-30) mmol/L Anion Gap 12.6 (5-15) MEQ/L BUN 8 (7-17) mg/dL Creatinine 0.38 L (0.52-1.04) mg/dL Estimated GFR > 60.0 ML/MIN Glucose 242 H (74-106) mg/dL POC Glucometer (74 to 106) mg/dL Calcium 9.1 (8.4-10.2) mg/dL Total Bilirubin 0.30 (0.2-1.3) mg/dL AST 29 (14-36) U/L ALT 29 (0-35) U/L Alkaline Phosphatase 86 (38-126) U/L Troponin I (0.000-0.034) ng/mL NT-Pro-B Natriuret Pep 35.1 (0-900) pg/mL Serum Total Protein 6.6 (6.3-8.2) g/dL Albumin 4.0 (3.5-5.0) g/dL Influenza Type A Ag (NEGATIVE) Influenza Type B Ag (NEGATIVE) RSV (PCR) (Negative) SARS-CoV-2 (PCR) (NEGATIVE) 07/21/21 07/21/21 07/22/21 Range/Units 21:50 23:17 00:23 WBC (4.0-10.5) K/mm3 RBC (4.1-5.4) M/mm3 Hgb (12.0-16.0) gm/dl Hct (35-47) % MCV (78-100) fl MCH (26-32) pg MCHC (32-36) g/dl RDW (11.5-14.0) % Plt Count (150-450) K/mm3 MPV (7.5-11.0) fl Gran % (36.0-66.0) % Eos # (Auto) (0-0.5) Absolute Lymphs (auto) (1.0-4.6) Absolute Monos (auto) (0.0-1.3) Lymphocytes % (24.0-44.0) % Monocytes % (0.0-12.0) % Eosinophils % (0.00-5.0) % Basophils % (0.0-0.4) % Absolute Granulocytes (1.4-6.9) Segmented Neutrophils (36.0-66.0) % Band Neutrophils (0.0-2.0) % Lymphocytes (Manual) (24-44) % Monocytes (Manual) (0.0-12.0) % Eosinophils (Manual) (0.00-3.0) % Basophils # (0-0.4) Platelet Estimate (NORMAL) RBC Morphology D-Dimer (215-500) ng/mL Sodium (137-145) mmol/L Potassium (3.5-5.1) mmol/L Chloride (98-107) mmol/L Carbon Dioxide (22-30) mmol/L Anion Gap (5-15) MEQ/L BUN (7-17) mg/dL Creatinine (0.52-1.04) mg/dL Estimated GFR ML/MIN Glucose (74-106) mg/dL POC Glucometer (74 to 106) mg/dL Calcium (8.4-10.2) mg/dL Total Bilirubin (0.2-1.3) mg/dL AST (14-36) U/L ALT (0-35) U/L Alkaline Phosphatase (38-126) U/L Troponin I < 0.012 < 0.012 (0.000-0.034) ng/mL NT-Pro-B Natriuret Pep (0-900) pg/mL Serum Total Protein (6.3-8.2) g/dL Albumin (3.5-5.0) g/dL Influenza Type A Ag NEGATIVE (NEGATIVE) Influenza Type B Ag NEGATIVE (NEGATIVE) RSV (PCR) NEGATIVE (Negative) SARS-CoV-2 (PCR) NEGATIVE (NEGATIVE) 07/22/21 07/22/21 07/22/21 Range/Units 04:18 04:18 04:18 WBC 8.5 (4.0-10.5) K/mm3 RBC 4.43 (4.1-5.4) M/mm3 Hgb 13.6 (12.0-16.0) gm/dl Hct 43.3 (35-47) % MCV 97.7 (78-100) fl MCH 30.7 (26-32) pg MCHC 31.4 L (32-36) g/dl RDW 14.1 H (11.5-14.0) % Plt Count 248 (150-450) K/mm3 MPV 10.8 (7.5-11.0) fl Gran % 59.3 (36.0-66.0) % Eos # (Auto) 0.15 (0-0.5) Absolute Lymphs (auto) 2.60 (1.0-4.6) Absolute Monos (auto) 0.69 (0.0-1.3) Lymphocytes % 30.6 (24.0-44.0) % Monocytes % 8.1 (0.0-12.0) % Eosinophils % 1.8 (0.00-5.0) % Basophils % 0.2 (0.0-0.4) % Absolute Granulocytes 5.04 (1.4-6.9) Segmented Neutrophils (36.0-66.0) % Band Neutrophils (0.0-2.0) % Lymphocytes (Manual) (24-44) % Monocytes (Manual) (0.0-12.0) % Eosinophils (Manual) (0.00-3.0) % Basophils # 0.02 (0-0.4) Platelet Estimate (NORMAL) RBC Morphology D-Dimer (215-500) ng/mL Sodium 140 (137-145) mmol/L Potassium 3.7 (3.5-5.1) mmol/L Chloride 99 (98-107) mmol/L Carbon Dioxide 35 H (22-30) mmol/L Anion Gap 9.9 (5-15) MEQ/L BUN 9 (7-17) mg/dL Creatinine 0.43 L (0.52-1.04) mg/dL Estimated GFR > 60.0 ML/MIN Glucose 94 (74-106) mg/dL POC Glucometer (74 to 106) mg/dL Calcium 9.0 (8.4-10.2) mg/dL Total Bilirubin 0.40 (0.2-1.3) mg/dL AST 35 (14-36) U/L ALT 20 (0-35) U/L Alkaline Phosphatase 91 (38-126) U/L Troponin I < 0.012 (0.000-0.034) ng/mL NT-Pro-B Natriuret Pep (0-900) pg/mL Serum Total Protein 6.5 (6.3-8.2) g/dL Albumin 4.0 (3.5-5.0) g/dL Influenza Type A Ag (NEGATIVE) Influenza Type B Ag (NEGATIVE) RSV (PCR) (Negative) SARS-CoV-2 (PCR) (NEGATIVE) 07/22/21 07/22/21 Range/Units 06:43 07:34 WBC (4.0-10.5) K/mm3 RBC (4.1-5.4) M/mm3 Hgb (12.0-16.0) gm/dl Hct (35-47) % MCV (78-100) fl MCH (26-32) pg MCHC (32-36) g/dl RDW (11.5-14.0) % Plt Count (150-450) K/mm3 MPV (7.5-11.0) fl Gran % (36.0-66.0) % Eos # (Auto) (0-0.5) Absolute Lymphs (auto) (1.0-4.6) Absolute Monos (auto) (0.0-1.3) Lymphocytes % (24.0-44.0) % Monocytes % (0.0-12.0) % Eosinophils % (0.00-5.0) % Basophils % (0.0-0.4) % Absolute Granulocytes (1.4-6.9) Segmented Neutrophils (36.0-66.0) % Band Neutrophils (0.0-2.0) % Lymphocytes (Manual) (24-44) % Monocytes (Manual) (0.0-12.0) % Eosinophils (Manual) (0.00-3.0) % Basophils # (0-0.4) Platelet Estimate (NORMAL) RBC Morphology D-Dimer (215-500) ng/mL Sodium (137-145) mmol/L Potassium (3.5-5.1) mmol/L Chloride (98-107) mmol/L Carbon Dioxide (22-30) mmol/L Anion Gap (5-15) MEQ/L BUN (7-17) mg/dL Creatinine (0.52-1.04) mg/dL Estimated GFR ML/MIN Glucose (74-106) mg/dL POC Glucometer 100 (74 to 106) mg/dL Calcium (8.4-10.2) mg/dL Total Bilirubin (0.2-1.3) mg/dL AST (14-36) U/L ALT (0-35) U/L Alkaline Phosphatase (38-126) U/L Troponin I < 0.012 (0.000-0.034) ng/mL NT-Pro-B Natriuret Pep (0-900) pg/mL Serum Total Protein (6.3-8.2) g/dL Albumin (3.5-5.0) g/dL Influenza Type A Ag (NEGATIVE) Influenza Type B Ag (NEGATIVE) RSV (PCR) (Negative) SARS-CoV-2 (PCR) (NEGATIVE) Micro Results-Entire Visit: Accuchecks Date 07/22/21 Time 07:00 - Radiology Exams Ordered Rad Exams-Entire Visit: Radiology Procedures Category Date Time Status CHEST 1 VIEW (PORTABLE) Stat Exams 07/21/21 21:17 Taken ECHO W/2D AND DOPPLER [US] Routine Exams 07/22/21 Ordered - Procedures and Test Procedures and Tests throughout Hospitalization: Therapy Orders & Screens 07/22/21 00:23 Oxygen Nasal Cannula 2 lpm Comment: 07/22/21 01:08 Respiratory Therapy Assessment DAILY Comment: Diagnosis: Pain rule out acute [place] - Discharge Disposition: Home, Self-Care Condition: Stable Prescriptions: Continue Divalproex Sodium [Depakote] 500 mg PO TID Paliperidone [Invega] 9 mg PO DAILY Potassium Chloride 10 Meq Tab* [Klor Con 10 MEQ] 10 meq PO DAILY Furosemide 20 mg [Lasix 20 mg] 20 mg PO DAILY Aspirin EC 81 mg [Ecotrin 81 mg] 81 mg PO DAILY #30 tablet.ec Atorvastatin Calcium 10 mg PO DAILY Metformin HCl 500 mg PO BIDWM Trazodone HCl 50 mg [Desyrel 50 mg] 50 mg PO HS Follow up with: OLIVER LIU MD [Primary Care Provider] -
--- NOTE | 2021-07-22 09:00 | XRAY ---
Indication: Chest pain. Comparison: February 25, 2020. Portable chest demonstrates normal heart and lungs. Bony thorax intact. No new/acute abnormalities.
[2021-07-22] MEDS ORDERED: Glucophage 500 MG PO SCH (09:30)
[2021-07-22] MEDS ORDERED: MEDICATION INTERVENTION PO SCH (09:45)
[2021-07-22] MEDS ORDERED: Zocor 10MG PO SCH (10:00)
[2021-07-22] MEDS ORDERED: Klor Con 10 MEQ PO SCH (10:00)
[2021-07-22] MEDS ORDERED: PALIPERIDONE 9 MG PO SCH (10:00)
[2021-07-22] MEDS ORDERED: NON-FORMULARY ITEM (Divalproex Sodium [Depakote] 500 MG Tablet.Dr) PO SCH (10:00)
[2021-07-22] MEDS ORDERED: NON-FORMULARY ITEM (Atorvastatin Calcium [Atorvastatin Calcium] 10 MG Tablet) PO SCH (10:00)
[2021-07-22] MEDS ORDERED: LASIX 20 MG PO SCH (10:00)
[2021-07-22] MEDS ORDERED: ECOTRIN 81 MG PO SCH (10:00)
[2021-07-22] MEDS ORDERED: PROTONIX 40 MG IV IV SCH (10:00)
[2021-07-22] MEDS ORDERED: Tums EX 750 MG PO PRN (13:30)
--- NOTE | 2021-07-22 15:45 | ECHO ---
Transthoracic echocardiographic examination and color Doppler was done on 07/22/2021. INDICATION: Chest pains. IMPRESSION: 1) NO DEFINITE REGIONAL WALL MOTION ABNORMALITY. ESTIMATED GLOBAL LEFT VENTRICULAR EJECTION FRACTION OF AROUND 60%. 2) TRACE MITRAL REGURGITATION. 3) MILD TRICUSPID REGURGITATION. RIGHT VENTRICULAR SYSTOLIC PRESSURE OF 48 MM OF MERCURY SUGGESTIVE OF MILD TO MODERATE PULMONARY HYPERTENSION. 4) MILDLY DILATED RIGHT ATRIUM. The left ventricle is only partially visualized but no obvious wall motion abnormality. Estimated global left ventricular ejection fraction of around 60%. The left ventricular thickness is normal. The mitral valve is seen and this opens adequately. There is trace mitral regurgitation. Left atrium is normal. The aortic valve appears to open adequately. The peak gradient across the left ventricular outflow tract is about 17 mm of Mercury. The right side chambers appear to be mildly dilated. Right atrium appears to be mildly dilated. There is mild tricuspid regurgitation. The right ventricular systolic pressure of 48 mm of Mercury suggestive of mild to moderate pulmonary hypertension.
--- NOTE | 2021-07-22 15:52 | PCM.DCORD ---
- Discharge Disposition: Home, Self-Care Condition: Stable Prescriptions: Continue Divalproex Sodium [Depakote] 500 mg PO TID Paliperidone [Invega] 9 mg PO DAILY Potassium Chloride 10 Meq Tab* [Klor Con 10 MEQ] 10 meq PO DAILY Furosemide 20 mg [Lasix 20 mg] 20 mg PO DAILY Aspirin EC 81 mg [Ecotrin 81 mg] 81 mg PO DAILY #30 tablet.ec Atorvastatin Calcium 10 mg PO DAILY Metformin HCl 500 mg PO BIDWM Trazodone HCl 50 mg [Desyrel 50 mg] 50 mg PO HS Follow up with: OLIVER LIU MD [Primary Care Provider] - 1 Week
[2021-07-22 16:46] VITALS: BP 106/57; PULSE 88; O2SAT 95
[2021-07-22] MEDS ORDERED: DESYREL 50 MG PO SCH (22:00)
== END 2021-07-22 17:15 | disposition home or self-care (01) ==
LOC: ED 21:09 → MED SURG 07-22 00:09
PROVIDERS: ADMIT Family Medicine; ATTEND Family Medicine
DX: R07.9 Chest pain, unspecified (principal); E11.9 Type 2 diabetes mellitus without complications; I10 Essential (primary) hypertension; I89.0 Lymphedema, not elsewhere classified; E78.5 Hyperlipidemia, unspecified; I73.9 Peripheral vascular disease, unspecified; J44.9 Chronic obstructive pulmonary disease, unspecified; E66.9 Obesity, unspecified; Z79.899 Other long term (current) drug therapy; Z20.828 Contact with and (suspected) exposure to other viral communicable diseases; Z86.73 Personal history of transient ischemic attack (TIA), and cerebral infarction without residual deficits
CPT/HCPCS: 0241U; 36415; 71045; 80053; 82947; 83880; 84484; 85025; 85379; 93005; 93268; 93306; 94640; 94760; 96374; 96375; 99285; G0378; J2270; J2405; A9270-GY

== ENCOUNTER 2021-11-21 20:07 | Emergency (ER) | payer MEDICARE ==
--- NOTE | 2021-11-21 20:18 | ERPHSYRPT ---
- History of Present Illness Source: patient Exam Limitations: no limitations Severity of Symptoms-Max: moderate Severity of Symptoms-Current: moderate Context related to: other (Health issues) Associated Symptoms: anxiety, depressed, insomnia Previous symptoms: same symptoms as today Hx Tetanus, Diphtheria Vaccination/Date Given: Yes Hx Influenza Vaccination/Date Given: No Hx Pneumococcal Vaccination/Date Given: No - History of Present Illness Time Seen by Provider: 11/21/21 20:18 Physician History: This is a 56-year-old obese white female who has a history of peripheral neuropathy, COPD, seizure disorder, TIAs, bipolar disorder, depression and who is on Depakote, Invega and Rozerem medication. She is a daily smoker of cigarettes. Patient presents with insomnia for 3 days and suicidal ideation. She does not have a specific plan. She states that she cannot take the insomnia and the depression that she is feeling. She does not recall if she is taking her medicines like she should be. She is not purposely not taking them. She did not have any chest pain or shortness of breath. She denies abdominal pain. She is not had any fevers. (FRANK DAIGLE) Allergies/Adverse Reactions: Sulfa (Sulfonamide Antibiotics) Allergy (Verified 07/21/21 21:15) sulfamethoxazole [From Bactrim] Allergy (Verified 07/21/21 21:15) trimethoprim [From Bactrim] Allergy (Verified 07/21/21 21:15) coconut Adverse Reaction (Verified 07/21/21 21:15) Diarrhea Home Medications: Divalproex Sodium [Depakote] 500 mg PO TID 09/03/14 [History] Paliperidone [Invega] 9 mg PO DAILY 10/17/15 [History] Furosemide 20 mg [Lasix 20 mg] 20 mg PO DAILY 05/15/18 [History] Potassium Chloride 10 Meq Tab* [Klor Con 10 MEQ] 10 meq PO DAILY 05/15/18 [History] Atorvastatin Calcium 10 mg PO DAILY 05/17/19 [History] Metformin HCl 500 mg PO BIDWM 05/17/19 [History] Trazodone HCl 50 mg [Desyrel 50 mg] 50 mg PO HS 07/21/21 [History] Travel Risk - International Travel Have you traveled outside of the country in past 3 weeks: No - Coronavirus Screening Are you exhibiting any of the following symptoms?: No Close contact with a COVID-19 positive Pt in past 14-21 Days: No - Vaccine Status Have you recieved a Covid-19 vaccination: Yes 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 - Vaccination Dates Date of 2cond Vaccination (if applicable): November 2020 Comment: Booster 07/10 - Past Medical History Pertinent Past Medical History: Yes Neurological History: Peripheral Neuropathy, Seizures, TIA ENT History: Glaucoma Cardiac History: Coronary Artery Disease, High Cholesterol, Other Respiratory History: COPD Endocrine Medical History: Diabetes Type II Musculoskeletal History: Arthritis GI Medical History: Gallbladder Disease History: No Pertinent History Psycho-Social History: Bipolar, Depression Female Reproductive Disorders: No Pertinent History Other Medical History: Insomnia and history of cellulitis - Past Surgical History Past Surgical History: Yes Neuro Surgical History: No Pertinent History Cardiac: No Pertinent History Respiratory: No Pertinent History Gastrointestinal: Cholecystectomy Genitourinary: No Pertinent History Musculoskeletal: No Pertinent History Female Surgical History: Section, Tubal Ligation Other Surgical History: GANGLION CYST - Social History Smoking Status: Former smoker How long have you smoked: 0.25 Exposure to second hand smoke: Yes Drug Use: none Patient Lives Alone: Yes Significant Family History: no pertinent family hx - Review of Systems Constitutional: No Symptoms Eyes: No Symptoms Ears, Nose, & Throat: No Symptoms Respiratory: No Symptoms Cardiac: No Symptoms Abdominal/Gastrointestinal: No Symptoms Genitourinary Symptoms: No Symptoms Musculoskeletal: No Symptoms Skin: No Symptoms Neurological: No Symptoms Psychological: Anxiety, Depression, Suicidal Ideations, Other (Insomnia) Endocrine: No Symptoms Hematologic/Lymphatic: No Symptoms Immunological/Allergic: No Symptoms All Other Systems: Reviewed and Negative - Physical Exam General Appearance: no apparent distress, alert, anxiety, obese Eyes, Ears, Nose, Throat Exam: normal ENT inspection, moist mucous membranes Neck Exam: normal inspection, non-tender, supple, full range of motion Respiratory Exam: normal breath sounds, lungs clear, airway intact, No chest tenderness, No respiratory distress Cardiovascular Exam: regular rate/rhythm, normal heart sounds, normal peripheral pulses Gastrointestinal/Abdominal Exam: soft, normal bowel sounds, No tenderness Current Suicidality: denies suicide plan Neurological Exam: alert, normal mood/affect, calm, 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, oriented x 3 Appearance: appropriate appearance, appropriate insight, no memory impairment Behavior/Eye Contact/Speech: alert & cooperative, good eye contact Thoughts/Hallucinations: normal thought pattern, no apparent hallucination Skin Exam: normal color, warm, dry SpO2 Interpretation: normal O2 Delivery: Room Air - Nursing Vital Signs Nursing Vital Signs: Initial Vital Signs Temperature 97.9 F 11/21/21 20:41 Pulse Rate 92 H 11/21/21 20:41 Respiratory Rate 16 11/21/21 20:41 Blood Pressure 136/80 11/21/21 20:41 O2 Sat by Pulse Oximetry 98 11/21/21 20:41 Pain Scale Pain Intensity 0 - Course Nursing assessment & vital signs reviewed: Yes EKG Interpreted by Me: RATE ([id number]), Sinus Rhythm, NORMAL AXIS, NORMAL INTERVALS, NORMAL QRS, NORMAL ST-T, Other Ordered Tests: Active Orders 24 hr Category Date Time Status EKG-ER Only STAT Care 11/21/21 20:18 Active Tele-Health Consult ROUTINE Cons 11/22/21 06:39 Active ACETAMINOPHEN Stat Lab 11/21/21 20:45 Completed CBC W DIFF Stat Lab 11/21/21 20:45 Completed CMP Stat Lab 11/21/21 20:45 Completed CULTURE,URINE Stat Lab 11/21/21 20:32 Received ETHYL ALCOHOL Stat Lab 11/21/21 20:45 Completed Manual Differential NC Stat Lab 11/21/21 20:45 Completed SALICYLATE Stat Lab 11/21/21 20:45 Completed Urine Triage Profile Stat Lab 11/21/21 20:32 Completed Medication Summary Discontinued Medications Generic Name Dose Route Start Last Admin Trade Name Aria PRN Reason Stop Dose Admin Acetaminophen 650 mg 11/21/21 21:58 11/21/21 22:06 Acetaminophen 325 Mg Tablet PO 11/21/21 21:59 650 mg STAT STA Administration Acetaminophen Confirm 11/21/21 22:03 Acetaminophen 325 Mg Tablet Administered 11/21/21 22:04 Dose 650 mg .ROUTE .STK-MED ONE Lorazepam 1 mg 11/22/21 04:54 11/22/21 04:59 Lorazepam 2 Mg/1 Ml 2 Mg Vial IM 11/22/21 04:55 1 mg STAT ONE Administration Lorazepam Confirm 11/22/21 04:57 Lorazepam 2 Mg/1 Ml 2 Mg Vial Administered 11/22/21 04:58 Dose 2 mg .ROUTE .STK-MED ONE Lorazepam 1 mg 11/22/21 06:02 11/22/21 06:08 Lorazepam 2 Mg/1 Ml 2 Mg Vial IM 11/22/21 06:03 1 mg STAT ONE Administration Lorazepam Confirm 11/22/21 06:05 Lorazepam 2 Mg/1 Ml 2 Mg Vial Administered 11/22/21 06:06 Dose 2 mg .ROUTE .STK-MED ONE Lab/Rad Data: Laboratory Result Diagrams 11/21/21 20:45 11/21/21 20:45 Laboratory Results 11/22/21 11/21/21 11/21/21 Range/Units 02:22 21:00 20:45 WBC (4.0-10.5) K/mm3 RBC (4.1-5.4) M/mm3 Hgb (12.0-16.0) gm/dl Hct (35-47) % MCV (78-100) fl MCH (26-32) pg MCHC (32-36) g/dl RDW (11.5-14.0) % Plt Count (150-450) K/mm3 MPV (7.5-11.0) fl Segmented Neutrophils (36.0-66.0) % Band Neutrophils (0.0-2.0) % Lymphocytes (Manual) (24-44) % Monocytes (Manual) (0.0-12.0) % Eosinophils (Manual) (0.00-3.0) % Platelet Estimate (NORMAL) RBC Morphology Sodium 143 (137-145) mmol/L Potassium 3.6 (3.5-5.1) mmol/L Chloride 101 (98-107) mmol/L Carbon Dioxide 28 (22-30) mmol/L Anion Gap 17.6 H (5-15) MEQ/L BUN 12 (7-17) mg/dL Creatinine 0.40 L (0.52-1.04) mg/dL Estimated GFR > 60.0 ML/MIN Glucose 133 H (74-106) mg/dL Calcium 10.1 (8.4-10.2) mg/dL Total Bilirubin 0.50 (0.2-1.3) mg/dL AST 35 (14-36) U/L ALT 20 (0-35) U/L Alkaline Phosphatase 85 (38-126) U/L Serum Total Protein 7.7 (6.3-8.2) g/dL Albumin 4.8 (3.5-5.0) g/dL Urinalys Dipstick Clnc Urine Color (YELLOW) Urine Appearance (CLEAR) Urine pH (5-6) Ur Specific [place] (1.005-1.025) POC Urine Protein Conf (Negative) Urine Ketones (NEGATIVE) Urine Nitrite (NEGATIVE) Urine Bilirubin (NEGATIVE) Urine Urobilinogen (0-1) mg/dL Urine Leukocytes (NEGATIVE) Urine WBC (Auto) (0-5) /HPF Urine RBC (Auto) (0-2) /HPF U Epithel Cells (Auto) (FEW) /HPF Urine Bacteria (Auto) (NEGATIVE) /HPF Urine RBC (0-5) Kulwinder/ul Urine Mucus (Auto) (NEGATIVE) /HPF Ur Culture Indicated? Urine Glucose (NEGATIVE) mg/dL Salicylates < 1.0 L (2-20) mg/dL Urine Opiates Level (NEGATIVE) Ur Methadone (NEGATIVE) Acetaminophen < 10 L (10-30) ug/ml Urine Barbiturates (NEGATIVE) Valproic Acid 88.9 (50-100) ug/mL Ur Phencyclidine (PCP) (NEGATIVE) Urine Amphetamine (NEGATIVE) U Benzodiazepine Level (NEGATIVE) Urine Cocaine (NEGATIVE) Urine Marijuana (THC) (NEGATIVE) Ethyl Alcohol < 10 (0-10) mg/dL Influenza Type A Ag NEGATIVE (NEGATIVE) Influenza Type B Ag NEGATIVE (NEGATIVE) RSV (PCR) NEGATIVE (Negative) SARS-CoV-2 (PCR) NEGATIVE (NEGATIVE) 11/21/21 11/21/21 11/21/21 Range/Units 20:45 20:32 20:32 WBC 8.4 (4.0-10.5) K/mm3 RBC 4.67 (4.1-5.4) M/mm3 Hgb 14.6 (12.0-16.0) gm/dl Hct 46.4 (35-47) % MCV 99.4 (78-100) fl MCH 31.3 (26-32) pg MCHC 31.5 L (32-36) g/dl RDW 13.7 (11.5-14.0) % Plt Count 246 (150-450) K/mm3 MPV 10.4 (7.5-11.0) fl Segmented Neutrophils 71 H (36.0-66.0) % Band Neutrophils 5 H (0.0-2.0) % Lymphocytes (Manual) 20 L (24-44) % Monocytes (Manual) 2 (0.0-12.0) % Eosinophils (Manual) 2 (0.00-3.0) % Platelet Estimate NORMAL (NORMAL) RBC Morphology NORMAL Sodium (137-145) mmol/L Potassium (3.5-5.1) mmol/L Chloride (98-107) mmol/L Carbon Dioxide (22-30) mmol/L Anion Gap (5-15) MEQ/L BUN (7-17) mg/dL Creatinine (0.52-1.04) mg/dL Estimated GFR ML/MIN Glucose (74-106) mg/dL Calcium (8.4-10.2) mg/dL Total Bilirubin (0.2-1.3) mg/dL AST (14-36) U/L ALT (0-35) U/L Alkaline Phosphatase (38-126) U/L Serum Total Protein (6.3-8.2) g/dL Albumin (3.5-5.0) g/dL Urinalys Dipstick Clnc MAIN LAB Urine Color YELLOW (YELLOW) Urine Appearance CLEAR (CLEAR) Urine pH 6.5 (5-6) Ur Specific [place] 1.020 (1.005-1.025) POC Urine Protein Conf TRACE (Negative) Urine Ketones MODERATE-40 (NEGATIVE) Urine Nitrite NEGATIVE (NEGATIVE) Urine Bilirubin SMALL (NEGATIVE) Urine Urobilinogen 0.2 (0-1) mg/dL Urine Leukocytes NEGATIVE (NEGATIVE) Urine WBC (Auto) 6-10 (0-5) /HPF Urine RBC (Auto) 0-2 (0-2) /HPF U Epithel Cells (Auto) FEW (FEW) /HPF Urine Bacteria (Auto) RARE (NEGATIVE) /HPF Urine RBC TRACE-INTACT (0-5) Kulwinder/ul Urine Mucus (Auto) SLIGHT (NEGATIVE) /HPF Ur Culture Indicated? YES Urine Glucose NEGATIVE (NEGATIVE) mg/dL Salicylates (2-20) mg/dL Urine Opiates Level NEGATIVE (NEGATIVE) Ur Methadone NEGATIVE (NEGATIVE) Acetaminophen (10-30) ug/ml Urine Barbiturates NEGATIVE (NEGATIVE) Valproic Acid (50-100) ug/mL Ur Phencyclidine (PCP) NEGATIVE (NEGATIVE) Urine Amphetamine NEGATIVE (NEGATIVE) U Benzodiazepine Level NEGATIVE (NEGATIVE) Urine Cocaine NEGATIVE (NEGATIVE) Urine Marijuana (THC) NEGATIVE (NEGATIVE) Ethyl Alcohol (0-10) mg/dL Influenza Type A Ag (NEGATIVE) Influenza Type B Ag (NEGATIVE) RSV (PCR) (Negative) SARS-CoV-2 (PCR) (NEGATIVE) - Progress Progress: unchanged Counseled pt/family regarding: lab results, diagnosis - Progress Progress Note: 11/22/21 05:06 Medical decision making: This patient requires inpatient psychiatric treatment per [facility]. Thus far, we have attempted to place her in an inpatient facility. However no beds are available at this time. We will continue making phone calls to place the patient. Patient was told in advance it may take several hours before she is placed. Transfer of care will be made to Dr. Flynn at shift change. He will make final disposition of this patient assuming an psychiatric bed opens up during his 24-hour shift. (FRANK DAIGLE) Patient medically cleared by Dr. Daigle. Nursing staff currently working on placement. Patient here for approximately 18 hours. Patient was evaluated by [facility] who advises discharge home with a safety plan. Patient denies homicidal suicidal ideation. Per [facility]'s recommendation we will discharge patient home. Patient does not display any suicidal or homicidal behaviors or thoughts in our ED at this time. Portions of this note were created with voice recognition technology. There may be grammatical, spelling, punctuation or sound alike errors 11/22/21 17:53 (ELIAS FLYNN) - Departure Critical Care Time: No - Departure Clinical Impression: Suicidal ideation, Depression, Insomnia Condition: Stable Referrals: OLIVER LIU MD [Primary Care Provider] - Follow up/PCP as directed Additional Instructions: Take all your medications as prescribed.
[2021-11-21 20:49] LABS: Hematocrit 46.4 % (35-47); Hemoglobin 14.6 gm/dl (12.0-16.0); Mean Cell Volume 99.4 fl (78-100); Mean Corpuscular Hemoglobin 31.3 pg (26-32); Mean Corpuscular Hgb Concent. 31.5 g/dl (32-36); Mean Platelet Volume 10.4 fl (7.5-11.0); Platelet Count 246 K/mm3 (150-450); Red Blood Count 4.67 M/mm3 (4.1-5.4); Red Cell Distribution Width 13.7 % (11.5-14.0); White Blood Count 8.4 K/mm3 (4.0-10.5)
[2021-11-21 21:03] LABS: Bacteria RARE /HPF (NEGATIVE); Epithelial Cells FEW /HPF (FEW); Mucus SLIGHT /HPF (NEGATIVE); RBC 0-2 /HPF (0-2)
[2021-11-21 21:08] LABS: Appearance CLEAR (CLEAR); Bilirubin SMALL (NEGATIVE); Dipstick done @ ? MAIN LAB; Glucose NEGATIVE (NEGATIVE); Ketones MODERATE-40 (NEGATIVE); Nitrite NEGATIVE (NEGATIVE); Ph 6.5 (5-6); Protein,Urine Dip TRACE (Negative); RBC TRACE-INTACT Ery/ul (0-5); Urobilinogen 0.2 mg/dL (0-1)
[2021-11-21 21:09] LABS: Urine Cultured Indicated? YES
[2021-11-21 21:10] LABS: ACETAMINOPHEN < 10 ug/ml (10-30); ALBUMIN 4.8 g/dL (3.5-5.0); ALKALINE PHOSPHATASE 85 U/L (38-126); ANION GAP 17.6 MEQ/L (5-15); BLOOD UREA NITROGEN 12 mg/dL (7-17); CHLORIDE 101 mmol/L (98-107); Calcium 10.1 mg/dL (8.4-10.2); Carbon Dioxide 28 mmol/L (22-30); EST GLOMERULAR FILTRATION RATE > 60.0 ML/MIN; ETHYL ALCOHOL < 10 mg/dL (0-10); Glucose 133 mg/dL (74-106); Potassium 3.6 mmol/L (3.5-5.1); SALICYLATE < 1.0 mg/dL (2-20); SGOT/AST 35 U/L (14-36); SGPT/ALT 20 U/L (0-35); SODIUM 143 mmol/L (137-145); Total Protein 7.7 g/dL (6.3-8.2)
[2021-11-21 21:11] LABS: Amphetamine,Urine NEGATIVE (NEGATIVE); Barbiturate,Urine NEGATIVE (NEGATIVE); Benzodiazepine,Urine NEGATIVE (NEGATIVE); Cocaine,Urine NEGATIVE (NEGATIVE); Methadone,Urine NEGATIVE (NEGATIVE); Opiate,Urine NEGATIVE (NEGATIVE); PCP,Urine NEGATIVE (NEGATIVE); THC,Urine NEGATIVE (NEGATIVE)
[2021-11-21] MEDS ORDERED: TYLENOL 325 MG PO STA (21:58)
[2021-11-21] MEDS ORDERED: TYLENOL 325 MG ONE (22:03)
[2021-11-21 23:22] LABS: BAND 5 % (0.0-2.0); Eosinophil 2 % (0.00-3.0); Lymphocytes 20 % (24-44); Monocyte 2 % (0.0-12.0); Neutrophils 71 % (36.0-66.0); Platelet Estimate NORMAL (NORMAL); Total Cells Counted 100
[2021-11-22 03:02] LABS: INFLUENZA A NEGATIVE (NEGATIVE); INFLUENZA B NEGATIVE (NEGATIVE); RESPIRATORY SYNCTIAL VIRUS NEGATIVE (Negative); SARS-CoV-2 Xpert Express NEGATIVE (NEGATIVE)
[2021-11-22] MEDS ORDERED: Ativan 2 MG/1 ML VIAL IM ONE ×2 (04:54→06:02)
[2021-11-22] MEDS ORDERED: Ativan 2 MG/1 ML VIAL ONE ×2 (04:57→06:05)
[2021-11-22 14:57] VITALS: BP 125/71; PULSE 93; O2SAT 95
== END 2021-11-22 18:11 | disposition home or self-care (01) ==
LOC: ED 20:07
DX: R45.851 Suicidal ideations (principal); F32.A Depression, unspecified; G47.00 Insomnia, unspecified; E78.5 Hyperlipidemia, unspecified; E11.42 Type 2 diabetes mellitus with diabetic polyneuropathy; J44.9 Chronic obstructive pulmonary disease, unspecified; G40.909 Epilepsy, unspecified, not intractable, without status epilepticus; Z79.899 Other long term (current) drug therapy
CPT/HCPCS: 0241U; 36415; 80053; 80164; 80307; 81015; 85025; 87077; 87086; 87186; 90791; 93005; 96372; 99285; G0480; Q3014; J2060; A9270-GY

== ENCOUNTER 2022-01-23 13:06 | Emergency (ER) | payer MEDICARE ==
--- NOTE | 2022-01-23 13:27 | ERPHSYRPT ---
- History of Present Illness Source: patient, EMS Exam Limitations: other (Poor historian) Patient Subjective Stated Complaint: Pt states "I have been falling allot lately and I think I broke some ribs. two on the left side and top rib on the right." Triage Nursing Assessment: Pt presented alert and oriented x 3, skin pwd. Pt ambulates with a shuffling gait, moaning and yelling. PT tender to palp on the left lower and right upper chest. Physician History: Pt states that she has fallen several 3-4 times over the last week due to "lack of sleep". Pt complains of L and R lateral thoracic pain. She denies head injury/C,T, and L-spine pain/Thoracic pain/abdominal pain/Hip pain/upper-lower extremity pain. Occurred: other (Over last several days) Reason for Fall: lost balance, slipped Injuries/Pain Location: chest Loss of Consciousness: no loss of consciousness Quality: sharpness, stabbing Severity of Pain-Max: severe Severity of Pain-Current: severe Modifying Factors: Improves With: movement Associated Symptoms (Fall): chest pain Allergies/Adverse Reactions: Sulfa (Sulfonamide Antibiotics) Allergy (Verified 07/21/21 21:15) sulfamethoxazole [From Bactrim] Allergy (Verified 07/21/21 21:15) trimethoprim [From Bactrim] Allergy (Verified 07/21/21 21:15) coconut Adverse Reaction (Verified 07/21/21 21:15) Diarrhea Home Medications: Divalproex Sodium [Depakote] 500 mg PO TID 09/03/14 [History] Paliperidone [Invega] 9 mg PO DAILY 10/17/15 [History] Furosemide 20 mg [Lasix 20 mg] 20 mg PO DAILY 05/15/18 [History] Potassium Chloride Tab* [Klor Con] 10 meq PO DAILY 05/15/18 [History] Atorvastatin Calcium 10 mg PO DAILY 05/17/19 [History] Metformin HCl 500 mg PO BIDWM 05/17/19 [History] Trazodone HCl 50 mg [Desyrel 50 mg] 50 mg PO HS 07/21/21 [History] Hx Tetanus, Diphtheria Vaccination/Date Given: Yes Hx Influenza Vaccination/Date Given: No Hx Pneumococcal Vaccination/Date Given: No Immunizations Up to Date: Yes Travel Risk - International Travel Have you traveled outside of the country in past 3 weeks: No - Coronavirus Screening Are you exhibiting any of the following symptoms?: No Close contact with a COVID-19 positive Pt in past 14-21 Days: No - Vaccine Status Have you recieved a Covid-19 vaccination: Yes Integrity Director: Moderna - Vaccination Dates Date of 2cond Vaccination (if applicable): November 2020 Comment: Booster 07/10 - Review of Systems Constitutional: No Symptoms Eyes: No Symptoms Ears, Nose, & Throat: No Symptoms Respiratory: No Symptoms Cardiac: No Symptoms Abdominal/Gastrointestinal: No Symptoms Genitourinary Symptoms: No Symptoms Musculoskeletal: No Symptoms Skin: No Symptoms Neurological: No Symptoms Psychological: No Symptoms Endocrine: No Symptoms Hematologic/Lymphatic: No Symptoms Immunological/Allergic: No Symptoms - Past Medical History Pertinent Past Medical History: Yes Neurological History: Peripheral Neuropathy, Seizures, TIA ENT History: Glaucoma Cardiac History: Coronary Artery Disease, High Cholesterol, Other Respiratory History: COPD Endocrine Medical History: Diabetes Type II Musculoskeletal History: Arthritis GI Medical History: Gallbladder Disease History: No Pertinent History Psycho-Social History: Bipolar, Depression Female Reproductive Disorders: No Pertinent History Other Medical History: Insomnia and history of cellulitis - Past Surgical History Past Surgical History: Yes Neuro Surgical History: No Pertinent History Cardiac: No Pertinent History Respiratory: No Pertinent History Gastrointestinal: Cholecystectomy Genitourinary: No Pertinent History Musculoskeletal: No Pertinent History Female Surgical History: Section, Tubal Ligation Other Surgical History: GANGLION CYST - Social History Smoking Status: Former smoker How long have you smoked: 0.25 Exposure to second hand smoke: Yes Drug Use: none Patient Lives Alone: Yes Significant Family History: no pertinent family hx - Nursing Vital Signs Nursing Vital Signs: Initial Vital Signs Temperature 97.4 F 01/23/22 13:07 Pulse Rate 101 H 01/23/22 13:07 Respiratory Rate 20 01/23/22 13:07 Blood Pressure 128/88 01/23/22 13:07 O2 Sat by Pulse Oximetry 94 L 01/23/22 13:07 Pain Scale Pain Intensity 4 Tachy/Mildly tachypneic - [place] Coma Score Best Eye Response ([place]): (4) open spontaneously Best Verbal Response ([place]ha): (5) oriented Best Motor Response ([place]): (6) obeys commands Radha Total: 15 - Physical Exam General Appearance: no apparent distress Head Injury: no evidence of injury Eye Exam: PERRL/EOMI, eyes nml inspection ENT Exam: airway nml, nml ext.inspection, hearing grossly normal, No clear fluid (ears), No clear fluid (nose), No hemotympanum Neck Exam: supple, trachea midline, full range of motion, normal inspection (C- spine NTTP) Respiratory/Chest Exam: normal breath sounds, rib tenderness (R and L-lateral TTP), No respiratory distress Cardiovascular Exam: normal heart sounds, tachycardia (Mild) Gastrointestinal Exam: soft, normal bowel sounds, No tenderness Back Exam: normal inspection, normal range of motion, No CVA tenderness, No v ertebral tenderness (No T or L-spine TTP) Extremity Exam: normal inspection, normal range of motion, capillary refill <3 sec, pelvis stable Peripheral Pulses: carotid (R): 2+, carotid (L): 2+ Neurologic Exam: alert, oriented x 3, cooperative, 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, normal mood/affect, sensation nml Skin Exam: normal color, warm, dry, No rash SpO2 Interpretation: normal SpO2: 94 O2 Delivery: Room Air - CT Exams Chest CT Interpretation: Tele-radiologist Report (No fx's/Hepatic lobes hypodensity) Ordered Tests: Active Orders 24 hr Category Date Time Status CHEST WITHOUT CONTRAST [CT] Stat Exams 01/23/22 13:25 Ordered Medication Summary Discontinued Medications Generic Name Dose Route Start Last Admin Trade Name Freq PRN Reason Stop Dose Admin Ketorolac Tromethamine 15 mg 01/23/22 15:00 01/23/22 15:04 Ketorolac Tromethamine 30 Mg/Ml Inj IM 01/23/22 15:01 15 mg STAT ONE Administration Ketorolac Tromethamine Confirm 01/23/22 15:03 Ketorolac Tromethamine 30 Mg/Ml Inj Administered 01/23/22 15:04 Dose 30 mg .ROUTE .STK-MED ONE - Progress Progress: improved Progress Note: 01/23/22 15:01 15mg IM Toradol Doubt hypodensities seen on CT on R/L lobes of liver due to trauma as Abdomen soft/NTTP Counseled pt/family regarding: diagnosis, need for follow-up, rad results - Departure Departure Disposition: Home Clinical Impression: Contusion of thoracic wall Condition: Stable Critical Care Time: No Referrals: OLIVER LIU MD [Primary Care Provider] - Follow up/PCP as directed Instructions: Bruised Rib Additional Instructions: Motrin/Tylenol for pain Follow up with your family MD in 1-2 days Return to ER for increasing pain, temperature greater than 100.5, or shortness of breath
[2022-01-23] MEDS ORDERED: TORAdol 30 mg Injection IM ONE (15:00)
[2022-01-23] MEDS ORDERED: TORAdol 30 mg Injection ONE (15:03)
[2022-01-23 15:17] VITALS: BP 118/82; PULSE 94
[2022-01-23 17:38] VITALS: O2SAT 94
--- NOTE | 2022-01-23 20:12 | XRAY ---
Indication: Left lower rib pain. Recent falls. Multiple contiguous axial images obtained through the chest without contrast. Comparison: February 27, 2019 Lungs again demonstrates mild bilateral mid to lower lung subsegmental atelectasis/scarring. No new pulmonary mass, infiltrate, effusion, or pneumothorax. Heart not enlarged. Aorta again mildly arteriosclerotic without aneurysm. No pathologic mediastinal lymphadenopathy. Bony thorax intact with now minimal degenerative changes throughout the spine. Limited upper abdomen again demonstrates fatty liver with new subtle indeterminate patchy hypoattenuations. Stable cholecystectomy clips. Impression: 1. New hepatic patchy hypoattenuations better evaluated with CT liver with contrast exam. 2. Again scattered subsegmental atelectasis/scarring and fatty liver. 3. Remaining CT chest without contrast exam is negative. Comment: Preliminary interpretation made by [facility]. No critical discrepancy.
== END 2022-01-23 15:56 | disposition home or self-care (01) ==
LOC: ED 13:06
DX: S20.20XA Contusion of thorax, unspecified, initial encounter (principal); W19.XXXA Unspecified fall, initial encounter; Z91.81 History of falling; M54.6 Pain in thoracic spine; R07.89 Other chest pain; E78.5 Hyperlipidemia, unspecified; J44.9 Chronic obstructive pulmonary disease, unspecified; E11.42 Type 2 diabetes mellitus with diabetic polyneuropathy; Z79.84 Long term (current) use of oral hypoglycemic drugs; Z79.899 Other long term (current) drug therapy
CPT/HCPCS: 71250; 96372; 99284; J1885

== ENCOUNTER 2022-04-01 05:46 | Emergency (ER) | payer MEDICARE ==
[2022-04-01] MEDS ORDERED: MORPHINE SULFATE 2 MG INJ IV ONE (06:36)
[2022-04-01] MEDS ORDERED: Zofran 4 MG/2 ML VIAL IV ONE (06:37)
--- NOTE | 2022-04-01 06:46 | ERPHSYRPT ---
- History of Present Illness Time Seen by Provider: 04/01/22 06:00 Source: patient Exam Limitations: no limitations Patient Subjective Stated Complaint: pt arrived in er via SCAT. EMT states pt had fallen twice at the f that she lives at. They sent her here this am due to pain in left rib. EMT states she was hort of breath upon their arrival to the facility. pt is on a non re breather and sats are now 100%. Triage Nursing Assessment: pt alerta and oriented x4, states that she is having considerable pain in left side under rib and states that the pain started after the fall, pain is rated at 7/10. Physician History: Patient is a 57-year-old female with a history of diabetes congestive heart failure presents to our ED via scat from assisted living for evaluation of fall and pain to her left rib. Patient has a history of COPD. Patient requires oxygen at home. Patient states she normally requires 2 L nasal cannula however recently she increased her oxygen to 3 L due to shortness of breath. Patient states that she fell at home twice. Patient attributes her fall to her sock sticking to black tape on the floor. No associated chest pain or shortness of breath. No nausea vomiting or diaphoresis. No numbness tingling or weakness. Patient injured her left rib during her last fall. Patient fell towards her left side and landed with her elbow tucked into her rib. No BHT or LOC. No neck pain. Cervical spine cleared clinically. Patient complains of pain to the left rib rated 7 out of 10. Symptoms are mild to moderate in intensity. No specific worsening improving factors. Patient voices no other complaints or concerns at this time. Portions of this note were created with voice recognition technology. There may be grammatical, spelling, punctuation or sound alike errors Timing/Duration: today Severity: moderate Modifying Factors: Improves With: nothing Allergies/Adverse Reactions: Sulfa (Sulfonamide Antibiotics) Allergy (Verified 04/01/22 06:02) sulfamethoxazole [From Bactrim] Allergy (Verified 04/01/22 06:02) trimethoprim [From Bactrim] Allergy (Verified 04/01/22 06:02) coconut Adverse Reaction (Verified 04/01/22 06:02) Diarrhea Home Medications: Divalproex Sodium [Depakote] 500 mg PO TID 09/03/14 [History] Paliperidone [Invega] 9 mg PO DAILY 10/17/15 [History] Furosemide 20 mg [Lasix 20 mg] 20 mg PO DAILY 05/15/18 [History] Potassium Chloride Tab* [Klor Con] 10 meq PO DAILY 05/15/18 [History] Atorvastatin Calcium 10 mg PO DAILY 05/17/19 [History] Metformin HCl 500 mg PO BIDWM 05/17/19 [History] Trazodone HCl 50 mg [Desyrel 50 mg] 50 mg PO HS 07/21/21 [History] Hx Tetanus, Diphtheria Vaccination/Date Given: Yes Hx Influenza Vaccination/Date Given: No Hx Pneumococcal Vaccination/Date Given: No Travel Risk - International Travel Have you traveled outside of the country in past 3 weeks: No - Coronavirus Screening Are you exhibiting any of the following symptoms?: No Close contact with a COVID-19 positive Pt in past 14-21 Days: No - Vaccine Status Have you recieved a Covid-19 vaccination: Yes 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 - Vaccination Dates Date of 2cond Vaccination (if applicable): unknown - Review of Systems Constitutional: No Symptoms, No Fever, No Chills Eyes: No Symptoms Ears, Nose, & Throat: No Symptoms Respiratory: No Symptoms, No Cough, No Dyspnea Cardiac: No Symptoms, No Chest Pain, No Edema, No Syncope Abdominal/Gastrointestinal: No Symptoms, No Abdominal Pain, No Nausea, No Vomiting, No Diarrhea Genitourinary Symptoms: No Symptoms, No Dysuria Musculoskeletal: No Symptoms, No Back Pain, No Neck Pain Skin: No Symptoms, No Rash Neurological: No Symptoms, No Dizziness, No Focal Weakness, No Sensory Changes Psychological: No Symptoms Endocrine: No Symptoms Hematologic/Lymphatic: No Symptoms Immunological/Allergic: No Symptoms All Other Systems: Reviewed and Negative - Past Medical History Pertinent Past Medical History: Yes Neurological History: Peripheral Neuropathy, Seizures, TIA ENT History: Glaucoma Cardiac History: Coronary Artery Disease, High Cholesterol, Other Respiratory History: COPD Endocrine Medical History: Diabetes Type II Musculoskeletal History: Arthritis GI Medical History: Gallbladder Disease History: No Pertinent History Psycho-Social History: Bipolar, Depression Female Reproductive Disorders: No Pertinent History Other Medical History: Insomnia and history of cellulitis - Past Surgical History Past Surgical History: Yes Neuro Surgical History: No Pertinent History Cardiac: No Pertinent History Respiratory: No Pertinent History Gastrointestinal: Cholecystectomy Genitourinary: No Pertinent History Musculoskeletal: No Pertinent History Female Surgical History: Section, Tubal Ligation Other Surgical History: GANGLION CYST - Social History Smoking Status: Former smoker How long have you smoked: 0.25 Exposure to second hand smoke: Yes Drug Use: none Patient Lives Alone: Yes Significant Family History: no pertinent family hx - Nursing Vital Signs Nursing Vital Signs: Initial Vital Signs Temperature 98.7 F 04/01/22 05:52 Pulse Rate 82 04/01/22 05:52 Respiratory Rate 18 04/01/22 05:52 Blood Pressure 125/66 04/01/22 05:52 O2 Sat by Pulse Oximetry 100 04/01/22 05:52 Pain Scale Pain Intensity 7 - Physical Exam General Appearance: no apparent distress, alert Eye Exam: PERRL/EOMI, eyes nml inspection Ears, Nose, Throat Exam: normal ENT inspection, TMs normal, pharynx normal, moist mucous membranes Neck Exam: normal inspection, non-tender, supple, full range of motion Respiratory Exam: normal breath sounds, chest tenderness, lungs clear, airway intact, other (Tenderness to palpation left lateral ribs 7, 8, 9), No respiratory distress Cardiovascular Exam: regular rate/rhythm, normal heart sounds, normal peripheral pulses Gastrointestinal/Abdomen Exam: soft, normal bowel sounds, No tenderness, No mass Back Exam: normal inspection, normal range of motion, No CVA tenderness, No v ertebral tenderness Extremity Exam: normal inspection, normal range of motion, pelvis stable Neurologic Exam: alert, oriented x 3, cooperative, normal mood/affect, nml cerebellar function, nml station & gait, sensation nml, No motor deficits Skin Exam: normal color, warm, dry, No rash Lymphatic Exam: No adenopathy SpO2 Interpretation: normal SpO2: 100 O2 Delivery: Room Air - Course Nursing assessment & vital signs reviewed: Yes EKG Interpreted by Me: RATE ([id number]), Sinus Rhythm, NORMAL AXIS, NORMAL INTERVALS Ordered Tests: Active Orders 24 hr Category Date Time Status Stapler Hand STAT Care 04/01/22 06:26 Active EKG-ER Only STAT Care 04/01/22 06:25 Active IV Insertion STAT Care 04/01/22 06:25 Active Pulse Oximetry (ED) STAT Care 04/01/22 06:25 Active CHEST WITHOUT CONTRAST [CT] Stat Exams 04/01/22 06:49 Taken CBC W DIFF Stat Lab 04/01/22 06:25 Ordered CMP Stat Lab 04/01/22 06:25 Ordered NT PRO BNP Stat Lab 04/01/22 06:25 Ordered TROPONIN Q4H Lab 04/01/22 06:30 Ordered TROPONIN Q4H Lab 04/01/22 10:30 Ordered TROPONIN Q4H Lab 04/01/22 14:30 Ordered UA W/RFX CULTURE Stat Lab 04/01/22 Ordered Medication Summary Discontinued Medications Generic Name Dose Route Start Last Admin Trade Name Freleatha PRN Reason Stop Dose Admin Morphine Sulfate 2 mg 04/01/22 06:36 Morphine Sulfate 2 Mg/Ml Inj IV 04/01/22 06:37 STAT ONE Ondansetron HCl 4 mg 04/01/22 06:37 Ondansetron Hcl 4 Mg/2 Ml Vial IV 04/01/22 06:38 STAT ONE - Progress Progress: improved Progress Note: Laboratory work-up pending. Imaging studies pending. Patient endorsed to Dr. Dominguez for final disposition. 04/01/22 06:49 Counseled pt/family regarding: lab results, diagnosis, rad results - Departure Clinical Impression: Fall, Rib pain on left side, SOB (shortness of breath) Condition: Stable Critical Care Time: No Referrals: OLIVER LIU MD [Primary Care Provider] - Follow up/PCP as directed
[2022-04-01 08:29] LABS: Absolute Neutrophil Ct (ANC) 4.15 x10^3/uL (1.4-6.9); Basophil (Absolute #) 0.04 x10^3/uL (0-0.4); Eosinophil % 2.1 % (0.00-5.0); Eosinophil (Absolute #) 0.14 x10^3/uL (0-0.5); Hematocrit 38.7 % (35-47); Hemoglobin 11.2 g/dL (12.0-16.0); Lymphocyte (Absolute #) 1.54 x10^3/uL (1.0-4.6); Lymphocytes % 23.1 % (24.0-44.0); Mean Cell Volume 104.9 fL (78-100); Mean Corpuscular Hemoglobin 30.4 pg (26-32); Mean Corpuscular Hgb Concent. 28.9 g/dL (32-36); Mean Platelet Volume 9.9 fL (7.5-11.0); Monocyte (Absolute #) 0.62 x10^3/uL (0.0-1.3); Monocytes % 9.3 % (0.0-12.0); Neutrophil % 62.2 % (36.0-66.0); Platelet Count 189 x10^3/uL (150-450); Red Blood Count 3.69 x10^6/uL (4.1-5.4); Red Cell Distribution Width 14.6 % (11.5-14.0); White Blood Count 6.7 x10^3/uL (4.0-10.5)
[2022-04-01 08:33] LABS: ALBUMIN 3.6 g/dL (3.5-5.0); ALKALINE PHOSPHATASE 95 U/L (38-126); BLOOD UREA NITROGEN 11 mg/dL (7-17); CHLORIDE 92 mmol/L (98-107); Calcium 9.1 mg/dL (8.4-10.2); EST GLOMERULAR FILTRATION RATE > 60.0 ML/MIN; Glucose 125 mg/dL (74-106); Potassium 4.3 mmol/L (3.5-5.1); SGOT/AST 27 U/L (14-36); SGPT/ALT 15 U/L (0-35); SODIUM 141 mmol/L (137-145); Total Protein 6.6 g/dL (6.3-8.2)
[2022-04-01 08:36] LABS: ANION GAP 12.3 MEQ/L (5-15); Carbon Dioxide 40 mmol/L (22-30)
[2022-04-01 08:40] LABS: Appearance CLEAR (CLEAR); Bacteria RARE /HPF (NEGATIVE); Bilirubin SMALL (NEGATIVE); Epithelial Cells RARE /HPF (FEW); Glucose 100 mg/dL (NEGATIVE); Ketones TRACE (NEGATIVE); Mucus SLIGHT /HPF (NEGATIVE); Protein,Urine Dip NEGATIVE (Negative); RBC NEGATIVE Ery/ul (0-5); Specific Gravity 1.025 (1.005-1.025)
[2022-04-01 08:41] LABS: Dipstick done @ ? MAIN LAB; Nitrite NEGATIVE (NEGATIVE); Urine Cultured Indicated? YES; Urobilinogen 0.2 mg/dL (0-1)
[2022-04-01 08:47] LABS: Slide Review 1 YES
--- NOTE | 2022-04-01 09:07 | XRAY ---
Indication: Left anterior rib pain following fall. Multiple contiguous images obtained through the chest without contrast. Comparison: January 23, 2022 Lungs again demonstrates scattered bilateral subsegmental atelectasis/scarring greatest in both lung bases. No suspicious pulmonary mass, infiltrate, effusion, or pneumothorax. Heart borderline enlarged. Aorta again mildly arteriosclerotic without aneurysm. No pathologic mediastinal lymphadenopathy. Bony thorax intact again with minimal degenerative changes throughout the spine. Limited upper abdomen again demonstrates fatty liver with subtle indeterminant patchy hypoattenuation, cholecystectomy clips, and 1.3 cm left adrenal adenoma. Impression: 1. Again scattered subsegmental atelectasis/scarring, left adrenal adenoma, fatty liver, and indeterminant hepatic hypoattenuations. 2. Remaining CT chest without contrast exam is again negative.
[2022-04-01] MEDS ORDERED: Levofloxacin 500 MG Tablet PO ONE (10:53)
[2022-04-01] MEDS ORDERED: Levofloxacin 500 MG Tablet ONE (11:15)
[2022-04-01 12:41] VITALS: PULSE 105; O2SAT 92
[2022-04-01 13:28] VITALS: BP 121/70
[2022-04-01 13:41] LABS: INFLUENZA A NEGATIVE (NEGATIVE); INFLUENZA B NEGATIVE (NEGATIVE); RESPIRATORY SYNCTIAL VIRUS NEGATIVE (Negative); SARS-CoV-2 Xpert Express NEGATIVE (NEGATIVE)
== END 2022-04-01 14:25 | disposition home or self-care (01) ==
LOC: ED 05:46
DX: R07.81 Pleurodynia (principal); W01.0XXA Fall on same level from slipping, tripping and stumbling without subsequent striking against object, initial encounter; Z91.81 History of falling; R06.02 Shortness of breath; N39.0 Urinary tract infection, site not specified; E78.5 Hyperlipidemia, unspecified; J44.9 Chronic obstructive pulmonary disease, unspecified; E11.42 Type 2 diabetes mellitus with diabetic polyneuropathy; Z79.899 Other long term (current) drug therapy; Z99.81 Dependence on supplemental oxygen; Z20.828 Contact with and (suspected) exposure to other viral communicable diseases
CPT/HCPCS: 0241U; 36000; 36415; 71250; 80053; 80164; 81015; 83880; 84484; 85025; 87077; 87086; 87186; 93005; 93041; 94760; 96374; 96375; 99284; P9612; J2270; J2405; A9270-GY